=== PATIENT | male | born 1955 | race Caucasian/White ===

== ENCOUNTER → 2016-05-18 | Emergency (ER) | payer MEDICARE, MEDICAID ==
[2016-05-18 15:06] VITALS: BP 127/70
== END | disposition left against medical advice (07) ==
LOC: ED 14:58
DX: R56.9 Unspecified convulsions (principal)

== ENCOUNTER 2016-05-22 14:36 | Inpatient (IN) | payer MEDICARE, MEDICAID ==
[2016-05-22 15:24] LABS: Hematocrit 43 % (42-52); Hemoglobin 14.5 g/dl (14.0-18.0); Mean Corpuscular HGB Conc 34 g/dl (31-36); Mean Corpuscular Hemoglobin 33 pg (27-31); Mean Corpuscular Volume 97 fL (80-94); Mean Platelet Volume 8 um3 (7.4-10.4); Red Blood Count 4.44 10^6/ul (4.0-5.4); Red Cell Distribution Width 14 % (10.5-15); White Blood Count 6.4 10^3/ul (3.5-10.8)
[2016-05-22 15:27] LABS: Urine Bilirubin Negative (Negative); Urine Glucose 3+(>=500 mg/dL) (Negative); Urine Nitrite Negative (Negative)
[2016-05-22 15:38] LABS: ALT 15 U/L (7-52); AST 12 U/L (13-39); Albumin 3.5 g/dL (3.2-5.2); Alkaline Phosphatase 100 U/L (34-104); Anion Gap 6 mmol/L (2-11); BUN/Creatinine Ratio 21.4 (8-20); Blood Urea Nitrogen 15 mg/dL (6-24); C Reactive Protein 31.65 mg/L (< 5.00); CO2 Carbon Dioxide 24 mmol/L (22-32); Calcium 8.7 mg/dL (8.6-10.3); Chloride 101 mmol/L (101-111); Creatine Kinase 15 U/L (10-223); EGFR African American 147.4 (>60); EGFR Non-African American 114.6 (>60); Globulin 2.9 g/dL (2-4); Glucose 464 mg/dL (70-100); Lipase 43 U/L (11.0-82.0); Magnesium 1.7 mg/dL (1.9-2.7); Potassium 4.3 mmol/L (3.5-5.0); Sodium 131 mmol/L (133-145); Total Protein 6.4 g/dL (6.4-8.9)
[2016-05-22 16:16] LABS: Acetaminophen < 15 mcg/mL; Alcohol < 10 mg/dL (<10); Carbamazepine 9.3 mcg/mL (4.0-12.0); TSH (Thyroid Stimulating Horm) 1.29 mcIU/mL (0.34-5.60)
--- NOTE | 2016-05-22 16:28 | ED ---
Lane Guallpa Matthew, scribed for Binu Georges MD on 05/22/16 at 1513 . Altered Mental Status - HPI Summary HPI Summary: A 61 y/o male presents to the ED with an altered mental status since today. The home appliances mechanic called EMS, because the patient seems to have a worse altered mental status than normal. He has a Hx of seizures and was hospitalized at [facility] two weeks ago, where he left AMA twice. Associated symptoms include urinary incontinence. The patient does not understand why he's here today. He does not believe he had a seizure today. - History Of Current Complaint Chief Complaint: EDAltMentalStatus Stated Complaint: AMS Time Seen by Provider: 05/22/16 14:50 Hx Obtained From: Patient Onset/Duration: Still Present Timing: Constant Severity Initially: Moderate Severity Currently: Moderate Character: Agitation Aggravating Factor(s): Other - Seizures Alleviating Factor(s): Nothing - Allergies/Home Medications Allergies/Adverse Reactions: Allergies Allergy/AdvReac Type Severity Reaction Status Date / Time Penicillins Allergy Severe Hives Verified 09/22/15 12:47 Erythromycin Allergy Unknown Hives Verified 09/22/15 12:47 Azithromycin Allergy Hives Verified 09/22/15 12:47 Cephalosporins Allergy Hives Verified 09/22/15 12:47 Home Medications: Home Medications DOXYcycline CAP(*) [DOXYcycline 100MG CAP(*)] 100 mg PO BID 05/22/16 [History Confirmed 05/22/16] Magnesium Oxide TAB* [MagOx 400 TAB*] 800 mg PO QAM 05/22/16 [History Confirmed 05/22/16] Nitroglycerin TAB 0.4 MG* 0.4 mg SL Q5M PRN 05/22/16 [History Confirmed 05/22/16 ] Tiagabine HCl [Gabitril] 16 mg PO DAILY 05/22/16 [History Confirmed 05/22/16] carBAMazepine ER TAB(*) [TEGretol Xr TAB(*)] 400 mg PO QAM 05/22/16 [History Confirmed 05/22/16] carBAMazepine ER TAB(*) [TEGretol Xr TAB(*)] 800 mg PO QPM 05/22/16 [History Confirmed 05/22/16] PMH/Surg Hx/FS Hx/Imm Hx Endocrine/Hematology History: Reports: Hx Diabetes Cardiovascular History: Reports: Hx Angina, Hx Coronary Artery Disease, Hx Hypercholesterolemia, Hx Hypertension, Hx Myocardial Infarction Denies: Hx Pacemaker/ICD Respiratory History: Reports: Hx Chronic Obstructive Pulmonary Disease (COPD) GI History: Reports: Hx Gastroesophageal Reflux Disease Musculoskeletal History: Reports: Hx Orthopedic Injury - RIGHT LEG FRACTURE 2014 Denies: Hx Scoliosis Sensory History: Reports: Hx Contacts or Glasses, Hx Eye Injury, Other Sensory Impairments Denies: Hx Hearing Aid Opthamlomology History: Reports: Hx Contacts or Glasses, Hx Eye Injury, Other Sensory Impairments Neurological History: Reports: Hx Seizures Psychiatric History: Reports: Hx Anxiety, Hx Depression, Hx Panic Disorder - Surgical History Surgery Procedure, Year, and Place: GB removed,cardiac stents PROMUS drug eluting stent 07/15 at [facility] [place] and 04/13 at [facility] pt does not have his implant cards.SURGERY TO LEFT SHOULDER 1985 PER PT Infectious Disease History: No Infectious Disease History: Denies: Traveled Outside the [place] in Last 30 Days - Family History Family History: No FHx of seizures - Social History Alcohol Use: None Alcohol Amount: unknown; patient not answering questions appropiately Hx Substance Use: No Substance Use Type: Reports: None Substance Use Comment - Amount & Last Used: unknown; patient not answering questions appropriately Hx Tobacco Use: Yes Smoking Status (MU): Heavy Every Day Tobacco Smoker Type: Cigarettes Review of Systems Constitutional: Negative Eyes: Negative ENT: Negative Cardiovascular: Negative Respiratory: Negative Gastrointestinal: Negative Positive: incontinence Musculoskeletal: Negative Skin: Negative Neurological: Negative Psychological: Other - AMS All Other Systems Reviewed And Are Negative: Yes Physical Exam Triage Information Reviewed: Yes Vital Signs On Initial Exam: Initial Vitals Temp Pulse Resp BP Pulse Ox 98.8 F 66 16 94/64 95 05/22/16 14:46 05/22/16 14:46 05/22/16 14:46 05/22/16 14:46 05/22/16 14:46 Vital Signs Reviewed: Yes Appearance: Positive: Well-Appearing, No Pain Distress Skin: Positive: Warm, Skin Color Reflects Adequate Perfusion, Dry Eyes: Positive: EOMI, REA ENT: Positive: Normal ENT inspection Neck: Positive: Supple, Nontender Respiratory/Lung Sounds: Positive: Clear to Auscultation, Breath Sounds Present Cardiovascular: Positive: RRR Abdomen Description: Positive: Nontender, Soft Bowel Sounds: Positive: Present Musculoskeletal: Positive: Normal, Strength/ROM Intact Neurological: Positive: Normal, Sensory/Motor Intact, Alert, Oriented to Person Place, Time Psychiatric: Positive: Normal, Affect/Mood Appropriate Diagnostics - Vital Signs Vital Signs Temp Pulse Resp BP Pulse Ox 05/22/16 14:46 98.8 F 66 16 94/64 95 - Laboratory Lab Results: Lab Results 05/22/16 05/22/16 05/22/16 Range/Units 14:55 14:55 14:55 WBC 6.4 (3.5-10.8) 10^3/ul RBC 4.44 (4.0-5.4) 10^6/ul Hgb 14.5 (14.0-18.0) g/dl Hct 43 (42-52) % MCV 97 H (80-94) fL MCH 33 H (27-31) pg MCHC 34 (31-36) g/dl RDW 14 (10.5-15) % Plt Count 218 (150-450) 10^3/ul MPV 8 (7.4-10.4) um3 Neut % (Auto) 48.9 (38-83) % Lymph % (Auto) 42.9 (25-47) % [place] % (Auto) 7.1 (1-9) % Eos % (Auto) 0.6 (0-6) % Baso % (Auto) 0.5 (0-2) % Absolute Neuts (auto) 3.1 (1.5-7.7) 10^3/ul Absolute Lymphs (auto) 2.7 (1.0-4.8) 10^3/ul Absolute Monos (auto) 0.5 (0-0.8) 10^3/ul Absolute Eos (auto) 0 (0-0.6) 10^3/ul Absolute Basos (auto) 0 (0-0.2) 10^3/ul Absolute Nucleated RBC 0 10^3/ul Nucleated RBC % 0.1 INR (Anticoag Therapy) 0.90 (0.89-1.11) APTT 32.3 (26.0-36.3) seconds Sodium (133-145) mmol/L Potassium (3.5-5.0) mmol/L Chloride (101-111) mmol/L Carbon Dioxide (22-32) mmol/L Anion Gap (2-11) mmol/L BUN (6-24) mg/dL Creatinine (0.67-1.17) mg/dL Est GFR ( Amer) (>60) Est GFR (Non-Af Amer) (>60) BUN/Creatinine Ratio (8-20) Glucose (70-100) mg/dL Lactic Acid (0.5-2.0) mmol/L Calcium (8.6-10.3) mg/dL Magnesium (1.9-2.7) mg/dL Total Bilirubin (0.2-1.0) mg/dL AST (13-39) U/L ALT (7-52) U/L Alkaline Phosphatase (34-104) U/L Ammonia (16-53) mol/L Total Creatine Kinase (10-223) U/L CK-MB (CK-2) (0.6-6.3) ng/mL Troponin I (<0.04) ng/mL C-Reactive Protein (< 5.00) mg/L B-Natriuretic Peptide ( - 100) pg/mL Total Protein (6.4-8.9) g/dL Albumin (3.2-5.2) g/dL Globulin (2-4) g/dL Albumin/Globulin Ratio (1-3) Lipase (11.0-82.0) U/L TSH (0.34-5.60) mcIU/mL Urine Color Yellow Urine Appearance Clear Urine pH 5.0 (5-9) Ur Specific [place] 1.028 (1.010-1.030) Urine Protein Negative (Negative) Urine Ketones Trace H (Negative) Urine Blood Negative (Negative) Urine Nitrate Negative (Negative) Urine Bilirubin Negative (Negative) Urine Urobilinogen Negative (Negative) Ur Leukocyte Esterase Negative (Negative) Urine Glucose 3+(>=500 mg/dl) H (Negative) Acetaminophen mcg/mL Carbamazepine (4.0-12.0) mcg/mL Serum Alcohol (<10) mg/dL 05/22/16 05/22/16 05/22/16 Range/Units 14:55 14:55 14:55 WBC (3.5-10.8) 10^3/ul RBC (4.0-5.4) 10^6/ul Hgb (14.0-18.0) g/dl Hct (42-52) % MCV (80-94) fL MCH (27-31) pg MCHC (31-36) g/dl RDW (10.5-15) % Plt Count (150-450) 10^3/ul MPV (7.4-10.4) um3 Neut % (Auto) (38-83) % Lymph % (Auto) (25-47) % [place] % (Auto) (1-9) % Eos % (Auto) (0-6) % Baso % (Auto) (0-2) % Absolute Neuts (auto) (1.5-7.7) 10^3/ul Absolute Lymphs (auto) (1.0-4.8) 10^3/ul Absolute Monos (auto) (0-0.8) 10^3/ul Absolute Eos (auto) (0-0.6) 10^3/ul Absolute Basos (auto) (0-0.2) 10^3/ul Absolute Nucleated RBC 10^3/ul Nucleated RBC % INR (Anticoag Therapy) (0.89-1.11) APTT (26.0-36.3) seconds Sodium 131 L (133-145) mmol/L Potassium 4.3 (3.5-5.0) mmol/L Chloride 101 (101-111) mmol/L Carbon Dioxide 24 (22-32) mmol/L Anion Gap 6 (2-11) mmol/L BUN 15 (6-24) mg/dL Creatinine 0.70 (0.67-1.17) mg/dL Est GFR ( Amer) 147.4 (>60) Est GFR (Non-Af Amer) 114.6 (>60) BUN/Creatinine Ratio 21.4 H (8-20) Glucose 464 H (70-100) mg/dL Lactic Acid 0.6 (0.5-2.0) mmol/L Calcium 8.7 (8.6-10.3) mg/dL Magnesium 1.7 L (1.9-2.7) mg/dL Total Bilirubin 0.30 (0.2-1.0) mg/dL AST 12 L (13-39) U/L ALT 15 (7-52) U/L Alkaline Phosphatase 100 (34-104) U/L Ammonia (16-53) mol/L Total Creatine Kinase 15 (10-223) U/L CK-MB (CK-2) 1.4 (0.6-6.3) ng/mL Troponin I 0.00 (<0.04) ng/mL C-Reactive Protein 31.65 H (< 5.00) mg/L B-Natriuretic Peptide 20 ( - 100) pg/mL Total Protein 6.4 (6.4-8.9) g/dL Albumin 3.5 (3.2-5.2) g/dL Globulin 2.9 (2-4) g/dL Albumin/Globulin Ratio 1.2 (1-3) Lipase 43 (11.0-82.0) U/L TSH 1.29 (0.34-5.60) mcIU/mL Urine Color Urine Appearance Urine pH (5-9) Ur Specific [place] (1.010-1.030) Urine Protein (Negative) Urine Ketones (Negative) Urine Blood (Negative) Urine Nitrate (Negative) Urine Bilirubin (Negative) Urine Urobilinogen (Negative) Ur Leukocyte Esterase (Negative) Urine Glucose (Negative) Acetaminophen < 15 mcg/mL Carbamazepine 9.3 (4.0-12.0) mcg/mL Serum Alcohol < 10 (<10) mg/dL 05/22/16 Range/Units 15:20 WBC (3.5-10.8) 10^3/ul RBC (4.0-5.4) 10^6/ul Hgb (14.0-18.0) g/dl Hct (42-52) % MCV (80-94) fL MCH (27-31) pg MCHC (31-36) g/dl RDW (10.5-15) % Plt Count (150-450) 10^3/ul MPV (7.4-10.4) um3 Neut % (Auto) (38-83) % Lymph % (Auto) (25-47) % [place] % (Auto) (1-9) % Eos % (Auto) (0-6) % Baso % (Auto) (0-2) % Absolute Neuts (auto) (1.5-7.7) 10^3/ul Absolute Lymphs (auto) (1.0-4.8) 10^3/ul Absolute Monos (auto) (0-0.8) 10^3/ul Absolute Eos (auto) (0-0.6) 10^3/ul Absolute Basos (auto) (0-0.2) 10^3/ul Absolute Nucleated RBC 10^3/ul Nucleated RBC % INR (Anticoag Therapy) (0.89-1.11) APTT (26.0-36.3) seconds Sodium (133-145) mmol/L Potassium (3.5-5.0) mmol/L Chloride (101-111) mmol/L Carbon Dioxide (22-32) mmol/L Anion Gap (2-11) mmol/L BUN (6-24) mg/dL Creatinine (0.67-1.17) mg/dL Est GFR ( Amer) (>60) Est GFR (Non-Af Amer) (>60) BUN/Creatinine Ratio (8-20) Glucose (70-100) mg/dL Lactic Acid (0.5-2.0) mmol/L Calcium (8.6-10.3) mg/dL Magnesium (1.9-2.7) mg/dL Total Bilirubin (0.2-1.0) mg/dL AST (13-39) U/L ALT (7-52) U/L Alkaline Phosphatase (34-104) U/L Ammonia 39 (16-53) mol/L Total Creatine Kinase (10-223) U/L CK-MB (CK-2) (0.6-6.3) ng/mL Troponin I (<0.04) ng/mL C-Reactive Protein (< 5.00) mg/L B-Natriuretic Peptide ( - 100) pg/mL Total Protein (6.4-8.9) g/dL Albumin (3.2-5.2) g/dL Globulin (2-4) g/dL Albumin/Globulin Ratio (1-3) Lipase (11.0-82.0) U/L TSH (0.34-5.60) mcIU/mL Urine Color Urine Appearance Urine pH (5-9) Ur Specific [place] (1.010-1.030) Urine Protein (Negative) Urine Ketones (Negative) Urine Blood (Negative) Urine Nitrate (Negative) Urine Bilirubin (Negative) Urine Urobilinogen (Negative) Ur Leukocyte Esterase (Negative) Urine Glucose (Negative) Acetaminophen mcg/mL Carbamazepine (4.0-12.0) mcg/mL Serum Alcohol (<10) mg/dL Result Diagrams: 05/22/16 14:55 05/22/16 14:55 Lab Statement: Any lab studies that have been ordered have been reviewed, and results considered in the medical decision making process. Altered Mental Statu Course/Dx - Course Assessment/Plan: DISCUSSED WITH DR ELIAS. PATIENT IS NOT BEING TREATED FOR DIABETES. THE UNCONTROLLED DIABETES IS PROBABLY CAUSING INCREASED SEIZURE ACTIVITY. ADMIT HOSPITALIST STABLE TO START DIABETES TREATMENT TO HELP CONTROL SEIZURES. - Diagnoses Discharge Diagnoses: Seizures, Diabetes mellitus, new onset - Provider Notifications Discussed Care Of Patient With: Dr. Elias (Neurology) at 15:15 -- Notified of patient's history. Discharge - Discharge Plan Condition: Stable Disposition: ADMITTED TO [facility] The documentation as recorded by the Lane gabriel Matthew accurately reflects the service I personally performed and the decisions made by , Binu Georges MD.
[2016-05-22] MEDS ORDERED: Dextrose 50% Syringe 50 ML* 25 GM/50 ML SYRINGE IV PUSH PRN (16:41)
[2016-05-22] MEDS ORDERED: Ondansetron INJ* 2 MG/ML VIAL IV PRN (16:41)
[2016-05-22] MEDS ORDERED: Acetaminophen TAB* 325 MG PO PRN (16:41)
[2016-05-22] MEDS ORDERED: LORazepam TAB(*) 1 MG PO PRN (16:45)
[2016-05-22] MEDS ORDERED: Magnesium Sulfate 2 GM IV* 2 GM/50 ML BAG IVPB ONE (17:28)
[2016-05-22] MEDS ORDERED: Albuterol 2.5 MG/3 ML NEB.SOL* (0.083%) INH PRN (17:28)
--- NOTE | 2016-05-22 19:05 | HP ---
HISTORY AND PHYSICAL: DATE OF ADMISSION: 05/22/16 ATTENDING PHYSICIAN: Dr. Mack Lyons* (report dictated by Rodrick Doyle NP) . PRIMARY CARE PROVIDER: ROSA Pabon CONSULTING PSYCHIATRIST: Dr. Ordonez. CONSULTING NEUROLOGIST: Dr. Stahl. CHIEF COMPLAINT: Altered mental status. HISTORY OF PRESENT ILLNESS: Mr. Durham is a 61-year-old male patient. He has an extensive medical history with history of epilepsy, diabetes, CAD, hypertension , COPD, tobacco abuse, GERD, depression, anxiety, panic disorder, bipolar disorder, and history of hepatic encephalopathy, thought to be secondary to Depakote use. He comes in today and he is really unsure as to why he is here today, but according to reports of nursing notes and from the EMS notes, the patient was found by, I believe, the pillowcase maker or his aide to be confused, found to be incontinent of urine, and there was concern for seizure, so the patient was brought into the hospital. He was recently in [facility] and signed out AMA. He was just here in our ER 4 days ago for similar complaints. He comes in today because there was noted again altered mental status and he had question of seizure and incontinence. The patient when asking him if he remembers any of these events, he says no, he says he feels fine. He says he has not been ill of late. He denies having any fevers. No nausea, vomiting, or diarrhea. He denies having any chest pain or shortness of breath. No recent URI symptoms. Denies having any fevers or changes in medications. He says he has been taking medications right along and he also denies being diabetic, although when I stated him he was admitted almost 2 years ago with sugars of 880, he says he does not recall this. The patient noted today to have a sugar of almost 500. There was concern for possible seizures related to poor glucose control and the hospitalist service was asked to evaluate for admission. PAST MEDICAL HISTORY: Significant for: 1. Epilepsy with complex seizures. 2. Diabetes. 3. CAD. 4. Hypertension. 5. COPD. 6. Tobacco abuse. 7. GERD. 8. Depression. 9. Anxiety. 10. Panic disorder. 11. Hepatic encephalopathy thought secondary to Depakote use. 12. Bipolar disorder. PAST SURGICAL HISTORY: The patient has had laparoscopic cholecystectomy. MEDICATIONS: Home meds according to the list that he provided to us include: 1. Tegretol 400 mg in the morning and 800 mg at bedtime. 2. Ambien 5 mg at bedtime. 3. Nitro 0.4 mg q.5 minutes x3 p.r.n. chest pain. 4. Vimpat 300 mg p.o. twice a day. 5. Crestor 40 mg daily. 6. Toprol 100 mg p.o. daily. 7. Zoloft 200 mg daily. 8. Mag-Ox 800 mg daily. 9. Zantac 150 mg at bedtime. 10. Zyprexa 10 mg at bedtime. 11. Ativan 2 mg every 8 hours as needed for anxiety. 12. Prevacid 30 mg daily. 13. Plavix 75 mg daily. 14. Remeron 30 mg at bedtime. 15. Gabitril 16 mg p.o. daily. 16. Singulair 10 mg daily. 17. Ibuprofen 800 mg p.o. t.i.d. as needed. 18. Aspirin 81 mg daily. 19. Ranexa 500 mg p.o. twice a day. 20. Zetia 10 mg daily. ALLERGIES TO MEDICATIONS: Include PENICILLIN, ERYTHROMYCIN, AZITHROMYCIN, and CEPHALOSPORINS. FAMILY HISTORY: Mother had heart attack. Father had history of pneumonia. SOCIAL HISTORY: He is about a-sdij-s-day smoker. He does not drink alcohol. He does not appoint a surrogate decision maker at this point. REVIEW OF SYSTEMS: There is no documented fever. He denied any significant weight change. No double vision. No ear discharge, no rhinorrhea. No sore throat. No thyroid enlargement. Denies having any chest pain. There is no orthopnea, no nocturnal dyspnea. There is no abdominal pain. No nausea, no vomiting. No dysuria, no frequency. No loss of consciousness. No pruritus and no skin ulceration. Review of 14 systems completed, all others negative. PHYSICAL EXAMINATION GENERAL: At this time, Mr. Durham is a 61-year-old male patient, appears to be chronically ill. He is sitting in the ER stretcher and does not appear to be in any acute distress. VITAL SIGNS: Reveal blood pressure of 111/65 with pulse of 67, respirations 18 , O2 sat 97%, and temperature 98.8. HEENT: Head is atraumatic, normocephalic. Eyes: EOMs intact. Sclerae anicteric. Throat: Oral mucosa appears to be dry. No oropharyngeal erythema. NECK: Supple. LUNGS: He had wheeze noted throughout. Equal diaphragmatic expansion. HEART: Sounds S1, S2. Regular rate and rhythm. No murmurs, rubs, or gallops. ABDOMEN: Soft, flat, and nontender. Bowel sounds are present. EXTREMITIES: Pulses 2+ throughout. He is able to move all 4 extremities with 5 /5 strength. NEUROLOGIC: He is awake, he is alert, he is oriented to person, time, and place. He had no gross focal deficits. SKIN: Intact. DIAGNOSTIC STUDIES/LAB DATA: Today revealed WBC of 6.4, RBC of 4.44, hemoglobin 14.5, hematocrit of 43, and platelet count of 218. The INR was 0.90 , PT of 32.3. Sodium 131, potassium 4.3, chloride of 101, bicarb 24, BUN 15, creatinine of 0.70, glucose of 464, lactate of 0.6, calcium 8.7, mag was 1.7. AST 12, ALT 15, alk phos 100. Ammonia 39. CK 15, CK-MB 1.4. Troponin 0. BNP 20. Albumin 3.5. TSH 1.39. Urine showed trace ketones, 3+ glucose. Toxicology was negative for alcohol. His Tegretol level was 9.3. EKG obtained today, which revealed a normal sinus rhythm rate of 66. He had no ST elevations or T-wave inversions. It is reviewed to a previous EKG, appears to be similar. Old medical records were reviewed. ASSESSMENT AND PLAN: Mr. Durham is a 61-year-old male patient coming into the ER today with complaints of altered mental status. In evaluation here in the ER, it was noted he had a sugar of 464. Hospitalist service was asked to evaluate for admission. He will be admitted under observation status for: 1. Altered mental status: The etiology is unclear. He may have had a seizure. He was asking me to be discharged today or asking if he could go home. I did explain to him the rationale why I am keeping him and I asked him what he felt the consequences where if he were to be discharged home and I explained to him my concern was that he could have a seizure at home. We may need to adjust his medications and that if he has a seizure unwitnessed at home, he could fall, injure himself, hit his head possibly. I asked him if he understood those consequences, he says that it is like tossing a coin. He did not elaborate on this. I did not feel that was an appropriate response, I feel that he may not be making the best decision, so I did order a psychiatric evaluation. He seems to be, I think, at his baseline at this point. He is amenable to staying overnight to monitor him for any more seizures, which I will order seizure precautions and neuro checks every 4 hours. I did put a Neuro consult and a Psych consult as well. We will continue his medications for seizure disorder and we will monitor. Should he have a seizure, we obviously then will need to adjust medication, we will follow. I do not see any obvious cause of altered mental status on his lab work. 2. Epilepsy with complex seizures: Continue meds as described. 3. Diabetes: Again, he says he has never been diabetic, but looking back at his chart, he has had sugars as high as 880. I am getting an A1c. We will put him on a small dose of Lantus and a sliding scale and we will follow. 4. Coronary artery disease: Continue meds as prescribed. 5. Hypertension: Continue his medications as prescribed. 6. Chronic obstructive pulmonary disease: He does have some wheezing on exam. I did put him on Dulera and nebs every 6 hours along with p.r.n. albuterol. 7. Tobacco abuse: I have encouraged smoking cessation. He is not willing to quit at this point. 8. Gastroesophageal reflux disease: Continue meds as prescribed. 9. Depression and anxiety: Continue his meds as prescribed. 10. History of panic disorder: I ordered p.r.n. Ativan. 11. Hepatic encephalopathy: Not an active issue at this point. 12. History of bipolar disorder: Continue his meds as prescribed. 13. DVT prophylaxis: He is moderate risk and will be placed on heparin subcu. 14. Code status: Full code. 15. Fluids, electrolytes, and nutrition: He can have a consistent carb diet. TIME SPENT: On the admission was 60 minutes; greater than half the time was spent [id number] with the patient obtaining my history and physical, the other half time was spent going over the plan of care with the patient and implementing plan of care. I did discuss the plan of care with my attending, Dr. Lyons; he is in agreement. RODRICK DOYLE NP CC: ROSA Pabon; Dr. Ordonez; Dr. Magdaleno; Dr. Stahl* [id number]/[facility] #: [id number] MTDD
[2016-05-22] MEDS ORDERED: Insulin LISPRO* 1 UNITS UNIT SUBCUT ONE ×3 (20:00→23:30)
[2016-05-22] MEDS: Albuterol/Ipratropium NEB.SOL* Albuterol 2.5 MG/Ipratropium 0.5 MG 3 ML INH SCH (20:03)
[2016-05-22] MEDS: Mometasone/Formoter 200/5 MDI INH SCH (20:06)
[2016-05-22] MEDS: OLANzapine TAB* 5 MG PO SCH (20:19)
[2016-05-22] MEDS: Mirtazapine TAB* 15 MG PO SCH (20:20)
[2016-05-22] MEDS: carBAMazepine ER TAB(*) 200 MG PO SCH (20:21)
[2016-05-22] MEDS: Heparin VIAL(*) 5000 UNITS/ML VIAL (FIVE THOUSAND) SUBCUT SCH (20:22)
[2016-05-22] MEDS ORDERED: Insulin GLARGINE(*) 1 UNITS UNIT SUBCUT SCH (21:00)
[2016-05-22] MEDS: CMCS: Ranolazine (NF) 500 MG TAB PO SCH (22:44)
[2016-05-22] MEDS: LaCOSAMide TAB* 150 MG TAB PO SCH (22:45)
[2016-05-23] MEDS: Zolpidem TAB* 5 MG PO PRN ×2 (00:34→23:30)
[2016-05-23] MEDS: Albuterol/Ipratropium NEB.SOL* Albuterol 2.5 MG/Ipratropium 0.5 MG 3 ML INH SCH ×3 (01:31→15:18)
[2016-05-23] MEDS: Heparin VIAL(*) 5000 UNITS/ML VIAL (FIVE THOUSAND) SUBCUT SCH ×3 (06:32→21:39)
[2016-05-23 06:43] LABS: Hematocrit 38 % (42-52); Hemoglobin 13.2 g/dl (14.0-18.0); Mean Corpuscular HGB Conc 35 g/dl (31-36); Mean Corpuscular Hemoglobin 33 pg (27-31); Mean Corpuscular Volume 96 fL (80-94); Mean Platelet Volume 8 um3 (7.4-10.4); Red Blood Count 3.95 10^6/ul (4.0-5.4); Red Cell Distribution Width 14 % (10.5-15); White Blood Count 7.1 10^3/ul (3.5-10.8)
[2016-05-23 07:00] LABS: BUN/Creatinine Ratio 21.4 (8-20); Calcium 8.3 mg/dL (8.6-10.3); EGFR African American 119.5 (>60); EGFR Non-African American 92.9 (>60)
[2016-05-23 07:31] LABS: Potassium 3.8 mmol/L (3.5-5.0)
[2016-05-23] MEDS: Mometasone/Formoter 200/5 MDI INH SCH ×2 (08:41→20:28)
[2016-05-23] MEDS: carBAMazepine ER TAB(*) 200 MG PO SCH ×2 (08:48→17:40)
[2016-05-23] MEDS: LaCOSAMide TAB* 150 MG TAB PO SCH ×2 (08:49→21:39)
[2016-05-23] MEDS: CMCS: Pantoprazole TAB (NF) 40 MG TAB PO SCH (08:49)
[2016-05-23] MEDS: CMCS: Ranolazine (NF) 500 MG TAB PO SCH ×2 (08:49→21:30)
[2016-05-23] MEDS: Sertraline* 100 MG TAB PO SCH (08:49)
[2016-05-23] MEDS: Clopidogrel TAB* 75 MG PO SCH (08:49)
[2016-05-23] MEDS: Atorvastatin* 80 MG TAB PO SCH (08:50)
[2016-05-23] MEDS: Magnesium Oxide TAB* 400 MG PO SCH (08:50)
[2016-05-23] MEDS: Montelukast Sodium TAB* 10 MG PO SCH (08:50)
[2016-05-23] MEDS: Aspirin EC Low Dose* 81 MG TAB.EC PO SCH (08:50)
[2016-05-23] MEDS: Ezetimibe TAB* 10 MG PO SCH (08:50)
[2016-05-23] MEDS: Insulin LISPRO* 1 UNITS UNIT SUBCUT SCH ×3 (08:51→17:38)
[2016-05-23] MEDS ORDERED: TIAGABINE PO SCH (09:00)
[2016-05-23] MEDS ORDERED: Metoprolol Succinate XL TAB* 100 MG PO SCH ×2 (09:00→09:13)
--- NOTE | 2016-05-23 09:12 | PN ---
Subjective Date of Service: 05/23/16 Objective Active Medications: Acetaminophen (Tylenol Tab*) 650 mg PO Q4H PRN PRN Reason: FEVER/PAIN Albuterol (Ventolin 2.5 Mg/3 Ml Neb.Sindy*) 2.5 mg INH Q2H PRN PRN Reason: SOB/WHEEZING Albuterol/Ipratropium (Duoneb Neb.Sindy*) 1 neb INH [id number] AWAKE [facility] Last Admin: 05/23/16 08:39 Dose: 1 neb Aspirin (Aspirin Ec Low Dose*) 81 mg PO DAILY [facility] Last Admin: 05/23/16 08:50 Dose: 81 mg Atorvastatin Calcium (Lipitor*) 80 mg PO DAILY [facility] Last Admin: 05/23/16 08:50 Dose: 80 mg Carbamazepine (Tegretol Xr Tab(*)) 400 mg PO QAM [facility] Last Admin: 05/23/16 08:48 Dose: 400 mg Carbamazepine (Tegretol Xr Tab(*)) 800 mg PO QPM [facility] Last Admin: 05/22/16 20:21 Dose: 800 mg Clopidogrel Bisulfate (Plavix Tab*) 75 mg PO DAILY [facility] Last Admin: 05/23/16 08:49 Dose: 75 mg Dextrose (D50w Syringe 50 Ml*) 12.5 gm IV PUSH .FOR FS < 60 - SS PRN PRN Reason: FS < 60 Ezetimibe (Zetia Tab*) 10 mg PO DAILY [facility] Last Admin: 05/23/16 08:50 Dose: 10 mg Heparin Sodium (Porcine) (Heparin Vial(*)) 5,000 units SUBCUT Q8HR [facility] Last Admin: 05/23/16 06:32 Dose: 5,000 units Sodium Chloride (Ns 0.9% 1000 Ml*) 1,000 mls @ 125 mls/hr IV PER RATE [facility] Stop: 05/23/16 17:14 Insulin Glargine (Lantus(*)) 10 units SUBCUT Q24H [facility] Last Admin: 05/22/16 23:35 Dose: 10 unit Insulin Human Lispro (Humalog*) 0 units SUBCUT AC [facility] PRN Reason: Protocol Last Admin: 05/23/16 08:51 Dose: 6 unit Lacosamide (Vimpat) 150 mg PO BID [facility] Last Admin: 05/23/16 08:49 Dose: 150 mg Lorazepam (Ativan Tab(*)) 2 mg PO Q8H PRN PRN Reason: SEIZURES Magnesium Oxide (Magox 400 Tab*) 800 mg PO QAM [facility] Last Admin: 05/23/16 08:50 Dose: 800 mg Metoprolol Succinate (Toprol Xl Tab*) 100 mg PO DAILY [facility] Last Admin: 05/23/16 09:00 Dose: Not Given Mirtazapine (Remeron Tab*) 30 mg PO BEDTIME [facility] Last Admin: 05/22/16 20:20 Dose: 30 mg Mometasone Furoate/Formoterol Fumar (Dulera 200/5 Mdi*) 2 puff INH BID [facility] Last Admin: 05/23/16 08:41 Dose: 2 puff Montelukast Sodium (Singulair Tab*) 10 mg PO QAM [facility] Last Admin: 05/23/16 08:50 Dose: 10 mg Olanzapine (Zyprexa Tab*) 10 mg PO BEDTIME [facility] Last Admin: 05/22/16 20:19 Dose: 10 mg Ondansetron HCl (Zofran Inj*) 4 mg IV Q6H PRN PRN Reason: NAUSEA Pantoprazole Sodium (Protonix Tab (Nf)) 40 mg PO DAILY@0730 [facility] PRN Reason: Protocol Last Admin: 05/23/16 08:49 Dose: 40 mg Ranolazine (Ranexa (Nf)) 500 mg PO BID [facility] PRN Reason: Protocol Last Admin: 05/23/16 08:49 Dose: 500 mg [facility] ([facility]*) [facility] Admin: 05/23/16 08:49 Dose: 200 mg Tiagabine HCl (Gabitril(*)) 16 mg PO DAILY [facility] Zolpidem Tartrate (Ambien Tab*) 5 mg PO BEDTIME PRN PRN Reason: INSOMNIA Last Admin: 05/23/16 00:34 Dose: 5 mg Vital Signs 05/22/16 05/22/16 05/22/16 16:41 17:00 17:25 Temperature 98.6 F Pulse Rate 72 67 67 Respiratory 16 Rate Blood Pressure 100/66 100/66 (mmHg) O2 Sat by Pulse 97 97 95 Oximetry 05/22/16 05/22/16 05/22/16 17:41 17:58 18:28 Temperature 98.6 F 97.5 F Pulse Rate 97 Respiratory 18 18 Rate Blood Pressure 99/45 (mmHg) O2 Sat by Pulse 97 Oximetry 05/22/16 05/22/16 05/22/16 19:15 20:00 20:07 Temperature 98.3 F Pulse Rate 45 92 Respiratory 18 16 Rate Blood Pressure 117/64 (mmHg) O2 Sat by Pulse 94 98 Oximetry 05/22/16 05/22/16 05/23/16 20:10 23:23 03:23 Temperature 97.4 F Pulse Rate 66 72 Respiratory 16 16 Rate Blood Pressure 103/61 95/53 (mmHg) O2 Sat by Pulse 97 94 97 Oximetry 05/23/16 05/23/16 05/23/16 07:25 08:42 08:43 Temperature Pulse Rate 67 73 Respiratory 16 18 Rate Blood Pressure 98/51 (mmHg) O2 Sat by Pulse 92 95 95 Oximetry Result Diagrams: 05/23/16 05:48 05/23/16 05:48 Additional Lab and Data: Lab Results 05/22/16 05/22/16 05/22/16 Range/Units 14:55 14:55 14:55 WBC 6.4 (3.5-10.8) 10^3/ul RBC 4.44 (4.0-5.4) 10^6/ul Hgb 14.5 (14.0-18.0) g/dl Hct 43 (42-52) % MCV 97 H (80-94) fL MCH 33 H (27-31) pg MCHC 34 (31-36) g/dl RDW 14 (10.5-15) % Plt Count 218 (150-450) 10^3/ul MPV 8 (7.4-10.4) um3 Neut % (Auto) 48.9 (38-83) % Lymph % (Auto) 42.9 (25-47) % Karnes % (Auto) 7.1 (1-9) % Eos % (Auto) 0.6 (0-6) % Baso % (Auto) 0.5 (0-2) % Absolute Neuts (auto) 3.1 (1.5-7.7) 10^3/ul Absolute Lymphs (auto) 2.7 (1.0-4.8) 10^3/ul Absolute Monos (auto) 0.5 (0-0.8) 10^3/ul Absolute Eos (auto) 0 (0-0.6) 10^3/ul Absolute Basos (auto) 0 (0-0.2) 10^3/ul Absolute Nucleated RBC 0 10^3/ul Nucleated RBC % 0.1 INR (Anticoag Therapy) 0.90 (0.89-1.11) APTT 32.3 (26.0-36.3) seconds Sodium (133-145) mmol/L Potassium (3.5-5.0) mmol/L Chloride (101-111) mmol/L Carbon Dioxide (22-32) mmol/L Anion Gap (2-11) mmol/L BUN (6-24) mg/dL Creatinine (0.67-1.17) mg/dL Est GFR ( Amer) (>60) Est GFR (Non-Af Amer) (>60) BUN/Creatinine Ratio (8-20) Glucose (70-100) mg/dL Lactic Acid (0.5-2.0) mmol/L Calcium (8.6-10.3) mg/dL Magnesium (1.9-2.7) mg/dL Total Bilirubin (0.2-1.0) mg/dL AST (13-39) U/L ALT (7-52) U/L Alkaline Phosphatase (34-104) U/L Ammonia (16-53) mol/L Total Creatine Kinase (10-223) U/L CK-MB (CK-2) (0.6-6.3) ng/mL Troponin I (<0.04) ng/mL C-Reactive Protein (< 5.00) mg/L B-Natriuretic Peptide ( - 100) pg/mL Total Protein (6.4-8.9) g/dL Albumin (3.2-5.2) g/dL Globulin (2-4) g/dL Albumin/Globulin Ratio (1-3) Lipase (11.0-82.0) U/L TSH (0.34-5.60) mcIU/mL Urine Color Yellow Urine Appearance Clear Urine pH 5.0 (5-9) Ur Specific Mcalister 1.028 (1.010-1.030) Urine Protein Negative (Negative) Urine Ketones Trace H (Negative) Urine Blood Negative (Negative) Urine Nitrate Negative (Negative) Urine Bilirubin Negative (Negative) Urine Urobilinogen Negative (Negative) Ur Leukocyte Esterase Negative (Negative) Urine Glucose 3+(>=500 mg/dl) H (Negative) Acetaminophen mcg/mL Carbamazepine (4.0-12.0) mcg/mL Serum Alcohol (<10) mg/dL 05/22/16 05/22/16 05/22/16 Range/Units 14:55 14:55 14:55 WBC (3.5-10.8) 10^3/ul RBC (4.0-5.4) 10^6/ul Hgb (14.0-18.0) g/dl Hct (42-52) % MCV (80-94) fL MCH (27-31) pg MCHC (31-36) g/dl RDW (10.5-15) % Plt Count (150-450) 10^3/ul MPV (7.4-10.4) um3 Neut % (Auto) (38-83) % Lymph % (Auto) (25-47) % Karnes % (Auto) (1-9) % Eos % (Auto) (0-6) % Baso % (Auto) (0-2) % Absolute Neuts (auto) (1.5-7.7) 10^3/ul Absolute Lymphs (auto) (1.0-4.8) 10^3/ul Absolute Monos (auto) (0-0.8) 10^3/ul Absolute Eos (auto) (0-0.6) 10^3/ul Absolute Basos (auto) (0-0.2) 10^3/ul Absolute Nucleated RBC 10^3/ul Nucleated RBC % INR (Anticoag Therapy) (0.89-1.11) APTT (26.0-36.3) seconds Sodium 131 L (133-145) mmol/L Potassium 4.3 (3.5-5.0) mmol/L Chloride 101 (101-111) mmol/L Carbon Dioxide 24 (22-32) mmol/L Anion Gap 6 (2-11) mmol/L BUN 15 (6-24) mg/dL Creatinine 0.70 (0.67-1.17) mg/dL Est GFR ( Amer) 147.4 (>60) Est GFR (Non-Af Amer) 114.6 (>60) BUN/Creatinine Ratio 21.4 H (8-20) Glucose 464 H (70-100) mg/dL Lactic Acid 0.6 (0.5-2.0) mmol/L Calcium 8.7 (8.6-10.3) mg/dL Magnesium 1.7 L (1.9-2.7) mg/dL Total Bilirubin 0.30 (0.2-1.0) mg/dL AST 12 L (13-39) U/L ALT 15 (7-52) U/L Alkaline Phosphatase 100 (34-104) U/L Ammonia (16-53) mol/L Total Creatine Kinase 15 (10-223) U/L CK-MB (CK-2) 1.4 (0.6-6.3) ng/mL Troponin I 0.00 (<0.04) ng/mL C-Reactive Protein 31.65 H (< 5.00) mg/L B-Natriuretic Peptide 20 ( - 100) pg/mL Total Protein 6.4 (6.4-8.9) g/dL Albumin 3.5 (3.2-5.2) g/dL Globulin 2.9 (2-4) g/dL Albumin/Globulin Ratio 1.2 (1-3) Lipase 43 (11.0-82.0) U/L TSH 1.29 (0.34-5.60) mcIU/mL Urine Color Urine Appearance Urine pH (5-9) Ur Specific Mcalister (1.010-1.030) Urine Protein (Negative) Urine Ketones (Negative) Urine Blood (Negative) Urine Nitrate (Negative) Urine Bilirubin (Negative) Urine Urobilinogen (Negative) Ur Leukocyte Esterase (Negative) Urine Glucose (Negative) Acetaminophen < 15 mcg/mL Carbamazepine 9.3 (4.0-12.0) mcg/mL Serum Alcohol < 10 (<10) mg/dL 05/22/16 Range/Units 15:20 WBC (3.5-10.8) 10^3/ul RBC (4.0-5.4) 10^6/ul Hgb (14.0-18.0) g/dl Hct (42-52) % MCV (80-94) fL MCH (27-31) pg MCHC (31-36) g/dl RDW (10.5-15) % Plt Count (150-450) 10^3/ul MPV (7.4-10.4) um3 Neut % (Auto) (38-83) % Lymph % (Auto) (25-47) % Karnes % (Auto) (1-9) % Eos % (Auto) (0-6) % Baso % (Auto) (0-2) % Absolute Neuts (auto) (1.5-7.7) 10^3/ul Absolute Lymphs (auto) (1.0-4.8) 10^3/ul Absolute Monos (auto) (0-0.8) 10^3/ul Absolute Eos (auto) (0-0.6) 10^3/ul Absolute Basos (auto) (0-0.2) 10^3/ul Absolute Nucleated RBC 10^3/ul Nucleated RBC % INR (Anticoag Therapy) (0.89-1.11) APTT (26.0-36.3) seconds Sodium (133-145) mmol/L Potassium (3.5-5.0) mmol/L Chloride (101-111) mmol/L Carbon Dioxide (22-32) mmol/L Anion Gap (2-11) mmol/L BUN (6-24) mg/dL Creatinine (0.67-1.17) mg/dL Est GFR ( Amer) (>60) Est GFR (Non-Af Amer) (>60) BUN/Creatinine Ratio (8-20) Glucose (70-100) mg/dL Lactic Acid (0.5-2.0) mmol/L Calcium (8.6-10.3) mg/dL Magnesium (1.9-2.7) mg/dL Total Bilirubin (0.2-1.0) mg/dL AST (13-39) U/L ALT (7-52) U/L Alkaline Phosphatase (34-104) U/L Ammonia 39 (16-53) mol/L Total Creatine Kinase (10-223) U/L CK-MB (CK-2) (0.6-6.3) ng/mL Troponin I (<0.04) ng/mL C-Reactive Protein (< 5.00) mg/L B-Natriuretic Peptide ( - 100) pg/mL Total Protein (6.4-8.9) g/dL Albumin (3.2-5.2) g/dL Globulin (2-4) g/dL Albumin/Globulin Ratio (1-3) Lipase (11.0-82.0) U/L TSH (0.34-5.60) mcIU/mL Urine Color Urine Appearance Urine pH (5-9) Ur Specific Mcalister (1.010-1.030) Urine Protein (Negative) Urine Ketones (Negative) Urine Blood (Negative) Urine Nitrate (Negative) Urine Bilirubin (Negative) Urine Urobilinogen (Negative) Ur Leukocyte Esterase (Negative) Urine Glucose (Negative) Acetaminophen mcg/mL Carbamazepine (4.0-12.0) mcg/mL Serum Alcohol (<10) mg/dL Assess/Plan/Problems-Billing Assessment: Mr. Durham is a 61 yo male with a PMH of multiple hospitalizations, epilepsy, uncontrolled DM, CAD, COPD, current tobacco use, bipolar, anxiety/ depression disorder and hx hepatic encephalopathy who presents to ED with AMS. - Patient Problems (1) Altered mental status, unspecified (2) Type 2 diabetes mellitus Comment: Pt denies hx of DM. Fingerstick BG AC. Continue Lispro SS and lantus Q24hr (3) Seizure disorder (4) Bipolar disorder Comment: continue Zyprexa and Zoloft (5) Hypertension Comment: Continue metoprolol with hold parameters (6) CAD (coronary artery disease) Comment: Asymptomatic. Patient is in SR. Continue Plavix, metoprolol and statin. (7) COPD (chronic obstructive pulmonary disease) Comment: No signs of exacerbation. Continue Dulera (8) Depression Comment: Supportive care. Continue sertraline and Zyprexa. (9) GERD (gastroesophageal reflux disease) Comment: Continue omeprazole. (10) Tobacco abuse Comment: - nicotine replacement - smoking cessation (11) DVT prophylaxis Comment: SQ heparin (12) Full code status
[2016-05-23] MEDS ORDERED: NS 0.9% 1000 ML* 1,000 ML IV SCH (09:15)
[2016-05-23] MEDS ORDERED: Mouth Piece, Nicotine* 1 EACH CARTRIDGE INH PRN (09:15)
[2016-05-23] MEDS ORDERED: Nicotine Inhaler* 10 MG AMP INH PRN (09:15)
[2016-05-23 10:22] LABS: Magnesium 1.9 mg/dL (1.9-2.7)
[2016-05-23] MEDS: Nicotine PATCH 21 MG/24 HR* PATCH TRANSDERM SCH (10:34)
[2016-05-23] MEDS: TIAGABINE HCL 4 MG PO SCH (10:35)
[2016-05-23] MEDS ORDERED: Insulin LISPRO* 1 UNITS UNIT SUBCUT ONE (15:00)
[2016-05-23] MEDS ORDERED: Insulin GLARGINE(*) 1 UNITS UNIT SUBCUT ONE (15:00)
--- NOTE | 2016-05-23 15:27 | PN ---
Subjective Date of Service: 05/23/16 Interval History: Pt stating he was leaving [place]. I spoke to the pt at the bedside and he has agreed to stay at this time for diabetes treatment. He also agrees to start medication for DM. He reports "no one has ever told me Carmen had DM before". He also stated he thought that we were lying to him about his elevated BS to keep him here. He denies any further seizure activity. He reports he is "very compliant" with taking his anti-seizure meds. After discussing DM with pt at length he states he has "accepted the diagnoses" . Pt denies any recent illness. Denies CP or SOB. No fevers or chills Objective Active Medications: Acetaminophen (Tylenol Tab*) 650 mg PO Q4H PRN PRN Reason: FEVER/PAIN Albuterol (Ventolin 2.5 Mg/3 Ml Neb.Sindy*) 2.5 mg INH Q2H PRN PRN Reason: SOB/WHEEZING Aspirin (Aspirin Ec Low Dose*) 81 mg PO DAILY [facility] Last Admin: 05/23/16 08:50 Dose: 81 mg Atorvastatin Calcium (Lipitor*) 80 mg PO DAILY [facility] Last Admin: 05/23/16 08:50 Dose: 80 mg Carbamazepine (Tegretol Xr Tab(*)) 400 mg PO QAM [facility] Last Admin: 05/23/16 08:48 Dose: 400 mg Carbamazepine (Tegretol Xr Tab(*)) 800 mg PO QPM [facility] Last Admin: 05/22/16 20:21 Dose: 800 mg Clopidogrel Bisulfate (Plavix Tab*) 75 mg PO DAILY [facility] Last Admin: 05/23/16 08:49 Dose: 75 mg Device (Nicotine Mouth Piece*) 1 each INH .USE WITH NICOTROL PRN PRN Reason: CRAVING Dextrose (D50w Syringe 50 Ml*) 12.5 gm IV PUSH .FOR FS < 60 - SS PRN PRN Reason: FS < 60 Ezetimibe (Zetia Tab*) 10 mg PO DAILY [facility] Last Admin: 05/23/16 08:50 Dose: 10 mg Heparin Sodium (Porcine) (Heparin Vial(*)) 5,000 units SUBCUT Q8HR [facility] Last Admin: 05/23/16 13:49 Dose: Not Given Sodium Chloride (Ns 0.9% 1000 Ml*) 1,000 mls @ 125 mls/hr IV PER RATE [facility] Stop: 05/23/16 17:14 Last Admin: 05/23/16 10:42 Dose: 125 mls/hr Insulin Glargine (Lantus(*)) 10 units SUBCUT Q24H [facility] Last Admin: 05/22/16 23:35 Dose: 10 unit Insulin Human Lispro (Humalog*) 0 units SUBCUT AC [facility] PRN Reason: Protocol Last Admin: 05/23/16 13:10 Dose: 15 unit Lacosamide (Vimpat) 150 mg PO BID [facility] Last Admin: 05/23/16 08:49 Dose: 150 mg Lorazepam (Ativan Tab(*)) 2 mg PO Q8H PRN PRN Reason: SEIZURES Magnesium Oxide (Magox 400 Tab*) 800 mg PO QAM [facility] Last Admin: 05/23/16 08:50 Dose: 800 mg Metoprolol Succinate (Toprol Xl Tab*) 100 mg PO DAILY [facility] Mirtazapine (Remeron Tab*) 30 mg PO BEDTIME [facility] Last Admin: 05/22/16 20:20 Dose: 30 mg Mometasone Furoate/Formoterol Fumar (Dulera 200/5 Mdi*) 2 puff INH BID [facility] Last Admin: 05/23/16 08:41 Dose: 2 puff Montelukast Sodium (Singulair Tab*) 10 mg PO QAM [facility] Last Admin: 05/23/16 08:50 Dose: 10 mg Nicotine (Nicotine Inhaler*) 10 mg INH Q2H PRN PRN Reason: CRAVING Nicotine (Nicotine Patch 21 Mg/24 Hr*) 1 patch TRANSDERM Q24H [facility] Last Admin: 05/23/16 10:34 Dose: 1 patch Olanzapine (Zyprexa Tab*) 10 mg PO BEDTIME [facility] Last Admin: 05/22/16 20:19 Dose: 10 mg Ondansetron HCl (Zofran Inj*) 4 mg IV Q6H PRN PRN Reason: NAUSEA Pantoprazole Sodium (Protonix Tab (Nf)) 40 mg PO DAILY@0730 [facility] PRN Reason: Protocol Last Admin: 05/23/16 08:49 Dose: 40 mg Pharmacy Profile Note (Nicotine Patch Removal Note*) 1 note PATCH OFF 2100 [facility] Ranolazine (Ranexa (Nf)) 500 mg PO BID [facility] PRN Reason: Protocol Last Admin: 05/23/16 08:49 Dose: 500 mg Sertraline HCl (Zoloft*) 200 mg PO QAM [facility] Last Admin: 05/23/16 08:49 Dose: 200 mg Tiagabine HCl (Gabitril(*)) 16 mg PO DAILY [facility] Last Admin: 05/23/16 10:35 Dose: 16 mg Zolpidem Tartrate (Ambien Tab*) 5 mg PO BEDTIME PRN PRN Reason: INSOMNIA Last Admin: 05/23/16 00:34 Dose: 5 mg Vital Signs 05/22/16 05/22/16 05/22/16 16:41 17:00 17:25 Temperature 98.6 F Pulse Rate 72 67 67 Respiratory 16 Rate Blood Pressure 100/66 100/66 (mmHg) O2 Sat by Pulse 97 97 95 Oximetry 05/22/16 05/22/16 05/22/16 17:41 17:58 18:28 Temperature 98.6 F 97.5 F Pulse Rate 97 Respiratory 18 18 Rate Blood Pressure 99/45 (mmHg) O2 Sat by Pulse 97 Oximetry 05/22/16 05/22/16 05/22/16 19:15 20:00 20:07 Temperature 98.3 F Pulse Rate 45 92 Respiratory 18 16 Rate Blood Pressure 117/64 (mmHg) O2 Sat by Pulse 94 98 Oximetry 05/22/16 05/22/16 05/23/16 20:10 23:23 03:23 Temperature 97.4 F Pulse Rate 66 72 Respiratory 16 16 Rate Blood Pressure 103/61 95/53 (mmHg) O2 Sat by Pulse 97 94 97 Oximetry 05/23/16 05/23/16 05/23/16 07:25 08:00 08:42 Temperature Pulse Rate 67 Respiratory 16 18 Rate Blood Pressure 98/51 (mmHg) O2 Sat by Pulse 92 95 Oximetry 05/23/16 08:43 Temperature Pulse Rate 73 Respiratory 18 Rate Blood Pressure (mmHg) O2 Sat by Pulse 95 Oximetry Oxygen Devices in Use Now: None Appearance: 61 yo male pacing around his room A+O x3; agitated Eyes: No Scleral Icterus, PERRLA Ears/Nose/Mouth/Throat: NL Teeth, Lips, Gums, Mucous Membranes Moist Neck: NL Appearance and Movements; NL JVP Respiratory: Symmetrical Chest Expansion and Respiratory Effort, Clear to Auscultation Cardiovascular: NL Sounds; No Murmurs; No JVD, RRR, No Edema Abdominal: NL Sounds; No Tenderness; No Distention Lymphatic: No Cervical Adenopathy Extremities: No Edema Skin: No Rash or Ulcers, No Nodules or Sclerosis Neurological: Alert and Oriented x 3, NL Sensation, NL Muscle Strength and Tone Lines/Tubes/Other Access: Clean, Dry and Intact Peripheral IV Nutrition: Taking PO's Result Diagrams: 05/23/16 05:48 05/23/16 05:48 Additional Lab and Data: Lab Results 05/22/16 05/22/16 05/22/16 Range/Units 14:55 14:55 14:55 WBC 6.4 (3.5-10.8) 10^3/ul RBC 4.44 (4.0-5.4) 10^6/ul Hgb 14.5 (14.0-18.0) g/dl Hct 43 (42-52) % MCV 97 H (80-94) fL MCH 33 H (27-31) pg MCHC 34 (31-36) g/dl RDW 14 (10.5-15) % Plt Count 218 (150-450) 10^3/ul MPV 8 (7.4-10.4) um3 Neut % (Auto) 48.9 (38-83) % Lymph % (Auto) 42.9 (25-47) % Spink % (Auto) 7.1 (1-9) % Eos % (Auto) 0.6 (0-6) % Baso % (Auto) 0.5 (0-2) % Absolute Neuts (auto) 3.1 (1.5-7.7) 10^3/ul Absolute Lymphs (auto) 2.7 (1.0-4.8) 10^3/ul Absolute Monos (auto) 0.5 (0-0.8) 10^3/ul Absolute Eos (auto) 0 (0-0.6) 10^3/ul Absolute Basos (auto) 0 (0-0.2) 10^3/ul Absolute Nucleated RBC 0 10^3/ul Nucleated RBC % 0.1 INR (Anticoag Therapy) 0.90 (0.89-1.11) APTT 32.3 (26.0-36.3) seconds Sodium (133-145) mmol/L Potassium (3.5-5.0) mmol/L Chloride (101-111) mmol/L Carbon Dioxide (22-32) mmol/L Anion Gap (2-11) mmol/L BUN (6-24) mg/dL Creatinine (0.67-1.17) mg/dL Est GFR ( Amer) (>60) Est GFR (Non-Af Amer) (>60) BUN/Creatinine Ratio (8-20) Glucose (70-100) mg/dL Lactic Acid (0.5-2.0) mmol/L Calcium (8.6-10.3) mg/dL Magnesium (1.9-2.7) mg/dL Total Bilirubin (0.2-1.0) mg/dL AST (13-39) U/L ALT (7-52) U/L Alkaline Phosphatase (34-104) U/L Ammonia (16-53) mol/L Total Creatine Kinase (10-223) U/L CK-MB (CK-2) (0.6-6.3) ng/mL Troponin I (<0.04) ng/mL C-Reactive Protein (< 5.00) mg/L B-Natriuretic Peptide ( - 100) pg/mL Total Protein (6.4-8.9) g/dL Albumin (3.2-5.2) g/dL Globulin (2-4) g/dL Albumin/Globulin Ratio (1-3) Lipase (11.0-82.0) U/L TSH (0.34-5.60) mcIU/mL Urine Color Yellow Urine Appearance Clear Urine pH 5.0 (5-9) Ur Specific [place] 1.028 (1.010-1.030) Urine Protein Negative (Negative) Urine Ketones Trace H (Negative) Urine Blood Negative (Negative) Urine Nitrate Negative (Negative) Urine Bilirubin Negative (Negative) Urine Urobilinogen Negative (Negative) Ur Leukocyte Esterase Negative (Negative) Urine Glucose 3+(>=500 mg/dl) H (Negative) Acetaminophen mcg/mL Carbamazepine (4.0-12.0) mcg/mL Serum Alcohol (<10) mg/dL 05/22/16 05/22/16 05/22/16 Range/Units 14:55 14:55 14:55 WBC (3.5-10.8) 10^3/ul RBC (4.0-5.4) 10^6/ul Hgb (14.0-18.0) g/dl Hct (42-52) % MCV (80-94) fL MCH (27-31) pg MCHC (31-36) g/dl RDW (10.5-15) % Plt Count (150-450) 10^3/ul MPV (7.4-10.4) um3 Neut % (Auto) (38-83) % Lymph % (Auto) (25-47) % Spink % (Auto) (1-9) % Eos % (Auto) (0-6) % Baso % (Auto) (0-2) % Absolute Neuts (auto) (1.5-7.7) 10^3/ul Absolute Lymphs (auto) (1.0-4.8) 10^3/ul Absolute Monos (auto) (0-0.8) 10^3/ul Absolute Eos (auto) (0-0.6) 10^3/ul Absolute Basos (auto) (0-0.2) 10^3/ul Absolute Nucleated RBC 10^3/ul Nucleated RBC % INR (Anticoag Therapy) (0.89-1.11) APTT (26.0-36.3) seconds Sodium 131 L (133-145) mmol/L Potassium 4.3 (3.5-5.0) mmol/L Chloride 101 (101-111) mmol/L Carbon Dioxide 24 (22-32) mmol/L Anion Gap 6 (2-11) mmol/L BUN 15 (6-24) mg/dL Creatinine 0.70 (0.67-1.17) mg/dL Est GFR ( Amer) 147.4 (>60) Est GFR (Non-Af Amer) 114.6 (>60) BUN/Creatinine Ratio 21.4 H (8-20) Glucose 464 H (70-100) mg/dL Lactic Acid 0.6 (0.5-2.0) mmol/L Calcium 8.7 (8.6-10.3) mg/dL Magnesium 1.7 L (1.9-2.7) mg/dL Total Bilirubin 0.30 (0.2-1.0) mg/dL AST 12 L (13-39) U/L ALT 15 (7-52) U/L Alkaline Phosphatase 100 (34-104) U/L Ammonia (16-53) mol/L Total Creatine Kinase 15 (10-223) U/L CK-MB (CK-2) 1.4 (0.6-6.3) ng/mL Troponin I 0.00 (<0.04) ng/mL C-Reactive Protein 31.65 H (< 5.00) mg/L B-Natriuretic Peptide 20 ( - 100) pg/mL Total Protein 6.4 (6.4-8.9) g/dL Albumin 3.5 (3.2-5.2) g/dL Globulin 2.9 (2-4) g/dL Albumin/Globulin Ratio 1.2 (1-3) Lipase 43 (11.0-82.0) U/L TSH 1.29 (0.34-5.60) mcIU/mL Urine Color Urine Appearance Urine pH (5-9) Ur Specific [place] (1.010-1.030) Urine Protein (Negative) Urine Ketones (Negative) Urine Blood (Negative) Urine Nitrate (Negative) Urine Bilirubin (Negative) Urine Urobilinogen (Negative) Ur Leukocyte Esterase (Negative) Urine Glucose (Negative) Acetaminophen < 15 mcg/mL Carbamazepine 9.3 (4.0-12.0) mcg/mL Serum Alcohol < 10 (<10) mg/dL 05/22/16 Range/Units 15:20 WBC (3.5-10.8) 10^3/ul RBC (4.0-5.4) 10^6/ul Hgb (14.0-18.0) g/dl Hct (42-52) % MCV (80-94) fL MCH (27-31) pg MCHC (31-36) g/dl RDW (10.5-15) % Plt Count (150-450) 10^3/ul MPV (7.4-10.4) um3 Neut % (Auto) (38-83) % Lymph % (Auto) (25-47) % Spink % (Auto) (1-9) % Eos % (Auto) (0-6) % Baso % (Auto) (0-2) % Absolute Neuts (auto) (1.5-7.7) 10^3/ul Absolute Lymphs (auto) (1.0-4.8) 10^3/ul Absolute Monos (auto) (0-0.8) 10^3/ul Absolute Eos (auto) (0-0.6) 10^3/ul Absolute Basos (auto) (0-0.2) 10^3/ul Absolute Nucleated RBC 10^3/ul Nucleated RBC % INR (Anticoag Therapy) (0.89-1.11) APTT (26.0-36.3) seconds Sodium (133-145) mmol/L Potassium (3.5-5.0) mmol/L Chloride (101-111) mmol/L Carbon Dioxide (22-32) mmol/L Anion Gap (2-11) mmol/L BUN (6-24) mg/dL Creatinine (0.67-1.17) mg/dL Est GFR ( Amer) (>60) Est GFR (Non-Af Amer) (>60) BUN/Creatinine Ratio (8-20) Glucose (70-100) mg/dL Lactic Acid (0.5-2.0) mmol/L Calcium (8.6-10.3) mg/dL Magnesium (1.9-2.7) mg/dL Total Bilirubin (0.2-1.0) mg/dL AST (13-39) U/L ALT (7-52) U/L Alkaline Phosphatase (34-104) U/L Ammonia 39 (16-53) mol/L Total Creatine Kinase (10-223) U/L CK-MB (CK-2) (0.6-6.3) ng/mL Troponin I (<0.04) ng/mL C-Reactive Protein (< 5.00) mg/L B-Natriuretic Peptide ( - 100) pg/mL Total Protein (6.4-8.9) g/dL Albumin (3.2-5.2) g/dL Globulin (2-4) g/dL Albumin/Globulin Ratio (1-3) Lipase (11.0-82.0) U/L TSH (0.34-5.60) mcIU/mL Urine Color Urine Appearance Urine pH (5-9) Ur Specific [place] (1.010-1.030) Urine Protein (Negative) Urine Ketones (Negative) Urine Blood (Negative) Urine Nitrate (Negative) Urine Bilirubin (Negative) Urine Urobilinogen (Negative) Ur Leukocyte Esterase (Negative) Urine Glucose (Negative) Acetaminophen mcg/mL Carbamazepine (4.0-12.0) mcg/mL Serum Alcohol (<10) mg/dL Assess/Plan/Problems-Billing Assessment: Mr. Durham is a 61 yo male with a PMH of multiple hospitalizations, epilepsy, uncontrolled DM, CAD, COPD, current tobacco use, bipolar, anxiety/ depression disorder and hx hepatic encephalopathy who presents to ED with AMS. - Patient Problems (1) Altered mental status, unspecified Comment: resolved. unclear what happened, most likely seizure in the setting of uncontrolled DM. Appreciate psych consult - pt was deemed to have capacity to make his own decisions. (2) Type 2 diabetes mellitus Comment: Pt denies diagnoses but looking back he had an elevated HgA1c last year and is known to be noncompliant. Pt now agrees to start DM medication and accept the DM education. Continue fingerstick BG AC. Continue Lispro SS and lantus Q24hr. CC diet. (3) Seizure disorder Comment: - no seizure activity. continue home medications Vimpat, Tegretol and Gabitril (4) Bipolar disorder Comment: continue Zyprexa and Zoloft (5) Hypertension Comment: Continue metoprolol with hold parameters (6) CAD (coronary artery disease) Comment: Asymptomatic. Patient is in SR. Continue Plavix, metoprolol and statin. (7) COPD (chronic obstructive pulmonary disease) Comment: No signs of exacerbation. Continue Dulera (8) Depression Comment: Supportive care. Continue sertraline and Zyprexa. (9) GERD (gastroesophageal reflux disease) Comment: Continue omeprazole. (10) Tobacco abuse Comment: - nicotine replacement - smoking cessation (11) DVT prophylaxis Comment: SQ heparin (12) Full code status Status and Disposition: plan for DC to home when stable. Pt had psych consult and was deemed to have capacity.
--- NOTE | 2016-05-23 16:20 | CONSULT ---
Identification - Patient Identification Reason for Psychiatric Consultation: Other - Capacity to decline SNF placement. -: Patient is a 61 year old, M admitted on 05/22/16. - MHU Identification Employment Status: Disabled Hx Psychiatric Hospitalization: No Prior Psychiatric Diagnosis: Bipolar DO Arrived to Hospital Via: Ambulance History - Objective HPI: The patient is a 61 y.o. single, white male with a history of bipolar disorder and multiple medical comorbidities such as diabetes and epilepsy, who is currently hospitalized on the medical unit due to AMS secondary, perhaps, to seizure activity. The primary team is concerned about his recent pattern of poor medication compliance, resulting in repeat hospitalization, and has recommended that he consider SNF placement. The patient has refused and the team is asking for consultation to determine the patient's medical decision making capacity. On exam he is resting comfortably in his room. He informs me that he was unaware that the primary team was considering him for residential placement and staunchly indicates that he would not agree to this. "I have a cat named Bryson. He needs me. There's no way I'd ever let him live with anyone else." When asked about the primary team's concerns he acknowledges his multiple recent hospitalizations but is minimizing as to their severity and tends to blame them on his current home health attendant. "He's always crying lyons...sending for the ambulance when it's not really needed." He goes on to state that the solution to his recent health problems is to simply hire a different home health aide. The patient does not believe his life would be in danger should he return home. He denies any mental health complaints at this time, stating that his mood is fine and that his psychiatric medications are working well. He denies SI or HI. Lab Results: Laboratory Tests 05/22/16 05/22/16 05/22/16 17:15 18:06 18:10 WBC RBC Hgb Hct MCV MCH MCHC RDW Plt Count MPV Neut % (Auto) Lymph % (Auto) [place] % (Auto) Eos % (Auto) Baso % (Auto) Absolute Neuts (auto) Absolute Lymphs (auto) Absolute Monos (auto) Absolute Eos (auto) Absolute Basos (auto) Absolute Nucleated RBC Nucleated RBC % Sodium Potassium Chloride Carbon Dioxide Anion Gap BUN Creatinine Est GFR ( Amer) Est GFR (Non-Af Amer) BUN/Creatinine Ratio Glucose 434 H POC Glucose (mg/dL) 426 H* Hemoglobin A1c 13.6 H Calcium Magnesium 05/22/16 05/22/16 05/23/16 22:00 22:10 05:48 WBC 7.1 RBC 3.95 L Hgb 13.2 L Hct 38 L MCV 96 H MCH 33 H MCHC 35 RDW 14 Plt Count 215 MPV 8 Neut % (Auto) 40.9 Lymph % (Auto) 51.2 H [place] % (Auto) 6.5 Eos % (Auto) 0.9 Baso % (Auto) 0.5 Absolute Neuts (auto) 2.9 Absolute Lymphs (auto) 3.6 Absolute Monos (auto) 0.5 Absolute Eos (auto) 0.1 Absolute Basos (auto) 0 Absolute Nucleated RBC 0.02 Nucleated RBC % 0.3 Sodium Potassium Chloride Carbon Dioxide Anion Gap BUN Creatinine Est GFR ( Amer) Est GFR (Non-Af Amer) BUN/Creatinine Ratio Glucose 419 H POC Glucose (mg/dL) > 444 H* Hemoglobin A1c Calcium Magnesium 05/23/16 05/23/16 05/23/16 05:48 07:49 11:46 WBC RBC Hgb Hct MCV MCH MCHC RDW Plt Count MPV Neut % (Auto) Lymph % (Auto) [place] % (Auto) Eos % (Auto) Baso % (Auto) Absolute Neuts (auto) Absolute Lymphs (auto) Absolute Monos (auto) Absolute Eos (auto) Absolute Basos (auto) Absolute Nucleated RBC Nucleated RBC % Sodium 131 L Potassium 3.8 Chloride 101 Carbon Dioxide 23 Anion Gap 7 BUN 18 Creatinine 0.84 Est GFR ( Amer) 119.5 Est GFR (Non-Af Amer) 92.9 BUN/Creatinine Ratio 21.4 H Glucose 346 H POC Glucose (mg/dL) 287 H > 444 H* Hemoglobin A1c Calcium 8.3 L Magnesium 1.9 05/23/16 05/23/16 12:15 15:06 WBC RBC Hgb Hct MCV MCH MCHC RDW Plt Count MPV Neut % (Auto) Lymph % (Auto) [place] % (Auto) Eos % (Auto) Baso % (Auto) Absolute Neuts (auto) Absolute Lymphs (auto) Absolute Monos (auto) Absolute Eos (auto) Absolute Basos (auto) Absolute Nucleated RBC Nucleated RBC % Sodium Potassium Chloride Carbon Dioxide Anion Gap BUN Creatinine Est GFR ( Amer) Est GFR (Non-Af Amer) BUN/Creatinine Ratio Glucose 502 H* POC Glucose (mg/dL) > 444 H* Hemoglobin A1c Calcium Magnesium Exam Appearance: Well Developed/Nourished Hygiene: Normal Grooming: Fairly Well Kept Psychomotor Activities: Normal Exhibits Abnormal Movement: No Attitude and Relatedness: Cooperative Eye Contact: Good - Speech Quality: Unpressured Latencies: Normal Quantity: Appropriate Patient's Decription of Mood: "Good" Observed Affect: Fair Patient's Thought Process: Coherent Thought Content: No Passive Wish, No Suicidal Planning, No Homicidal Ideation, No Paranoid Ideation Experiencing Hallucinations: No, Sensorium is Clear Type of Hallucinations: Visual: No, Auditory: No, Command: No Level of Consciousness: Alert Orientation: Yes Orientated to Place, Yes Orientated to Person, No Intact, No Orientated to Time Impulse Control: Intact Insight and Judgement: Fair - The patient scores 24/30 on a MMSE, losing 5 points for temporal orientation and one point for delayed recall. Impression - Impression Clinical Impression: It is my opinion that the patient does have capacity to make informed medical decisions for himself. He scores 24/30 on the MMSE, which would be consistent with normal cognitive functioning. Under these conditions I do believe the patient has capacity to decline SNF placement, although I acknowledge this choice would not necessarily be in his best interest. Merits Inpatient Hospitalization: No Plan - Treatment Plan Treatment Plan: Optimizing outpatient support, such as rallying family involvement or enrollment with case management services, would be advised. Medications: Current Medications Acetaminophen (Tylenol Tab*) 650 mg PO Q4H PRN PRN Reason: FEVER/PAIN Albuterol (Ventolin 2.5 Mg/3 Ml Neb.Sindy*) 2.5 mg INH Q2H PRN PRN Reason: SOB/WHEEZING Aspirin (Aspirin Ec Low Dose*) 81 mg PO DAILY [facility] Last Admin: 05/23/16 08:50 Dose: 81 mg Atorvastatin Calcium (Lipitor*) 80 mg PO DAILY [facility] Last Admin: 05/23/16 08:50 Dose: 80 mg Carbamazepine (Tegretol Xr Tab(*)) 400 mg PO QAM [facility] Last Admin: 05/23/16 08:48 Dose: 400 mg Carbamazepine (Tegretol Xr Tab(*)) 800 mg PO QPM [facility] Last Admin: 05/22/16 20:21 Dose: 800 mg Clopidogrel Bisulfate (Plavix Tab*) 75 mg PO DAILY [facility] Last Admin: 05/23/16 08:49 Dose: 75 mg Device (Nicotine Mouth Piece*) 1 each INH .USE WITH NICOTROL PRN PRN Reason: CRAVING Dextrose (D50w Syringe 50 Ml*) 12.5 gm IV PUSH .FOR FS < 60 - SS PRN PRN Reason: FS < 60 Ezetimibe (Zetia Tab*) 10 mg PO DAILY [facility] Last Admin: 05/23/16 08:50 Dose: 10 mg Heparin Sodium (Porcine) (Heparin Vial(*)) 5,000 units SUBCUT Q8HR [facility] Last Admin: 05/23/16 13:49 Dose: Not Given Sodium Chloride (Ns 0.9% 1000 Ml*) 1,000 mls @ 125 mls/hr IV PER RATE [facility] Stop: 05/23/16 17:14 Last Admin: 05/23/16 10:42 Dose: 125 mls/hr Insulin Glargine (Lantus(*)) 15 units SUBCUT Q24H [facility] Insulin Human Lispro (Humalog*) 0 units SUBCUT AC [facility] PRN Reason: Protocol Last Admin: 05/23/16 13:10 Dose: 15 unit Lacosamide (Vimpat) 150 mg PO BID [facility] Last Admin: 05/23/16 08:49 Dose: 150 mg Lorazepam (Ativan Tab(*)) 2 mg PO Q8H PRN PRN Reason: SEIZURES Magnesium Oxide (Magox 400 Tab*) 800 mg PO QAM [facility] Last Admin: 05/23/16 08:50 Dose: 800 mg Metoprolol Succinate (Toprol Xl Tab*) 100 mg PO DAILY [facility] Mirtazapine (Remeron Tab*) 30 mg PO BEDTIME [facility] Last Admin: 05/22/16 20:20 Dose: 30 mg Mometasone Furoate/Formoterol Fumar (Dulera 200/5 Mdi*) 2 puff INH BID [facility] Last Admin: 05/23/16 08:41 Dose: 2 puff Montelukast Sodium (Singulair Tab*) 10 mg PO QAM [facility] Last Admin: 05/23/16 08:50 Dose: 10 mg Nicotine (Nicotine Inhaler*) 10 mg INH Q2H PRN PRN Reason: CRAVING Nicotine (Nicotine Patch 21 Mg/24 Hr*) 1 patch TRANSDERM Q24H [facility] Last Admin: 05/23/16 10:34 Dose: 1 patch Olanzapine (Zyprexa Tab*) 10 mg PO BEDTIME [facility] Last Admin: 05/22/16 20:19 Dose: 10 mg Ondansetron HCl (Zofran Inj*) 4 mg IV Q6H PRN PRN Reason: NAUSEA Pantoprazole Sodium (Protonix Tab (Nf)) 40 mg PO DAILY@0730 [facility] PRN Reason: Protocol Last Admin: 05/23/16 08:49 Dose: 40 mg Pharmacy Profile Note (Nicotine Patch Removal Note*) 1 note PATCH OFF 2100 [facility] Ranolazine (Ranexa (Nf)) 500 mg PO BID [facility] PRN Reason: Protocol Last Admin: 05/23/16 08:49 Dose: 500 mg Sertraline HCl (Zoloft*) 200 mg PO QAM [facility] Last Admin: 05/23/16 08:49 Dose: 200 mg Tiagabine HCl (Gabitril(*)) 16 mg PO DAILY [facility] Last Admin: 05/23/16 10:35 Dose: 16 mg Zolpidem Tartrate (Ambien Tab*) 5 mg PO BEDTIME PRN PRN Reason: INSOMNIA Last Admin: 05/23/16 00:34 Dose: 5 mg
[2016-05-23] MEDS ORDERED: Insulin GLARGINE(*) 1 UNITS UNIT SUBCUT SCH (21:00)
[2016-05-23] MEDS ORDERED: Nicotine Patch Removal NOTE PATCH OFF SCH (21:00)
[2016-05-23] MEDS: Mirtazapine TAB* 15 MG PO SCH (21:31)
[2016-05-23] MEDS: OLANzapine TAB* 5 MG PO SCH (21:32)
[2016-05-24 06:14] LABS: Hematocrit 37 % (42-52); Hemoglobin 12.7 g/dl (14.0-18.0); Mean Corpuscular HGB Conc 34 g/dl (31-36); Mean Corpuscular Hemoglobin 33 pg (27-31); Mean Corpuscular Volume 96 fL (80-94); Mean Platelet Volume 8 um3 (7.4-10.4); Red Blood Count 3.85 10^6/ul (4.0-5.4); Red Cell Distribution Width 14 % (10.5-15); White Blood Count 7.7 10^3/ul (3.5-10.8)
[2016-05-24 06:27] LABS: BUN/Creatinine Ratio 26.9 (8-20); Calcium 8.2 mg/dL (8.6-10.3); EGFR African American 155.1 (>60); EGFR Non-African American 120.6 (>60); Potassium 3.8 mmol/L (3.5-5.0)
[2016-05-24] MEDS: Heparin VIAL(*) 5000 UNITS/ML VIAL (FIVE THOUSAND) SUBCUT SCH ×2 (07:34→13:47)
[2016-05-24] MEDS: Mometasone/Formoter 200/5 MDI INH SCH ×2 (08:08→21:13)
[2016-05-24] MEDS: Sertraline* 100 MG TAB PO SCH (09:42)
[2016-05-24] MEDS: carBAMazepine ER TAB(*) 200 MG PO SCH ×2 (09:42→18:27)
[2016-05-24] MEDS: Clopidogrel TAB* 75 MG PO SCH (09:42)
[2016-05-24] MEDS: Aspirin EC Low Dose* 81 MG TAB.EC PO SCH (09:42)
[2016-05-24] MEDS: CMCS: Ranolazine (NF) 500 MG TAB PO SCH (09:42)
[2016-05-24] MEDS: Montelukast Sodium TAB* 10 MG PO SCH (09:42)
[2016-05-24] MEDS: CMCS: Pantoprazole TAB (NF) 40 MG TAB PO SCH (09:42)
[2016-05-24] MEDS: TIAGABINE HCL 4 MG PO SCH (09:43)
[2016-05-24] MEDS: Ezetimibe TAB* 10 MG PO SCH (09:43)
[2016-05-24] MEDS: Atorvastatin* 80 MG TAB PO SCH (09:43)
[2016-05-24] MEDS: Magnesium Oxide TAB* 400 MG PO SCH (09:43)
[2016-05-24] MEDS: Insulin LISPRO* 1 UNITS UNIT SUBCUT SCH ×3 (09:44→18:27)
--- NOTE | 2016-05-24 10:04 | DCNOTE ---
Subjective Date of Service: 05/24/16 Interval History: patient reports he was glad he stayed. He now accepts his DM2 dx and agrees to take medication, check his FSBGs and f[facility] with [facility]. As well, pt was encouraged to f/u with pcp and he agrees. He denies any seizure activity. No fever or chills or signs of infection. he offers no complaints other than being in the hospital. Pt believes he is competent to take care of himself and at home and states he has "enough services ". Pt has been ambulating around unit multiple times. Objective Active Medications: Acetaminophen (Tylenol Tab*) 650 mg PO Q4H PRN PRN Reason: FEVER/PAIN Albuterol (Ventolin 2.5 Mg/3 Ml Neb.Sindy*) 2.5 mg INH Q2H PRN PRN Reason: SOB/WHEEZING Aspirin (Aspirin Ec Low Dose*) 81 mg PO DAILY [facility] Last Admin: 05/24/16 09:42 Dose: 81 mg Atorvastatin Calcium (Lipitor*) 80 mg PO DAILY [facility] Last Admin: 05/24/16 09:43 Dose: 80 mg Carbamazepine (Tegretol Xr Tab(*)) 400 mg PO QAM [facility] Last Admin: 05/24/16 09:42 Dose: 400 mg Carbamazepine (Tegretol Xr Tab(*)) 800 mg PO QPM [facility] Last Admin: 05/23/16 17:40 Dose: 800 mg Clopidogrel Bisulfate (Plavix Tab*) 75 mg PO DAILY [facility] Last Admin: 05/24/16 09:42 Dose: 75 mg Device (Nicotine Mouth Piece*) 1 each INH .USE WITH NICOTROL PRN PRN Reason: CRAVING Dextrose (D50w Syringe 50 Ml*) 12.5 gm IV PUSH .FOR FS < 60 - SS PRN PRN Reason: FS < 60 Ezetimibe (Zetia Tab*) 10 mg PO DAILY [facility] Last Admin: 05/24/16 09:43 Dose: 10 mg Heparin Sodium (Porcine) (Heparin Vial(*)) 5,000 units SUBCUT Q8HR [facility] Last Admin: 05/24/16 07:34 Dose: 5,000 units Insulin Glargine (Lantus(*)) 15 units SUBCUT Q24H [facility] Last Admin: 05/23/16 21:41 Dose: 15 units Insulin Human Lispro (Humalog*) 0 units SUBCUT AC [facility] PRN Reason: Protocol Last Admin: 05/24/16 09:44 Dose: 4 unit Lacosamide (Vimpat) 150 mg PO BID [facility] Last Admin: 05/23/16 21:39 Dose: 150 mg Lorazepam (Ativan Tab(*)) 2 mg PO Q8H PRN PRN Reason: SEIZURES Magnesium Oxide (Magox 400 Tab*) 800 mg PO QAM [facility] Last Admin: 05/24/16 09:43 Dose: 800 mg Metoprolol Succinate (Toprol Xl Tab*) 100 mg PO DAILY [facility] Last Admin: 05/24/16 09:43 Dose: 100 mg Mirtazapine (Remeron Tab*) 30 mg PO BEDTIME [facility] Last Admin: 05/23/16 21:31 Dose: 30 mg Mometasone Furoate/Formoterol Fumar (Dulera 200/5 Mdi*) 2 puff INH BID [facility] Last Admin: 05/24/16 08:08 Dose: Not Given Montelukast Sodium ([facility]ulair [facility]*) [facility] [place] [place] Last Admin: 05/24/16 09:42 Dose: 10 mg Nicotine (Nicotine Inhaler*) 10 mg INH Q2H PRN PRN Reason: CRAVING Nicotine (Nicotine Patch 21 Mg/24 Hr*) 1 patch TRANSDERM Q24H [facility] Last Admin: 05/23/16 10:34 Dose: 1 patch Olanzapine (Zyprexa Tab*) 10 mg PO BEDTIME [facility] Last Admin: 05/23/16 21:32 Dose: 10 mg Ondansetron HCl (Zofran Inj*) 4 mg IV Q6H PRN PRN Reason: NAUSEA Pantoprazole Sodium (Protonix Tab (Nf)) 40 mg PO DAILY@0730 [facility] PRN Reason: Protocol Last Admin: 05/24/16 09:42 Dose: 40 mg Pharmacy Profile Note (Nicotine Patch Removal Note*) 1 note PATCH OFF 2100 [facility] Last Admin: 05/23/16 21:45 Dose: 1 note Ranolazine (Ranexa (Nf)) 500 mg PO BID [facility] PRN Reason: Protocol Last Admin: 05/24/16 09:42 Dose: 500 mg Sertraline HCl (Zoloft*) 200 mg PO QAM [facility] Last Admin: 05/24/16 09:42 Dose: 200 mg Tiagabine HCl (Gabitril(*)) 16 mg PO DAILY [facility] Last Admin: 05/24/16 09:43 Dose: 16 mg Zolpidem Tartrate (Ambien Tab*) 5 mg PO BEDTIME PRN PRN Reason: INSOMNIA Last Admin: 05/23/16 23:30 Dose: 5 mg Vital Signs 05/23/16 05/23/16 05/23/16 17:27 19:32 20:00 Temperature 97.8 F Pulse Rate 69 Respiratory 20 18 Rate Blood Pressure 85/43 (mmHg) O2 Sat by Pulse 99 98 Oximetry 05/23/16 05/23/16 05/23/16 20:24 20:25 23:32 Temperature 97.8 F Pulse Rate 61 98 Respiratory 18 Rate Blood Pressure 98/64 (mmHg) O2 Sat by Pulse 98 98 97 Oximetry 05/24/16 05/24/16 05/24/16 07:31 08:58 08:59 Temperature 96.5 F Pulse Rate 69 70 Respiratory 18 18 Rate Blood Pressure 81/42 (mmHg) O2 Sat by Pulse 99 99 99 Oximetry Oxygen Devices in Use Now: None Appearance: 61 yo male sitting up on the side of the bed A+O x3, appropriate Eyes: No Scleral Icterus, PERRLA Ears/Nose/Mouth/Throat: Mucous Membranes Moist Neck: NL Appearance and Movements; NL JVP Respiratory: Symmetrical Chest Expansion and Respiratory Effort, Clear to Auscultation Cardiovascular: NL Sounds; No Murmurs; No JVD, RRR, No Edema Abdominal: NL Sounds; No Tenderness; No Distention Extremities: No Edema, No Clubbing, Cyanosis Skin: No Rash or Ulcers, No Nodules or Sclerosis Neurological: Alert and Oriented x 3, NL Sensation, NL Gait, NL Muscle Strength and Tone Lines/Tubes/Other Access: Clean, Dry and Intact Peripheral IV Nutrition: Taking PO's Result Diagrams: 05/24/16 05:41 05/24/16 05:41 Additional Lab and Data: Lab Results 05/22/16 05/22/16 05/22/16 Range/Units 14:55 14:55 14:55 WBC 6.4 (3.5-10.8) 10^3/ul RBC 4.44 (4.0-5.4) 10^6/ul Hgb 14.5 (14.0-18.0) g/dl Hct 43 (42-52) % MCV 97 H (80-94) fL MCH 33 H (27-31) pg MCHC 34 (31-36) g/dl RDW 14 (10.5-15) % Plt Count 218 (150-450) 10^3/ul MPV 8 (7.4-10.4) um3 Neut % (Auto) 48.9 (38-83) % Lymph % (Auto) 42.9 (25-47) % Rankin % (Auto) 7.1 (1-9) % Eos % (Auto) 0.6 (0-6) % Baso % (Auto) 0.5 (0-2) % Absolute Neuts (auto) 3.1 (1.5-7.7) 10^3/ul Absolute Lymphs (auto) 2.7 (1.0-4.8) 10^3/ul Absolute Monos (auto) 0.5 (0-0.8) 10^3/ul Absolute Eos (auto) 0 (0-0.6) 10^3/ul Absolute Basos (auto) 0 (0-0.2) 10^3/ul Absolute Nucleated RBC 0 10^3/ul Nucleated RBC % 0.1 INR (Anticoag Therapy) 0.90 (0.89-1.11) APTT 32.3 (26.0-36.3) seconds Sodium (133-145) mmol/L Potassium (3.5-5.0) mmol/L Chloride (101-111) mmol/L Carbon Dioxide (22-32) mmol/L Anion Gap (2-11) mmol/L BUN (6-24) mg/dL Creatinine (0.67-1.17) mg/dL Est GFR ( Amer) (>60) Est GFR (Non-Af Amer) (>60) BUN/Creatinine Ratio (8-20) Glucose (70-100) mg/dL Lactic Acid (0.5-2.0) mmol/L Calcium (8.6-10.3) mg/dL Magnesium (1.9-2.7) mg/dL Total Bilirubin (0.2-1.0) mg/dL AST (13-39) U/L ALT (7-52) U/L Alkaline Phosphatase (34-104) U/L Ammonia (16-53) mol/L Total Creatine Kinase (10-223) U/L CK-MB (CK-2) (0.6-6.3) ng/mL Troponin I (<0.04) ng/mL C-Reactive Protein (< 5.00) mg/L B-Natriuretic Peptide ( - 100) pg/mL Total Protein (6.4-8.9) g/dL Albumin (3.2-5.2) g/dL Globulin (2-4) g/dL Albumin/Globulin Ratio (1-3) Lipase (11.0-82.0) U/L TSH (0.34-5.60) mcIU/mL Urine Color Yellow Urine Appearance Clear Urine pH 5.0 (5-9) Ur Specific [place] 1.028 (1.010-1.030) Urine Protein Negative (Negative) Urine Ketones Trace H (Negative) Urine Blood Negative (Negative) Urine Nitrate Negative (Negative) Urine Bilirubin Negative (Negative) Urine Urobilinogen Negative (Negative) Ur Leukocyte Esterase Negative (Negative) Urine Glucose 3+(>=500 mg/dl) H (Negative) Acetaminophen mcg/mL Carbamazepine (4.0-12.0) mcg/mL Serum Alcohol (<10) mg/dL 05/22/16 05/22/16 05/22/16 Range/Units 14:55 14:55 14:55 WBC (3.5-10.8) 10^3/ul RBC (4.0-5.4) 10^6/ul Hgb (14.0-18.0) g/dl Hct (42-52) % MCV (80-94) fL MCH (27-31) pg MCHC (31-36) g/dl RDW (10.5-15) % Plt Count (150-450) 10^3/ul MPV (7.4-10.4) um3 Neut % (Auto) (38-83) % Lymph % (Auto) (25-47) % Rankin % (Auto) (1-9) % Eos % (Auto) (0-6) % Baso % (Auto) (0-2) % Absolute Neuts (auto) (1.5-7.7) 10^3/ul Absolute Lymphs (auto) (1.0-4.8) 10^3/ul Absolute Monos (auto) (0-0.8) 10^3/ul Absolute Eos (auto) (0-0.6) 10^3/ul Absolute Basos (auto) (0-0.2) 10^3/ul Absolute Nucleated RBC 10^3/ul Nucleated RBC % INR (Anticoag Therapy) (0.89-1.11) APTT (26.0-36.3) seconds Sodium 131 L (133-145) mmol/L Potassium 4.3 (3.5-5.0) mmol/L Chloride 101 (101-111) mmol/L Carbon Dioxide 24 (22-32) mmol/L Anion Gap 6 (2-11) mmol/L BUN 15 (6-24) mg/dL Creatinine 0.70 (0.67-1.17) mg/dL Est GFR ( Amer) 147.4 (>60) Est GFR (Non-Af Amer) 114.6 (>60) BUN/Creatinine Ratio 21.4 H (8-20) Glucose 464 H (70-100) mg/dL Lactic Acid 0.6 (0.5-2.0) mmol/L Calcium 8.7 (8.6-10.3) mg/dL Magnesium 1.7 L (1.9-2.7) mg/dL Total Bilirubin 0.30 (0.2-1.0) mg/dL AST 12 L (13-39) U/L ALT 15 (7-52) U/L Alkaline Phosphatase 100 (34-104) U/L Ammonia (16-53) mol/L Total Creatine Kinase 15 (10-223) U/L CK-MB (CK-2) 1.4 (0.6-6.3) ng/mL Troponin I 0.00 (<0.04) ng/mL C-Reactive Protein 31.65 H (< 5.00) mg/L B-Natriuretic Peptide 20 ( - 100) pg/mL Total Protein 6.4 (6.4-8.9) g/dL Albumin 3.5 (3.2-5.2) g/dL Globulin 2.9 (2-4) g/dL Albumin/Globulin Ratio 1.2 (1-3) Lipase 43 (11.0-82.0) U/L TSH 1.29 (0.34-5.60) mcIU/mL Urine Color Urine Appearance Urine pH (5-9) Ur Specific [place] (1.010-1.030) Urine Protein (Negative) Urine Ketones (Negative) Urine Blood (Negative) Urine Nitrate (Negative) Urine Bilirubin (Negative) Urine Urobilinogen (Negative) Ur Leukocyte Esterase (Negative) Urine Glucose (Negative) Acetaminophen < 15 mcg/mL Carbamazepine 9.3 (4.0-12.0) mcg/mL Serum Alcohol < 10 (<10) mg/dL 05/22/16 Range/Units 15:20 WBC (3.5-10.8) 10^3/ul RBC (4.0-5.4) 10^6/ul Hgb (14.0-18.0) g/dl Hct (42-52) % MCV (80-94) fL MCH (27-31) pg MCHC (31-36) g/dl RDW (10.5-15) % Plt Count (150-450) 10^3/ul MPV (7.4-10.4) um3 Neut % (Auto) (38-83) % Lymph % (Auto) (25-47) % Rankin % (Auto) (1-9) % Eos % (Auto) (0-6) % Baso % (Auto) (0-2) % Absolute Neuts (auto) (1.5-7.7) 10^3/ul Absolute Lymphs (auto) (1.0-4.8) 10^3/ul Absolute Monos (auto) (0-0.8) 10^3/ul Absolute Eos (auto) (0-0.6) 10^3/ul Absolute Basos (auto) (0-0.2) 10^3/ul Absolute Nucleated RBC 10^3/ul Nucleated RBC % INR (Anticoag Therapy) (0.89-1.11) APTT (26.0-36.3) seconds Sodium (133-145) mmol/L Potassium (3.5-5.0) mmol/L Chloride (101-111) mmol/L Carbon Dioxide (22-32) mmol/L Anion Gap (2-11) mmol/L BUN (6-24) mg/dL Creatinine (0.67-1.17) mg/dL Est GFR ( Amer) (>60) Est GFR (Non-Af Amer) (>60) BUN/Creatinine Ratio (8-20) Glucose (70-100) mg/dL Lactic Acid (0.5-2.0) mmol/L Calcium (8.6-10.3) mg/dL Magnesium (1.9-2.7) mg/dL Total Bilirubin (0.2-1.0) mg/dL AST (13-39) U/L ALT (7-52) U/L Alkaline Phosphatase (34-104) U/L Ammonia 39 (16-53) mol/L Total Creatine Kinase (10-223) U/L CK-MB (CK-2) (0.6-6.3) ng/mL Troponin I (<0.04) ng/mL C-Reactive Protein (< 5.00) mg/L B-Natriuretic Peptide ( - 100) pg/mL Total Protein (6.4-8.9) g/dL Albumin (3.2-5.2) g/dL Globulin (2-4) g/dL Albumin/Globulin Ratio (1-3) Lipase (11.0-82.0) U/L TSH (0.34-5.60) mcIU/mL Urine Color Urine Appearance Urine pH (5-9) Ur Specific [place] (1.010-1.030) Urine Protein (Negative) Urine Ketones (Negative) Urine Blood (Negative) Urine Nitrate (Negative) Urine Bilirubin (Negative) Urine Urobilinogen (Negative) Ur Leukocyte Esterase (Negative) Urine Glucose (Negative) Acetaminophen mcg/mL Carbamazepine (4.0-12.0) mcg/mL Serum Alcohol (<10) mg/dL Microbiology and Other Data: Microbiology 05/23/16 20:15 Stool Occult Blood ([facility]) - Final Stool Assess/Plan/Problems-Billing Assessment: Mr. Durham is a 61 yo male with a PMH of multiple hospitalizations, epilepsy, uncontrolled DM, CAD, COPD, current tobacco use, bipolar, anxiety/ depression disorder and hx hepatic encephalopathy who presents to ED with AMS. - Patient Problems (1) Altered mental status, unspecified Comment: resolved. unclear what happened, most likely seizure in the setting of uncontrolled DM. Appreciate psych consult - pt was deemed to have capacity to make his own decisions. No plan to change seizure medications, plan to tx DM which pt has agreed to at this time (2) Type 2 diabetes mellitus Comment: Pt denies diagnoses but looking back he had an elevated HgA1c last year and is known to be noncompliant. Pt now agrees to start DM medication and accept the DM education. Continue fingerstick BG AC. Plan for Metformin on DC Pt seen and evaluated by DM FUR LINER Mahogany Maldonado from [facility]. Pt states he plans to f/ u as outpt (3) Seizure disorder Comment: - no seizure activity. continue home medications Vimpat, Tegretol and Gabitril (4) Bipolar disorder Comment: continue Zyprexa and Zoloft (5) Hypertension Comment: Continue metoprolol with hold parameters (6) CAD (coronary artery disease) Comment: Asymptomatic. Patient is in SR. Continue Plavix, metoprolol and statin. (7) COPD (chronic obstructive pulmonary disease) Comment: No signs of exacerbation. Continue Dulera (8) Depression Comment: Supportive care. Continue sertraline and Zyprexa. (9) GERD (gastroesophageal reflux disease) Comment: Continue omeprazole. (10) Tobacco abuse Comment: - nicotine replacement - smoking cessation (11) DVT prophylaxis Comment: SQ heparin (12) Full code status Status and Disposition: plan for DC to home today Pt had psych consult and was deemed to have capacity.
[2016-05-24] MEDS: LaCOSAMide TAB* 150 MG TAB PO SCH (10:26)
[2016-05-24] MEDS: Nicotine PATCH 21 MG/24 HR* PATCH TRANSDERM SCH (10:26)
--- NOTE | 2016-05-24 12:19 | CONSULT ---
Subjective Reason for Visit: Poorly controlled type 2 diabetes Patient History Surgical History: Yes Surgery Procedure, Year, and Place: GB removed,cardiac stents PROMUS drug [place] [facility] [place]13 [place] [facility] pt does not have his implant cards.SURGERY TO LEFT SHOULDER 1985 PER PT Lives With: Self Social Support: Has support of APS worker at home. Has 3 adult children, 2 live locally but it is unclear how much support the give him. Preferred/Primary Language: Persian Hx Tobacco Use: Yes Objective Allergies Allergy/AdvReac Type Severity Reaction Status Date / Time Penicillins Allergy Severe Hives Verified 09/22/15 12:47 Erythromycin Allergy Unknown Hives Verified 09/22/15 12:47 Azithromycin Allergy Hives Verified 09/22/15 12:47 Cephalosporins Allergy Hives Verified 09/22/15 12:47 Home Medications Medication Instructions Recorded Confirmed Type Clopidogrel TAB* [Plavix TAB*] 75 mg PO DAILY 01/25/13 05/22/16 History Mirtazapine TAB* [Remeron TAB*] 30 mg PO BEDTIME 02/08/15 05/22/16 History OLANzapine TAB* [Zyprexa TAB*] 10 mg PO BEDTIME 02/08/15 05/22/16 History Sertraline* [Zoloft*] 200 mg PO QAM 02/08/15 05/22/16 History Ranolazine (NF) [Ranexa (NF)] 500 mg PO BID 07/09/15 05/22/16 History Zolpidem TAB* [Ambien*] 5 mg PO BEDTIME 08/28/15 05/22/16 History Aspirin EC Low Dose* [Ecotrin EC 81 mg PO DAILY 12/16/15 05/22/16 History Low Dose*] Ezetimibe TAB* [Zetia TAB*] 10 mg PO DAILY 12/16/15 05/22/16 History Lansoprazole CAP (NF) [Prevacid 30 mg PO DAILY 12/16/15 05/22/16 History CAP (NF)] Montelukast Sodium TAB* [Singulair 10 mg PO QAM 02/08/16 05/22/16 History 10 MG TAB*] Ibuprofen TAB* [Motrin TAB* 800 MG] 800 mg PO TID PRN 03/07/16 05/22/16 History Metoprolol Succinate XL TAB* 100 mg PO DAILY 03/07/16 05/22/16 History [Toprol XL TAB*] Ranitidine TAB (NF) [Zantac TAB 150 mg PO BEDTIME 03/07/16 05/22/16 History (NF)] Rosuvastatin (NF) [Crestor (NF)] 40 mg PO DAILY 03/07/16 05/22/16 History Magnesium Oxide TAB* [MagOx 400 800 mg PO QAM 05/22/16 05/22/16 History TAB*] Nitroglycerin TAB 0.4 MG* 0.4 mg SL Q5M PRN 05/22/16 05/22/16 History Tiagabine HCl [Gabitril] 16 mg PO DAILY 05/22/16 05/22/16 History carBAMazepine ER TAB(*) [TEGretol 400 mg PO QAM 05/22/16 05/22/16 History Xr TAB(*)] carBAMazepine ER TAB(*) [TEGretol 800 mg PO QPM 05/22/16 05/22/16 History Xr TAB(*)] Hospital Medications: Current Medications Acetaminophen (Tylenol Tab*) 650 mg PO Q4H PRN PRN Reason: FEVER/PAIN Albuterol (Ventolin 2.5 Mg/3 Ml Neb.Sindy*) 2.5 mg INH Q2H PRN PRN Reason: SOB/WHEEZING Aspirin (Aspirin Ec Low Dose*) 81 mg PO DAILY [facility] Last Admin: 05/24/16 09:42 Dose: 81 mg Atorvastatin Calcium (Lipitor*) 80 mg PO DAILY [facility] Last Admin: 05/24/16 09:43 Dose: 80 mg Carbamazepine (Tegretol Xr Tab(*)) 400 mg PO QAM [facility] Last Admin: 05/24/16 09:42 Dose: 400 mg Carbamazepine (Tegretol Xr Tab(*)) 800 mg PO QPM [facility] Last Admin: 05/23/16 17:40 Dose: 800 mg Clopidogrel Bisulfate (Plavix Tab*) 75 mg PO DAILY [facility] Last Admin: 05/24/16 09:42 Dose: 75 mg Device (Nicotine Mouth Piece*) 1 each INH .USE WITH NICOTROL PRN PRN Reason: CRAVING Dextrose (D50w Syringe 50 Ml*) 12.5 gm IV PUSH .FOR FS < 60 - SS PRN PRN Reason: FS < 60 Ezetimibe (Zetia Tab*) 10 mg PO DAILY [facility] Last Admin: 05/24/16 09:43 Dose: 10 mg Heparin Sodium (Porcine) (Heparin Vial(*)) 5,000 units SUBCUT Q8HR [facility] Last Admin: 05/24/16 07:34 Dose: 5,000 units Insulin Glargine (Lantus(*)) 15 units SUBCUT Q24H [facility] Last Admin: 05/23/16 21:41 Dose: 15 units Insulin Human Lispro (Humalog*) 0 units SUBCUT AC [facility] PRN Reason: Protocol Last Admin: 05/24/16 09:44 Dose: 4 unit Lacosamide (Vimpat) 150 mg PO BID [facility] Last Admin: 05/24/16 10:26 Dose: 150 mg Lorazepam (Ativan Tab(*)) 2 mg PO Q8H PRN PRN Reason: SEIZURES Magnesium Oxide (Magox 400 Tab*) 800 mg PO QAM [facility] Last Admin: 05/24/16 09:43 Dose: 800 mg Metoprolol Succinate (Toprol Xl Tab*) 100 mg PO DAILY [facility] Last Admin: 05/24/16 09:43 Dose: 100 mg Mirtazapine (Remeron Tab*) 30 mg PO BEDTIME [facility] Last Admin: 05/23/16 21:31 Dose: 30 mg Mometasone Furoate/Formoterol Fumar (Dulera 200/5 Mdi*) 2 puff INH BID [facility] Last Admin: 05/24/16 08:08 Dose: Not Given Montelukast Sodium (Singulair Tab*) 10 mg PO QAM [facility] Last Admin: 05/24/16 09:42 Dose: 10 mg Nicotine (Nicotine Inhaler*) 10 mg INH Q2H PRN PRN Reason: CRAVING Nicotine (Nicotine Patch 21 Mg/24 Hr*) 1 patch TRANSDERM Q24H [facility] Last Admin: 05/24/16 10:26 Dose: 1 patch Olanzapine (Zyprexa Tab*) 10 mg PO BEDTIME [facility] Last Admin: 05/23/16 21:32 Dose: 10 mg Ondansetron HCl (Zofran Inj*) 4 mg IV Q6H PRN PRN Reason: NAUSEA Pantoprazole Sodium (Protonix Tab (Nf)) 40 mg PO DAILY@0730 [facility] PRN Reason: Protocol Last Admin: 05/24/16 09:42 Dose: 40 mg Pharmacy Profile Note (Nicotine Patch Removal Note*) 1 note PATCH OFF 2100 [facility] Last Admin: 05/23/16 21:45 Dose: 1 note Ranolazine (Ranexa (Nf)) 500 mg PO BID [facility] PRN Reason: Protocol Last Admin: 05/24/16 09:42 Dose: 500 mg Sertraline HCl (Zoloft*) 200 mg PO QAM [facility] Last Admin: 05/24/16 09:42 Dose: 200 mg Tiagabine HCl (Gabitril(*)) 16 mg PO DAILY [facility] Last Admin: 05/24/16 09:43 Dose: 16 mg Zolpidem Tartrate (Ambien Tab*) 5 mg PO BEDTIME PRN PRN Reason: INSOMNIA Last Admin: 05/23/16 23:30 Dose: 5 mg Lab Data: Sodium 134 mmol/L (133-145) 05/24/16 05:41 Potassium 3.8 mmol/L (3.5-5.0) 05/24/16 05:41 BUN 18 mg/dL (6-24) 05/24/16 05:41 Creatinine 0.67 mg/dL (0.67-1.17) 05/24/16 05:41 Hemoglobin A1c 13.6 % (Less than 6.0) H 05/22/16 17:15 Calcium 8.2 mg/dL (8.6-10.3) L 05/24/16 05:41 Magnesium 1.9 mg/dL (1.9-2.7) 05/23/16 05:48 AST 12 U/L (13-39) L 05/22/16 14:55 ALT 15 U/L (7-52) 05/22/16 14:55 Vital Signs: Vital Signs 05/24/16 05/24/16 05/24/16 07:31 08:00 08:58 Temperature 96.5 F Pulse Rate 69 70 Respiratory 18 18 18 Rate Blood Pressure 81/42 (mmHg) O2 Sat by Pulse 99 99 Oximetry 05/24/16 08:59 Temperature Pulse Rate Respiratory Rate Blood Pressure (mmHg) O2 Sat by Pulse 99 Oximetry Height: 5 ft 8 in Weight: 160 lb 8 oz Body Mass Index (BMI): 24.4 Plan Of Care Patient's Next Step: Patient will be discharged home on Metformin. Will likely need additional medication for glucose control as an outpatient. He was given a Freestyle glucometer with instructions for use and was able to do a return demonstration with this. Supplies for the glucometer will be faxed to his pharmacy in [place]. Strongly recommend diabetes education. Referral To: [facility] For Further OutPT Diabetic Training, DSME Education Prior Diabetic Education: No Education Provided: Blood Glucose Monitoring Handouts Provided: CDC: Taking control of your diabetes Blood glucose monitoring: Timing and goals Goals Goals: 40 minutes was spent on education and coordination of care directly with the patient
[2016-05-24 14:57] VITALS: BP 116/63
--- NOTE | 2016-05-24 21:11 | DS ---
DISCHARGE SUMMARY: DATE OF ADMISSION: 05/22/16 DATE OF DISCHARGE: 05/24/16 ATTENDING PHYSICIAN: *(report dictated by Curtis Mcclain NP). PRIMARY CARE PROVIDER: Dr. Koch. REFERRING TO: [facility], Mahogany Maldonado NP. PRIMARY DIAGNOSES: 1. Altered mental status thought to be secondary to possible seizure secondary to hyperglycemia. 2. Uncontrolled diabetes. SECONDARY DIAGNOSES: 1. Epilepsy with complex seizures. 2. Coronary artery disease. 3. Hypertension. 4. Chronic obstructive pulmonary disease. 5. Tobacco abuse. 6. Gastroesophageal reflux disease. 7. Depression. 8. Panic disorder. 9. Anxiety. 10. History of hepatic encephalopathy thought to be secondary to Depakote use. 11. Bipolar disorder. DISCHARGE MEDICATIONS: 1. Tegretol XR 400 mg p.o. q.a.m. 2. Tegretol XR 800 mg p.o. q.p.m. 3. Ambien 5 mg p.o. bedtime. 4. Nitroglycerin 0.4 mg sublingual q.5 minutes p.r.n. 5. Vimpat 150 mg p.o. b.i.d. 6. Crestor 40 mg p.o. daily. 7. Metoprolol succinate XL 100 mg p.o. daily. 8. Zoloft 200 mg p.o. q.a.m. 9. Magnesium oxide 800 mg p.o. q.a.m. 10. Zantac 150 mg p.o. bedtime. 11. Zyprexa 10 mg p.o. bedtime. 12. Ativan 2 mg p.o. q.8 hours p.r.n. 13. Prevacid 30 mg p.o. daily. 14. Plavix 75 mg p.o. daily. 15. Remeron 30 mg p.o. at bedtime. 16. Gabitril 16 mg p.o. daily. 17. Singulair 10 mg p.o. q.a.m. 18. Aspirin EC low dose 81 mg p.o. daily. 19. Ranexa 500 mg p.o. b.i.d. 20. Zetia 10 mg p.o. daily. NEW MEDICATION: Metformin 500 mg p.o. b.i.d. HISTORY OF PRESENT ILLNESS AND HOSPITAL COURSE: Please see history and physical by Brett Doyle NP, for full admission details but in summary, this is a 61-year-old male who is well known to our service with an extensive past medical history as listed above who presents to the emergency department by EMS for altered mental status, found to be confused by his case assistant and incontinent of urine and there was a concern for seizures, so the patient was brought to the hospital. It was also noted that he was recently at [facility] and signed out AMA, as well as just in [facility] 4 days prior to admission with similar complaints and was discharged to home. The patient is noted to have uncontrolled diabetes. On admission, he presented with a blood sugar of 464. Supposedly, he had a blood sugar of 700 at [place] and left AMA. The patient has a hemoglobin A1c of 13.6 and going back in our records only as far as 02/08/15, we have a hemoglobin A1c of 9.3. Per the patient, he reports "I' ve never been told I've been diagnosed with diabetes and I think that you are making it up." The patient was admitted to the hospitalist service. He denied any recent illnesses, fevers, chills, shortness of breath, or chest pain. He has had no further seizure activity. The patient was going to leave against medical advice last evening. Discussed the patient's blood sugar of over 500 with him, gave him the risks of leaving, and the patient did decide to stay for treatment of his diabetes. Today this morning, I reevaluated and discussed at length with the patient his diagnosis of diabetes and he at this time states he "accepts this diagnosis" and states he will be compliant with taking metformin. visual educator from [facility], Mahogany Maldonado NP, met with the patient this morning, reviewed glucometer education and teaching ,and the patient was able to show he could use the meter well. The patient also reports that he will follow up with [facility] as an outpatient for diabetes education. The patient did state "I guess I haven't wanted to accept the diagnosis of diabetes in the past." I spoke with the patient's primary care provider, Dr. Koch, over the phone who had concerns about the patient's competency. As well, our service also had concerns with multiple readmissions and we did have psychiatrist, Dr. Ehmke, evaluate the patient yesterday for competency in which he was found to be competent to make his own decisions and decline fpc placement. The patient scored 24/30 on the MMSE, which is consistent with normal cognitive function. He did acknowledge he had poor insight but does state that he has competency to make his own decisions. This morning, the patient was much more pleasant, agreeable and open with myself and staff with teaching and education. The patient does state he does not like being in the hospital. It was explained to the patient that it is possible his seizures could be caused by uncontrolled diabetes with high blood sugars and he states understanding of this and agrees with the plan for discharge with diabetes treatment and followup. No seizure medication changes at this time. DISCHARGE PLANS: 1. Plan for discharge to home. 2. Follow up with Dr. Koch on 05/30/16 at 10 a.m. 3. A referral to [facility] has been provided. The patient should follow up within the next 1 to 2 weeks. 4. A prescription for a glucometer has been sent by Mahogany Maldonado NP. TIME SPENT: Approximately 60 minutes were spent on this discharge. CURTIS MCCLAIN NP CC: Dr. Koch; [facility], Mahogany Maldonado [place]* [id number]/[facility] #: [id number] MTDRigo
== END 2016-05-24 14:00 | disposition home or self-care (01) | DRG 638 ==
LOC: ED 14:36 → MED 16:40 → OBSVTOIN 05-23 15:45
PROVIDERS: ADMIT Internal Medicine; ATTEND Hospitalist
DX: E11.65 Type 2 diabetes mellitus with hyperglycemia (principal); G40.209 Localization-related (focal) (partial) symptomatic epilepsy and epileptic syndromes with complex partial seizures, not intractable, without status epilepticus; I11.9 Hypertensive heart disease without heart failure; I25.10 Atherosclerotic heart disease of native coronary artery without angina pectoris; J44.9 Chronic obstructive pulmonary disease, unspecified; K21.9 Gastro-esophageal reflux disease without esophagitis; F17.210 Nicotine dependence, cigarettes, uncomplicated; F31.9 Bipolar disorder, unspecified; F32.9 Major depressive disorder, single episode, unspecified; F41.9 Anxiety disorder, unspecified; F41.0 Panic disorder [episodic paroxysmal anxiety]; Z79.82 Long term (current) use of aspirin; Z79.1 Long term (current) use of non-steroidal anti-inflammatories (NSAID); Z79.899 Other long term (current) drug therapy; Z88.1 Allergy status to other antibiotic agents; Z88.0 Allergy status to penicillin; Z88.8 Allergy status to other drugs, medicaments and biological substances; Z82.49 Family history of ischemic heart disease and other diseases of the circulatory system
CPT/HCPCS: 36415; 80048; 80053; 80156; 80299; 80320; 80329; 81003; 82140; 82272; 82550; 82553; 82947; 83036; 83605; 83690; 83735; 83880; 84443; 84484; 85025; 85610; 85730; 86140; 87086; 93005; 94640; 94760; 99221; 99406; A9270-GY; G0378; G0480; J1644; J3475

== ENCOUNTER 2016-10-04 13:15 | Emergency (ER) | payer SELFPAY ==
--- NOTE | 2016-10-04 15:38 | RAD ---
Indication: Confusion. CT of the brain was performed without IV contrast. Ventricular structures are midline. No midline shift is noted. The extraction spaces are unremarkable. There is no evidence of intracranial mass or hemorrhage. No other high or low density lesions are identified. When compared to previous exam of March 07, 2016 no significant change is noted. Mastoid air cells, bony calvaria and orbits are unremarkable. Paranasal sinuses are unremarkable. IMPRESSION: No intracranial mass or hemorrhage is noted.
--- NOTE | 2016-10-04 16:05 | RAD ---
Indication: Confusion. Single frontal view of the chest performed at 1525 hours was reviewed. Comparison is made with previous exam dated March 07, 2016. No mediastinal shift is noted. Heart is of normal size and configuration. Lung tran appear clear. IMPRESSION: NO ACTIVE CARDIOPULMONARY DISEASE IS NOTED.
[2016-10-04 16:07] LABS: Hematocrit 44 % (42-52); Mean Corpuscular HGB Conc 34 g/dl (31-36); Mean Corpuscular Hemoglobin 32 pg (27-31); Mean Corpuscular Volume 93 fL (80-94); Mean Platelet Volume 7 um3 (7.4-10.4); Red Blood Count 4.71 10^6/ul (4.0-5.4); Red Cell Distribution Width 13 % (10.5-15); White Blood Count 10.5 10^3/ul (3.5-10.8)
[2016-10-04 16:22] LABS: ALT 41 U/L (7-52); AST 37 U/L (13-39); Albumin 4.3 g/dL (3.2-5.2); Alkaline Phosphatase 102 U/L (34-104); Anion Gap 11 mmol/L (2-11); BUN/Creatinine Ratio 19.8 (8-20); Blood Urea Nitrogen 18 mg/dL (6-24); CO2 Carbon Dioxide 22 mmol/L (22-32); Calcium 9.4 mg/dL (8.6-10.3); Chloride 100 mmol/L (101-111); EGFR African American 108.9 (>60); EGFR Non-African American 84.7 (>60); Glucose 90 mg/dL (70-100); Magnesium 1.3 mg/dL (1.9-2.7); Potassium 3.7 mmol/L (3.5-5.0); Sodium 133 mmol/L (133-145); Total Protein 7.3 g/dL (6.4-8.9)
[2016-10-04 16:55] LABS: Alcohol < 10 mg/dL (<10)
[2016-10-04 16:57] VITALS: BP 129/68
[2016-10-04] MEDS ORDERED: Magnesium Oxide TAB* 400 MG PO ONE (17:56)
[2016-10-04] MEDS ORDERED: Tetan/Diph/Pertus SYR(Tdap)* 0.5 ML SYR(BOOSTRIX) use SYR IM ONE (18:00)
[2016-10-04 18:04] LABS: TSH (Thyroid Stimulating Horm) 0.79 mcIU/mL (0.34-5.60)
[2016-10-04 18:47] LABS: Urine Bilirubin Negative (Negative); Urine Glucose Negative (Negative); Urine Nitrite Negative (Negative)
[2016-10-04 19:04] LABS: Benzodiazepine Urine Screen Presumptive Positive (None Detect)
--- NOTE | 2016-10-05 12:26 | ED ---
Prakash Guallpa Billy, scribed for Manuel Galeana MD on 10/04/16 at 1452 . Altered Mental Status - HPI Summary HPI Summary: Patient is a 61 year-old male coming to [facility] for evaluation of AMS today. Per EMS records, the patient was found by his neighbor in a state of confusion today. The patient is a diabetic, BG 89 on EMS arrival. Patient has no complaints other than a small abrasion tot he left knee. When asked why he is here in the ED, he states, "I guess I had a seizure." He has a poor memory of the events leading up to his arrival to the hospital. - History Of Current Complaint Chief Complaint: EDAltMentalStatus Stated Complaint: DIABETIC PROBLEMS Time Seen by Provider: 10/04/16 14:39 Hx Obtained From: Patient Onset/Duration: Unknown Timing: Constant Severity Initially: Moderate Severity Currently: Moderate Character: Confusion Aggravating Factor(s): Unknown Alleviating Factor(s): Unknown Associated Signs And Symptoms: Positive: Recent Trauma - abrasion left knee - Allergies/Home Medications Allergies/Adverse Reactions: Allergies Allergy/AdvReac Type Severity Reaction Status Date / Time Penicillins Allergy Severe Hives Verified 09/22/15 12:47 Erythromycin Allergy Unknown Hives Verified 09/22/15 12:47 Azithromycin Allergy Hives Verified 09/22/15 12:47 Cephalosporins Allergy Hives Verified 09/22/15 12:47 PMH/Surg Hx/FS Hx/Imm Hx Endocrine/Hematology History: Reports: Hx Diabetes - PT DENIES THIS Cardiovascular History: Reports: Hx Angina, Hx Coronary Artery Disease - WITH STENT, Hx Hypercholesterolemia, Hx Hypertension, Hx Myocardial Infarction Denies: Hx Pacemaker/ICD Respiratory History: Reports: Hx Chronic Obstructive Pulmonary Disease (COPD) GI History: Reports: Hx Gastroesophageal Reflux Disease Musculoskeletal History: Reports: Hx Orthopedic Injury - RIGHT LEG FRACTURE 2014 Denies: Hx Scoliosis Sensory History: Reports: Hx Contacts or Glasses - NOT WITH PATIENT, Hx Eye Injury, Other Sensory Impairments Denies: Hx Hearing Aid Opthamlomology History: Reports: Hx Contacts or Glasses - NOT WITH PATIENT, Hx Eye Injury, Other Sensory Impairments Neurological History: Reports: Hx Seizures Psychiatric History: Reports: Hx Anxiety, Hx Depression, Hx Panic Disorder, Hx Bipolar Disorder - Surgical History Surgery Procedure, Year, and Place: GB removed,cardiac stents PROMUS drug [place] [facility] [place] and [place]/13 at [place] pt does not have his implant cards.SURGERY TO LEFT SHOULDER 1985 PER PT Infectious Disease History: No Infectious Disease History: Denies: Traveled Outside the [place] in Last 30 Days - Family History Family History: No FHx of seizures - Social History Alcohol Use: None Alcohol Amount: unknown; patient not answering questions appropiately Hx Substance Use: No Substance Use Type: Reports: None Substance Use Comment - Amount & Last Used: unknown; patient not answering questions appropriately Hx Tobacco Use: Yes Smoking Status (MU): Heavy Every Day Tobacco Smoker Type: Cigarettes Amount Used/How Often: 1 PPD Length of Time of Smoking/Using Tobacco: 45 YEARS Have You Smoked in the Last Year: Yes Review of Systems Skin: Other - abrasion to the left knee Neurological: Other - "seizure," confusion All Other Systems Reviewed And Are Negative: Yes Physical Exam - Summary Physical Exam Summary: VITAL SIGNS: Reviewed. GENERAL: Patient is a well-developed and nourished male who is lying comfortable in the stretcher. Patient is not in any acute respiratory distress. HEAD AND FACE: No signs of trauma. No ecchymosis, hematomas or skull depressions. No sinus tenderness. EYES: PERRLA, EOMI x 2, No injected conjunctiva, no nystagmus. EARS: Hearing grossly intact. Ear canals and tympanic membranes are within normal limits. MOUTH: Oropharynx within normal limits. NECK: Supple, trachea is midline, no adenopathy, no JVD, no carotid bruit, no c- spine tenderness, neck with full ROM. CHEST: Symmetric, no tenderness at palpation LUNGS: Clear to auscultation bilaterally. No wheezing or crackles. CVS: Regular rate and rhythm, S1 and S2 present, no murmurs or gallops appreciated. ABDOMEN: Soft, non-tender. No signs of distention. No rebound no guarding, and no masses palpated. Bowel sounds are normal. EXTREMITIES: FROM in all major joints, no edema, no cyanosis or clubbing. Abrasion to the left knee. NEURO: Alert and oriented x 3. No acute neurological deficits. Speech is normal and follows commands. SKIN: Dry and warm Triage Information Reviewed: Yes Vital Signs On Initial Exam: Initial Vitals Temp Pulse Resp BP Pulse Ox 98.2 F 60 20 121/53 95 10/04/16 13:46 10/04/16 13:46 05/31/17 13:46 10/04/16 13:46 10/04/16 13:46 Vital Signs Reviewed: Yes Diagnostics - Vital Signs Vital Signs Temp Pulse Resp BP Pulse Ox 10/04/16 13:52 98.2 F 60 20 121/53 94 10/04/16 13:46 98.2 F 60 20 121/53 95 - Laboratory Lab Results: Lab Results 10/04/16 Range/Units 13:57 POC Glucose (mg/dL) 103 (74-106) mg/dL Result Diagrams: 10/04/16 15:50 10/04/16 15:50 Lab Statement: Any lab studies that have been ordered have been reviewed, and results considered in the medical decision making process. - Radiology CXR Xray Interpretation: No Acute Changes Radiology Interpretation Completed By: Radiologist - CT Brain CT Interpretation: No Acute Changes CT Interpretation Completed By: Radiologist Altered Mental Statu Course/Dx - Course Assessment/Plan: Patient is a 61 year-old male coming to [facility] for evaluation of AMS today. Per EMS records, the patient was found by his neighbor in a state of confusion today. The patient is a diabetic, BG 89 on EMS arrival. Patient has no complaints other than a small abrasion tot he left knee. When asked why he is here in the ED, he states, "I guess I had a seizure." He has a poor memory of the events leading up to his arrival to the hospital. Test results WNL except for chloride 100 and magnesium of 1.3. The patient was given magnesium oxide. CT head and CXR show no acute abnormality. In the ED course, the patient is A&Ox3, however the patient is slow to answer, but he does respond accurately to time, person, and place. It seems that when the patient was picked up by the ambulance, they noticed that he had no food. Therefore we contacted psychiatric social worker supervisor and the psychiatric social worker supervisor requested to give and arrange for food for tonight, and she will arrange for visiting nurse for tomorrow at his home for further assessment. She also referred him to adult protective services. At this point, he is at his baseline, A&Ox3, slow responding, ambulating, eating and drinking, and has no complaints. Therefore he will be discharged home with follow up with PCP. We will clean the abrasion, apply bacitracin, and apply a bandage. - Diagnoses Discharge Diagnoses: Hypomagnesemia, assessment for AMS Discharge - Discharge Plan Condition: Stable Disposition: HOME Patient Education Materials: Hypomagnesemia (ED), Altered Mental Status (ED) Referrals: [facility] PHYSICIAN REFERRAL [Outside] The documentation as recorded by the Prakash gabriel Billy accurately reflects the service I personally performed and the decisions made by me, Manuel Galeana MD.
== END 2016-10-04 19:08 | disposition home or self-care (01) ==
LOC: ED 13:15
DX: E83.42 Hypomagnesemia (principal); J44.9 Chronic obstructive pulmonary disease, unspecified; K21.9 Gastro-esophageal reflux disease without esophagitis; F31.9 Bipolar disorder, unspecified; F17.210 Nicotine dependence, cigarettes, uncomplicated
CPT/HCPCS: 36415; 70450; 71010; 80053; 80307; 80320; 81003; 82140; 83735; 84443; 85025; 90471; 90715; 99284; G0480

== ENCOUNTER → 2016-11-09 13:50 | Emergency (ER) | payer SELFPAY ==
[2016-11-09 14:05] VITALS: BP 128/96
[2016-11-09 14:45] LABS: Hematocrit 39 % (42-52); Hemoglobin 12.9 g/dl (14.0-18.0); Mean Corpuscular HGB Conc 33 g/dl (31-36); Mean Corpuscular Hemoglobin 33 pg (27-31); Mean Corpuscular Volume 99 fL (80-94); Mean Platelet Volume 7 um3 (7.4-10.4); Red Blood Count 3.96 10^6/ul (4.0-5.4); Red Cell Distribution Width 15 % (10.5-15); White Blood Count 12.8 10^3/ul (3.5-10.8)
[2016-11-09 15:02] LABS: ALT 14 U/L (7-52); AST 13 U/L (13-39); Albumin 3.7 g/dL (3.2-5.2); Alkaline Phosphatase 84 U/L (34-104); Anion Gap 7 mmol/L (2-11); BUN/Creatinine Ratio 15.2 (8-20); Blood Urea Nitrogen 10 mg/dL (6-24); CO2 Carbon Dioxide 23 mmol/L (22-32); Calcium 9.1 mg/dL (8.6-10.3); Chloride 105 mmol/L (101-111); EGFR African American 157.8 (>60); EGFR Non-African American 122.7 (>60); Glucose 112 mg/dL (70-100); Potassium 3.9 mmol/L (3.5-5.0); Sodium 135 mmol/L (133-145); Total Protein 6.7 g/dL (6.4-8.9)
--- NOTE | 2016-11-09 15:11 | RAD ---
HISTORY: Altered mental status COMPARISONS: October 04, 2016 TECHNIQUE: Multiple contiguous axial CT scans were obtained of the head without intravenous contrast. FINDINGS: HEMORRHAGE/INFARCT: There is no hemorrhage or acute infarct. MASSES/SHIFT: There is no mass or shift. EXTRA-AXIAL SPACES: There are no extra-axial fluid collections. SULCI AND VENTRICLES: The sulci and ventricles are normal in size and position for the patient's stated age. CEREBRUM: There are no focal parenchymal abnormalities. BRAINSTEM: There are no focal parenchymal abnormalities. CEREBELLUM: There is stable mild volume loss along the right cerebral hemisphere VESSELS: The vessels are grossly normal. PARANASAL SINUSES: The paranasal sinuses are clear. ORBITS: The orbits are unremarkable. BONES AND SOFT TISSUE: No bone or soft tissue abnormalities are noted. OTHER: None IMPRESSION: NO ACUTE INTRACRANIAL PATHOLOGY.
[2016-11-09 15:18] LABS: Alcohol < 10 mg/dL (<10)
--- NOTE | 2016-11-09 15:28 | RAD ---
HISTORY: Altered mental status COMPARISONS: October 04, 2016 VIEWS:1: Single frontal portable view of the chest at 2:47 PM FINDINGS: LINES AND TUBES: None. CARDIOMEDIASTINAL SILHOUETTE: The cardiomediastinal silhouette is normal for portable technique. PLEURA: The costophrenic angles are sharp. No pleural abnormalities are noted. LUNG PARENCHYMA: The lungs are clear. ABDOMEN: The upper abdomen is clear. There is no subphrenic gas. BONES AND SOFT TISSUES: No bone or soft tissue abnormalities are noted. IMPRESSION: NO ACTIVE CARDIOPULMONARY DISEASE.
[2016-11-09 17:07] LABS: Carbamazepine 11.7 mcg/mL (4.0-12.0)
[2016-11-12 07:18] LABS: Lacosamide 5.3 mcg/mL (1.0 - 10.0)
--- NOTE | 2016-11-12 22:58 | ED ---
Jovani Guallpa Salem, scribed for Bolivar Carroll MD on 11/09/16 at 1501 . Altered Mental Status - HPI Summary HPI Summary: Patient is a 61 y/o M who presents to the ED per EMS with AMS since at least earlier today. Per EMS, third green party called ambulance as pt was confused and not answering questions. He states that he was just out getting his groceries. Pt denies CP, SOB, or LOC. Per nurse, pt had seizure and was confused. PMHx of seizure and DM. He denies EtOH or tobacco use. - History Of Current Complaint Chief Complaint: EDAltMentalStatus Stated Complaint: AMS Time Seen by Provider: 11/09/16 14:35 Hx Obtained From: Patient Onset/Duration: Unknown, Still Present Timing: Constant, Lasting Hours Severity Initially: Moderate Severity Currently: Moderate Character: Confusion Aggravating Factor(s): Nothing Alleviating Factor(s): Nothing Associated Signs And Symptoms: Positive: Negative - Allergies/Home Medications Allergies/Adverse Reactions: Allergies Allergy/AdvReac Type Severity Reaction Status Date / Time Penicillins Allergy Severe Hives Verified 09/22/15 12:47 Erythromycin Allergy Unknown Hives Verified 09/22/15 12:47 Azithromycin Allergy Hives Verified 09/22/15 12:47 Cephalosporins Allergy Hives Verified 09/22/15 12:47 PMH/Surg Hx/FS Hx/Imm Hx Endocrine/Hematology History: Reports: Hx Diabetes - PT DENIES THIS Cardiovascular History: Reports: Hx Angina, Hx Coronary Artery Disease - WITH STENT, Hx Hypercholesterolemia, Hx Hypertension, Hx Myocardial Infarction, Other Cardiovascular Problems/Disorders - CAD Denies: Hx Pacemaker/ICD Respiratory History: Reports: Hx Chronic Obstructive Pulmonary Disease (COPD) GI History: Reports: Hx Gastroesophageal Reflux Disease Musculoskeletal History: Reports: Hx Orthopedic Injury - RIGHT LEG FRACTURE 2014 Denies: Hx Scoliosis Sensory History: Reports: Hx Contacts or Glasses - NOT WITH PATIENT, Hx Eye Injury, Other Sensory Impairments Denies: Hx Hearing Aid Opthamlomology History: Reports: Hx Contacts or Glasses - NOT WITH PATIENT, Hx Eye Injury, Other Sensory Impairments Neurological History: Reports: Hx Seizures Psychiatric History: Reports: Hx Anxiety, Hx Depression, Hx Panic Disorder, Hx Bipolar Disorder - Surgical History Surgery Procedure, Year, and Place: GB removed,cardiac stents PROMUS drug eluting stent 07/15 at [facility] [place] and 04/13 at [facility] pt does not have his implant cards.SURGERY TO LEFT SHOULDER 1985 PER PT Infectious Disease History: No Infectious Disease History: Denies: Traveled Outside the US in Last 30 Days - Family History Family History: No FHx of seizures - Social History Alcohol Use: None Alcohol Amount: 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 Hx Substance Use: No Substance Use Type: Reports: Other Substance Use Comment - Amount & Last Used: unknown; patient not answering questions appropriately Hx Tobacco Use: Yes Smoking Status (MU): Heavy Every Day Tobacco Smoker Type: Cigarettes Amount Used/How Often: 1 PPD Length of Time of Smoking/Using Tobacco: 45 YEARS Have You Smoked in the Last Year: Yes Review of Systems Negative: Fever, Chills Negative: Erythema Negative: Sore Throat Negative: Chest Pain Negative: Shortness Of Breath, Cough Negative: Abdominal Pain, Vomiting, Nausea Negative: dysuria, hematuria Negative: Myalgia, Edema Negative: Rash Neurological: Other - No dizziness or LOC. Confused. Not answering questions. Sz. All Other Systems Reviewed And Are Negative: Yes Physical Exam - Summary Physical Exam Summary: Constitutional: Well-developed, Well-nourished, Alert. (-) Distressed Skin: Warm, Dry HENT: Normocephalic; Atraumatic Eyes: Conjunctiva normal Neck: Musculoskeletal ROM normal neck. (-) JVD, (-) Stridor, (-) Tracheal deviation Cardio: Rhythm regular, rate normal, Heart sounds normal; Intact distal pulses; The pedal pulses are 2+ and symmetric. Radial pulses are 2+ and symmetric. (-) Murmur Pulmonary/Chest wall: Effort normal. (-) Respiratory distress, (-) Wheezes, (-) Rales Abd: Soft, (-) Tenderness, (-) Distension, (-) Guarding, (-) Rebound Musculoskeletal: (-) Edema Lymph: (-) Cervical adenopathy Neuro: Alert, Oriented x3 Psych: Mood and affect Normal Triage Information Reviewed: Yes Vital Signs On Initial Exam: Initial Vitals Temp Pulse Resp BP Pulse Ox 98.0 F 86 16 128/96 96 11/09/16 14:02 11/09/16 14:02 11/09/16 14:02 11/09/16 14:02 11/09/16 14:02 Vital Signs Reviewed: Yes - Emigdio Coma Scale Coma Scale Total: 14 Diagnostics - Vital Signs Vital Signs Temp Pulse Resp BP Pulse Ox 11/09/16 14:02 98.0 F 86 16 128/96 96 - Laboratory Lab Results: Lab Results 11/09/16 11/09/16 Range/Units 14:30 14:30 WBC 12.8 H (3.5-10.8) 10^3/ul RBC 3.96 L (4.0-5.4) 10^6/ul Hgb 12.9 L (14.0-18.0) g/dl Hct 39 L (42-52) % MCV 99 H (80-94) fL MCH 33 H (27-31) pg MCHC 33 (31-36) g/dl RDW 15 (10.5-15) % Plt Count 210 (150-450) 10^3/ul MPV 7 L (7.4-10.4) um3 Neut % (Auto) 62.0 (38-83) % Lymph % (Auto) 29.1 (25-47) % Ocean % (Auto) 7.8 (1-9) % Eos % (Auto) 0.9 (0-6) % Baso % (Auto) 0.2 (0-2) % Absolute Neuts (auto) 8.0 H (1.5-7.7) 10^3/ul Absolute Lymphs (auto) 3.7 (1.0-4.8) 10^3/ul Absolute Monos (auto) 1.0 H (0-0.8) 10^3/ul Absolute Eos (auto) 0.1 (0-0.6) 10^3/ul Absolute Basos (auto) 0 (0-0.2) 10^3/ul Absolute Nucleated RBC 0.01 10^3/ul Nucleated RBC % 0.1 POC Glucose (mg/dL) 125 H (74-106) mg/dL Result Diagrams: 11/09/16 14:30 11/09/16 14:30 Lab Statement: Any lab studies that have been ordered have been reviewed, and results considered in the medical decision making process. - Radiology CXR Radiology Interpretation Completed By: Radiologist - IMPRESSION: NO ACTIVE CARDIOPULMONARY DISEASE. - CT BRAIN CT Interpretation Completed By: Radiologist - IMPRESSION: NO ACUTE INTRACRANIAL PATHOLOGY. - EKG 1619 EKG Interpretation: NSR @ 64 bpm. No STEMI. Improved. Re-Evaluation - Re-Evaluation First Eval Re-Evaluation Time: 16:40 Comment: Re-evaluated. He is better. Pt wants to go home. Altered Mental Statu Course/Dx - Course Course Of Treatment: 61 y/o M presents per EMS with AMS since earlier today. Per EMS, third green party called ambulance as pt was confused and not answering questions. Pt denies CP, SOB, or LOC. CXR shows, per radiology, IMPRESSION: NO ACTIVE CARDIOPULMONARY DISEASE. Brain CT shows, per radiology, IMPRESSION: NO ACUTE INTRACRANIAL PATHOLOGY. EKG was negative. Pt is stable and will be DC'd. - Diagnoses Discharge Diagnoses: Post-ictal confusion Discharge - Discharge Plan Condition: Stable Disposition: HOME Patient Education Materials: Altered Mental Status (ED) Referrals: Souleymane Magdaleno MD [Medical Doctor] - Additional Instructions: Please follow up with Dr. Magdaleno in a couple of days. RETURN TO THE EMERGENCY DEPARTMENT FOR CHANGING OR WORSENING SYMPTOMS. The documentation as recorded by the Jovani gabriel Salem accurately reflects the service I personally performed and the decisions made by me, Bolivar Carroll MD.
== END | disposition home or self-care (01) ==
LOC: ED 13:50
DX: R41.0 Disorientation, unspecified (principal); R41.82 Altered mental status, unspecified
CPT/HCPCS: 36415; 70450; 71010; 80053; 80156; 80299; 80320; 82140; 83605; 84484; 85025; 93005; 99282; G0480

== ENCOUNTER 2016-11-30 16:09 | Observation (INO) | payer MEDICARE, MEDICAID ==
[2016-11-30 18:44] LABS: Hematocrit 23 % (42-52); Hemoglobin 7.5 g/dl (14.0-18.0); Mean Corpuscular HGB Conc 33 g/dl (31-36); Mean Corpuscular Hemoglobin 33 pg (27-31); Mean Corpuscular Volume 101 fL (80-94); Mean Platelet Volume 7 um3 (7.4-10.4); Red Blood Count 2.27 10^6/ul (4.0-5.4); Red Cell Distribution Width 14 % (10.5-15); White Blood Count 9.8 10^3/ul (3.5-10.8)
[2016-11-30 19:00] LABS: ALT 53 U/L (7-52); AST 40 U/L (13-39); Albumin 3.1 g/dL (3.2-5.2); Alkaline Phosphatase 74 U/L (34-104); Anion Gap 5 mmol/L (2-11); BUN/Creatinine Ratio 11.1 (8-20); Blood Urea Nitrogen 8 mg/dL (6-24); CO2 Carbon Dioxide 25 mmol/L (22-32); Calcium 7.8 mg/dL (8.6-10.3); Chloride 110 mmol/L (101-111); EGFR African American 142.7 (>60); Globulin 2.3 g/dL (2-4); Glucose 77 mg/dL (70-100); Magnesium 1.2 mg/dL (1.9-2.7); Sodium 140 mmol/L (133-145); Total Protein 5.4 g/dL (6.4-8.9)
--- NOTE | 2016-11-30 19:11 | RAD ---
Indication: Seizure. Comparison: November 09, 2016 Technique: Noncontrast CT vertex of skull through foramen magnum. Report: The sulci, ventricles, and basal cisterns are mildly prominent reflecting mild involutional change. Escalante matter white matter differentiation is preserved without evidence for edema. No intra or extra axial hemorrhage, mass, or fluid collection detected. Unremarkable visualized orbital contents. Unremarkable calvarium and skull base. Unremarkable scalp. The visualized paranasal sinuses and mastoid air spaces are clear. IMPRESSION: Negative unenhanced head CT for age.
[2016-11-30 19:20] LABS: Alcohol < 10 mg/dL (<10); Carbamazepine 10.7 mcg/mL (4.0-12.0)
[2016-11-30] MEDS ORDERED: Magnesium Sulfate 2 GM IV* 2 GM/50 ML BAG IVPB ONE (19:26)
--- NOTE | 2016-11-30 20:35 | ED ---
Titi Guallpa Alfonso, scribed for Carolyn Cat MD on 11/30/16 at 1954 . Progress - Progress Note Progress Note: LEVEL 5 CAVEAT DUE TO PATIENTS NONVERBAL STATUS AND INABILITY TO ANSWER QUESTIONS. This patient is a 61 year old M [facility]/p seizure earlier today. Tobacco abuse disorder. PMHx of ETOH abuse. PE Findings brown stool noted in rectal exam. Exam witnessed by RN. Case presented to Dr. Klein for admission Course/Dx - Diagnoses Provider Diagnoses: Seizure, Post-ictal state, Hypomagnesemia The documentation as recorded by the Titi gabriel Alfonso accurately reflects the service I personally performed and the decisions made by me, Carolyn Cat MD.
[2016-11-30] MEDS ORDERED: Nitroglycerin TAB 0.4 MG* 0.4 MG TAB SL PRN (20:36)
[2016-11-30] MEDS ORDERED: LORazepam TAB(*) 1 MG PO PRN (20:36)
[2016-11-30] MEDS ORDERED: CMCS Melatonin (NF) 3 MG TAB PO PRN (20:36)
[2016-11-30] MEDS ORDERED: Albuterol HFA INHALER* 8 gm MDI INH PRN (20:36)
[2016-11-30] MEDS ORDERED: Zolpidem TAB* 5 MG PO PRN (20:36)
[2016-11-30] MEDS ORDERED: Dextrose 50% Syringe 50 ML* 25 GM/50 ML SYRINGE IV PUSH PRN (20:52)
[2016-11-30] MEDS ORDERED: LaCOSAMide TAB* 150 MG TAB PO SCH (21:00)
[2016-11-30] MEDS ORDERED: Heparin VIAL(*) 5000 UNITS/ML VIAL (FIVE THOUSAND) SUBCUT SCH (22:00)
[2016-11-30] MEDS: Insulin LISPRO* 1 UNITS UNIT SUBCUT SCH (22:58)
[2016-11-30] MEDS: Mirtazapine TAB* 15 MG PO SCH (23:07)
[2016-11-30] MEDS: TIAGABINE 4 MG PO SCH (23:07)
[2016-11-30] MEDS: CMCS Ranolazine (NF) 500 MG TAB PO SCH (23:07)
[2016-11-30] MEDS: OLANzapine TAB* 10 MG PO SCH (23:07)
[2016-11-30] MEDS: Ibuprofen TAB* 800 MG PO PRN (23:23)
[2016-12-01] MEDS ORDERED: Magnesium Sulfate 2 GM IV* 2 GM/50 ML BAG IVPB ONE (00:34)
[2016-12-01 04:47] LABS: Hematocrit 22 % (42-52); Hemoglobin 7.6 g/dl (14.0-18.0); Mean Corpuscular HGB Conc 34 g/dl (31-36); Mean Corpuscular Hemoglobin 34 pg (27-31); Mean Corpuscular Volume 99 fL (80-94); Mean Platelet Volume 7 um3 (7.4-10.4); Red Blood Count 2.25 10^6/ul (4.0-5.4); Red Cell Distribution Width 15 % (10.5-15); White Blood Count 7.6 10^3/ul (3.5-10.8)
[2016-12-01 04:59] LABS: BUN/Creatinine Ratio 13.3 (8-20); Calcium 8.1 mg/dL (8.6-10.3); EGFR Non-African American 77.8 (>60); Magnesium 2.3 mg/dL (1.9-2.7); Potassium 3.3 mmol/L (3.5-5.0)
--- NOTE | 2016-12-01 05:45 | HP ---
CC: ROSA Pabon * HISTORY AND PHYSICAL: DATE OF ADMISSION: 11/30/16 PRIMARY CARE PHYSICIAN: ROSA Pabon CHIEF COMPLAINT: Seizure. HISTORY OF PRESENT ILLNESS: The patient is unable to give me any history of what has happened or why he is here. He does answer my questions, but seems somewhat confused. Apparently, he was brought in by ambulance for his seizure earlier. These seizures seem to have subsided, but the patient is still somewhat confused and maybe postictal. He has a history of seizures and says he is compliant with his medications. In fact, his Tegretol level was therapeutic upon arrival. PAST MEDICAL HISTORY: Significant for epilepsy with complex seizures, diabetes , coronary artery disease, hypertension, COPD, tobacco abuse, GERD, depression, anxiety, panic disorder, hepatic encephalopathy thought secondary to Depakote use, bipolar disorder. PAST SURGICAL HISTORY: Lap gladys. CURRENT MEDICATIONS: As follows: 1. Protonix 20 mg daily. 2. Melatonin 3 mg at bedtime as needed. 3. Ibuprofen 800 mg every 8 hours as needed. 4. Albuterol 2 puffs every 4 hours as needed. 5. Sertraline 200 mg in the morning. 6. Remeron 30 mg at bedtime. 7. Zetia 10 mg daily. 8. Plavix 75 mg daily. 9. Aspirin 81 mg daily. 10. Lorazepam 1 mg a daily as needed. 11. Vimpat 150 mg twice daily. 12. Ranexa 500 mg twice daily. 13. Nitroglycerin 0.4 mg sublingual q.5 minutes as needed. 14. Singulair 10 mg in the morning. 15. Magnesium oxide 800 mg in the morning. 16. Crestor 40 mg daily. 17. Gabitril 15 mg twice daily. 18. Tegretol 400 mg in the morning, 800 mg in the evening. 19. Zolpidem 5 mg at bedtime as needed. 20. Metoprolol succinate 100 mg daily. 21. Prevacid 30 mg daily. This needs to be checked as he is also apparently on Protonix. 22. Zyprexa 10 mg daily at bedtime. 23. Metformin 1000 mg twice daily. ALLERGIES: He has allergies/adverse reactions to PENICILLIN, ERYTHROMYCIN, AZITHROMYCIN, and CEPHALOSPORINS. FAMILY HISTORY: Mother had an DC. Father had only a history of pneumonia that he is aware of. SOCIAL HISTORY: He still smokes apparently 1 pack a day. No alcohol. No healthcare proxy that he can give me or that is in his records. REVIEW OF SYSTEMS: Unable to perform with the patient as he is too confused. PHYSICAL EXAMINATION VITAL SIGNS: Temperature 97.4 degrees, heart rate 76 beats per minute, respiratory rate 12 breaths per minute, pulse ox 95%, blood pressure 113/59. HEENT: Normocephalic, atraumatic. Pupils equal, round, and reactive to light. He has got moist mucous membranes. NECK: Supple. No JVD, bruits, palpable thyroid or lymphadenopathy. CHEST: Clear to auscultation and percussion bilaterally. CARDIOVASCULAR: S1 and S2 appreciated. ABDOMEN: Positive bowel sounds in all 4 quadrants. Soft, nontender, nondistended. EXTREMITIES: No cyanosis, clubbing or edema. +2 peripheral pulses bilaterally. NEUROLOGIC: He is alert and oriented x2. Moves all extremities. SKIN: No distinct rashes or abnormalities. LAB DATA: White count 9.8, hemoglobin 7.5, hematocrit 23, platelets of 269. Sodium was 140, potassium 4.0, chloride 110, CO2 25, BUN 8, creatinine 0.72, glucose is 77. Magnesium is 1.2, AST 40, ALT 53. INR is 0.98. Tegretol level is 10.7. Serum alcohol level is less than 10. Brain CT, negative unenhanced CT. EKG shows normal sinus rhythm, 87 beats per minute, left axis deviation, Qs in III and F. No acute ST or T wave changes. ASSESSMENT AND PLAN: 1. Seizure. Unclear as to reason, but I am concerned that the patient seems more anemic than usual. I will recheck his H and H and transfuse him 2 units. I will guaiac patient as well. This unlikely would be contributing to a seizure , but it perhaps there is another process going on and that may be complicating matters. 2. Hypomagnesemia. We will replete the magnesium, which could be contributing to this. 3. Diabetes mellitus. Fingerstick with sliding scale insulin. Consistent carb diet. 4. Coronary artery disease, stable. Continue current medication. 5. Hypertension. Well controlled. Continue current regimen. 6. Chronic obstructive pulmonary disease, continue current regimen. He appears stable. 7. Gastroesophageal reflux disease, stable. Continue PPI. 8. Depression and anxiety. Continue current medications. 9. DVT prophylaxis. We will discontinue heparin subcu, place on SCDs as he may be bleeding. 10. The patient is a full code. TIME SPENT: Over 85 minutes were spent on this H and P, more than 45 minutes of which were spent in direct [id number] contact with the patient in evaluation, physical exam, counseling, and coordination of care. [id number]/[facility] #: [id number] SREEKANTH
--- NOTE | 2016-12-01 08:26 | PN ---
Subjective Date of Service: 12/01/16 Interval History: Patient seen this morning. Was sleeping but awoke easily. Seems more alert this morning than notes overnight, aggravated with any questioning. Says he knows he is in the hospital (thought [facility]) for seizures. States he is compliant with his medications although unable to tell me the names of any of his medications. Denies any melena, hematochezia, hematuria, hematemesis. Denies EtOH use. Refused transfusions overnight although refused to answer as to why aside from "because I didn't want it". Family History: Unchanged from Admission Social History: Unchanged from Admission Past Medical History: Unchanged from Admission Objective Active Medications: Albuterol (Ventolin Hfa Inhaler*) 2 puff INH Q4H PRN Aspirin (Aspirin Ec Low Dose*) 81 mg PO DAILY NERY Atorvastatin Calcium (Lipitor*) 80 mg PO DAILY NERY Carbamazepine (Tegretol Xr Tab(*)) 400 mg PO QAM NERY Carbamazepine (Tegretol Xr Tab(*)) 800 mg PO QPM NERY Clopidogrel Bisulfate (Plavix Tab*) 75 mg PO DAILY NERY Dextrose (D50w Syringe 50 Ml*) 12.5 gm IV PUSH .FOR FS < 60 - SS PRN Ezetimibe (Zetia Tab*) 10 mg PO DAILY NERY Ibuprofen (Motrin Tab*) 800 mg PO Q8H PRN Insulin Human Lispro (Humalog*) 0 units SUBCUT ACHS NERY Lacosamide (Vimpat) 150 mg PO BID NERY Lorazepam (Ativan Tab(*)) 1 mg PO DAILY PRN Magnesium Oxide (Magox 400 Tab*) 800 mg PO QAM [facility] Melatonin (Melatonin (Nf)) 3 mg PO BEDTIME PRN Metoprolol Succinate (Toprol Xl Tab*) 100 mg PO DAILY NERY Mirtazapine (Remeron Tab*) 30 mg PO BEDTIME NERY Montelukast Sodium (Singulair Tab*) 10 mg PO QAM NERY Nitroglycerin (Nitroglycerin Tab 0.4 Mg*) 0.4 mg SL Q5M PRN Olanzapine (Zyprexa Tab*) 10 mg PO BEDTIME NERY Pantoprazole Sodium (Protonix Tab (Nf)) 40 mg PO DAILY NERY Ranolazine (Ranexa (Nf)) 500 mg PO BID NERY Sertraline HCl (Zoloft*) 200 mg PO QAM NERY Tiagabine HCl (Gabitril(*)) 16 mg PO BID NERY Zolpidem Tartrate (Ambien Tab*) 5 mg PO BEDTIME PRN Vital Signs 11/30/16 11/30/16 11/30/16 21:00 21:26 21:55 Temperature 97.4 F Pulse Rate 76 79 Respiratory 12 20 16 Rate Blood Pressure 113/59 113/59 (mmHg) O2 Sat by Pulse 95 Oximetry 11/30/16 11/30/16 11/30/16 22:03 22:09 23:00 Temperature 98 F Pulse Rate 76 Respiratory 15 20 11 Rate Blood Pressure 122/54 (mmHg) O2 Sat by Pulse 99 Oximetry 11/30/16 12/01/16 12/01/16 23:27 00:00 01:00 Temperature 98.0 F Pulse Rate 88 Respiratory 16 19 21 Rate Blood Pressure 100/50 (mmHg) O2 Sat by Pulse 98 Oximetry Oxygen Devices in Use Now: None Appearance: Middle-aged, M, laying in bed in NAD Eyes: No Scleral Icterus Ears/Nose/Mouth/Throat: - - Dry MM Neck: NL Appearance and Movements; NL JVP Respiratory: Symmetrical Chest Expansion and Respiratory Effort, Clear to Auscultation - in anterior and lateral tran Cardiovascular: NL Sounds; No Murmurs; No JVD, RRR Abdominal: NL Sounds; No Tenderness; No Distention Lymphatic: No Cervical Adenopathy Extremities: No Edema Skin: No Rash or Ulcers Neurological: - - Alert, oriented to self, "hospital", refused to answer other orientation questions Result Diagrams: 12/01/16 04:33 12/01/16 04:34 Assess/Plan/Problems-Billing Assessment: Seizures in a 61 yo M with hx of epilepsy with complex seizures, DM, CAD, HTN, bipolar disorder - Patient Problems (1) Seizure disorder Current Visit: No Comment: No futher seizures in the hospital so far. Spoke to Dr. Magdaleno who recommended increasing Vimpat to 200 mg BID, also stressed the need for a PCP. Will continue home Tegretol and Gabitril. Tegretol level was normal, will add on Vimpat level. Etiology is unclear but non-compliance is a possibility Magnesium was quite low and was repleted, will replete K this morning. Continue to monitor throughtout the day (2) Anemia Current Visit: Yes Comment: Macrocytic. Patient refused transfusion overnight , will discuss further with him. Guaiac is negative. Will check iron studies, B12, folate although drop seems rather acute. Will need close outpatient follow- up and likely GI referral. (3) Type 2 diabetes mellitus Current Visit: No Comment: Holding home oral hypoglycemics. Continue HISS. (4) CAD (coronary artery disease) Current Visit: No Comment: Continue ASA, plavix, metoprolol and statin. (5) Bipolar disorder Current Visit: No Comment: continue Zyprexa and Zoloft (6) DVT prophylaxis Current Visit: No Comment: SCDs
[2016-12-01] MEDS ORDERED: Magnesium Oxide TAB* 400 MG PO SCH (09:00)
[2016-12-01] MEDS ORDERED: Sertraline* 100 MG TAB PO SCH (09:00)
[2016-12-01] MEDS ORDERED: LaCOSAMide TAB* 150 MG TAB PO SCH (09:00)
[2016-12-01] MEDS ORDERED: Metoprolol Succinate XL TAB* 100 MG PO SCH (09:00)
[2016-12-01] MEDS ORDERED: Clopidogrel TAB* 75 MG PO SCH (09:00)
[2016-12-01] MEDS ORDERED: Montelukast Sodium TAB* 10 MG PO SCH (09:00)
[2016-12-01] MEDS ORDERED: Aspirin EC Low Dose* 81 MG TAB.EC PO SCH (09:00)
[2016-12-01] MEDS ORDERED: Famotidine TAB* 20 MG PO SCH (09:00)
[2016-12-01] MEDS ORDERED: carBAMazepine ER TAB(*) 200 MG PO SCH ×2 (09:00→18:00)
[2016-12-01] MEDS ORDERED: Ezetimibe TAB* 10 MG PO SCH (09:00)
[2016-12-01] MEDS ORDERED: Atorvastatin* 80 MG TAB PO SCH (09:00)
[2016-12-01] MEDS: Ibuprofen TAB* 800 MG PO PRN ×2 (09:24→15:43)
[2016-12-01] MEDS: CMCS Pantoprazole TAB (NF) 40 MG TAB PO SCH ×2 (09:28→10:46)
[2016-12-01] MEDS: TIAGABINE 4 MG PO SCH ×2 (09:28→19:25)
[2016-12-01] MEDS: Insulin LISPRO* 1 UNITS UNIT SUBCUT SCH ×3 (09:36→20:10)
[2016-12-01] MEDS: Lacosamide TAB* 100 MG TAB PO SCH ×2 (09:42→19:26)
[2016-12-01] MEDS: CMCS Ranolazine (NF) 500 MG TAB PO SCH ×2 (10:00→19:27)
[2016-12-01] MEDS: Potassium Chlor TAB* 20 MEQ TAB.ER PO SCH ×2 (10:43→14:18)
[2016-12-01 12:24] LABS: Ferritin 37.3 ng/mL (24-336)
[2016-12-01 12:28] LABS: Folate 11.03 ng/mL (>3.99)
[2016-12-01 13:04] VITALS: BP 108/52
[2016-12-01 14:20] LABS: Urine Bacteria 3+ (Absent); Urine Bilirubin Negative (Negative); Urine Glucose 1+(50 mg/dL) (Negative); Urine Nitrite Negative (Negative)
[2016-12-01] MEDS: OLANzapine TAB* 10 MG PO SCH (19:26)
[2016-12-01] MEDS: Mirtazapine TAB* 15 MG PO SCH (19:27)
--- NOTE | 2016-12-02 14:32 | DS ---
CC: Dr. Ranjith Koch; Dr. Souleymane Magdaleno; Dr. Cedric Freedman DISCHARGE SUMMARY: DATE OF ADMISSION: 11/30/16 DATE OF DISCHARGE: 12/01/16 NEW PRIMARY CARE PHYSICIAN: Dr. Ranjith Koch. PRINCIPAL DISCHARGE DIAGNOSES: 1. Seizure. 2. Anemia. SECONDARY DIAGNOSES: 1. Epilepsy. 2. Diabetes. 3. Coronary artery disease. 4. Hypertension. 5. Chronic obstructive pulmonary disease. 6. Tobacco abuse. 7. Gastroesophageal reflux disease. 8. Bipolar disorder. 9. History of hepatic encephalopathy secondary to Depakote use. 10. Depression. 11. Anxiety. DISCHARGE MEDICATION REGIMEN: 1. Vimpat 200 mg by mouth 2 times daily. 2. Metformin 1000 mg by mouth 2 times daily. 3. Zyprexa 10 mg by mouth at bedtime. 4. Lansoprazole 30 mg by mouth daily. 5. Toprol-XL 100 mg by mouth daily. 6. Ambien 5 mg by mouth at bedtime as needed for sleep. 7. Tegretol 400 mg by mouth every morning, 800 mg by mouth at bedtime. 8. Gabitril 16 mg by mouth 2 times daily. 9. Rosuvastatin 40 mg by mouth daily. 10. Magnesium oxide 800 mg by mouth daily. 11. Singulair 10 mg by mouth daily. 12. Nitroglycerin 0.4 mg sublingual every 5 minutes as needed for chest pain. 13. Ranolazine 500 mg by mouth 2 times daily. 14. Ativan 1 to 2 mg by mouth daily as needed for anxiety. 15. Aspirin 81 mg by mouth daily. 16. Ezetimibe 10 mg by mouth daily. 17. Mirtazapine 30 mg by mouth at bedtime. 18. Sertraline 200 mg by mouth daily. 19. Albuterol 2 puffs inhaled every 4 hours as needed for shortness of breath or wheezing. 20. Ibuprofen 800 mg by mouth every 8 hours as needed for pain. 21. Melatonin 3 mg by mouth at bedtime as needed for sleep. 22. Pantoprazole 20 mg by mouth daily. Discontinued medications: Plavix 75 mg by mouth daily. STUDIES DONE DURING HOSPITALIZATION: CT brain without contrast, impression: Negative unenhanced CT for age. HISTORY OF PRESENT ILLNESS AND HOSPITAL SUMMARY: Please see the full history and physical by Dr. Srinivas Klein for full details. Briefly, Mr. Durham is a 61-year-old man with a complicated past medical history, who was brought into the hospital after found to be having seizures at his home. EMS witne ssed the patient having multiple seizures. He was brought to the hospital and was confused, was tho ught to be a postictal state. His labs were significant for a magnesium of 1.2, which was repleted as well as a hemoglobin of 7.5, this was significantly lower than just earlier this month when he wa s found to have a hemoglobin of 12.9 on 11/09/16. On initial interviews with the patient, he remain ed a bit confused. He was ordered for blood transfusion overnight, but refused this as well. It wa s felt that he did not have the ability to consent at that time. He did have a guaiac stool that wa s negative here. Later in the day, the patient states he had been having some intermittent episodes of dark stools, never any bright red blood per rectum, no hematemesis. Due to the patient's histor y of CAD, he was transfused 1 unit of packed red blood cell for a hemoglobin of 7.6. He was resista nt to the idea of an endoscopy unless he "absolutely needed it" and he was encouraged to follow up w ith his PCP for further evaluation regarding this. In the meantime, his Plavix will be stopped. We will continue on his home PPI and he will be started on oral iron. I spoke with Dr. Magdaleno, his neurologist, who recommended increasing his Vimpat from 150 b.i.d. to [address] Magdaleno states he will also be speaking with Dr. Stahl about the possibility of s witching to a new medication for the patient, which can be done as an outpatient. The patient was set up with a new PCP appointment with Dr. Koch in 4 days. He was encouraged to keep this followup appointment and they can discuss further whether to proceed with GI evaluation a t that time. He is to also follow up with Dr. Magdaleno as an outpatient as well as with Dr. Freedman. TIME SPENT: Total time spent on this discharge was 60 minutes. This is a summary of the hospitalization, please see the full medical record for further details. [id number]/[facility] #: [id number]
[2016-12-04 11:34] LABS: Lacosamide 7.2 mcg/mL (1.0 - 10.0)
== END 2016-12-01 21:10 | disposition home or self-care (01) ==
LOC: ED 16:09 → MEDTELE 20:52
PROVIDERS: ADMIT Internal Medicine; ATTEND Hospitalist
DX: G40.909 Epilepsy, unspecified, not intractable, without status epilepticus (principal); D53.9 Nutritional anemia, unspecified; I25.10 Atherosclerotic heart disease of native coronary artery without angina pectoris; I10 Essential (primary) hypertension; E11.9 Type 2 diabetes mellitus without complications; Z79.84 Long term (current) use of oral hypoglycemic drugs; J44.9 Chronic obstructive pulmonary disease, unspecified; K21.9 Gastro-esophageal reflux disease without esophagitis; F41.9 Anxiety disorder, unspecified; E83.42 Hypomagnesemia; F32.9 Major depressive disorder, single episode, unspecified; F17.210 Nicotine dependence, cigarettes, uncomplicated; R94.31 Abnormal electrocardiogram [ECG] [EKG]; Z79.82 Long term (current) use of aspirin; Z79.899 Other long term (current) drug therapy; Z88.0 Allergy status to penicillin; Z88.1 Allergy status to other antibiotic agents
CPT/HCPCS: 36415; 36430; 70450; 80048; 80053; 80156; 80299; 80320; 81003; 81015; 82272; 82607; 82728; 82746; 83540; 83550; 83605; 83735; 84466; 85025; 85610; 86850; 86900; 86901; 86922; 87077; 87086; 87186; 93005; 96365; 96366; 96372; 99284; A9270-GY; G0378; G0480; J1644; J3475; P9016

== ENCOUNTER 2017-02-03 14:32 | Emergency (ER) | payer MEDICARE, MEDICAID ==
--- NOTE | 2017-02-03 15:44 | RAD ---
INDICATION: Right foot pain. No known injury. COMPARISON: None TECHNIQUE: AP, lateral, and oblique views were obtained. FINDINGS: There is osteopenia. There is no definitive acute bony change. There is minor first MTP joint osteoarthritis. There is soft tissue swelling over the forefoot. IMPRESSION: NO DEFINITIVE FRACTURE. SOFT TISSUE SWELLING.
--- NOTE | 2017-02-03 15:56 | RAD ---
INDICATION: Right ankle injury COMPARISON: None TECHNIQUE: AP, lateral, and oblique views were obtained. FINDINGS: There are no acute bony findings. The tibiotalar joint space is preserved. The soft tissues are normal. IMPRESSION: NO ACUTE FINDINGS.
[2017-02-03 17:45] VITALS: BP 105/68
--- NOTE | 2017-02-05 06:08 | ED ---
Cee Guallpa Edward, scribed for Manuel Galeana MD on 02/03/17 at 1501 . Lower Extremity - HPI Summary HPI Summary: 61 y/o male presents to the ED c/o constant R foot swelling and pain starting yesterday. The pain is aggravated with walking and weight bearing. Associated sx : ecchymosis at the top of the foot. Pt does not remember injuring it. PMHx epilepsy. Pt states he is not sure if he had a seizure. - History of Current Complaint Chief Complaint: EDExtremityLower Stated Complaint: RT FOOT PAIN Time Seen by Provider: 02/03/17 14:56 Hx Obtained From: Patient Onset/Duration: Still Present Severity Currently: Severe Pain Intensity: 9 Pain Scale Used: 0-10 Numeric Timing: Constant Location: Is Discrete @ - R foot Associated Signs And Symptoms: Positive: Swelling, Bruising Aggravating Factor(s): Ambulation, Weight Bearing - Allergies/Home Medications Allergies/Adverse Reactions: Allergies Allergy/AdvReac Type Severity Reaction Status Date / Time Penicillins Allergy Severe Hives Verified 11/30/16 16:25 Erythromycin Allergy Unknown Hives Verified 11/30/16 16:25 Azithromycin Allergy Hives Verified 11/30/16 16:25 Cephalosporins Allergy Hives Verified 11/30/16 16:25 PMH/Surg Hx/FS Hx/Imm Hx Previously Healthy: No Endocrine/Hematology History: Reports: Hx Diabetes Cardiovascular History: Reports: Hx Angina, Hx Coronary Artery Disease - WITH STENT, Hx Hypercholesterolemia, Hx Hypertension, Hx Myocardial Infarction, Other Cardiovascular Problems/Disorders - CAD Denies: Hx Pacemaker/ICD Respiratory History: Reports: Hx Chronic Obstructive Pulmonary Disease (COPD) GI History: Reports: Hx Gastroesophageal Reflux Disease Musculoskeletal History: Reports: Hx Orthopedic Injury - RIGHT LEG FRACTURE 2014 Denies: Hx Scoliosis Sensory History: Reports: Hx Contacts or Glasses, Hx Eye Injury, Other Sensory Impairments Denies: Hx Hearing Aid Opthamlomology History: Reports: Hx Contacts or Glasses, Hx Eye Injury, Other Sensory Impairments Neurological History: Reports: Hx Seizures - epilepsy with complex Psychiatric History: Reports: Hx Anxiety, Hx Depression, Hx Panic Disorder, Hx Bipolar Disorder - Surgical History Surgery Procedure, Year, and Place: GB removed,cardiac stents PROMUS drug [place] [facility] [place] [facility] pt does not have his implant cards.SURGERY TO LEFT SHOULDER 1984 PER PT Infectious Disease History: No Infectious Disease History: Denies: Traveled Outside the [place] in Last 30 Days - Family History Family History: No FHx of seizures - Social History Alcohol Use: None Alcohol Amount: "recovering alcoholic Hx Substance Use: No Substance Use Type: Reports: None Substance Use Comment - Amount & Last Used: unknown; patient not answering questions appropriately Hx Tobacco Use: Yes Smoking Status (MU): Heavy Every Day Tobacco Smoker Type: Cigarettes Amount Used/How Often: 1 PPD Length of Time of Smoking/Using Tobacco: 45 YEARS Have You Smoked in the Last Year: Yes Review of Systems Constitutional: Negative Eyes: Negative ENT: Negative Cardiovascular: Negative Respiratory: Negative Gastrointestinal: Negative Genitourinary: Negative Positive: Arthralgia - R foot, Edema - R foot Positive: Bruising - R foot Neurological: Negative Psychological: Normal All Other Systems Reviewed And Are Negative: Yes Physical Exam - Summary Physical Exam Summary: VITAL SIGNS: Reviewed. GENERAL: ~Patient is a well-developed and nourished male who is lying comfortable in the stretcher. ~Patient is not in any acute respiratory distress. HEAD AND FACE: No signs of trauma. ~No ecchymosis, hematomas or skull depressions. No sinus tenderness. EYES: PERRLA, EOMI x 2, No injected conjunctiva, no nystagmus. EARS: Hearing grossly intact. Ear canals and tympanic membranes are within normal limits. MOUTH: Oropharynx within normal limits. NECK: Supple, trachea is midline, no adenopathy, no JVD, no carotid bruit, no c- spine tenderness, neck with full ROM. CHEST: Symmetric, no tenderness at palpation LUNGS: Clear to auscultation bilaterally. No wheezing or crackles. CVS: Regular rate and rhythm, S1 and S2 present, no murmurs or gallops appreciated. ABDOMEN: Soft, non-tender. No signs of distention. No rebound no guarding, and no masses palpated. Bowel sounds are normal. EXTREMITIES: R foot swelling and bruising at the dorsal aspect of the foot. Decreased ROM. TTP. Good pulses and good capillary refill. NEURO: Alert and oriented x 3. No acute neurological deficits. Speech is normal and follows commands. SKIN: Dry and warm Triage Information Reviewed: Yes Vital Signs On Initial Exam: Initial Vitals Temp Pulse Resp BP Pulse Ox 98.7 F 87 19 113/51 97 02/03/17 14:37 02/03/17 14:37 02/03/17 14:37 02/03/17 14:37 02/03/17 14:37 Vital Signs Reviewed: Yes Procedures - Splinting Location: R foot and ankle Hand-Made Type: fiberglass Splint: posterior walking Pre-Proc Neuro Vasc Exam: normal Post-Proc Neuro Vasc Exam: normal Diagnostics - Vital Signs Vital Signs Temp Pulse Resp BP Pulse Ox 02/03/17 14:37 98.7 F 87 19 113/51 97 - Laboratory Lab Statement: Any lab studies that have been ordered have been reviewed, and results considered in the medical decision making process. - Radiology FOOT XR Xray Interpretation: No Acute Changes - NO DEFINITIVE FRACTURE. SOFT TISSUE SWELLING. Radiology Interpretation Completed By: Radiologist ANKLE XR Xray Interpretation: No Acute Changes - NO ACUTE FINDINGS Radiology Interpretation Completed By: Radiologist Lower Extremity Course/Dx - Course Assessment/Plan: 61 y/o male presents to the ED c/o constant R foot swelling and pain starting yesterday. The pain is aggravated with walking and weight bearing. Associated sx: ecchymosis at the top of the foot. Pt does not remember injuring it. PMHx epilepsy. Pt states he is not sure if he had a seizure. FOOT XR SHOWS NO DEFINITIVE FRACTURE. SOFT TISSUE SWELLING. ANKLE XR SHOWS NO ACUTE FINDINGS. Pt did not show fracture dislocation, however, there was swelling and ecchymosis. I placed a posterior splint. Recommended elevation and Tylenol and ibuprofen for pain. The pt will be d/c home with f/u with the PCP for further workup and management. The pt is hemodynamically stable and A&Ox3. - Diagnoses Provider Diagnoses: Ankle sprain, Foot pain Discharge - Discharge Plan Condition: Stable Disposition: HOME Patient Education Materials: Ankle Sprain (ED), Splint Care (ED), Arthralgia ( ED) Referrals: [facility] [place] [facility] [Outside] - 3 Days (PLEASE F/U IN 2-3 DAYS) The documentation as recorded by the Cee gabriel Edward accurately reflects the service I personally performed and the decisions made by Kervin lockett Walter, MD.
== END 2017-02-03 17:44 | disposition home or self-care (01) ==
LOC: ED 14:32
DX: S93.401A Sprain of unspecified ligament of right ankle, initial encounter (principal); M79.89 Other specified soft tissue disorders; F17.210 Nicotine dependence, cigarettes, uncomplicated; X58.XXXA Exposure to other specified factors, initial encounter; Y93.9 Activity, unspecified; Y92.9 Unspecified place or not applicable
CPT/HCPCS: 99282

== ENCOUNTER 2017-06-17 12:26 | Emergency (ER) | payer MEDICARE, MEDICAID ==
[2017-06-17 12:54] LABS: ABS Basophils 0.1 10^3/ul (0-0.2); ABS Eosinophils 0.1 10^3/ul (0-0.6); ABS Lymphocytes 2.8 10^3/ul (1.0-4.8); ABS Monocytes 0.8 10^3/ul (0-0.8); ABS Neutrophils 8.5 10^3/ul (1.5-7.7); ABS Nucleated RBC 0 10^3/ul; Eosinophil % 0.7 % (0-6); Hematocrit 44 % (42-52); Hemoglobin 15.1 g/dl (14.0-18.0); Lymphocyte % 22.9 % (25-47); Mean Corpuscular HGB Conc 34 g/dl (31-36); Mean Corpuscular Hemoglobin 33 pg (27-31); Mean Corpuscular Volume 97 fL (80-94); Mean Platelet Volume 8 um3 (7.4-10.4); Nucleated Red Blood Cells % 0; Platelet Count 257 10^3/ul (150-450); Red Blood Count 4.53 10^6/ul (4.0-5.4); Red Cell Distribution Width 13 % (10.5-15); White Blood Count 12.4 10^3/ul (3.5-10.8)
[2017-06-17 13:10] LABS: EGFR Non-African American 100.9 (>60)
--- NOTE | 2017-06-17 13:29 | RAD ---
Indication: Dizziness, tingling. Comparison: November 30, 2016 Technique: Noncontrast CT vertex of skull through foramen magnum. Report: Mild prominence of the cerebral sulci reflecting involutional change. Unremarkable ventricles and basal cisterns. Negative for johnson matter white matter obscuration, intra or extra-axial hemorrhage, or mass effect. Unremarkable orbital contents. Unremarkable calvarium and skull base. Clear visualized paranasal sinuses and mastoid air spaces. Unremarkable scalp. IMPRESSION: No acute intracranial process evident. Mild involutional change.
--- NOTE | 2017-06-17 13:32 | RAD ---
Indication: Dizziness, tingling. History of COPD and tobacco use. Comparison: November 09, 2016 Technique: Sitting AP chest 1313 hours Report: Elevated lung volumes. Mild to moderate prominence of the interstitial markings without change. No new pulmonary opacity, focal pulmonary lesion, pleural effusion, or pneumothorax. The heart, pulmonary vasculature, and mediastinal contours are unremarkable. Surgical anchor at the LEFT glenoid. IMPRESSION: Stigmata of obstructive lung disease. No acute pulmonary or cardiac process evident.
[2017-06-17 14:19] LABS: Urine Appearance Clear; Urine Blood Negative (Negative); Urine Color Amber; Urine Ketones Trace (Negative); Urine Protein 1+(30 mg/dL) (Negative); Urine Specific Gravity 1.027 (1.010-1.030); Urine Urobilinogen Negative (Negative)
[2017-06-17 15:07] VITALS: BP 130/68
--- NOTE | 2017-06-17 21:24 | ED ---
Benjie Guallpa Julia, scribed for Jayy Toribio MD on 06/17/17 at 1301 . Complex/Multi-Sys Presentation - HPI Summary HPI Summary: This patient is a 62 year old M BIBA to [facility] with a chief complaint of constant whole body tingling for three days. Patient reports knee pain and difficulty walking. Patient denies chest pain. Symptoms aggravated by nothing. Symptoms alleviated by nothing. Patient states he has a history of intermittent tingling, but has been constant for the past few days. He states that he saw Dr. Magdaleno for these symptoms on 06/15/17. He reports a hx of epilepsy. Pt is concerned for AZ, because he had similar symptoms with prior [place] four years ago. Dr. Freedman is his identifier horse. - History Of Current Complaint Time Seen by Provider: 06/17/17 12:30 Hx Obtained From: Patient Onset/Duration: Lasting Days Timing: Constant Location: Pain At: - knees Character: Throbbing - tingling whole body Aggravating Factor(s): nothing Alleviating Factor(s): nothing Associated Signs And Symptoms: Positive: Other - knee pain and difficulty walking Related History: Similar Episode/Diagnosed As: - [place], Other - epilepsy - Allergies/Home Medications Allergies/Adverse Reactions: Allergies Allergy/AdvReac Type Severity Reaction Status Date / Time MS Penicillins [Penicillins] Allergy Severe Hives Verified 11/30/16 16:25 MS Erythromycin Allergy Unknown Hives Verified 11/30/16 16:25 [Erythromycin] MS Azithromycin Allergy Hives Verified 11/30/16 16:25 [Azithromycin] MS Cephalosporins Allergy Hives Verified 11/30/16 16:25 [Cephalosporins] PMH/Surg Hx/FS Hx/Imm Hx Endocrine/Hematology History: Reports: Hx Diabetes Cardiovascular History: Reports: Hx Angina, Hx Coronary Artery Disease - WITH STENT, Hx Hypercholesterolemia, Hx Hypertension, Hx Myocardial Infarction, Other Cardiovascular Problems/Disorders - CAD Denies: Hx Pacemaker/ICD Respiratory History: Reports: Hx Chronic Obstructive Pulmonary Disease (COPD) GI History: Reports: Hx Gastroesophageal Reflux Disease Musculoskeletal History: Reports: Hx Orthopedic Injury - RIGHT LEG FRACTURE 2014 Denies: Hx Scoliosis Sensory History: Reports: Hx Contacts or Glasses, Hx Eye Injury, Other Sensory Impairments Denies: Hx Hearing Aid Opthamlomology History: Reports: Hx Contacts or Glasses, Hx Eye Injury, Other Sensory Impairments Neurological History: Reports: Hx Seizures - epilepsy with complex Psychiatric History: Reports: Hx Anxiety, Hx Depression, Hx Panic Disorder, Hx Bipolar Disorder - Surgical History Surgery Procedure, Year, and Place: GB removed,cardiac stents [place] [facility] [place] [facility] pt does not have his implant cards.SURGERY TO LEFT SHOULDER 1985 PER PT - Family History Known Family History: Negative: Seizure Disorder Family History: No FHx of seizures - Social History Alcohol Use: None Alcohol Amount: "recovering alcoholic Hx Substance Use: No Substance Use Type: Reports: None Substance Use Comment - Amount & Last Used: unknown; patient not answering questions appropriately Hx Tobacco Use: Yes Smoking Status (MU): Heavy Every Day Tobacco Smoker Type: Cigarettes Amount Used/How Often: 1 PPD Length of Time of Smoking/Using Tobacco: 45 YEARS Have You Smoked in the Last Year: Yes Review of Systems Negative: Chest Pain Positive: Arthralgia - knee pain Neurological: Other - whole body tingling All Other Systems Reviewed And Are Negative: Yes Physical Exam - Summary Physical Exam Summary: Appearance: The patient is well-nourished in no acute distress and in no acute pain. Skin: The skin is warm and dry and skin color reflects adequate perfusion. HEENT: The head is normocephalic and atraumatic. The pupils are equal and reactive. The conjunctivae are clear and without drainage. Nares are patent and without drainage. Mouth reveals moist mucous membranes and the throat is without erythema and exudate. The external ears are intact. The ear canals are patent and without drainage. The tympanic membranes are intact. Neck: the neck is supple with full range of motion and non-tender. There are no carotid bruits. There is no neck vein distension. Respiratory: Chest is non-tender. Lungs have wheezes and crackles sparsely throughout. Breath sounds are symmetrical and equal. Cardiovascular: Heart is regular rate and rhythm. There is no murmur or rub auscultated. There is no peripheral edema and pulses are symmetrical and equal. Abdomen: The abdomen is soft and non-tender. There are normal bowel sounds heard in all four quadrants and there is no organomegaly palpated. Musculoskeletal: There is no back tenderness noted. Extremities are non-tender with full range of motion. There is good capillary refill. There is no peripheral edema or calf tenderness elicited. Neurological: Patient is alert and oriented to person, place and time. The patient has symmetrical motor strength in all four extremities. Cranial nerves are grossly intact. Deep tendon reflexes are symmetrical and equal in all four extremities. Psychiatric: The patient has an appropriate affect and does not exhibit any anxiety or depression. Triage Information Reviewed: Yes Vital Signs On Initial Exam: Initial Vitals Pulse Resp Pulse Ox 76 16 97 06/17/17 12:39 06/17/17 12:39 06/17/17 12:39 Vital Signs Reviewed: Yes Diagnostics - Vital Signs Vital Signs Temp Pulse Resp BP Pulse Ox 06/17/17 15:06 98.9 F 66 16 130/68 96 06/17/17 13:11 75 15 95 06/17/17 12:49 77 17 124/66 96 06/17/17 12:47 98.9 F 75 16 124/66 96 06/17/17 12:39 76 16 97 - Laboratory Lab Results: Lab Results 06/17/17 06/17/17 06/17/17 Range/Units 12:40 12:40 12:40 WBC 12.4 H (3.5-10.8) 10^3/ul RBC 4.53 (4.0-5.4) 10^6/ul Hgb 15.1 (14.0-18.0) g/dl Hct 44 (42-52) % MCV 97 H (80-94) fL MCH 33 H (27-31) pg MCHC 34 (31-36) g/dl RDW 13 (10.5-15) % Plt Count 257 (150-450) 10^3/ul MPV 8 (7.4-10.4) um3 Neut % (Auto) 68.5 (38-83) % Lymph % (Auto) 22.9 L (25-47) % [place] % (Auto) 6.8 (1-9) % Eos % (Auto) 0.7 (0-6) % Baso % (Auto) 1.1 (0-2) % Absolute Neuts (auto) 8.5 H (1.5-7.7) 10^3/ul Absolute Lymphs (auto) 2.8 (1.0-4.8) 10^3/ul Absolute Monos (auto) 0.8 (0-0.8) 10^3/ul Absolute Eos (auto) 0.1 (0-0.6) 10^3/ul Absolute Basos (auto) 0.1 (0-0.2) 10^3/ul Absolute Nucleated RBC 0 10^3/ul Nucleated RBC % 0 Sodium 134 (133-145) mmol/L Potassium 3.9 (3.5-5.0) mmol/L Chloride 103 (101-111) mmol/L Carbon Dioxide 24 (22-32) mmol/L Anion Gap 7 (2-11) mmol/L BUN 13 (6-24) mg/dL Creatinine 0.78 (0.67-1.17) mg/dL Est GFR ( Amer) 129.7 (>60) Est GFR (Non-Af Amer) 100.9 (>60) BUN/Creatinine Ratio 16.7 (8-20) Glucose 195 H (70-100) mg/dL Lactic Acid (0.5-2.0) mmol/L Calcium 9.1 (8.6-10.3) mg/dL Magnesium 1.8 L (1.9-2.7) mg/dL Total Bilirubin 0.40 (0.2-1.0) mg/dL AST 16 (13-39) U/L ALT 22 (7-52) U/L Alkaline Phosphatase 118 H (34-104) U/L Total Creatine Kinase 22 (10-223) U/L Troponin I 0.00 (<0.04) ng/mL C-Reactive Protein 27.06 H (< 5.00) mg/L B-Natriuretic Peptide 45 ( - 100) pg/mL Total Protein 6.4 (6.4-8.9) g/dL Albumin 3.7 (3.2-5.2) g/dL Globulin 2.7 (2-4) g/dL Albumin/Globulin Ratio 1.4 (1-3) TSH 2.02 (0.34-5.60) mcIU/mL Urine Color Urine Appearance Urine pH (5-9) Ur Specific [place] (1.010-1.030) Urine Protein (Negative) Urine Ketones (Negative) Urine Blood (Negative) Urine Nitrate (Negative) Urine Bilirubin (Negative) Urine Urobilinogen (Negative) Ur Leukocyte Esterase (Negative) Urine WBC (Auto) (Absent) Urine RBC (Auto) (Absent) Urine Bacteria (Absent) Hyaline Casts (Absent) Urine Glucose (Negative) 06/17/17 06/17/17 Range/Units 12:40 13:55 WBC (3.5-10.8) 10^3/ul RBC (4.0-5.4) 10^6/ul Hgb (14.0-18.0) g/dl Hct (42-52) % MCV (80-94) fL MCH (27-31) pg MCHC (31-36) g/dl RDW (10.5-15) % Plt Count (150-450) 10^3/ul MPV (7.4-10.4) um3 Neut % (Auto) (38-83) % Lymph % (Auto) (25-47) % [place] % (Auto) (1-9) % Eos % (Auto) (0-6) % Baso % (Auto) (0-2) % Absolute Neuts (auto) (1.5-7.7) 10^3/ul Absolute Lymphs (auto) (1.0-4.8) 10^3/ul Absolute Monos (auto) (0-0.8) 10^3/ul Absolute Eos (auto) (0-0.6) 10^3/ul Absolute Basos (auto) (0-0.2) 10^3/ul Absolute Nucleated RBC 10^3/ul Nucleated RBC % Sodium (133-145) mmol/L Potassium (3.5-5.0) mmol/L Chloride (101-111) mmol/L Carbon Dioxide (22-32) mmol/L Anion Gap (2-11) mmol/L BUN (6-24) mg/dL Creatinine (0.67-1.17) mg/dL Est GFR ( Amer) (>60) Est GFR (Non-Af Amer) (>60) BUN/Creatinine Ratio (8-20) Glucose (70-100) mg/dL Lactic Acid 1.3 (0.5-2.0) mmol/L Calcium (8.6-10.3) mg/dL Magnesium (1.9-2.7) mg/dL Total Bilirubin (0.2-1.0) mg/dL AST (13-39) U/L ALT (7-52) U/L Alkaline Phosphatase (34-104) U/L Total Creatine Kinase (10-223) U/L Troponin I (<0.04) ng/mL C-Reactive Protein (< 5.00) mg/L B-Natriuretic Peptide ( - 100) pg/mL Total Protein (6.4-8.9) g/dL Albumin (3.2-5.2) g/dL Globulin (2-4) g/dL Albumin/Globulin Ratio (1-3) TSH (0.34-5.60) mcIU/mL Urine Color Donya Urine Appearance Clear Urine pH 5.0 (5-9) Ur Specific [place] 1.027 (1.010-1.030) Urine Protein 1+(30 mg/dl) H (Negative) Urine Ketones Trace H (Negative) Urine Blood Negative (Negative) Urine Nitrate Negative (Negative) Urine Bilirubin Negative (Negative) Urine Urobilinogen Negative (Negative) Ur Leukocyte Esterase Negative (Negative) Urine WBC (Auto) Trace(0-5/hpf) (Absent) Urine RBC (Auto) 2+(6-10/hpf) H (Absent) Urine Bacteria Absent (Absent) Hyaline Casts Present H (Absent) Urine Glucose 3+(>=500 mg/dl) H (Negative) Result Diagrams: 06/17/17 12:40 06/17/17 12:40 Lab Statement: Any lab studies that have been ordered have been reviewed, and results considered in the medical decision making process. - Radiology CXR Radiology Interpretation Completed By: Radiologist - Stigmata of obstructive lung disease. No acute pulmonary or cardiac process evident. ED Physician has reviewed this report. - CT Brain CT Interpretation Completed By: Radiologist - No acute intracranial process evident. Mild involutional change. ED Physician has reviewed this report. - EKG 1235 Cardiac Rate: NL EKG Rhythm: Sinus Rhythm - at 79 BPM EKG Interpretation: old inferior [place] EKG Comparison: No Significant Change - from 11/30/16 Complex Multi-Symp Course/Dx Course Of Treatment: Mr. Durham presented with several days of tingling all over. His exam was unremarkable and his W/U negative. I don't hink anything dangerous is happening and recommended F/U this week with Dr. Magdaleno. - Diagnoses Provider Diagnoses: Paresthesia Discharge - Discharge Plan Condition: Stable Disposition: HOME Patient Education Materials: Paresthesia (ED) Referrals: Manuel Poe MD [Primary Care Provider] - 2 Days Additional Instructions: RETURN TO THE EMERGENCY DEPARTMENT FOR CHANGING OR WORSENING SYMPTOMS. The documentation as recorded by the Benjie gabriel Julia accurately reflects the service I personally performed and the decisions made by me, Jayy Toribio MD.
== END 2017-06-17 15:06 | disposition home or self-care (01) ==
LOC: ED 12:26
DX: R20.2 Paresthesia of skin (principal); J44.9 Chronic obstructive pulmonary disease, unspecified; I25.2 Old myocardial infarction; F17.210 Nicotine dependence, cigarettes, uncomplicated; Z88.0 Allergy status to penicillin
CPT/HCPCS: 36415; 70450; 71045; 80053; 81003; 81015; 82550; 83605; 83735; 83880; 84443; 84484; 85025; 86140; 93005; 99282

== ENCOUNTER 2017-07-20 15:25 | Emergency (ER) | payer MEDICARE, MEDICAID ==
[2017-07-20] MEDS ORDERED: NS 0.9% 1000 ML* 1,000 ML IV ONE (16:25)
[2017-07-20] MEDS ORDERED: Ketorolac INJ* 30 MG/ML 1 ML VIAL IV PUSH ONE (16:30)
[2017-07-20 16:55] LABS: ABS Basophils 0.1 10^3/ul (0-0.2); ABS Eosinophils 0 10^3/ul (0-0.6); ABS Lymphocytes 2.5 10^3/ul (1.0-4.8); ABS Monocytes 1.1 10^3/ul (0-0.8); ABS Nucleated RBC 0 10^3/ul; Eosinophil % 0.4 % (0-6); Hematocrit 44 % (42-52); Hemoglobin 15.2 g/dl (14.0-18.0); Lymphocyte % 21.1 % (25-47); Mean Corpuscular HGB Conc 35 g/dl (31-36); Mean Corpuscular Hemoglobin 34 pg (27-31); Mean Corpuscular Volume 96 fL (80-94); Mean Platelet Volume 8 um3 (7.4-10.4); Nucleated Red Blood Cells % 0.1; Platelet Count 248 10^3/ul (150-450); Red Blood Count 4.55 10^6/ul (4.0-5.4); Red Cell Distribution Width 13 % (10.5-15); White Blood Count 11.7 10^3/ul (3.5-10.8)
[2017-07-20 17:06] LABS: EGFR Non-African American 91.3 (>60)
--- NOTE | 2017-07-20 17:12 | RAD ---
INDICATION: Back and LEFT side flank pain. COPD. COMPARISON: September 16, 2012 lumbar spine radiographs. June 17, 2017 chest radiograph. TECHNIQUE: Multidetector CT images were obtained from the lung bases to the ischial tuberosities. Evaluation of the viscera is limited without IV contrast. Multiplanar reformation. REPORT: Images through the inferior thorax remarkable for interstitial lung disease with mild peripheral honeycombing. Negative for cardiomegaly. Coronary artery calcifications. Post cholecystectomy. Negative for biliary dilatation. Unremarkable unenhanced liver, pancreas, spleen. Medially directed diverticulum at the second segment of the duodenum without suggestion of acute inflammatory change. Negative for CT abnormality of the small bowel loops. While the appendix is not discretely visualized, there is no inflammatory change in the right lower quadrant or region of the tip of the cecum to suggest presence of an acute inflammatory process. Mild diverticulosis of the colon without findings of diverticulitis. Negative for ascites or free air. Small fat-containing direct appearing LEFT inguinal hernia without inflammatory change. Normal adrenal glands. Negative for urolithiasis or hydronephrosis. No conspicuous focal renal lesions. Unremarkable nondilated ureters and moderately distended urinary bladder. Symmetric seminal vesicles. Atherosclerotic plaque without aneurysm of the abdominal aorta or iliac arteries. 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 Negative for retroperitoneal hematoma. Mild anterior compression deformity of the L1 vertebral body involving the superior endplate is chronic. No acute fracture or suspicious focal osseous lesion evident. Broad posterior disc protrusion noted at L5 with mild resulting impression on the thecal sac. Smaller disc bulge at L4-L5. IMPRESSION: 1. Negative for obstructive uropathy. 2. While the appendix is not discretely visualized, there is no inflammatory change in the right lower quadrant or region of the tip of the cecum to suggest presence of an acute inflammatory process.. 3. Mild colonic diverticulosis without findings of diverticulitis 4. Images through the inferior thorax remarkable for mild interstitial fibrosis and coronary artery calcifications. 5. Lumbar sacral spine degenerative spondylosis.
[2017-07-20] MEDS ORDERED: Insulin REGULAR(*) 1 UNITS UNIT IV PUSH ONE (18:34)
[2017-07-20 18:42] LABS: Urine Appearance Clear; Urine Blood 1+ (Negative); Urine Color Yellow; Urine Ketones Negative (Negative); Urine Protein Negative (Negative); Urine Specific Gravity 1.032 (1.010-1.030); Urine Urobilinogen Negative (Negative)
--- NOTE | 2017-07-20 18:56 | ED ---
Jazmin Guallpa Nilda, scribed for Manuel Galeana MD on 07/20/17 at 1633 . GI/ HPI - HPI Summary HPI Summary: This patient is a 62 year old M BIBA with a chief complaint of constant severe left flank pain since yesterday. The patient rates the pain 10/10 in severity. Symptoms aggravated by movement and alleviated by position. Patient denies N/V. He states he has not taken medication for pain today. - History of Current Complaint Chief Complaint: EDFlankPain Time Seen by Provider: 07/20/17 16:24 Stated Complaint: BACK/FLANK PAIN Hx Obtained From: Patient Onset/Duration: Started Days Ago, Still Present Timing: Constant Current Severity: Severe Pain Intensity: 10 Location of Pain: Flank - left Associated Signs and Symptoms: Positive: Other: - negative N/V Aggravating Factor(s): Movement Alleviating Factor(s): Position - Additional Pertinent History Primary Care Physician: KUSH - Allergy/Home Medications Allergies/Adverse Reactions: Allergies Allergy/AdvReac Type Severity Reaction Status Date / Time MS Penicillins [Penicillins] Allergy Severe Hives Verified 11/30/16 16:25 MS Erythromycin Allergy Unknown Hives Verified 11/30/16 16:25 [Erythromycin] MS Azithromycin Allergy Hives Verified 11/30/16 16:25 [Azithromycin] MS Cephalosporins Allergy Hives Verified 11/30/16 16:25 [Cephalosporins] PMH/Surg Hx/FS Hx/Imm Hx Endocrine/Hematology History: Reports: Hx Diabetes Cardiovascular History: Reports: Hx Angina, Hx Coronary Artery Disease - WITH STENT, Hx Hypercholesterolemia, Hx Hypertension, Hx Myocardial Infarction, Other Cardiovascular Problems/Disorders - CAD Denies: Hx Pacemaker/ICD Respiratory History: Reports: Hx Chronic Obstructive Pulmonary Disease (COPD) GI History: Reports: Hx Gastroesophageal Reflux Disease Musculoskeletal History: Reports: Hx Orthopedic Injury - RIGHT LEG FRACTURE 2014 Denies: Hx Scoliosis Sensory History: Reports: Hx Contacts or Glasses, Hx Eye Injury, Other Sensory Impairments Denies: Hx Hearing Aid Opthamlomology History: Reports: Hx Contacts or Glasses, Hx Eye Injury, Other Sensory Impairments Neurological History: Reports: Hx Seizures - epilepsy with complex Psychiatric History: Reports: Hx Anxiety, Hx Depression, Hx Panic Disorder, Hx Bipolar Disorder - Surgical History Surgery Procedure, Year, and Place: GB removed,cardiac st[place] [facility] [place] [facility] pt does not have his implant cards.SURGERY TO LEFT SHOULDER 1985 PER PT Infectious Disease History: No Infectious Disease History: Denies: Traveled Outside the [place] in Last 30 Days - Family History Known Family History: Negative: Seizure Disorder Family History: No FHx of seizures - Social History Alcohol Use: None Alcohol Amount: "recovering alcoholic Hx Substance Use: No Substance Use Type: Reports: None Substance Use Comment - Amount & Last Used: unknown; patient not answering questions appropriately Hx Tobacco Use: Yes Smoking Status (MU): Heavy Every Day Tobacco Smoker Type: Cigarettes Amount Used/How Often: 1 PPD Length of Time of Smoking/Using Tobacco: 45 YEARS Have You Smoked in the Last Year: Yes Review of Systems Negative: Vomiting, Nausea Positive: flank pain - left flank All Other Systems Reviewed And Are Negative: Yes Physical Exam - Summary Physical Exam Summary: VITAL SIGNS: Reviewed. GENERAL: Patient is a well-developed and nourished male who is lying comfortable in the stretcher. Patient is not in any acute respiratory distress. HEAD AND FACE: No signs of trauma. No ecchymosis, hematomas or skull depressions. No sinus tenderness. EYES: PERRLA, EOMI x 2, No injected conjunctiva, no nystagmus. EARS: Hearing grossly intact. Ear canals and tympanic membranes are within normal limits. MOUTH: Oropharynx within normal limits. NECK: Supple, trachea is midline, no adenopathy, no JVD, no carotid bruit, no c- spine tenderness, neck with full ROM. CHEST: Symmetric, no tenderness at palpation LUNGS: Clear to auscultation bilaterally. No wheezing or crackles. CVS: Regular rate and rhythm, S1 and S2 present, no murmurs or gallops appreciated. ABDOMEN: Soft, L-flank tenderness. No signs of distention. No rebound no guarding, and no masses palpated. Bowel sounds are normal. BACK: left CVA tenderness EXTREMITIES: FROM in all major joints, no edema, no cyanosis or clubbing. NEURO: Alert and oriented x 3. No acute neurological deficits. Speech is normal and follows commands. SKIN: Dry and warm Triage Information Reviewed: Yes Vital Signs On Initial Exam: Initial Vitals Temp Pulse Resp BP Pulse Ox 98.7 F 72 20 138/78 98 07/20/17 15:45 07/20/17 15:45 07/20/17 15:45 07/20/17 15:45 07/20/17 15:45 Vital Signs Reviewed: Yes Diagnostics - Vital Signs Vital Signs Temp Pulse Resp BP Pulse Ox 07/20/17 15:45 98.7 F 72 20 138/78 98 - Laboratory Lab Results: Lab Results 07/20/17 07/20/17 07/20/17 Range/Units 16:35 16:35 16:35 WBC 11.7 H (3.5-10.8) 10^3/ul RBC 4.55 (4.0-5.4) 10^6/ul Hgb 15.2 (14.0-18.0) g/dl Hct 44 (42-52) % MCV 96 H (80-94) fL MCH 34 H (27-31) pg MCHC 35 (31-36) g/dl RDW 13 (10.5-15) % Plt Count 248 (150-450) 10^3/ul MPV 8 (7.4-10.4) um3 Neut % (Auto) 68.6 (38-83) % Lymph % (Auto) 21.1 L (25-47) % [place] % (Auto) 9.4 H (0-7) % Eos % (Auto) 0.4 (0-6) % Baso % (Auto) 0.5 (0-2) % Absolute Neuts (auto) 8.0 H (1.5-7.7) 10^3/ul Absolute Lymphs (auto) 2.5 (1.0-4.8) 10^3/ul Absolute Monos (auto) 1.1 H (0-0.8) 10^3/ul Absolute Eos (auto) 0 (0-0.6) 10^3/ul Absolute Basos (auto) 0.1 (0-0.2) 10^3/ul Absolute Nucleated RBC 0 10^3/ul Nucleated RBC % 0.1 Sodium 135 (133-145) mmol/L Potassium 4.1 (3.5-5.0) mmol/L Chloride 103 (101-111) mmol/L Carbon Dioxide 24 (22-32) mmol/L Anion Gap 8 (2-11) mmol/L BUN 17 (6-24) mg/dL Creatinine 0.85 (0.67-1.17) mg/dL Est GFR ( Amer) 117.5 (>60) Est GFR (Non-Af Amer) 91.3 (>60) BUN/Creatinine Ratio 20.0 (8-20) Glucose 313 H (70-100) mg/dL Calcium 9.3 (8.6-10.3) mg/dL Total Bilirubin 0.40 (0.2-1.0) mg/dL AST 18 (13-39) U/L ALT 25 (7-52) U/L Alkaline Phosphatase 116 H (34-104) U/L C-Reactive Protein 22.65 H (< 5.00) mg/L B-Natriuretic Peptide 45 ( - 100) pg/mL Total Protein 6.9 (6.4-8.9) g/dL Albumin 3.9 (3.2-5.2) g/dL Globulin 3.0 (2-4) g/dL Albumin/Globulin Ratio 1.3 (1-3) Lipase 24 (11.0-82.0) U/L Urine Color Urine Appearance Urine pH (5-9) Ur Specific [place] (1.010-1.030) Urine Protein (Negative) Urine Ketones (Negative) Urine Blood (Negative) Urine Nitrate (Negative) Urine Bilirubin (Negative) Urine Urobilinogen (Negative) Ur Leukocyte Esterase (Negative) Urine WBC (Auto) (Absent) Urine RBC (Auto) (Absent) Urine Bacteria (Absent) Urine Glucose (Negative) 07/20/17 Range/Units 17:58 WBC (3.5-10.8) 10^3/ul RBC (4.0-5.4) 10^6/ul Hgb (14.0-18.0) g/dl Hct (42-52) % MCV (80-94) fL MCH (27-31) pg MCHC (31-36) g/dl RDW (10.5-15) % Plt Count (150-450) 10^3/ul MPV (7.4-10.4) um3 Neut % (Auto) (38-83) % Lymph % (Auto) (25-47) % [place] % (Auto) (0-7) % Eos % (Auto) (0-6) % Baso % (Auto) (0-2) % Absolute Neuts (auto) (1.5-7.7) 10^3/ul Absolute Lymphs (auto) (1.0-4.8) 10^3/ul Absolute Monos (auto) (0-0.8) 10^3/ul Absolute Eos (auto) (0-0.6) 10^3/ul Absolute Basos (auto) (0-0.2) 10^3/ul Absolute Nucleated RBC 10^3/ul Nucleated RBC % Sodium (133-145) mmol/L Potassium (3.5-5.0) mmol/L Chloride (101-111) mmol/L Carbon Dioxide (22-32) mmol/L Anion Gap (2-11) mmol/L BUN (6-24) mg/dL Creatinine (0.67-1.17) mg/dL Est GFR ( Amer) (>60) Est GFR (Non-Af Amer) (>60) BUN/Creatinine Ratio (8-20) Glucose (70-100) mg/dL Calcium (8.6-10.3) mg/dL Total Bilirubin (0.2-1.0) mg/dL AST (13-39) U/L ALT (7-52) U/L Alkaline Phosphatase (34-104) U/L C-Reactive Protein (< 5.00) mg/L B-Natriuretic Peptide ( - 100) pg/mL Total Protein (6.4-8.9) g/dL Albumin (3.2-5.2) g/dL Globulin (2-4) g/dL Albumin/Globulin Ratio (1-3) Lipase (11.0-82.0) U/L Urine Color Yellow Urine Appearance Clear Urine pH 5.0 (5-9) Ur Specific [place] 1.032 H (1.010-1.030) Urine Protein Negative (Negative) Urine Ketones Negative (Negative) Urine Blood 1+ A (Negative) Urine Nitrate Negative (Negative) Urine Bilirubin Negative (Negative) Urine Urobilinogen Negative (Negative) Ur Leukocyte Esterase Negative (Negative) Urine WBC (Auto) Absent (Absent) Urine RBC (Auto) 2+(6-10/hpf) A (Absent) Urine Bacteria Absent (Absent) Urine Glucose 3+(>=500 mg/dl) A (Negative) Result Diagrams: 07/20/17 16:35 07/20/17 16:35 Lab Statement: Any lab studies that have been ordered have been reviewed, and results considered in the medical decision making process. - CT Abd/Pel CT Interpretation Completed By: Radiologist - CT Abd/Pel, per radiologist, reveals 1. Negative for obstructive uropathy. 2. While the appendix is not discretely visualized, there is no inflammatory change in the right lower quadrant or region of the tip of the cecum to suggest presence of an acute inflammatory process. 3. Mild colonic diverticulosis without findings of diverticulitis 4. Images through the inferior thorax remarkable for mild interstitial fibrosis and coronary artery calcifications. 5. Lumbar sacral spine degenerative spondylosis. Dr. Galeana has reviewed this radiology report. - EKG 1840 Cardiac Rate: NL EKG Rhythm: Sinus Rhythm - 79 bpm EKG Interpretation: no ST elevation, Qwave in 2, 3, and AVF. Re-Evaluation - Re-Evaluation First Eval Re-Evaluation Time: 18:54 Comment: Reviewed labs and imaging as well as plan to D/C. Patient is agreeable to D/C. GIGU Course/Dx - Course Assessment/Plan: In the ED course an IV access was obtained. Patient was placed in a cardiac catheterization technologist. Patient was started with IV fluids. Labs without any significant abnormality except for WBC 11.7, glucose 313 and CRP 22.65. UA positive for blood and glucose. Abdominal and pelvic CT IMPRESSION: 1. Negative for obstructive uropathy. 2. While the appendix is not discreetly visualized, there is no inflammatory change in the right lower quadrant or region of the tip of the cecum to suggest presence of an acute inflammatory process.. 3. Mild colonic diverticulosis without findings of diverticulitis. 4. Images through the inferior thorax remarkable for mild interstitial fibrosis and. coronary artery calcifications. 5. Lumbar sacral spine degenerative spondylosis. He was given Toradol for the pain. He was also given Insulin for his hyperglycemia. After medications patient is feeling better. I discussed all the findings and test results with the patient. Patient was instructed to return to the emergency room immediately if any of the symptoms return or worsens. Plan of care was discussed with the patient and understands and agrees. All questions were answered at patient satisfaction. There were no further complaints or concerns. Lung exam before discharge: CTA B/L. Good air exchange. No wheezing or crackles heard. CVS: S1 and S2 present. No murmurs appreciated. Patient is alert and oriented x 3. Patient is hemodynamically stable. Patient will be discharged home with follow up PCP in the next 2-3 days - Diagnoses Differential Diagnoses - Male: Renal Calculi, Renal Colic, Ureteral Calculi, Urinary Tract Infection Provider Diagnoses: Pain, flank, bilateral, Hyperglycemia Discharge - Discharge Plan Condition: Stable Disposition: HOME Prescriptions: HYDROcodone/ACETAMIN 5-325 MG* [[place] 5-325 TAB*] 1 tab PO Q6H PRN #6 tab MDD 4 PRN Reason: Pain Patient Education Materials: Flank Pain (ED) Referrals: Manuel Poe MD [Primary Care Provider] - 3 Days Additional Instructions: RETURN TO THE EMERGENCY DEPARTMENT FOR CHANGING OR WORSENING SYMPTOMS. The documentation as recorded by the Jazmin gabriel Nilda accurately reflects the service I personally performed and the decisions made by Kervin lockett Walter, MD.
[2017-07-20 19:47] VITALS: BP 119/58
== END 2017-07-20 20:08 | disposition home or self-care (01) ==
LOC: ED 15:25
DX: R10.9 Unspecified abdominal pain (principal); R73.9 Hyperglycemia, unspecified; I10 Essential (primary) hypertension; E78.00 Pure hypercholesterolemia, unspecified; I25.2 Old myocardial infarction; K21.9 Gastro-esophageal reflux disease without esophagitis; F17.210 Nicotine dependence, cigarettes, uncomplicated; K57.90 Diverticulosis of intestine, part unspecified, without perforation or abscess without bleeding; M47.9 Spondylosis, unspecified
CPT/HCPCS: 36415; 74176; 80053; 81003; 81015; 83690; 83880; 85025; 86140; 93005; 96360; 96374; 96375; 99284; J1885

== ENCOUNTER 2017-08-24 16:17 | Inpatient (IN) | payer MEDICARE, MEDICAID ==
[2017-08-24 17:13] LABS: ABS Basophils 0.1 10^3/ul (0-0.2); ABS Eosinophils 0.1 10^3/ul (0-0.6); ABS Lymphocytes 2.7 10^3/ul (1.0-4.8); ABS Monocytes 0.8 10^3/ul (0-0.8); ABS Nucleated RBC 0 10^3/ul; Eosinophil % 1.1 % (0-6); Hematocrit 42 % (42-52); Hemoglobin 14.4 g/dl (14.0-18.0); Lymphocyte % 31.4 % (25-47); Mean Corpuscular HGB Conc 35 g/dl (31-36); Mean Corpuscular Hemoglobin 33 pg (27-31); Mean Corpuscular Volume 96 fL (80-94); Mean Platelet Volume 7.6 um3 (7.4-10.4); Nucleated Red Blood Cells % 0; Platelet Count 261 10^3/ul (150-450); Red Blood Count 4.33 10^6/ul (4.0-5.4); Red Cell Distribution Width 13 % (10.5-15); White Blood Count 8.7 10^3/ul (3.5-10.8)
[2017-08-24 17:41] LABS: EGFR Non-African American 107.2 (>60)
--- NOTE | 2017-08-24 17:42 | RAD ---
INDICATION: Altered mental status. COMPARISON: Comparison is made with prior studies from November 30, 2016 and July 15, 2017. TECHNIQUE: Contiguous axial sections of the brain were obtained from the skull base to the vertex without contrast. FINDINGS: The ventricles, cisterns and sulci are enlarged consistent with diffuse atrophy. There is an area of decreased attenuation in the posterior aspect of the right cerebellar hemisphere which is unchanged possibly representing an old infarct. No other focal abnormalities or mass effect are seen. There is no evidence for hemorrhage. No significant focal osseous abnormality is seen. The visualized portion of the paranasal sinuses and mastoid air cells appear clear. IMPRESSION: 1. NO EVIDENCE FOR ACUTE INTRACRANIAL ABNORMALITY. 2. 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
--- NOTE | 2017-08-24 17:44 | RAD ---
INDICATION: Altered mental status. COMPARISON: Comparison is made with prior chest x-ray study from June 17, 2017. TECHNIQUE: A portable view of the chest was obtained. FINDINGS: Cardiac and mediastinal contours appear to be within normal limits. The lungs are underinflated. There are small infiltrates at both lung bases suggestive of atelectasis. No pleural effusion is seen. IMPRESSION: LOW LUNG VOLUMES, SMALL BIBASILAR INFILTRATES SUGGESTIVE OF ATELECTASIS LESS LIKELY PNEUMONIA.
[2017-08-24] MEDS ORDERED: Albuterol/Ipratropium NEB.SOL* Albuterol 2.5 MG/Ipratropium 0.5 MG 3 ML INH PRN (22:06)
--- NOTE | 2017-08-24 22:34 | ED ---
Supa Guallpa Jennifer, scribed for Jayy Toribio MD on 08/24/17 at 1632 . Altered Mental Status - HPI Summary HPI Summary: The patient is a 62 year old male who was brought in by EMS for AMS today. The patient lives alone, but EMS reports a resident visited him yesterday and he was fine. The patient is less responsive today and only answers in three words. He has bilateral movement and denies any pain. LEVEL 5 CAVEAT: HPI LIMITED DUE TO AMS - History Of Current Complaint Stated Complaint: AMS Time Seen by Provider: 08/24/17 16:23 Hx Obtained From: EMS Hx From Patient Unobtainable Due To: Altered Mental Status Onset/Duration: Unknown Character: Responsiveness - Unresponsive or answers "yes", "no", or "ok" - Allergies/Home Medications Allergies/Adverse Reactions: Allergies Allergy/AdvReac Type Severity Reaction Status Date / Time Penicillins Allergy Severe Hives Verified 08/24/17 22:04 erythromycin base Allergy Unknown Hives Verified 08/24/17 22:04 azithromycin Allergy Hives Verified 08/24/17 22:04 Cephalosporins Allergy Hives Verified 08/24/17 22:04 Home Medications: Home Medications Aspirin 81 mg CHEW TAB* [Aspirin Low Dose TAB*] 81 mg PO DAILY 08/24/17 [ History Confirmed 08/24/17] Clopidogrel TAB* [Plavix TAB*] 75 mg PO DAILY 08/24/17 [History Confirmed ] Ezetimibe TAB* [Zetia TAB*] 10 mg PO DAILY 08/24/17 [History Confirmed 08/24/17] Ibuprofen TAB* [Motrin TAB* 800 MG] 800 mg PO TID PRN 08/24/17 [History Confirmed 08/24/17] Lacosamide TAB* [Vimpat TAB*] 200 mg PO BID 08/24/17 [History Confirmed 08/24/17 ] Montelukast Sodium 10 mg PO DAILY 08/24/17 [History Confirmed 08/24/17] Pantoprazole TAB (NF) [Protonix TAB (NF)] 20 mg PO DAILY 08/24/17 [History Confirmed 08/24/17] Ranolazine (NF) [Ranexa (NF)] 500 mg PO BID 08/24/17 [History Confirmed 08/24/17 ] Rosuvastatin (NF) [Crestor (NF)] 40 mg PO DAILY 08/24/17 [History Confirmed ] Sertraline* [Zoloft*] 200 mg PO DAILY 08/24/17 [History Confirmed 08/24/17] Zolpidem TAB* [Ambien TAB*] 5 mg PO BEDTIME PRN 08/24/17 [History Confirmed ] carBAMazepine TAB(*) [TEGretol TAB(*)] 400 mg PO QAM 08/24/17 [History Confirmed 08/24/17] carBAMazepine TAB(*) [TEGretol TAB(*)] 800 mg PO BEDTIME 08/24/17 [History Confirmed 08/24/17] tiaGABine TAB(*) [Gabitril(*)] 16 mg PO BID 08/24/17 [History Confirmed 08/24/17 ] tiaGABine TAB(*) [Gabitril(*)] 16 mg PO BID 08/24/17 [History Confirmed 08/24/17 ] PMH/Surg Hx/FS Hx/Imm Hx Endocrine/Hematology History: Reports: Hx Diabetes Cardiovascular History: Reports: Hx Angina, Hx Coronary Artery Disease - WITH STENT, Hx Hypercholesterolemia, Hx Hypertension, Hx Myocardial Infarction, Other Cardiovascular Problems/Disorders - CAD Denies: Hx Pacemaker/ICD Respiratory History: Reports: Hx Chronic Obstructive Pulmonary Disease (COPD) GI History: Reports: Hx Gastroesophageal Reflux Disease Musculoskeletal History: Reports: Hx Orthopedic Injury - RIGHT LEG FRACTURE 2014 Denies: Hx Scoliosis Sensory History: Reports: Hx Contacts or Glasses, Hx Eye Injury, Other Sensory Impairments Denies: Hx Hearing Aid Opthamlomology History: Reports: Hx Contacts or Glasses, Hx Eye Injury, Other Sensory Impairments Neurological History: Reports: Hx Seizures - epilepsy with complex Psychiatric History: Reports: Hx Anxiety, Hx Depression, Hx Panic Disorder, Hx Bipolar Disorder - Surgical History Surgery Procedure, Year, and Place: GB removed,cardiac stents PROMUS drug eluting stent 07/15 at [facility] and 04/13 at [facility] pt does not have his implant cards.SURGERY TO LEFT SHOULDER 1985 PER PT - Family History Known Family History: Negative: Seizure Disorder Family History: No FHx of seizures - Social History Lives: Alone Alcohol Use: None Alcohol Amount: "recovering alcoholic Hx Substance Use: No Substance Use Type: Reports: None Substance Use Comment - Amount & Last Used: unknown; patient not answering questions appropriately Hx Tobacco Use: Yes Smoking Status (MU): Heavy Every Day Tobacco Smoker Type: Cigarettes Amount Used/How Often: 1 PPD Length of Time of Smoking/Using Tobacco: 45 YEARS Have You Smoked in the Last Year: Yes Review of Systems Negative: Myalgia Positive: Other - Unresponsive All Other Systems Reviewed And Are Negative: No - Comments Additional Review of Systems Comments: LEVEL 5 CAVEAT: ROS IS LIMITED DUE TO AMS. Physical Exam - Summary Physical Exam Summary: Appearance: The patient is well-nourished in no acute distress and in no acute pain. Skin: The skin is warm and dry and skin color reflects adequate perfusion. HEENT: The head is normocephalic and atraumatic. The pupils are equal and reactive. The conjunctivae are clear and without drainage. Nares are patent and without drainage. Mouth reveals moist mucous membranes and the throat is without erythema and exudate. The external ears are intact. The ear canals are patent and without drainage. The tympanic membranes are intact. Neck: the neck is supple with full range of motion. There are no carotid bruits. There is no neck vein distension. Respiratory: Lungs are clear to auscultation and breath sounds are symmetrical and equal. Cardiovascular: Heart is regular rate and rhythm. There is no murmur or rub auscultated. There is no peripheral edema and pulses are symmetrical and equal. Musculoskeletal: Extremities are non-tender with full range of motion. There is good capillary refill. There is no peripheral edema or calf tenderness elicited. Neurological: Patient is awake and follows commands haltingly. He answers yes or no questions but can't express anything more complicated. The patient has symmetrical motor strength in all four extremities. Cranial nerves are grossly intact. Deep tendon reflexes are symmetrical and equal in all four extremities. LEVEL 5 CAVEAT: PHYSICAL EXAM LIMITED DUE TO AMS Triage Information Reviewed: Yes Vital Signs On Initial Exam: Initial Vitals Resp 16 08/24/17 16:37 Vital Signs Reviewed: Yes Diagnostics - Vital Signs Vital Signs Temp Pulse Resp BP Pulse Ox 08/24/17 21:10 89 24 121/78 97 08/24/17 21:00 92 23 99 08/24/17 20:40 162 15 133/72 82 08/24/17 20:10 78 15 103/83 95 08/24/17 20:00 78 19 99 08/24/17 19:40 81 18 135/85 96 08/24/17 19:10 75 19 137/77 95 08/24/17 19:00 75 19 96 08/24/17 18:40 79 19 152/80 96 08/24/17 18:09 97 37 142/96 97 08/24/17 18:00 81 18 94 08/24/17 17:40 83 20 126/75 93 08/24/17 17:09 83 30 148/78 94 08/24/17 17:00 84 22 94 08/24/17 16:40 98.9 F 82 27 129/72 94 08/24/17 16:37 16 - Laboratory Lab Results: Lab Results 08/24/17 08/24/17 08/24/17 Range/Units 16:55 16:55 16:55 WBC 8.7 (3.5-10.8) 10^3/ul RBC 4.33 (4.0-5.4) 10^6/ul Hgb 14.4 (14.0-18.0) g/dl Hct 42 (42-52) % MCV 96 H (80-94) fL MCH 33 H (27-31) pg MCHC 35 (31-36) g/dl RDW 13 (10.5-15) % Plt Count 261 (150-450) 10^3/ul MPV 7.6 (7.4-10.4) um3 Neut % (Auto) 57.6 (38-83) % Lymph % (Auto) 31.4 (25-47) % [place] % (Auto) 9.0 H (0-7) % Eos % (Auto) 1.1 (0-6) % Baso % (Auto) 0.9 (0-2) % Absolute Neuts (auto) 5.0 (1.5-7.7) 10^3/ul Absolute Lymphs (auto) 2.7 (1.0-4.8) 10^3/ul Absolute Monos (auto) 0.8 (0-0.8) 10^3/ul Absolute Eos (auto) 0.1 (0-0.6) 10^3/ul Absolute Basos (auto) 0.1 (0-0.2) 10^3/ul Absolute Nucleated RBC 0 10^3/ul Nucleated RBC % 0 Sodium 140 (139-145) mmol/L Potassium 3.7 (3.5-5.0) mmol/L Chloride 105 (101-111) mmol/L Carbon Dioxide 25 (22-32) mmol/L Anion Gap 10 (2-11) mmol/L BUN 14 (6-24) mg/dL Creatinine 0.74 (0.67-1.17) mg/dL Est GFR ( Amer) 137.8 (>60) Est GFR (Non-Af Amer) 107.2 (>60) BUN/Creatinine Ratio 18.9 (8-20) Glucose 118 H (70-100) mg/dL Lactic Acid 0.8 (0.5-2.0) mmol/L Calcium 9.1 (8.6-10.3) mg/dL Total Bilirubin 0.40 (0.2-1.0) mg/dL AST 16 (13-39) U/L ALT 17 (7-52) U/L Alkaline Phosphatase 117 H (34-104) U/L Ammonia (16-53) mcmol/L Troponin I 0.01 (<0.04) ng/mL C-Reactive Protein 13.49 H (< 5.00) mg/L Total Protein 6.6 (6.4-8.9) g/dL Albumin 3.6 (3.2-5.2) g/dL Globulin 3.0 (2-4) g/dL Albumin/Globulin Ratio 1.2 (1-3) Carbamazepine 13.5 H (4.0-12.0) mcg/mL 08/24/17 Range/Units 16:55 WBC (3.5-10.8) 10^3/ul RBC (4.0-5.4) 10^6/ul Hgb (14.0-18.0) g/dl Hct (42-52) % MCV (80-94) fL MCH (27-31) pg MCHC (31-36) g/dl RDW (10.5-15) % Plt Count (150-450) 10^3/ul MPV (7.4-10.4) um3 Neut % (Auto) (38-83) % Lymph % (Auto) (25-47) % [place] % (Auto) (0-7) % Eos % (Auto) (0-6) % Baso % (Auto) (0-2) % Absolute Neuts (auto) (1.5-7.7) 10^3/ul Absolute Lymphs (auto) (1.0-4.8) 10^3/ul Absolute Monos (auto) (0-0.8) 10^3/ul Absolute Eos (auto) (0-0.6) 10^3/ul Absolute Basos (auto) (0-0.2) 10^3/ul Absolute Nucleated RBC 10^3/ul Nucleated RBC % Sodium (139-145) mmol/L Potassium (3.5-5.0) mmol/L Chloride (101-111) mmol/L Carbon Dioxide (22-32) mmol/L Anion Gap (2-11) mmol/L BUN (6-24) mg/dL Creatinine (0.67-1.17) mg/dL Est GFR ( Amer) (>60) Est GFR (Non-Af Amer) (>60) BUN/Creatinine Ratio (8-20) Glucose (70-100) mg/dL Lactic Acid (0.5-2.0) mmol/L Calcium (8.6-10.3) mg/dL Total Bilirubin (0.2-1.0) mg/dL AST (13-39) U/L ALT (7-52) U/L Alkaline Phosphatase (34-104) U/L Ammonia 43 (16-53) mcmol/L Troponin I (<0.04) ng/mL C-Reactive Protein (< 5.00) mg/L Total Protein (6.4-8.9) g/dL Albumin (3.2-5.2) g/dL Globulin (2-4) g/dL Albumin/Globulin Ratio (1-3) Carbamazepine (4.0-12.0) mcg/mL Result Diagrams: 08/24/17 16:55 08/24/17 16:55 Lab Statement: Any lab studies that have been ordered have been reviewed, and results considered in the medical decision making process. - Radiology CXR Xray Interpretation: Positive (See Comments) - LOW LUNG VOLUMES, SMALL BIBASILAR INFILTRATES SUGGESTIVE OF ATELECTASIS LESS LIKELY PNEUMONIA. Dr. Toribio has reviewed this report. Radiology Interpretation Completed By: Radiologist - CT Brain CT CT Interpretation: No Acute Changes - 1. NO EVIDENCE FOR ACUTE INTRACRANIAL ABNORMALITY. 2. 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 Dr. Toribio has reviewed this report. CT Interpretation Completed By: Radiologist - EKG 16:50 Cardiac Rate: NL EKG Rhythm: Sinus Rhythm - 81 BPM EKG Interpretation: old inferior infarct Altered Mental Statu Course/Dx - Course Course Of Treatment: Mr. Durham was able to answer yes or no questions on arrival to the ED but could not tell me his name. He had no focal deficits. His W/U was unrevealing and I consulted Dr. Stahl who recommended trying an ativan for possible seizures and admitting to the hospitalist. Prior to giving the ativan, he began to talk a bit and requested a sandwich. - Diagnoses Provider Diagnoses: Altered mental status, Aphasia - Critical Care Time Critical Care Time: 30-74 min Discharge - Sign-Out/Discharge Documenting (check all that apply): Discharge - Discharge Plan Condition: Good Disposition: ADMITTED [facility] - Billing Disposition and Condition Condition: GOOD Disposition: [facility] [place] The documentation as recorded by the Supa gabriel Jennifer accurately reflects the service I personally performed and the decisions made by me, Jayy Toribio MD.
[2017-08-24] MEDS: TIAGABINE 4 MG PO SCH (23:12)
[2017-08-24] MEDS: Nicotine PATCH 14 MG/24 HR* PATCH TRANSDERM SCH (23:13)
[2017-08-24] MEDS: Atorvastatin* 80 MG TAB PO SCH (23:13)
[2017-08-24] MEDS: Lacosamide TAB* 100 MG TAB PO SCH (23:13)
[2017-08-24] MEDS: RANOLAZINE 500 MG PO SCH (23:16)
[2017-08-25] MEDS ORDERED: LORazepam INJ* 2 MG/ML 1 ML VIAL ONE (01:21)
[2017-08-25] MEDS ORDERED: LORazepam INJ* 2 MG/ML 1 ML VIAL IV PUSH ONE (01:22)
--- NOTE | 2017-08-25 02:12 | HP ---
HISTORY AND PHYSICAL: DATE OF ADMISSION: 08/24/17 ADMITTING PROVIDER: Sukhwinder Schneider MD. PRIMARY CARE PROVIDER: Manuel Poe MD. OUTPATIENT NEUROLOGIST: Dr. Magdaleno. CHIEF COMPLAINT: Altered mental status. HISTORY OF PRESENT ILLNESS: Kike Durham is a 62-year-old male with past medical history of complex partial seizures, CAD, COPD, current smoker, hypertension, anxiety, depression, panic disorder, bipolar disorder, who seemed to be more confused on day of admission when neighbors found him saying only 1 word responses of "yeah." He had been in his normal state of health the day prior, reportedly ambulates and takes care of himself and his activities of daily living usually without incident. Lives alone. He was brought to [facility] Emergency Room and Neurology was consulted, recommended trial of Ativan to see if his mental status improved given his seizure history; however, before that was administered, he started to become much more verbal and less confused. 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 Chest x-ray showed small bibasilar infiltrates concerning for atelectasis. He is hemodynamically stable. Labs significant for alk phos of 117 and carbamazepine elevated at 13.5. He is a poor historian, does not know the year, he thinks it is March. He attests to chronic shortness of breath and cough, which is nonproductive. He is a 1 pack per day smoker. He attests to taking his antiepileptic medications today, but cannot describe the event of the day. He denies any abdominal pain, headache, fevers, chills, nausea, vomiting, diarrhea, constipation. He was referred to hospitalist service for altered mental status, concerned for potential complex partial seizure breakthrough. The patient was last seen by Dr. Magdaleno, seems like June 15 and his Vimpat was increased to 200 mg b.i.d., and presented to the emergency room with tingling sensation 2 days later. He also presented to the emergency room on 07/20/17 a month prior to admission with left flank pain, had a CT abdomen and pelvis, noncontrast, which did not show any kidney stones or hydronephrosis. The appendix was not discretely visualized, but no other inflammatory changes in the right lower quadrant. A mild colonic diverticulosis without evidence of diverticulitis. He was given IV Toradol and sent home and seems to have been prescribed ibuprofen 800 mg t.i.d./p.r.n. by Dr. Poe for abdominal pain on outpatient followup. The patient is complaining of significant right-sided CVA tenderness with movements today. Denies any dysuria or urinary frequencies. He has not yet provided a urine sample. PAST MEDICAL HISTORY: Complex partial seizures (epilepsy), non-insulin- dependent diabetes mellitus, coronary artery disease, hypertension, COPD, chronic smoker 1 pack per day, anxiety, depression, panic disorder, hepatic encephalopathy thought secondary to Depakote, and bipolar disorder. PAST SURGICAL HISTORY: Laparoscopic cholecystectomy. MEDICATIONS: Include, although of note, the patient is a poor historian, not able to verify these at the moment; these were obtained from outpatient records. 1. Singulair 10 mg p.o. daily. 2. Aspirin 81 mg p.o. daily (the patient attests to being somewhat noncompliant to this medication). 3. Rosuvastatin 40 mg p.o. daily. 4. Tiagabine (Gabitril) 16 mg p.o. b.i.d. 5. Ezetimibe (Zetia) 10 mg p.o. daily. 6. Plavix 75 mg p.o. daily. 7. Ranexa 500 mg p.o. b.i.d. 8. Ambien 5 mg p.o. bedtime p.r.n. 9. Protonix 20 mg p.o. daily. 10. Ibuprofen 800 mg p.o. t.i.d. p.r.n. The patient cannot recall he if he is taking this. 11. Carbamazepine (Tegretol) 400 mg q. a.m. and 800 mg q. p.m. 12. Zoloft 200 mg p.o. daily. 13. Lacosamide (Vimpat) 200 mg p.o. b.i.d. ALLERGIES: Include PENICILLIN (severe hives), ERYTHROMYCIN (hives), AZITHROMYCIN (hives), CEPHALOSPORIN (hives). FAMILY HISTORY: The patient is vague, but says his mother of a heart attack and father also had cardiac issues. SOCIAL HISTORY: A 3-yfar-bhm-day smoker. Lives alone. Denies any family or friends and cannot provide a healthcare proxy to me. He denies alcohol use or other drug use. REVIEW OF SYSTEMS: A complete 14-point review of systems is negative except as per HPI. PHYSICAL EXAMINATION GENERAL APPEARANCE: No acute distress, tracking with eyes with quizzical looks , but eventually does respond to all questions, sitting in hospital bed. VITAL SIGNS: Temperature 98.9, heart rate 88, respiratory rate between 18 and 37, satting 82% to 97% on room air, blood pressure 129/72. HEENT: Normocephalic, atraumatic. Pupils are equal, round, and reactive to light. Extraocular muscles intact. No cervical lymphadenopathy. No scleral icterus. Mucous membranes moist. PULMONARY: Slight expiratory wheezing diffusely and slight rhonchi at bilateral bases. CARDIOVASCULAR: Regular rate and rhythm. No murmurs, rubs, or gallops. ABDOMEN: Soft, nontender, nondistended. Right CVA tenderness noted. EXTREMITIES: Warm, well perfused. No peripheral edema, skin lesions, or rashes. NEUROLOGIC: Cranial nerves II through XII intact. Moving all extremities. Hip flexion 5/5. Television Journalist strength 5/5. Sensation intact. DIAGNOSTIC STUDIES/LAB DATA: Labs: White count 8.7, hemoglobin 14.4, hematocrit 42, MCV 96, platelets 261. Sodium 140, potassium 3.7, chloride 105, carbon dioxide 25, BUN 14, creatinine 0.74, glucose 118, lactic acid 0.8. Total bili 0.4, AST 16, ALT 17, alk phos 117. Ammonia 43. Troponin 0.01. Albumin 3.6. Carbamazepine 13.5. UA ordered, but still pending. Imaging: Chest x-ray with low lung volume with small bibasilar infiltrates, most likely atelectasis versus less likely pneumonia. CT head noncontrast demonstrated no acute findings, but evidence of possible old right cerebral infarct, unchanged. EKG demonstrated Q waves in II, III, and aVF (old), poor R wave progression, normal sinus rhythm, heart rate 81. ASSESSMENT AND PLAN: Kike Durham is a 62-year-old male with past medical history of complex partial seizures, coronary artery disease, chronic obstructive pulmonary disease, current smoker, mood disorders, presenting with altered mental status with concern for potential seizure activity. Given his history, Dr. Stahl was consulted by emergency room physician, Dr. Jayy Toribio , who recommended Ativan for the confusion, but it greatly improved prior to this. He is being admitted to observation status. We will get an EEG, follow up with Neurology, consultation and recommendations in the morning. We will hold his carbamazepine dose tonight, repeat the level in the morning. Also continue his tiagabine 16 mg p.o. b.i.d., Vimpat 200 mg p.o. b.i.d. For his mood disorder, sertraline 200 mg p.o. b.i.d. For his coronary artery disease with evidence of inferior UT, continue his Plavix, restart his aspirin 81 mg daily, which he seems to be encouraged to take by Dr. Freedman as an outpatient and continue his Crestor. He denies any chest pain currently. No ischemic changes on EKG. Troponin is negative. He is a current smoker, we will give him a 14 mg daily nicotine patch. Give him DuoNebs q.4 hours p.r.n. He does have evidence of slight expiratory wheezing and continue his Singulair, does not take any inhalers as an outpatient. For his right- sided flank pain, follow up on urinalysis, see if there is evidence of urinary tract infection, had negative workup for kidney stones a month prior, does have allergies to PENICILLIN, CEPHALOSPORINS, and MACROLIDES, we will add a CRP and a procalcitonin. The patient currently does not have a medical surrogate. He will need a heart-healthy diet. We will also put him on neuro checks q. 4 hours. [id number]/[facility] #: [id number] [facility]
[2017-08-25 05:28] LABS: ABS Basophils 0.1 10^3/ul (0-0.2); ABS Eosinophils 0.1 10^3/ul (0-0.6); ABS Lymphocytes 2.9 10^3/ul (1.0-4.8); ABS Monocytes 0.8 10^3/ul (0-0.8); ABS Neutrophils 4.6 10^3/ul (1.5-7.7); ABS Nucleated RBC 0 10^3/ul; Eosinophil % 1.5 % (0-6); Hematocrit 38 % (42-52); Hemoglobin 13.5 g/dl (14.0-18.0); Lymphocyte % 34.4 % (25-47); Mean Corpuscular HGB Conc 35 g/dl (31-36); Mean Corpuscular Hemoglobin 34 pg (27-31); Mean Corpuscular Volume 96 fL (80-94); Mean Platelet Volume 7.6 um3 (7.4-10.4); Nucleated Red Blood Cells % 0.1; Platelet Count 239 10^3/ul (150-450); Red Cell Distribution Width 13 % (10.5-15); White Blood Count 8.5 10^3/ul (3.5-10.8)
[2017-08-25 05:46] LABS: EGFR Non-African American 103.9 (>60)
[2017-08-25 06:52] LABS: Urine Appearance Clear; Urine Blood Negative (Negative); Urine Color Amber; Urine Ketones Trace (Negative); Urine Protein Negative (Negative); Urine Specific Gravity 1.032 (1.010-1.030); Urine Urobilinogen Negative (Negative)
[2017-08-25] MEDS ORDERED: Magnesium Sulfate IV* 3 GM in NS 0.9% 100 ML* 100 ML IVPB ONE (07:43)
[2017-08-25] MEDS: Nicotine PATCH 14 MG/24 HR* PATCH TRANSDERM SCH (08:43)
[2017-08-25] MEDS: Sertraline* 100 MG TAB PO SCH (08:43)
[2017-08-25] MEDS: Atorvastatin* 80 MG TAB PO SCH (08:43)
[2017-08-25] MEDS: Clopidogrel TAB* 75 MG PO SCH (08:44)
[2017-08-25] MEDS: TIAGABINE 4 MG PO SCH ×2 (08:44→22:00)
[2017-08-25] MEDS: Ezetimibe TAB* 10 MG PO SCH (08:44)
[2017-08-25] MEDS: Acetaminophen TAB* 325 MG PO PRN ×3 (08:44→22:02)
[2017-08-25] MEDS: Lacosamide TAB* 100 MG TAB PO SCH ×2 (08:44→22:01)
[2017-08-25] MEDS: Montelukast Sodium TAB* 10 MG PO SCH (08:45)
[2017-08-25] MEDS: Aspirin 81 mg CHEW TAB* 81 MG TAB.CHEW PO SCH (08:45)
[2017-08-25] MEDS: carBAMazepine TAB(*) 200 MG PO SCH ×2 (08:45→22:02)
[2017-08-25] MEDS: RANOLAZINE 500 MG PO SCH ×2 (09:00→22:01)
[2017-08-25] MEDS: Pantoprazole TAB (NF) 20 MG TAB PO SCH (09:00)
--- NOTE | 2017-08-25 13:34 | CONS ---
CC: Dr. Magdaleno NEUROLOGY CONSULTATION: DATE OF CONSULT: 08/25/17 REQUESTING PHYSICIAN: Sukhwinder Schneider MD. REASON FOR CONSULT: Change in mental status, possible seizures. HISTORY OF PRESENT ILLNESS: Farhan Durham is a 62-year-old man with a history of medically intractable localization related epilepsy, also with history of questionable compliance with his seizure medications in the past who is currently treated with Tegretol, Vimpat, and Gabitril. He presented to the emergency department yesterday afternoon when his neighbors reportedly found him with a change in behavior. He reportedly had decreased responsiveness and was only responding with yes or no responses. Dr. Toribio had called me initially and said that he seemed to be responding appropriately with yes or no , but in general was just not interactive and seemed confused. There was no definite witnessed seizure activity. I believe, according to the outpatient record that he should have visiting nurse services helping him with setting up his medications, but today he denies that this is the case. When I had spoken with Dr. Toribio last night I suggested giving 1 mg of Ativan IV to see if this improved his responsiveness on the chance that he could have been experiencing repetitive focal seizures, but according to Dr. Schneider's admission note he had spontaneously become more verbal and less confused so this was not done. However, review of nursing notes overnight shows that he again became less verbal responding only in one word sentences, so it does appear that he was given 1 mg of Ativan overnight around 1:20 a.m. Today, Kike appears fully awake and alert. He has a poor memory and is not able to contribute meaningfully to the history. He reports that he took his medication yesterday morning, but cannot accurately state what doses or what time. He stated that he recognized me when I entered the room and stated that he loved me and gave me several hugs during the course of our encounter. He also did spontaneously recall Dr. Magdaleno being his doctor and also stated that he loved him and wanted me to tell him that he also wanted to give him a hug. Farhan denies any specific somatic complaints such as pain, headache, fevers, chills, vomiting, nausea. He does have a cough and states that this has been the case for "a long time." He is a long time smoker, but cannot tell me how much he smokes. His carbamazepine dose was held last night because of an elevated carbamazepine level at 5 p.m. of 13.5. However, it is not clear when he last took his medication and this level may not have been a trough level. PAST MEDICAL HISTORY: 1. Localization related epilepsy, intractable, with questionable medication compliance. 2. Non insulin-dependent diabetes. 3. Coronary artery disease. 4. Hypertension. 5. COPD. 6. Anxiety. 7. Depression. 8. Panic disorder. 9. Bipolar disorder. 10. History of hepatic encephalopathy secondary to Depakote. PAST SURGICAL HISTORY: Laparoscopic cholecystectomy. MEDICATIONS: 1. Singulair 10 mg daily. 2. Aspirin 81 mg daily. 3. Rosuvastatin 40 mg daily. 4. Gabitril 16 mg twice daily. 5. Zetia 10 mg daily. 6. Plavix 75 mg daily. 7. Ranexa 500 mg twice daily. 8. Ambien 5 mg at bedtime p.r.n. 9. Protonix 20 mg daily. 10. Ibuprofen 800 mg p.o. t.i.d. p.r.n. 11. Tegretol 400 mg q.a.m. and 800 mg q. p.m. 12. Zoloft 200 mg daily. 13. Lacosamide 200 mg twice daily. I should note that when I stated what his home dose of carbamazepine is to my knowledge, he stated that this was not correct; he could not state the actual dose that he believes he is taking. ALLERGIES: 1. PENICILLIN. 2. ERYTHROMYCIN. 3. AZITHROMYCIN. 4. CEPHALOSPORIN. All of which cause hives. FAMILY HISTORY: Obtained from the medical record and the patient indicated that his mother and father both had heart disease. SOCIAL HISTORY: He is a smoker. 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 He denies other drug use. He states that he lives alone in a detention setting, but cannot recall the name of this community and spends a great deal of time trying to think of this during our encounter. REVIEW OF SYSTEMS: As per the HPI otherwise negative. PHYSICAL EXAM: Vital Signs: Temperature 97.1, blood pressure 143/69, heart rate 81, and oxygen saturation 98% on room air. General: Mr. Durham is in no acute distress. He at times exhibits child like behavior with loud exclamations of how much he loves this examiner and Dr. Magdaleno and marylin boyer as described in the HPI. Also when we ambulated to the end of the [place] and he saw the the cleaning, he again exclaimed with child like behavior how pretty it was and and pointed at the boats that he saw on the cleaning. Heart: His heart is in regular rate and rhythm with no murmurs, rubs, or gallops. Lungs: Clear to auscultation despite him having a productive sounding cough. Skin: Shows multiple seborrheic keratoses. He is edentulous. Neurologic: He is oriented to his date of as well as his location and can state the president/gm production & live experiences, but he is not oriented to the month and the year. Despite being given this information he is not able to recall later in the encounter. He is able to name objects without difficulty, can read off stroke cards and was able to describe the cookie theft picture without significant difficulty. There is no apparent aphasia, but his memory is poor. On cranial nerve exam, pupils are equal, round, and reactive from 4 to 2 mm bilaterally. His versions are full, but he has end-gaze nystagmus bilaterally which is worse on right horizontal gaze and does not fatigue. His tran are full to confrontation with no extinction to double simultaneous stimulation. Facial musculature and sensation is full and symmetric. His hearing is intact to finger rub on the left, but he states he cannot hear this well on the right. Palate elevates symmetrically and the tongue is midline. On motor examination, there is no clear focal weakness. He has no pronator drift. He does have some asterixis, but he reports that he is always chronically "jumpy." Sensation is intact to temperature in the upper and lower extremities. He states that the pin is not sharp in any of his extremities, but there is no lateralization to this. His refluxes are 2 to 3+ throughout with toes that are difficult to interpret secondary to him being ticklish. His gait is wide based and somewhat unsteady and his legs appears shaky at times, but he was able to ambulate from his room in 434 down to the end of the [place] and then back again. DIAGNOSTIC STUDIES/LAB DATA: His initial chemistry panel was mostly unremarkable aside from a slightly elevated alkaline phosphatase of 117, CRP of 13.49. His ammonia was normal at 43. Lactate was 0.8. Procalcitonin less than 0.1. His CBC was also overall unremarkable, aside from an elevated MCV of 96, MCH of 33. He does not have an elevated white count. His urinalysis showed trace ketones and otherwise was negative for any signs of infection, but he does have 2+ glucose. As mentioned his carbamazepine level at 1655 yesterday was 13.5 and then this morning at 5 a.m. was 7.2. He has not had a urine toxicology done. He had a noncontrast head CT when he came in which I reviewed and was unremarkable. He also had a chest x-ray which showed probable bibasilar atelectasis, less likely a pneumonia. IMPRESSION: Kiek Durham is a 62-year-old man with the history of psychiatric disease as well as localization related epilepsy with questionable compliance with his medications in the past who presents to the emergency room yesterday with alteration in his mental status. This appears to have improved in the emergency department despite no specific interventions. He may have had a recurrence of his previous altered mental status with diminished interactiveness and was given 1 mg of Ativan overnight, but it is not clear if there was any specific response to this. At this point, it is not entirely clear as to the cause of his altered mental status but an unwitnessed seizure would be highly likely. Today, his presentation appears more psychiatric to me with his child like behavior. I am not convinced that his apparently elevated carbamazepine level has anything to do with this given that probably was not a trough level and his trough level this morning was fine though possibly slightly lower than his historical levels. I would not make any changes in his antiseizure medications at this time. He does appear to have some asterixis on his exam today, but his ammonia was normal and otherwise his metabolic profile looks okay. I suggest monitoring him for the day today, ensuring that he gets his medications as ordered and continue to monitor his neurologic status. If he appears closer to his baseline tomorrow then he can likely go home and to follow up with Dr. Magdaleno as an outpatient whom he has recently seen in June for a regular followup visit. [id number]/[facility] #: [id number] [facility]OSPITAL[facility]
--- NOTE | 2017-08-25 15:49 | PN ---
Subjective Date of Service: 08/25/17 Interval History: Patient seen and examined at bedside. Denies fever, chills, shortness of breath , chest discomfort, N/V/D. Pt states that he is feeling fine. He is unsure of any recent seizures. Pt is unable to state why he is at the hospital or how he got here. Pt made a few vague statements in regards to being a DNR and just going home. He became agitated when I told him he needed to stay in the hospital for the night to complete his medical work-up. He states that he takes his medications as directed, but is unable to tell me any information about his medications. He is unable to state that harm could occur if he was to leave today against medical advice. He again states "I am a DNR and I can leave". His daughter is at bedside and states that he is not acting like him self. When I asked if he had tried to harm himself prior to arrival at the hospital he states "Do not start this with me, oh no you don't". At this time I feel that the patient DOES NOT have capacity to leave against medical advice as he is unable to state he is risking his health leaving and will not discuss if he was trying to harm himself. Pt also states that his daughter isn't taking care of him "like she is suppose to be"; she works full time babysitter and has a family to take care of. He has home health aides that come in to help him. According to his daughterCheryl he often has "one word answers when he has seizures" Tele: Sinus rhythm, rate 70-80's Family History: Unchanged from Admission Social History: Unchanged from Admission Past Medical History: Unchanged from Admission Objective Active Medications: Acetaminophen (Tylenol Tab*) 650 mg PO Q6H PRN Reason: FEVER/PAIN Albuterol/Ipratropium (Duoneb (Albuterol 2.5 Mg/Ipratropium 0.5 Mg)) 1 neb INH Q4H PRN Reason: SOB/WHEEZING Aspirin (Aspirin 81 Mg Chew Tab*) 81 mg PO DAILY [facility] Atorvastatin Calcium (Lipitor*) 80 mg PO DAILY [facility] Carbamazepine (Tegretol Tab(*)) 400 mg PO QAM [facility] Carbamazepine (Tegretol Tab(*)) 800 mg PO BEDTIME [facility] Clopidogrel Bisulfate (Plavix Tab*) 75 mg PO DAILY [facility] Ezetimibe (Zetia Tab*) 10 mg PO DAILY [facility] Lacosamide (Vimpat Tab*) 200 mg PO BID [facility] Montelukast Sodium (Singulair Tab*) 10 mg PO DAILY [facility] Nicotine (Nicotine Patch 14 Mg/24 Hr*) 1 patch TRANSDERM DAILY [facility] Pantoprazole Sodium (Protonix Tab (Nf)) 20 mg PO DAILY [facility] Pharmacy Profile Note (Nicotine Patch Removal Note*) 1 note FOLLOW UP 2100 [facility] Ranolazine (Ranexa (Nf)) 500 mg PO BID [facility] Sertraline HCl (Zoloft*) 200 mg PO DAILY [facility] Tiagabine HCl (Gabitril(*)) 16 mg PO BID [facility] Vital Signs - 8 hr 08/25/17 08/25/17 08:15 11:11 Temperature 97.1 F Pulse Rate 87 81 Respiratory 20 20 Rate Blood Pressure 143/69 (mmHg) O2 Sat by Pulse 97 98 Oximetry Oxygen Devices in Use Now: None Appearance: NAD, sitting up in the bed Ears/Nose/Mouth/Throat: Mucous Membranes Moist Respiratory: Symmetrical Chest Expansion and Respiratory Effort, Clear to Auscultation - , with a few scattered exp wheezes Cardiovascular: NL Sounds; No Murmurs; No JVD, RRR Abdominal: NL Sounds; No Tenderness; No Distention Extremities: No Edema Skin: No Rash or Ulcers Neurological: - - Alert and Oriented to Person, Place, and President. He doesn' t know the year or date, states the season is fall. Lines/Tubes/Other Access: Clean, Dry and Intact Peripheral IV - site benign Nutrition: Taking PO's Result Diagrams: 08/25/17 05:09 08/25/17 05:09 Additional Lab and Data: Assess/Plan/Problems-Billing Assessment: Mr. Durham is a 62 yo male with PMH significant for seizures, DM, CAD, HTN, COPD, tobacco abuse, anxiety, depression, panic disorder, hepatic encepalopathy and bipolar disorder who presented to the emergency room with complaints of altered mental status. - Patient Problems (1) Altered mental status, unspecified Code(s): R41.82 - ALTERED MENTAL STATUS, UNSPECIFIED SNOMED Code(s): 736482489 Comment: - Improving. Unclear etiology - Alert and Oriented to Person and Place, Pt is not oriented to situation and has poor recall. Unclear when his baseline is. - Psych consult pending - Neurologu consult, input appreciated - EEG, pending - No plan to change seizure medications at this time (2) Seizure disorder Code(s): G40.909 - EPILEPSY, UNSP, NOT INTRACTABLE, WITHOUT STATUS EPILEPTICUS SNOMED Code(s): 580412191 Comment: - No signs of seizures in the hospital so far. - Spoke to Dr. Looney who recommended EEG - Non-compliance is a possibility - Tegretol level WNL this AM after being held yesterday - Continue tegretol, tiagabine and Vimpat (3) Type 2 diabetes mellitus Comment: - Glucose 110's - Will add a HgA1C to last labs, last was 03/2017 and ~6.8 - Glucose checks AC/HS (4) Anxiety Code(s): F41.9 - ANXIETY DISORDER, UNSPECIFIED SNOMED Code(s): 41312392 Comment: - Supportive care - Continue sertraline (5) Bipolar disorder Comment: - Continue Zoloft (6) CAD (coronary artery disease) Code(s): I25.10 - ATHSCL HEART DISEASE OF [place] CORONARY ARTERY W/O ANG PCTRS SNOMED Code(s): 23904663 Comment: - Asymptomatic - Continue ASA, plavix, ranexa and zetia. (7) COPD (chronic obstructive pulmonary disease) Code(s): J44.9 - CHRONIC OBSTRUCTIVE PULMONARY DISEASE, UNSPECIFIED SNOMED Code(s): 06642395 Comment: - No signs of exacerbation - Continue duonebs PRN (8) Depression Code(s): F32.9 - MAJOR DEPRESSIVE DISORDER, SINGLE EPISODE, UNSPECIFIED SNOMED Code(s): 42380093 Comment: - Supportive care - Continue sertraline (9) GERD (gastroesophageal reflux disease) Code(s): K21.9 - GASTRO-ESOPHAGEAL REFLUX DISEASE WITHOUT ESOPHAGITIS SNOMED Code(s): 439973328 Comment: - Continue omeprazole (10) Hyperlipidemia Code(s): E78.5 - HYPERLIPIDEMIA, UNSPECIFIED SNOMED Code(s): 07244404 Comment: - Continue zetia (11) Hypertension Code(s): I10 - ESSENTIAL (PRIMARY) HYPERTENSION SNOMED Code(s): 60231093 Comment: - SBP 90-140's - Continue to monitor (12) Tobacco abuse Code(s): Z72.0 - TOBACCO USE SNOMED Code(s): 585215570 Comment: - Smoking cessation encouraged - Continue nicotine replacement (13) DVT prophylaxis Code(s): JRZ4830 - SNOMED Code(s): 138884160 Comment: - HSQ (14) DNR (do not resuscitate) Status and Disposition: OBV to Inpatient. Discharge to home when medically stable, suspect in the AM.
[2017-08-25] MEDS: Heparin VIAL(*) 5000 UNITS/ML VIAL (FIVE THOUSAND) SUBCUT SCH (22:03)
[2017-08-25] MEDS: Nicotine Patch Removal NOTE FOLLOW UP SCH (22:09)
[2017-08-26 05:45] LABS: ABS Basophils 0.1 10^3/ul (0-0.2); ABS Eosinophils 0.1 10^3/ul (0-0.6); ABS Monocytes 0.7 10^3/ul (0-0.8); ABS Nucleated RBC 0 10^3/ul; Hematocrit 39 % (42-52); Hemoglobin 13.4 g/dl (14.0-18.0); Lymphocyte % 43.4 % (25-47); Mean Corpuscular HGB Conc 35 g/dl (31-36); Mean Corpuscular Hemoglobin 34 pg (27-31); Mean Corpuscular Volume 97 fL (80-94); Mean Platelet Volume 7.7 um3 (7.4-10.4); Nucleated Red Blood Cells % 0.1; Platelet Count 237 10^3/ul (150-450); Red Blood Count 4.01 10^6/ul (4.0-5.4); Red Cell Distribution Width 13 % (10.5-15)
[2017-08-26 05:59] LABS: EGFR Non-African American 120.2 (>60)
[2017-08-26] MEDS: Heparin VIAL(*) 5000 UNITS/ML VIAL (FIVE THOUSAND) SUBCUT SCH ×3 (06:00→21:22)
[2017-08-26] MEDS ORDERED: Magnesium Sulfate 2 GM IV* 2 GM/50 ML BAG IVPB ONE (08:19)
[2017-08-26] MEDS: Clopidogrel TAB* 75 MG PO SCH (09:07)
[2017-08-26] MEDS: Ezetimibe TAB* 10 MG PO SCH (09:07)
[2017-08-26] MEDS: carBAMazepine TAB(*) 200 MG PO SCH ×2 (09:07→21:20)
[2017-08-26] MEDS: TIAGABINE 4 MG PO SCH ×2 (09:07→21:19)
[2017-08-26] MEDS: Pantoprazole TAB (NF) 20 MG TAB PO SCH (09:08)
[2017-08-26] MEDS: Aspirin 81 mg CHEW TAB* 81 MG TAB.CHEW PO SCH (09:08)
[2017-08-26] MEDS: Atorvastatin* 80 MG TAB PO SCH (09:08)
[2017-08-26] MEDS: RANOLAZINE 500 MG PO SCH ×2 (09:08→21:19)
[2017-08-26] MEDS: Montelukast Sodium TAB* 10 MG PO SCH (09:08)
[2017-08-26] MEDS: Sertraline* 100 MG TAB PO SCH (09:08)
[2017-08-26] MEDS: Lacosamide TAB* 100 MG TAB PO SCH ×2 (09:08→21:19)
[2017-08-26] MEDS: Nicotine PATCH 14 MG/24 HR* PATCH TRANSDERM SCH (09:10)
[2017-08-26] MEDS: Acetaminophen TAB* 325 MG PO PRN ×2 (13:10→21:19)
--- NOTE | 2017-08-26 13:20 | EEG ---
CC: Dr. Magdaleno ELECTROENCEPHALOGRAPHY: DATE OF STUDY: 08/25/17 ORDERING PHYSICIAN: Dr. Sukhwinder Schneider. OUTPATIENT NEUROLOGIST: Dr. Magdaleno. CLINICAL PROBLEM: This is a 62-year-old man with a history of localization- related epilepsy and questionable compliance with his antiseizure medications, who is admitted with altered mental status. He was found to be responding in one-word sentences by neighbors and seeming confused. EEG was requested to evaluate for epileptiform abnormalities. MEDICATIONS: 1. DuoNeb. 2. Acetaminophen. 3. Sertraline. 4. Pantoprazole. 5. Singulair. 6. Ezetimibe. 7. Clopidogrel. 8. Aspirin. 9. Tiagabine. 10. Ranolazine. 11. Nicotine patch. 12. Lacosamide. 13. Carbamazepine. REPORT: Most notable feature of EEG is the presence of diffuse, polymorphic, mixed frequency slowing, which is worse over the left hemisphere, in particular the left temporal region. In the left hemisphere, in particular the left temporal region, the slowing contains more delta range frequencies. In addition , in the left hemisphere, there are frequent sharply contoured waveforms which often affect the left posterior temporal and parietal regions, but at times were also noted bifrontally. On one occasion, there was a definitive discharge in the left temporal region, which was maximal at T3 and T5. In general, the background was of high voltage often in the range of 100 to greater than 150 microvolts. On one occasion, there appeared to be a right followed by left temporal discharge. Otherwise, the background does retain organization with reduced but evident anterior to posterior voltage and frequency gradients. There is a posterior dominant rhythm of 8 Hz maximally, which is symmetric. Throughout the recording, there are no seizures noted. CLINICAL IMPRESSION: This is an abnormal EEG due to the presence of diffuse background slowing, which affects the left hemisphere to a greater degree, higher than normal voltages as well as frequent sharply contoured waves in the left hemisphere and at least 1 definitive left temporal epileptiform discharge. Overall, these findings are suggestive of a moderate, nonspecific, diffuse encephalopathy which affects the left hemisphere to a greater degree with superimposed increased epileptic potential in the left temporal region. There are no seizures noted during this recording. [id number]/[facility] #: [id number] [facility]
--- NOTE | 2017-08-26 15:06 | PN ---
Subjective Date of Service: 08/26/17 Interval History: Patient seen at bedside. Pt very agitated when I entered the room and he stated that he was going home today and I told him that he had to stay. Unable to perform a physical exam d/t Pt being aggressive and yelling. Tele: Sinus rhythm, rate 60-80's Family History: Unchanged from Admission Social History: Unchanged from Admission Past Medical History: Unchanged from Admission Objective Active Medications: Acetaminophen (Tylenol Tab*) 650 mg PO Q6H PRN Reason: FEVER/PAIN Albuterol/Ipratropium (Duoneb (Albuterol 2.5 Mg/Ipratropium 0.5 Mg)) 1 neb INH Q4H PRN Reason: SOB/WHEEZING Aspirin (Aspirin 81 Mg Chew Tab*) 81 mg PO DAILY [facility] Atorvastatin Calcium (Lipitor*) 80 mg PO DAILY [facility] Carbamazepine (Tegretol Tab(*)) 400 mg PO QAM [facility] Carbamazepine (Tegretol Tab(*)) 800 mg PO BEDTIME [facility] Clopidogrel Bisulfate (Plavix Tab*) 75 mg PO DAILY [facility] Ezetimibe (Zetia Tab*) 10 mg PO DAILY [facility] Heparin Sodium (Porcine) (Heparin Vial(*)) 5,000 units SUBCUT Q8HR [facility] Lacosamide (Vimpat Tab*) 200 mg PO BID [facility] Montelukast Sodium (Singulair Tab*) 10 mg PO DAILY [facility] Nicotine (Nicotine Patch 14 Mg/24 Hr*) 1 patch TRANSDERM DAILY [facility] Pantoprazole Sodium (Protonix Tab (Nf)) 20 mg PO DAILY [facility] Pharmacy Profile Note (Nicotine Patch Removal Note*) 1 note FOLLOW UP 2100 [facility] Ranolazine (Ranexa (Nf)) 500 mg PO BID [facility] Sertraline HCl (Zoloft*) 200 mg PO DAILY [facility] Tiagabine HCl (Gabitril(*)) 16 mg PO BID [facility] Vital Signs - 8 hr 08/26/17 08/26/17 08/26/17 07:41 08:00 08:06 Temperature 98.1 F Pulse Rate 74 74 Respiratory 20 20 20 Rate Blood Pressure 135/69 (mmHg) O2 Sat by Pulse 94 94 Oximetry 08/26/17 12:06 Temperature 97.9 F Pulse Rate 69 Respiratory 20 Rate Blood Pressure 131/68 (mmHg) O2 Sat by Pulse 98 Oximetry Oxygen Devices in Use Now: None Nutrition: Taking PO's Result Diagrams: 08/26/17 05:18 08/26/17 05:18 Additional Lab and Data: Assess/Plan/Problems-Billing Assessment: Mr. Durham is a 62 yo male with PMH significant for seizures, DM, CAD, HTN, COPD, tobacco abuse, anxiety, depression, panic disorder, hepatic encepalopathy and bipolar disorder who presented to the emergency room with complaints of altered mental status. - Patient Problems (1) Altered mental status, unspecified Code(s): R41.82 - ALTERED MENTAL STATUS, UNSPECIFIED SNOMED Code(s): 441185241 Comment: - Improving. Unclear etiology - Alert and Oriented to Person and Place, Pt is not oriented to situation and has poor recall. Unclear what his baseline is. - Psych consult, input appreciated - Neurology consult, input appreciated - EEG, no signs of seizure - No plan to change seizure medications at this time (2) Hypomagnesemia Code(s): E83.42 - HYPOMAGNESEMIA SNOMED Code(s): 276739376 Comment: - Will give replacement today - Recheck in the AM (3) Seizure disorder Code(s): G40.909 - EPILEPSY, UNSP, NOT INTRACTABLE, WITHOUT STATUS EPILEPTICUS SNOMED Code(s): 612431036 Comment: - No signs of seizures in the hospital so far. - EEG, no seizure activity noted - Non-compliance is a possibility - Tegretol level WNL - Continue tegretol, tiagabine and Vimpat (4) Type 2 diabetes mellitus Comment: - Glucose 130-150's - HgA1C 7.8 - Glucose checks AC/HS (5) Anxiety Code(s): F41.9 - ANXIETY DISORDER, UNSPECIFIED SNOMED Code(s): 51807569 Comment: - Supportive care - Continue sertraline (6) Bipolar disorder Comment: - Continue Zoloft (7) CAD (coronary artery disease) Code(s): I25.10 - ATHSCL HEART DISEASE OF [place] CORONARY ARTERY W/O ANG PCTRS SNOMED Code(s): 75369055 Comment: - Asymptomatic - Continue ASA, plavix, ranexa and zetia. (8) COPD (chronic obstructive pulmonary disease) Code(s): J44.9 - CHRONIC OBSTRUCTIVE PULMONARY DISEASE, UNSPECIFIED SNOMED Code(s): 16341672 Comment: - No signs of exacerbation - Continue duonebs PRN (9) Depression Code(s): F32.9 - MAJOR DEPRESSIVE DISORDER, SINGLE EPISODE, UNSPECIFIED SNOMED Code(s): 08912753 Comment: - Supportive care - Continue sertraline (10) GERD (gastroesophageal reflux disease) Code(s): K21.9 - GASTRO-ESOPHAGEAL REFLUX DISEASE WITHOUT ESOPHAGITIS SNOMED Code(s): 300680845 Comment: - Continue omeprazole (11) Hyperlipidemia Code(s): E78.5 - HYPERLIPIDEMIA, UNSPECIFIED SNOMED Code(s): 59181638 Comment: - Continue zetia (12) Hypertension Code(s): I10 - ESSENTIAL (PRIMARY) HYPERTENSION SNOMED Code(s): 41129738 Comment: - SBP 110-130's - Continue to monitor (13) Tobacco abuse Code(s): Z72.0 - TOBACCO USE SNOMED Code(s): 686353923 Comment: - Smoking cessation encouraged - Continue nicotine replacement (14) DVT prophylaxis Code(s): APH1065 - SNOMED Code(s): 440724925 Comment: - HSQ (15) DNR (do not resuscitate) Status and Disposition: Inpatient. Discharge to when medically stable, suspect he will require placement.
--- NOTE | 2017-08-26 15:29 | CONSULT ---
Consult Consult: Consult for medical decision making capacity. S: Psychiatry is asked to evaluate capacity in this 62 y.o. diabetic, epileptic male with a history of uncooperative behavior during multiple prior medical admissions here at [facility], currently hospitalized on due to AMS. The primary team would like to keep him longer for further work up of likely encephalopathy, however, he is insisting on leaving AMA. Family, who have been visiting, are insisting that this is not his cognitive/functional baseline. Primary team is also concerned that he perhaps had suicidality because he made statements to the effect that he was purposefully non-adherent with medications at home. On exam the patient is irritable but cooperative. He cannot recall why he was brought to the hospital and he cannot answer basic orienting questions related to place or time. The patient makes excuses for not knowing such basic information, such as "I just forgot my glasses at home, what do you expect?" He is similarly unable to state why there may be risks to him ignoring medical advice and going home without further workup. When asked about SI he appears insulted and demands that I tell the primary team that "I would never dream of doing something like that!" O: aging white male with minimal grooming dressed in patient gown sitting up in bed being read to by a hospital aide; speech somewhat pressured; irritable but cooperative; thought process is circumstantial with fixation on going home; denies SI or HI; denies AH or VH; insight and judgment are markedly impaired. Cognitively he is disoriented and confused and would not comply with a MMSE A/P: 1. Capacity: the patient cannot state his medical problem nor the indicated treatment, nor the risks associated with refusing said treatment. He is confused and disoriented and appears somewhat encephalopathic. He lacks capacity to make an informed decision about leaving the hospital AMA. 2. Suicidal Ideation: the patient steadfastly (and vigorously) denies this. Psychiatry is signing off but can be reconsulted in the event of any significant changes in Mr. Durham's presentation.
--- NOTE | 2017-08-26 20:48 | PN ---
PROGRESS NOTE: DATE OF FOLLOWUP: 08/26/17 OVERNIGHT EVENTS: Aster Cifuentes related to me earlier today that yesterday evening, Mr. Durham became confrontational stating that he wanted to leave, but was unable to state why he was in the hospital. Furthermore, he eluded to her that he may not take his medications on purpose and so she has requested psychiatric consultation on him. Otherwise, Kike today tells me that his back is hurting him, but otherwise denies any seizure activity. When asked why he is in the hospital, he states "they think I had a seizure." He explained that he talked to a friend of his who lives at his building who told him that she found him "incoherent" and then got the building rigger who then called the ambulance. He still does not think that a breakthrough seizure could have been the explanation for these symptoms but is otherwise unable to state why he would have been incoherent. MEDICATIONS: 1. Tylenol 650 q.6 p.r.n. pain. 2. DuoNeb. 3. Aspirin 81 mg daily. 4. Lipitor 80 mg daily. 5. Carbamazepine 400 mg q.a.m. and 800 mg at bedtime. 6. Plavix 75 mg daily. 7. Zetia 10 mg daily. 8. Heparin 5000 units q.8 hours. 9. Vimpat 200 mg b.i.d. 10. Singulair 10 mg daily. 11. Protonix 20 mg daily. 12. Ranexa 500 mg b.i.d. 13. Zoloft 200 mg daily. 14. Gabitril 16 mg b.i.d. PHYSICAL EXAM: Vital Signs: Temperature 97.9, blood pressure 131/68, heart rate 69, oxygen saturation 98% on room air. On general exam, Kike was sitting upright in his bed. He stated it was the 25th when asked the year. When asked what season we are in, he states it is the fall and is adamant that it is the fall by looking out the window and arguing about the appearance outside. When told that the month is August, he is argumentative about this. Otherwise, his heart is in a regular rate and rhythm. His lungs are clear to auscultation. He has multiple seborrheic keratoses over his body. His versions are full with some nonsustained nystagmus. Facial sensation and musculature is full and symmetric. Hearing is intact to finger rub. On motor examination, he has normal strength in the upper and lower extremities. He still does appear to have some asterixis versus myoclonus, but this appears to be improved from yesterday. His sensation is intact to light touch throughout. I did not ambulate him today. LABORATORY DATA: His BMP today was notable for a sodium of 136, slightly down from 138 yesterday, otherwise relatively unchanged aside from a magnesium of 1.7. His CBC is overall unremarkable aside from slight anemia. IMPRESSION: A 62-year-old man with multiple medical problems including localization related epilepsy who came in with alteration in mental status. He appears to be slightly improved to me today though he is still not able to accurately state the date or the year. In addition, there is some question about his decision making capacity at this point and so psychiatric input has been requested. I continued to question whether an unwitnessed seizure with subsequent postictal behavioral/psychiatric changes could be the underlying etiology for what we are observing here in the hospital. I would not make any changes in his antiseizure medications. I have asked the nurse to give him some p.r.n. Tylenol as well as a heat pack for his back pain. I will get a lacosamide level as I noted that in previous outpatient records, it appears that it has always been undetectable, which has raised significant concern regarding his compliance with this medication. [id number]/[facility] #: [id number] MTD[facility]
[2017-08-26] MEDS: Nicotine Patch Removal NOTE FOLLOW UP SCH (21:20)
[2017-08-27 05:49] LABS: ABS Basophils 0.1 10^3/ul (0-0.2); ABS Eosinophils 0.1 10^3/ul (0-0.6); ABS Lymphocytes 2.8 10^3/ul (1.0-4.8); ABS Monocytes 0.6 10^3/ul (0-0.8); ABS Neutrophils 3.1 10^3/ul (1.5-7.7); ABS Nucleated RBC 0 10^3/ul; Eosinophil % 1.7 % (0-6); Hematocrit 38 % (42-52); Hemoglobin 13.3 g/dl (14.0-18.0); Lymphocyte % 41.5 % (25-47); Mean Corpuscular HGB Conc 35 g/dl (31-36); Mean Corpuscular Hemoglobin 34 pg (27-31); Mean Corpuscular Volume 97 fL (80-94); Mean Platelet Volume 7.6 um3 (7.4-10.4); Nucleated Red Blood Cells % 0.1; Platelet Count 233 10^3/ul (150-450); Red Blood Count 3.96 10^6/ul (4.0-5.4); Red Cell Distribution Width 13 % (10.5-15); White Blood Count 6.7 10^3/ul (3.5-10.8)
[2017-08-27 06:03] LABS: EGFR Non-African American 114.3 (>60)
[2017-08-27] MEDS: Heparin VIAL(*) 5000 UNITS/ML VIAL (FIVE THOUSAND) SUBCUT SCH ×3 (06:22→20:45)
[2017-08-27] MEDS ORDERED: Magnesium Sulf 4 GM/100 ML IV* 4,000 MG/100 ML BAG IVPB ONE (07:47)
[2017-08-27] MEDS: carBAMazepine TAB(*) 200 MG PO SCH ×2 (08:56→20:36)
[2017-08-27] MEDS: Atorvastatin* 80 MG TAB PO SCH (08:56)
[2017-08-27] MEDS: Aspirin 81 mg CHEW TAB* 81 MG TAB.CHEW PO SCH (08:56)
[2017-08-27] MEDS: Ezetimibe TAB* 10 MG PO SCH (08:57)
[2017-08-27] MEDS: Lacosamide TAB* 100 MG TAB PO SCH ×2 (08:57→20:36)
[2017-08-27] MEDS: Montelukast Sodium TAB* 10 MG PO SCH (08:57)
[2017-08-27] MEDS: Clopidogrel TAB* 75 MG PO SCH (08:57)
[2017-08-27] MEDS: Nicotine PATCH 14 MG/24 HR* PATCH TRANSDERM SCH (08:58)
[2017-08-27] MEDS: TIAGABINE 4 MG PO SCH ×2 (08:59→20:36)
[2017-08-27] MEDS: Sertraline* 100 MG TAB PO SCH (08:59)
[2017-08-27] MEDS: RANOLAZINE 500 MG PO SCH ×2 (08:59→20:36)
[2017-08-27] MEDS: Pantoprazole TAB (NF) 20 MG TAB PO SCH (10:07)
[2017-08-27] MEDS: Thiamine IV* 500 MG in NS 0.9% 250 ML* 250 ML IV SCH ×2 (13:39→20:37)
--- NOTE | 2017-08-27 19:13 | PN ---
Subjective Date of Service: 08/27/17 Interval History: Patient seen at bedside. Kike started out not wanting to talk to me today, but we discussed some of his medial concerns. He again became agitated when he said he was leaving today and I reminded him that him and Dr. Stahl had agreed on an MRI today. Pt continued to escalate when I informed him he was unable to leave AMA. Kike declined a physical exam by me again today. Per Dr. Freedman who had a social visit with the Pt earlier today, he is at his baseline. Pt continues to lack capacity to leave AMA Family History: Unchanged from Admission Social History: Unchanged from Admission Past Medical History: Unchanged from Admission Objective Active Medications: Acetaminophen (Tylenol Tab*) 650 mg PO Q6H PRN Reason: FEVER/PAIN Albuterol/Ipratropium (Duoneb (Albuterol 2.5 Mg/Ipratropium 0.5 Mg)) 1 neb INH Q4H PRN Reason: SOB/WHEEZING Aspirin (Aspirin 81 Mg Chew Tab*) 81 mg PO DAILY [facility] Atorvastatin Calcium (Lipitor*) 80 mg PO DAILY [facility] Carbamazepine (Tegretol Tab(*)) 400 mg PO QAM [facility] Carbamazepine (Tegretol Tab(*)) 800 mg PO BEDTIME [facility] Clopidogrel Bisulfate (Plavix Tab*) 75 mg PO DAILY [facility] Ezetimibe (Zetia Tab*) 10 mg PO DAILY [facility] Heparin Sodium (Porcine) (Heparin Vial(*)) 5,000 units SUBCUT Q8HR [facility] Thiamine HCl 500 mg/ Sodium (Chloride) 255 mls @ 255 mls/hr IV TID [facility] Stop: 08/29/17 13:59 Thiamine HCl 250 mg/ Sodium (Chloride) 252.5 mls @ 252.5 mls/hr IV DAILY [facility] Lacosamide (Vimpat Tab*) 200 mg PO BID [facility] Montelukast Sodium (Singulair Tab*) 10 mg PO DAILY [facility] Nicotine (Nicotine Patch 14 Mg/24 Hr*) 1 patch TRANSDERM DAILY [facility] Pantoprazole Sodium (Protonix Tab (Nf)) 20 mg PO DAILY [facility] Pharmacy Profile Note (Nicotine Patch Removal Note*) 1 note FOLLOW UP 2100 [facility] Ranolazine (Ranexa (Nf)) 500 mg PO BID [facility] Sertraline HCl (Zoloft*) 200 mg PO DAILY [facility] Tiagabine HCl (Gabitril(*)) 16 mg PO BID [facility] Vital Signs - 8 hr 08/27/17 08/27/17 11:19 15:12 Temperature 98.2 F 98.0 F Pulse Rate 73 67 Respiratory 20 18 Rate Blood Pressure 138/55 119/62 (mmHg) O2 Sat by Pulse 98 98 Oximetry Oxygen Devices in Use Now: None Appearance: NAD, sitting up in a chair Neurological: - - Alert and Oriented to Person, unable to determine further orientation Nutrition: Taking PO's Result Diagrams: 08/27/17 05:28 08/27/17 05:29 Additional Lab and Data: Assess/Plan/Problems-Billing Assessment: Mr. Durham is a 62 yo male with PMH significant for seizures, DM, CAD, HTN, COPD, tobacco abuse, anxiety, depression, panic disorder, hepatic encepalopathy and bipolar disorder who presented to the emergency room with complaints of altered mental status. - Patient Problems (1) Altered mental status, unspecified Code(s): R41.82 - ALTERED MENTAL STATUS, UNSPECIFIED SNOMED Code(s): 592128946 Comment: - Improving. Unclear etiology - Alert and Oriented to Person, unable to determine further orientation - Psych consult, input appreciated - Neurology consult, input appreciated - EEG, no signs of seizure - No plan to change seizure medications at this time - Plan for MRI today - Will start on thaimine for possible wernicke's encephalopathy (2) Hypomagnesemia Code(s): E83.42 - HYPOMAGNESEMIA SNOMED Code(s): 415937924 Comment: - Will give IV replacement today - Recheck in the AM - Start PO supplement daily (3) Seizure disorder Code(s): G40.909 - EPILEPSY, UNSP, NOT INTRACTABLE, WITHOUT STATUS EPILEPTICUS SNOMED Code(s): 768705710 Comment: - No signs of seizures in the hospital so far. - EEG, no seizure activity noted - Non-compliance is a possibility - Tegretol level WNL - Continue tegretol, tiagabine and Vimpat (4) Type 2 diabetes mellitus Comment: - Glucose 110-170's - HgA1C 7.8 - Glucose checks AC/HS - Consistent carb diet (5) Anxiety Code(s): F41.9 - ANXIETY DISORDER, UNSPECIFIED SNOMED Code(s): 95003618 Comment: - Supportive care - Continue sertraline (6) Bipolar disorder Comment: - Continue Zoloft (7) CAD (coronary artery disease) Code(s): I25.10 - ATHSCL HEART DISEASE OF [place] CORONARY ARTERY W/O ANG PCTRS SNOMED Code(s): 33338622 Comment: - Asymptomatic - Continue ASA, plavix, ranexa and zetia. (8) COPD (chronic obstructive pulmonary disease) Code(s): J44.9 - CHRONIC OBSTRUCTIVE PULMONARY DISEASE, UNSPECIFIED SNOMED Code(s): 49233199 Comment: - No signs of exacerbation - Continue duonebs PRN (9) Depression Code(s): F32.9 - MAJOR DEPRESSIVE DISORDER, SINGLE EPISODE, UNSPECIFIED SNOMED Code(s): 10324799 Comment: - Supportive care - Continue sertraline (10) GERD (gastroesophageal reflux disease) Code(s): K21.9 - GASTRO-ESOPHAGEAL REFLUX DISEASE WITHOUT ESOPHAGITIS SNOMED Code(s): 787869979 Comment: - Continue omeprazole (11) Hyperlipidemia Code(s): E78.5 - HYPERLIPIDEMIA, UNSPECIFIED SNOMED Code(s): 31532610 Comment: - Continue zetia (12) Hypertension Code(s): I10 - ESSENTIAL (PRIMARY) HYPERTENSION SNOMED Code(s): 44262829 Comment: - SBP 110-130's - Continue to monitor (13) Tobacco abuse Code(s): Z72.0 - TOBACCO USE SNOMED Code(s): 184395239 Comment: - Smoking cessation encouraged - Continue nicotine replacement (14) DVT prophylaxis Code(s): VZG9750 - SNOMED Code(s): 758654399 Comment: - HSQ (15) DNR (do not resuscitate) Status and Disposition: Inpatient. Discharge to when medically stable, suspect he may require placement.
[2017-08-27] MEDS: Nicotine Patch Removal NOTE FOLLOW UP SCH (20:47)
--- NOTE | 2017-08-27 21:52 | PN ---
NEUROLOGY PROGRESS NOTE: DATE OF FOLLOWUP: 08/27/17 HISTORY: No acute overnight events though this morning like he was in the shower and once he got out, he began to experience vertigo. He indicates that he continues to feel vertiginous with the room spinning. He has had somewhat similar symptoms in the past, but never this persistent. He continues to have some back pain. Dr. Bills evaluated him yesterday and felt that he did not have capacity to leave against medical advice. I questioned him again on his compliance with his medications at home in particular the Vimpat and he says he takes this regularly and as prescribed. I attempted to call his pharmacy to verify recent refill dates, but has not been successful in having anyone order picker the phone. HOSPITAL MEDICATIONS: 1. Tylenol 650 mg p.r.n. 2. Aspirin 81 mg daily. 3. Lipitor 80 mg daily. 4. Tegretol 400 mg q.a.m., 800 mg at bedtime. 5. Plavix 75 mg daily. 6. Zetia 10 mg daily. 7. Heparin 5000 units q.8 hours. 8. Vimpat 200 mg b.i.d. 9. Singulair 10 mg daily. 10. Nicotine patch. 11. Protonix 20 mg daily. 12. Ranexa 500 mg twice daily. 13. Zoloft 200 mg daily. 14. Gabitril 60 mg b.i.d. PHYSICAL EXAM: Vital Signs: Temperature 98.2, blood pressure 138/55, heart rate 73, oxygen saturation 98% on room air. On general examination, he is in no acute distress, in his hospital bed. Prior to my examination, I did see him get up and ambulate with a walker to the bathroom and he appeared unsteady. His heart is in a regular rate and rhythm. His lungs are clear to auscultation. On neurologic exam, he is oriented to the month and season, but he is not able to state the year, initially stating "1961," but knowing this is incorrect and then stating that he could not think of this because he was spinning too much. On cranial nerve exam, his pupils were equal, round and reactive from 4 to 2 mm bilaterally. His versions are full, but he has nystagmus in right horizontal gaze greater than left horizontal gaze and he indicates increased vertigo when looking towards the right. He has no nystagmus with vertical gaze. His tran are full to confrontation. Face is symmetric and full strength. On finger-to- nose testing, there is no ataxia, but on [id number], he does seem to have ataxia bilaterally, which may be worse on the right. LABORATORY DATA: His sodium this morning is 133, which is decreased from 136 yesterday, magnesium 1.6, glucoses have been elevated consistent with his history of diabetes. His CBC shows the hematocrit of 38, hemoglobin 13.3, stable platelet count at 233 and no abnormal white blood cell count. His lacosamide level is pending. IMPRESSION: Kike Durham is a 62-year-old man with a complicated past medical history including localization related epilepsy as well as diabetes and vascular disease, who came in with altered mental status. Today, he is reporting vertigo, which had the onset when he was in the shower and on exam, he has nystagmus on right gaze greater than left gaze and ataxia in his lower extremities bilaterally. While the nystagmus could be peripheral in origin, his ataxia certainly should not be and I will obtain MRI scan of his brain to evaluate for any signs of an infarction or Wernicke encephalopathy. He states that he no longer drinks, but still could have poor nutritional status and Wernicke's is in the differential here, so I will start him on high-dose thiamine IV 500 mg 3 times daily for 2 days followed by 250 mg daily and we will send out for a thiamine level as well as vitamin B12 and methylmalonic acid. I will also try to get in touch with his pharmacy to see when his last fill of the Vimpat was as suddenly restarting this medication if he has not been on it could also produce some of the symptoms he is complaining of. [id number]/[facility] #: [id number] [facility]ITAL[facility]
[2017-08-28 05:00] LABS: ABS Basophils 0 10^3/ul (0-0.2); ABS Eosinophils 0.1 10^3/ul (0-0.6); ABS Lymphocytes 2.8 10^3/ul (1.0-4.8); ABS Monocytes 0.7 10^3/ul (0-0.8); ABS Neutrophils 4.1 10^3/ul (1.5-7.7); ABS Nucleated RBC 0 10^3/ul; Eosinophil % 1.3 % (0-6); Hematocrit 40 % (42-52); Hemoglobin 13.6 g/dl (14.0-18.0); Mean Corpuscular HGB Conc 34 g/dl (31-36); Mean Corpuscular Hemoglobin 33 pg (27-31); Mean Corpuscular Volume 98 fL (80-94); Mean Platelet Volume 7.5 um3 (7.4-10.4); Nucleated Red Blood Cells % 0; Platelet Count 237 10^3/ul (150-450); Red Blood Count 4.11 10^6/ul (4.0-5.4); Red Cell Distribution Width 13 % (10.5-15); White Blood Count 7.8 10^3/ul (3.5-10.8)
[2017-08-28 05:18] LABS: EGFR Non-African American 105.5 (>60)
[2017-08-28] MEDS: Heparin VIAL(*) 5000 UNITS/ML VIAL (FIVE THOUSAND) SUBCUT SCH ×3 (05:39→22:31)
[2017-08-28] MEDS ORDERED: NS 0.9% 250 ML* 250 ML ONE ×2 (07:31→13:46)
[2017-08-28] MEDS: Ezetimibe TAB* 10 MG PO SCH (07:37)
[2017-08-28] MEDS: Montelukast Sodium TAB* 10 MG PO SCH (07:37)
[2017-08-28] MEDS: Clopidogrel TAB* 75 MG PO SCH (07:37)
[2017-08-28] MEDS: Aspirin 81 mg CHEW TAB* 81 MG TAB.CHEW PO SCH (07:37)
[2017-08-28] MEDS: Magnesium Oxide TAB* 400 MG PO SCH (07:37)
[2017-08-28] MEDS: RANOLAZINE 500 MG PO SCH ×2 (07:37→21:03)
[2017-08-28] MEDS: Atorvastatin* 80 MG TAB PO SCH (07:37)
[2017-08-28] MEDS: carBAMazepine TAB(*) 200 MG PO SCH ×2 (07:37→21:02)
[2017-08-28] MEDS: Sertraline* 100 MG TAB PO SCH (07:38)
[2017-08-28] MEDS: Lacosamide TAB* 100 MG TAB PO SCH ×2 (07:38→21:02)
[2017-08-28] MEDS: TIAGABINE 4 MG PO SCH ×2 (07:38→21:03)
[2017-08-28] MEDS: Pantoprazole TAB (NF) 20 MG TAB PO SCH (07:41)
[2017-08-28] MEDS: Nicotine PATCH 14 MG/24 HR* PATCH TRANSDERM SCH ×2 (07:41→07:47)
[2017-08-28] MEDS: Thiamine IV* 500 MG in NS 0.9% 250 ML* 250 ML IV SCH ×3 (10:25→21:42)
[2017-08-28] MEDS: Acetaminophen TAB* 325 MG PO PRN (10:25)
--- NOTE | 2017-08-28 19:04 | PN ---
Subjective Date of Service: 08/28/17 Interval History: Patient seen and examined at bedside. Denies fever, chills, shortness of breath , chest discomfort, N/V/D. Pt states that he is feeling well today and is anxious to get home. He hopes for discharge in the AM. Kike was much calmer today and cooperative with me. Family History: Unchanged from Admission Social History: Unchanged from Admission Past Medical History: Unchanged from Admission Objective Active Medications: Acetaminophen (Tylenol Tab*) 650 mg PO Q6H PRN Reason: FEVER/PAIN Albuterol/Ipratropium (Duoneb (Albuterol 2.5 Mg/Ipratropium 0.5 Mg)) 1 neb INH Q4H PRN Reason: SOB/WHEEZING Aspirin (Aspirin 81 Mg Chew Tab*) 81 mg PO DAILY [facility] Atorvastatin Calcium (Lipitor*) 80 mg PO DAILY [facility] Carbamazepine (Tegretol Tab(*)) 400 mg PO QAM [facility] Carbamazepine (Tegretol Tab(*)) 800 mg PO BEDTIME [facility] Clopidogrel Bisulfate (Plavix Tab*) 75 mg PO DAILY [facility] Ezetimibe (Zetia Tab*) 10 mg PO DAILY [facility] Heparin Sodium (Porcine) (Heparin Vial(*)) 5,000 units SUBCUT Q8HR [facility] Thiamine HCl 500 mg/ Sodium (Chloride) 255 mls @ 255 mls/hr IV TID [facility] Stop: 08/29/17 13:59 Thiamine HCl 250 mg/ Sodium (Chloride) 252.5 mls @ 252.5 mls/hr IV DAILY [facility] Lacosamide (Vimpat Tab*) 200 mg PO BID [facility] Magnesium Oxide (Magox 400 Tab*) 400 mg PO DAILY [facility] Montelukast Sodium (Singulair Tab*) 10 mg PO DAILY [facility] Nicotine (Nicotine Patch 14 Mg/24 Hr*) 1 patch TRANSDERM DAILY [facility] Pantoprazole Sodium (Protonix Tab (Nf)) 20 mg PO DAILY [facility] Pharmacy Profile Note (Nicotine Patch Removal Note*) 1 note FOLLOW UP 2100 [facility] Ranolazine (Ranexa (Nf)) 500 mg PO BID [facility] Sertraline HCl (Zoloft*) 200 mg PO DAILY [facility] Tiagabine HCl (Gabitril(*)) 16 mg PO BID [facility] Vital Signs - 8 hr 08/28/17 15:19 Temperature 97.8 F Pulse Rate 79 Respiratory 16 Rate Blood Pressure 142/70 (mmHg) O2 Sat by Pulse 99 Oximetry Oxygen Devices in Use Now: None Appearance: NAD, sitting up in a chair Ears/Nose/Mouth/Throat: Mucous Membranes Moist Respiratory: Symmetrical Chest Expansion and Respiratory Effort, Clear to Auscultation Cardiovascular: NL Sounds; No Murmurs; No JVD, RRR Abdominal: NL Sounds; No Tenderness; No Distention Extremities: No Edema Skin: No Rash or Ulcers Neurological: Alert and Oriented x 3, NL Muscle Strength and Tone Lines/Tubes/Other Access: Clean, Dry and Intact Peripheral IV - site benign Nutrition: Taking PO's Result Diagrams: 08/28/17 04:45 08/28/17 04:45 Additional Lab and Data: Assess/Plan/Problems-Billing Assessment: Mr. Durham is a 62 yo male with PMH significant for seizures, DM, CAD, HTN, COPD, tobacco abuse, anxiety, depression, panic disorder, hepatic encepalopathy and bipolar disorder who presented to the emergency room with complaints of altered mental status. - Patient Problems (1) Altered mental status, unspecified Code(s): R41.82 - ALTERED MENTAL STATUS, UNSPECIFIED SNOMED Code(s): 204537365 Comment: - Improving. Unclear etiology - Alert and Oriented to Person, place and year today - Psych consult, input appreciated - Neurology consult, input appreciated - EEG, no signs of seizure - No plan to change seizure medications at this time - MRI, pending for later today - Continue thaimine for possible wernicke's encephalopathy (2) Hypomagnesemia Code(s): E83.42 - HYPOMAGNESEMIA SNOMED Code(s): 684868250 Comment: - Continues to low - Recheck in the AM - Continue PO supplement daily (3) Seizure disorder Code(s): G40.909 - EPILEPSY, UNSP, NOT INTRACTABLE, WITHOUT STATUS EPILEPTICUS SNOMED Code(s): 734679145 Comment: - No signs of seizures in the hospital so far. - EEG, no seizure activity noted - Non-compliance is a possibility - Tegretol level WNL - Continue tegretol, tiagabine and Vimpat (4) Type 2 diabetes mellitus Comment: - Glucose 90-130's - HgA1C 7.8 - Glucose checks AC/HS - Consistent carb diet (5) Anxiety Code(s): F41.9 - ANXIETY DISORDER, UNSPECIFIED SNOMED Code(s): 51375674 Comment: - Supportive care - Continue sertraline (6) Bipolar disorder Comment: - Continue Zoloft (7) CAD (coronary artery disease) Code(s): I25.10 - ATHSCL HEART DISEASE OF [place] CORONARY ARTERY W/O ANG PCTRS SNOMED Code(s): 67101993 Comment: - Asymptomatic - Continue ASA, plavix, ranexa and zetia. (8) COPD (chronic obstructive pulmonary disease) Code(s): J44.9 - CHRONIC OBSTRUCTIVE PULMONARY DISEASE, UNSPECIFIED SNOMED Code(s): 09703679 Comment: - No signs of exacerbation - Continue duonebs PRN (9) Depression Code(s): F32.9 - MAJOR DEPRESSIVE DISORDER, SINGLE EPISODE, UNSPECIFIED SNOMED Code(s): 88031168 Comment: - Supportive care - Continue sertraline (10) GERD (gastroesophageal reflux disease) Code(s): K21.9 - GASTRO-ESOPHAGEAL REFLUX DISEASE WITHOUT ESOPHAGITIS SNOMED Code(s): 840437932 Comment: - Continue omeprazole (11) Hyperlipidemia Code(s): E78.5 - HYPERLIPIDEMIA, UNSPECIFIED SNOMED Code(s): 43228751 Comment: - Continue zetia (12) Hypertension Code(s): I10 - ESSENTIAL (PRIMARY) HYPERTENSION SNOMED Code(s): 46957588 Comment: - SBP 120-140's - Continue to monitor (13) Tobacco abuse Code(s): Z72.0 - TOBACCO USE SNOMED Code(s): 641758618 Comment: - Smoking cessation encouraged - Continue nicotine replacement (14) DVT prophylaxis Code(s): EIE2653 - SNOMED Code(s): 819549540 Comment: - HSQ (15) DNR (do not resuscitate) Status and Disposition: Inpatient. Discharge to when medically stable, may be ready for discharge to home in the AM.
--- NOTE | 2017-08-28 21:33 | RAD ---
Indication: Ataxia, nystagmus, encephalopathy. Sagittal and axial T1, axial T2, FLAIR, diffusion and susceptibility weighted images of the brain were obtained. Ventricular structures are midline. No midline shift is noted. There is some mild central and cortical atrophy noted. There is no evidence of restriction of diffusion. No susceptibility weighted artifact is noted. The paranasal sinuses and orbits are otherwise unremarkable. The posterior fossa and brainstem are otherwise unremarkable. No orbital lesions are noted. Extraocular muscles are intact. IMPRESSION: No intracranial lesion with mild central and cortical atrophy with no restriction of diffusion.
[2017-08-28] MEDS: Nicotine Patch Removal NOTE FOLLOW UP SCH (21:42)
--- NOTE | 2017-08-28 21:51 | PN ---
PROGRESS NOTE: DATE OF FOLLOWUP: 08/28/17 HISTORY: No acute overnight events. He has not yet gotten his MRI scan because his family member was not available to complete the MRI screening form, but this is scheduled for this evening. To me, Kike indicates that he is still having some dizziness, but that he tried to hide this from the nurses. He is not clear on his reasoning for this. He states that it is waxed and waned during the day, but his nurse indicates that he seemed pretty steady on his feet before taking his medicines and then seemed to be more unsteady about an hour after taking his medications. I was able to contact his pharmacy and he has been regularly filling his Vimpat since at least February or March. HOSPITAL MEDICATIONS: Hospital medications were reviewed and are overall unchanged except that thiamine 500 mg IV 3 times daily was added, starting yesterday. PHYSICAL EXAM: Vital Signs: Temperature 97.5, blood pressure 127/64, heart rate 71, oxygen saturation 97% on room air. Kike was lying calmly in his bed with the television off. He was alert and awake. He was able to state that the month is August and was able to state the year is 2018 with only one mistake , initially stating that it was 2014, but self correcting to 2018. His speech is fluent. On cranial nerve exam, his eye movements are full and there is much less nystagmus evidenced today. Facial musculature is full and symmetric. Hearing is intact to voice. On motor exam, he has full strength in the upper and lower extremities. [id number] is intact without ataxia. I did not appreciate any significant ataxia on [id number] today. LABORATORY DATA: CBC is reviewed and overall unchanged. BMP is reviewed and his sodium is improved to 135 today. His lacosamide level is pending. 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 He has been reporting some vertigo and yesterday had some concerning exam findings including nystagmus and some apparent ataxia in his lower extremities. Some of this may be related to peak dose toxicity with respect to his antiseizure medications. It does appear that he has been at least filling his Vimpat regularly and there has been less of a concern about noncompliance in terms of the carbamazepine as an outpatient. I added thiamine yesterday out of concern for Wernicke encephalopathy and he should continue this. He is going to have his MRI scan of the brain later tonight. [id number]/[facility] #: [id number] [facility] HOSPITALRigo
[2017-08-29] MEDS ORDERED: Haloperidol INJ IV/IM* 5 MG/ML AMP IV ONE (00:35)
[2017-08-29] MEDS ORDERED: Haloperidol INJ IV/IM* 5 MG/ML AMP ONE (00:37)
[2017-08-29] MEDS: Heparin VIAL(*) 5000 UNITS/ML VIAL (FIVE THOUSAND) SUBCUT SCH (04:56)
[2017-08-29 08:11] LABS: ABS Basophils 0.1 10^3/ul (0-0.2); ABS Eosinophils 0.1 10^3/ul (0-0.6); ABS Lymphocytes 2.9 10^3/ul (1.0-4.8); ABS Monocytes 0.7 10^3/ul (0-0.8); ABS Neutrophils 4.3 10^3/ul (1.5-7.7); ABS Nucleated RBC 0 10^3/ul; Eosinophil % 1.3 % (0-6); Hematocrit 40 % (42-52); Lymphocyte % 36.3 % (25-47); Mean Corpuscular HGB Conc 35 g/dl (31-36); Mean Corpuscular Hemoglobin 34 pg (27-31); Mean Corpuscular Volume 97 fL (80-94); Mean Platelet Volume 7.7 um3 (7.4-10.4); Nucleated Red Blood Cells % 0; Platelet Count 234 10^3/ul (150-450); Red Blood Count 4.16 10^6/ul (4.0-5.4); Red Cell Distribution Width 13 % (10.5-15); White Blood Count 8.1 10^3/ul (3.5-10.8)
[2017-08-29 08:30] LABS: EGFR Non-African American 112.4 (>60)
[2017-08-29] MEDS: Nicotine PATCH 14 MG/24 HR* PATCH TRANSDERM SCH (09:19)
[2017-08-29] MEDS: Sertraline* 100 MG TAB PO SCH (09:19)
[2017-08-29] MEDS: Magnesium Oxide TAB* 400 MG PO SCH (09:19)
[2017-08-29] MEDS: Thiamine IV* 500 MG in NS 0.9% 250 ML* 250 ML IV SCH (09:19)
[2017-08-29] MEDS: Clopidogrel TAB* 75 MG PO SCH (09:19)
[2017-08-29] MEDS: TIAGABINE 4 MG PO SCH (09:20)
[2017-08-29] MEDS: Lacosamide TAB* 100 MG TAB PO SCH (09:20)
[2017-08-29] MEDS: Aspirin 81 mg CHEW TAB* 81 MG TAB.CHEW PO SCH (09:20)
[2017-08-29] MEDS: carBAMazepine TAB(*) 200 MG PO SCH (09:20)
[2017-08-29] MEDS: RANOLAZINE 500 MG PO SCH (09:20)
[2017-08-29] MEDS: Montelukast Sodium TAB* 10 MG PO SCH (09:20)
[2017-08-29] MEDS: Atorvastatin* 80 MG TAB PO SCH (09:20)
[2017-08-29] MEDS: Ezetimibe TAB* 10 MG PO SCH (09:20)
[2017-08-29] MEDS: Pantoprazole TAB (NF) 20 MG TAB PO SCH (09:20)
--- NOTE | 2017-08-29 12:10 | PN ---
Subjective Date of Service: 08/29/17 Interval History: Patient seen and examined at bedside. Denies fever, chills, shortness of breath , chest discomfort, N/V/D. Pt states that he is feeling well today. Pt again was cooperative with my exam today and we had a pleasant conversation. Family History: Unchanged from Admission Social History: Unchanged from Admission Past Medical History: Unchanged from Admission Objective Active Medications: Acetaminophen (Tylenol Tab*) 650 mg PO Q6H PRN Reason: FEVER/PAIN Albuterol/Ipratropium (Duoneb (Albuterol 2.5 Mg/Ipratropium 0.5 Mg)) 1 neb INH Q4H PRN Reason: SOB/WHEEZING Aspirin (Aspirin 81 Mg Chew Tab*) 81 mg PO DAILY [facility] Atorvastatin Calcium (Lipitor*) 80 mg PO DAILY [facility] Carbamazepine (Tegretol Tab(*)) 400 mg PO QAM [facility] Carbamazepine (Tegretol Tab(*)) 800 mg PO BEDTIME [facility] Clopidogrel Bisulfate (Plavix Tab*) 75 mg PO DAILY [facility] Ezetimibe (Zetia Tab*) 10 mg PO DAILY [facility] Heparin Sodium (Porcine) (Heparin Vial(*)) 5,000 units SUBCUT Q8HR [facility] Thiamine HCl 500 mg/ Sodium (Chloride) 255 mls @ 255 mls/hr IV TID [facility] Stop: 08/29/17 13:59 Thiamine HCl 250 mg/ Sodium (Chloride) 252.5 mls @ 252.5 mls/hr IV QPM [facility] Stop: 09/03/17 17:59 Lacosamide (Vimpat Tab*) 200 mg PO BID [facility] Magnesium Oxide (Magox 400 Tab*) 400 mg PO DAILY [facility] Montelukast Sodium (Singulair Tab*) 10 mg PO DAILY [facility] Nicotine (Nicotine Patch 14 Mg/24 Hr*) 1 patch TRANSDERM DAILY [facility] Pantoprazole Sodium (Protonix Tab (Nf)) 20 mg PO DAILY [facility] Pharmacy Profile Note (Nicotine Patch Removal Note*) 1 note FOLLOW UP 2100 [facility] Ranolazine (Ranexa (Nf)) 500 mg PO BID [facility] Sertraline HCl (Zoloft*) 200 mg PO DAILY [facility] Tiagabine HCl (Gabitril(*)) 16 mg PO BID [facility] Vital Signs - 8 hr 08/29/17 08/29/17 08/29/17 04:10 05:38 07:17 Temperature 97.6 F 97.8 F Pulse Rate 57 58 Respiratory 16 14 Rate Blood Pressure 136/54 105/49 (mmHg) O2 Sat by Pulse 94 Oximetry 08/29/17 08:00 Temperature Pulse Rate Respiratory 16 Rate Blood Pressure (mmHg) O2 Sat by Pulse Oximetry Oxygen Devices in Use Now: None Appearance: NAD, sitting up in bed Ears/Nose/Mouth/Throat: Mucous Membranes Moist Respiratory: Symmetrical Chest Expansion and Respiratory Effort, - - Bilateral exp wheeze Cardiovascular: NL Sounds; No Murmurs; No JVD, RRR Abdominal: NL Sounds; No Tenderness; No Distention Extremities: No Edema Skin: No Rash or Ulcers Neurological: Alert and Oriented x 3 - ; Person, Place and Year. Pt continues to have some intermittent confusion, NL Muscle Strength and Tone, - Lines/Tubes/Other Access: Clean, Dry and Intact Peripheral IV - site benign Nutrition: Taking PO's Result Diagrams: 08/29/17 07:34 08/29/17 07:34 Additional Lab and Data: Assess/Plan/Problems-Billing Assessment: Mr. Durham is a 62 yo male with PMH significant for seizures, DM, CAD, HTN, COPD, tobacco abuse, anxiety, depression, panic disorder, hepatic encepalopathy and bipolar disorder who presented to the emergency room with complaints of altered mental status. - Patient Problems (1) Altered mental status, unspecified Code(s): R41.82 - ALTERED MENTAL STATUS, UNSPECIFIED SNOMED Code(s): 596881345 Comment: - Improving. suspect wernicke's encephalopathy - Alert and Oriented to Person, Place and Year today - Psych consult, input appreciated - Neurology consult, input appreciated - EEG, no signs of seizure - No plan to change seizure medications at this time - MRI, no acute findings - Continue thaimine for possible wernicke's encephalopathy. Pt will need 4 more days of IV/IM, and then be transitioned to 100 mg PO daily (2) Hypomagnesemia Code(s): E83.42 - HYPOMAGNESEMIA SNOMED Code(s): 327875424 Comment: - Continues to be low - Recheck in the AM - Continue PO supplement daily (increased today) (3) Seizure disorder Code(s): G40.909 - EPILEPSY, UNSP, NOT INTRACTABLE, WITHOUT STATUS EPILEPTICUS SNOMED Code(s): 758130427 Comment: - No signs of seizures in the hospital so far. - EEG, no seizure activity noted - Non-compliance is a possibility - Tegretol level WNL and lacosamide level WNL - Continue tegretol, tiagabine and Vimpat (4) Type 2 diabetes mellitus Comment: - Glucose 90-130's - HgA1C 7.8 - Discontinue glucose checks - Consistent carb diet (5) Anxiety Code(s): F41.9 - ANXIETY DISORDER, UNSPECIFIED SNOMED Code(s): 33853620 Comment: - Supportive care - Continue sertraline (6) Bipolar disorder Comment: - Continue Zoloft (7) CAD (coronary artery disease) Code(s): I25.10 - ATHSCL HEART DISEASE OF [place] CORONARY ARTERY W/O ANG PCTRS SNOMED Code(s): 40651204 Comment: - Asymptomatic - Continue ASA, plavix, ranexa and zetia. (8) COPD (chronic obstructive pulmonary disease) Code(s): J44.9 - CHRONIC OBSTRUCTIVE PULMONARY DISEASE, UNSPECIFIED SNOMED Code(s): 73714061 Comment: - No signs of exacerbation - Continue duonebs PRN (9) Depression Code(s): F32.9 - MAJOR DEPRESSIVE DISORDER, SINGLE EPISODE, UNSPECIFIED SNOMED Code(s): 73041574 Comment: - Supportive care - Continue sertraline (10) GERD (gastroesophageal reflux disease) Code(s): K21.9 - GASTRO-ESOPHAGEAL REFLUX DISEASE WITHOUT ESOPHAGITIS SNOMED Code(s): 969102308 Comment: - Continue protonix (11) Hyperlipidemia Code(s): E78.5 - HYPERLIPIDEMIA, UNSPECIFIED SNOMED Code(s): 54819212 Comment: - Continue zetia (12) Hypertension Code(s): I10 - ESSENTIAL (PRIMARY) HYPERTENSION SNOMED Code(s): 44941059 Comment: - SBP 100-130's - Continue to monitor (13) Tobacco abuse Code(s): Z72.0 - TOBACCO USE SNOMED Code(s): 771550149 Comment: - Smoking cessation encouraged - Continue nicotine replacement (14) DVT prophylaxis Code(s): XNJ4740 - SNOMED Code(s): 340729131 Comment: - HSQ (15) DNR (do not resuscitate) Status and Disposition: Inpatient. Plan to discharge to [facility] bed status today, and then can be discharged on Sunday when he completes his IV Thiamine. Attending: Naomy Joseph
[2017-08-29] MEDS ORDERED: Magnesium Sulfate IV* 3 GM in NS 0.9% 100 ML* 100 ML IVPB ONE (12:18)
[2017-08-29] MEDS ORDERED: NS 0.9% IV SCH (18:00)
[2017-08-29] MEDS ORDERED: THIAMINE IV SCH (18:00)
[2017-08-29] MEDS ORDERED: Magnesium Oxide TAB* 400 MG PO SCH (21:00)
--- NOTE | 2017-08-29 22:26 | DS ---
CC: Dr. Poe* COMBINATION OF DISCHARGE SUMMARY AND HISTORY AND PHYSICAL: DATE OF ADMISSION: 08/24/17 DATE OF DISCHARGE: 08/29/17 to swing bed status. PRIMARY DIAGNOSIS: 1. Wernicke's encephalopathy. 2. Hypomagnesemia. SECONDARY DIAGNOSIS: 1. Seizure disorder. 2. Diabetes Mellitus. 3. COPD. 4. History CAD. DATE OF ADMISSION: 08/29/17 to swing bed status. ATTENDING PHYSICIAN: Dr. Naomy Joseph* (dictated by Aster Dya NP). PRIMARY CARE PROVIDER: Dr. Manuel Poe. CONSULTATIONS: Dr. Viviane Stahl. CHIEF COMPLAINT: Altered mental status. HISTORY OF PRESENT ILLNESS/HOSPITAL COURSE: Mr. Durham is a 62-year-old male with past medical history significant for complex partial seizures, CAD, COPD, current smoker, hypertension, anxiety, depression, panic disorder, bipolar disorder who was more confused and was found by neighbor saying only one word responsive of "ya." The patient had been in his normal state of health the day prior and was reportedly ambulating and taking care of himself. The patient lives alone with assistance from [employer] and [facility] who have been unable to sign him on. He was brought to the emergency room due to his confusion. While in the emergency room, the patient was consulted by Neurology who recommended Ativan to see if his mental status improved given his seizure history; however, before that was administered, the patient became more verbal and less confused. 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 He had a chest x-ray showing a small bibasilar infiltrate concerning for atelectasis. He was hemodynamically stable. Labs were significant for alk phos of 117, carbamazepine level of 13.5. The patient was a poor historian reporting chronic shortness of breath and cough. He reports to taking his medications accordingly. Due to his history and his confusion, he was referred to the Hospitalist for possible admission. During the patient's hospitalization, his altered mental status improved. It was unclear what the cause was. On the patient's third day in the hospital, he was noted to have nystagmus and some ataxia, so a brain MRI was ordered, this was negative. He was followed by Neurology, who felt this could be a Wernicke' s encephalopathy and he was started on thiamine. After initiating the thiamine , the patient's confusion improved. It is also to note that during his stay, he had his capacity to leave against medical advice taken away after being evaluated by Psychiatry. Please note that during the patient's stay, he was intermittently combative and aggressive. This has greatly improved during his stay. Additionally, the patient was noted to have hypomagnesia during his stay. He is continued to persistently have a low magnesium despite receiving IV magnesium. I have started him on oral magnesium supplements in addition to replacing him with IV replacement. The patient was doing well and felt as though he could be go home, but due to his unreliableness and fear that he would not be home when [facility] showed up to give him his 4 more days of thiamine and that he would not present to the hospital or his physician's office to complete his dose of thiamine, it was felt that patient would best benefit from being switched to a swing bed to stay and receive the completion of his thiamine over the weekend, which is scheduled to be completed on Sunday, . PAST MEDICAL HISTORY: 1. Complex partial seizures. 2. Non-insulin dependent diabetes mellitus. 3. Coronary artery disease. 4. Hypertension. 5. COPD. 6. Chronic one pack a day smoker. 7. Anxiety. 8. Depression. 9. Panic disorder. 10. History of hepatic encephalopathy secondary to Depakote. 11. Bipolar disorder. PAST SURGICAL HISTORY: Status post cholecystectomy. HOME MEDICATIONS: Include: 1. Ibuprofen 800 mg oral 3 times daily as needed for pain. 2. Zetia 10 mg oral daily. 3. Plavix 75 mg oral daily. 4. Aspirin 81 mg orally daily. 5. Ambien 5 mg oral daily as needed for sleep. 6. Zoloft 200 mg oral daily. 7. Crestor 40 mg oral daily. 8. Ranexa 500 mg oral twice daily. 9. Protonix 20 mg oral daily. 10. Singulair 10 mg oral daily. 11. Vimpat 200 mg oral twice daily. 12. Gabitril 16 mg oral twice daily. 13. Tegretol 400 mg oral every morning. 14. Tegretol 800 mg oral daily at bedtime. HOSPITAL MEDICATIONS: 1. Acetaminophen 650 mg oral every 6 hours as needed for fever or pain. 2. Albuterol Atrovent 1 nebulizer inhalation every 4 hours as needed for shortness of breath or wheeze. 3. Aspirin 81 mg oral daily. 4. Atorvastatin 80 mg oral daily. 5. Tegretol 400 mg oral every morning. 6. Tegretol 800 mg oral daily at bedtime. 7. Plavix 75 mg oral daily. 8. Zetia 10 mg oral daily. 9. Heparin 5000 unit subcutaneous every 8 hours. 10. Vimpat 200 mg oral twice daily. 11. Magnesium oxide 400 mg oral twice daily. 12. Singulair 10 mg oral daily. 13. Nicotine patch 14 mg transdermal daily. 14. Protonix 20 mg oral daily. 15. Ranexa 500 mg oral twice daily. 16. Zoloft 200 mg oral daily. 17. Thiamine 250 mg IV every evening for a total of 5 days. 18. Gabitril 16 mg oral twice daily. FAMILY HISTORY: The patient reports that both of his parents had cardiac issues. SOCIAL HISTORY: The patient is a 1 pack a day smoker. He denies alcohol or recreational drug use. It is to note that he does have a history of alcohol abuse in the past. It is unclear for how long he has been sober. The patient' s daughters, Cheryl and Perri, would be his surrogate decision maker in the event he is unable to make decisions for himself. REVIEW OF SYSTEMS: I performed an 11-point review of systems. All the pertinent positives and negatives are mentioned in the history of present illness. Remaining review of systems are negative. PHYSICAL EXAMINATION: GENERAL APPEARANCE: The patient is alert, pleasant, appears to be in no acute distress. VITAL SIGNS: Temperature 97.8, heart rate 58, respiratory rate 14, O2 sat 94% on room air, blood pressure 105/49. HEENT: Normocephalic, atraumatic. Pupils equal and reactive to light. Extraocular movements are intact. RESPIRATORY: There is expiratory wheeze bilateral. CARDIOVASCULAR: Regular rate and rhythm. S1, S2 present. ABDOMEN: Soft, nontender, nondistended. There are bowel sounds present x4 extremities. There is no lower extremity edema. DP and PT pulses are 2+ and symmetric. MUSCULOSKELETAL: There is no clubbing or cyanosis noted. The patient exhibits good strength in all extremities. NEUROLOGICAL: The patient is alert and oriented to person, place and year. Cranial nerves II through XII are grossly intact. PSYCHOLOGICAL: The patient is calm and cooperative. SKIN: There are no rashes or abnormalities seen. DIAGNOSTIC STUDIES/LAB DATA: Sodium 135, potassium 4.0, chloride 104, CO2 23, BUN 15, creatinine 0.171, glucose 122, magnesium 1.6. WBC 8.1, hemoglobin 14.0 , hematocrit 40, platelet count 234. Brain CT from 08/24/17. Radiologist's impression: No evidence for acute intracranial abnormality. Possible old cerebellar infarct, unchanged. Chest x-ray on 08/24/17. Radiologist's impression: Low lung volumes, small bibasilar infiltrate suggestive of atelectasis, less likely of pneumonia. Electroencephalography on 08/26/17. Neurologist's clinical impression: This is an abnormal EEG due to the presence of diffuse background slowing, which affects the left hemisphere to a greater degree, higher than normal voltages as well as frequently sharply contoured waves in the left hemisphere and at least 1 definitive left temporal epileptiform discharge. Overall, these findings are suggestive of a moderate, nonspecific, diffuse encephalopathy, which affects the left hemisphere to a greater degree with superimposed increased epileptic potential in the left temporal region. There are no seizures noted during this recording. Brain MRI on 08/28/17. Radiologist's impression: No intracranial lesion with mild central and cortical atrophy with no restriction of diffusion. IMPRESSION: Mr. Durham is a 62-year-old male with past medical history significant for complex partial seizures, coronary artery disease, chronic obstructive pulmonary disease, current smoker, hypertension, anxiety, depression , panic disorder and bipolar disorder who initially presented to the hospital emergency room on 08/24/17 with acute confusion. The patient was hospitalized for encephalopathy and was felt that he had Wernicke encephalopathy and he needed to complete a course of parenteral thiamine. The patient is being changed to swing bed status to complete his course of parenteral thiamine. ASSESSMENT AND PLAN: 1. Altered mental status. I suspect this is secondary to Wernicke's encephalopathy. The patient will complete 4 more days of parenteral thiamine as it was felt that he was unable to be discharged to complete the course and at discharge, the patient will be switched to 100 mg of thiamine daily. Neurology will continue to intermittently follow the patient as needed. 2. Hypomagnesemia. The patient will receive IV magnesium again today. I will increase his oral magnesium and recheck labs in the morning. 3. Seizure disorder. The patient has had no signs of seizures during his hospitalization. He will be continued on his Tegretol, Vimpat and Gabitril. 4. Diabetes mellitus. His glucoses have been in the 90 to 130s ranges. His last hemoglobin A1c was 7.6. I will discontinue glucose checks. He will be on a consistent carbohydrate diet. 5. Anxiety. Continue to provide supportive care and continue with sertraline. 6. Bipolar disorder. Continue his Zoloft. 7. History of coronary artery disease. The patient is asymptomatic. He will be continued on aspirin, Plavix, Ranexa and Zetia. 8. Chronic obstructive pulmonary disease. There are no acute signs of exacerbation. The patient will be continued on DuoNebs as needed. 9. History of depression. The patient will be continued on sertraline and provided with supportive care. 10. History of gastroesophageal reflux disease. The patient will be continued on his home Protonix. 11. History of hyperlipidemia. The patient will be continued on Zetia. 12. History of hypertension. The patient has been normotensive, is not currently on any medications. We will continue to monitor. 13. Tobacco abuse. The patient has been encouraged to quit smoking. We will continue his nicotine replacement. 14. Fluids, electrolytes, and nutrition. The patient will be on a consistent carbohydrate diet. 15. Code status. Do not resuscitate. 16. DVT prophylaxis. The patient is at a high risk. He will be continued on subcu heparin while he is here. 17. Disposition. The patient will be discharged from acute inpatient to swing bed status. TIME SPENT: Time for this admission and discharge was approximately 60 minutes. Greater than half of that was spent with the patient discussing his history during physical exam and discussing his discharge plans. The case has been reviewed with the attending, Dr. Joseph, who agrees with the plan of care. Reviewed by CARLITO ROSAS 09/04/17 0959 [id number]/[facility] #: [id number] [place]
[2017-08-30] MEDS ORDERED: Thiamine IV 100 MG/ML VIAL (only for Bannana Bags !) IVPB SCH (09:00)
[2017-08-30] MEDS ORDERED: THIAMINE IV SCH (09:00)
[2017-08-30] MEDS ORDERED: NS 0.9% IV SCH (09:00)
[2017-08-31 10:03] VITALS: BP 137/83
== END 2017-08-29 13:27 | disposition swing bed (61) | DRG 641 ==
LOC: ED 16:17 → MEDTELE 21:18 → OBSVTOIN 08-25 15:47 → MED 08-28 20:45
PROVIDERS: ADMIT Internal Medicine; ATTEND Internal Medicine
PROC: 4A00X4Z Measurement of Central Nervous Electrical Activity, External Approach (ICD-10-PCS; principal; 2017-08-25)
DX: E51.2 Wernicke's encephalopathy (principal); G40.209 Localization-related (focal) (partial) symptomatic epilepsy and epileptic syndromes with complex partial seizures, not intractable, without status epilepticus; I25.10 Atherosclerotic heart disease of native coronary artery without angina pectoris; J44.9 Chronic obstructive pulmonary disease, unspecified; F17.210 Nicotine dependence, cigarettes, uncomplicated; I10 Essential (primary) hypertension; F41.0 Panic disorder [episodic paroxysmal anxiety]; F31.9 Bipolar disorder, unspecified; K57.30 Diverticulosis of large intestine without perforation or abscess without bleeding; E11.9 Type 2 diabetes mellitus without complications; K21.9 Gastro-esophageal reflux disease without esophagitis; E78.5 Hyperlipidemia, unspecified; Z66 Do not resuscitate; R45.1 Restlessness and agitation; E83.42 Hypomagnesemia; H55.00 Unspecified nystagmus; R27.0 Ataxia, unspecified; Z79.02 Long term (current) use of antithrombotics/antiplatelets; Z88.1 Allergy status to other antibiotic agents; Z90.49 Acquired absence of other specified parts of digestive tract; Z88.0 Allergy status to penicillin; Z82.49 Family history of ischemic heart disease and other diseases of the circulatory system; Z95.5 Presence of coronary angioplasty implant and graft; I25.2 Old myocardial infarction; Z79.82 Long term (current) use of aspirin; Z79.01 Long term (current) use of anticoagulants
CPT/HCPCS: 36415; 70450; 70551; 71045; 80048; 80053; 80156; 80299; 81003; 82140; 82607; 83036; 83605; 83735; 83921; 84145; 84425; 84484; 85025; 86140; 93005; 95819; 99284; A9270-GY; J1630; J1644; J2060; J3411; J3475

== ENCOUNTER 2017-08-29 13:27 | Inpatient (IN) | payer MEDICARE, MEDICAID ==
[2017-08-29] MEDS ORDERED: Albuterol/Ipratropium NEB.SOL* Albuterol 2.5 MG/Ipratropium 0.5 MG 3 ML INH PRN (14:10)
[2017-08-29] MEDS ORDERED: Acetaminophen TAB* 325 MG PO PRN (14:10)
[2017-08-29] MEDS: THIAMINE IV SCH (17:49)
[2017-08-29] MEDS: NS 0.9% IV SCH (17:49)
--- NOTE | 2017-08-29 18:04 | PN ---
PROGRESS NOTE: DATE OF FOLLOWUP: 08/29/17 HISTORY: No acute overnight events. Each day Farhan appears to be improved in terms of his mental status. He states that he still feels some dizziness. Today, he is upset because he wants to walk without any walker or gait belt and does not understand why he has not been allowed to do that. He asks that I confirm the plan of care with Dr. Magdaleno today who is his outpatient neurologist. MEDICATIONS: Reviewed and include: 1. Carbamazepine 400 mg q.a.m., 800 mg q.p.m. 2. Aspirin. 3. Plavix. 4. Atorvastatin 80 mg daily. 5. Zetia 10 mg daily. 6. Vimpat 200 mg twice daily. 7. Zoloft 200 mg daily. 8. Thiamine 500 mg 3 times daily started on 08/27/17 and now continue with 250 mg daily for the next 5 days. PHYSICAL EXAMINATION: Vital Signs: Temperature 97.8, blood pressure 105/49, heart rate 58, oxygen saturation 94% on room air. On general exam, Farhan is in no acute distress. He was able to accurately state the month and the year. His versions are full without any appreciable nystagmus today. His face is symmetric with subjective decreased sensation to light touch in the right cheek. Palate elevates symmetrically and the tongue is midline. On motor examination, he has full strength in the upper and lower extremities. There is no ataxia on finger to nose today. I did not ambulate him. LABORATORY DATA: Lacosamide level drawn on 08/27/17 was 6.2. Vitamin B1 level is pending. His brain MRI was reviewed and shows some evidence of generalized atrophy, but otherwise no significant abnormality. There is no obvious stigmata of Wernicke' s encephalopathy noted. IMPRESSION: A 62-year-old male with history of localization related epilepsy who presented with encephalopathy. Wernicke's encephalopathy is within the differential and since he has been treated with thiamine, he has been improving. We plan to continue with an additional 5 days of 250 mg IV thiamine. A possibility of discharging him home with either VNS services or IV or IM thiamine or having him come back to the hospital for daily thiamine was considered, but in this situation it is not felt that he is necessarily reliable enough to follow through with this and so he is going to be kept in the hospital for this treatment. Otherwise, his seizure medications will remain at the same dose. I will update Dr. Magdaleno as per the patient's request. [id number]/[facility] #: [id number] MTDD
[2017-08-29] MEDS: TIAGABINE 4 MG PO SCH (21:17)
[2017-08-29] MEDS: CMCS: Ranolazine (NF) 500 MG TAB PO SCH (21:17)
[2017-08-29] MEDS: Lacosamide TAB* 100 MG TAB PO SCH (21:18)
[2017-08-29] MEDS: Magnesium Oxide TAB* 400 MG PO SCH (21:18)
[2017-08-29] MEDS: carBAMazepine TAB(*) 200 MG PO SCH (21:18)
[2017-08-29] MEDS: Nicotine Patch Removal NOTE PATCH OFF SCH (21:23)
[2017-08-29] MEDS: Heparin VIAL(*) 5000 UNITS/ML VIAL (FIVE THOUSAND) SUBCUT SCH (21:26)
[2017-08-29] MEDS ORDERED: Ibuprofen TAB* 400 MG ONE (23:27)
[2017-08-29] MEDS: Ibuprofen TAB* 400 MG PO PRN (23:38)
[2017-08-30] MEDS: Heparin VIAL(*) 5000 UNITS/ML VIAL (FIVE THOUSAND) SUBCUT SCH ×3 (05:45→20:25)
[2017-08-30] MEDS: PANTOPRAZOLE 20 MG PO SCH (09:21)
[2017-08-30] MEDS: Nicotine PATCH 14 MG/24 HR* PATCH TRANSDERM SCH (09:22)
[2017-08-30] MEDS: TIAGABINE 4 MG PO SCH ×2 (09:23→20:25)
[2017-08-30] MEDS: Clopidogrel TAB* 75 MG PO SCH (09:23)
[2017-08-30] MEDS: Sertraline* 100 MG TAB PO SCH (09:23)
[2017-08-30] MEDS: CMCS: Ranolazine (NF) 500 MG TAB PO SCH ×2 (09:23→20:25)
[2017-08-30] MEDS: Lacosamide TAB* 100 MG TAB PO SCH ×2 (09:23→20:25)
[2017-08-30] MEDS: Montelukast Sodium TAB* 10 MG PO SCH (09:24)
[2017-08-30] MEDS: Atorvastatin* 80 MG TAB PO SCH (09:24)
[2017-08-30] MEDS: carBAMazepine TAB(*) 200 MG PO SCH ×2 (09:24→20:25)
[2017-08-30] MEDS: Aspirin 81 mg CHEW TAB* 81 MG TAB.CHEW PO SCH (09:24)
[2017-08-30] MEDS: Magnesium Oxide TAB* 400 MG PO SCH ×2 (09:24→20:25)
[2017-08-30] MEDS: Ezetimibe TAB* 10 MG PO SCH (09:24)
[2017-08-30] MEDS: Ibuprofen TAB* 400 MG PO PRN ×2 (10:30→20:25)
[2017-08-30] MEDS: THIAMINE IV SCH (19:19)
[2017-08-30] MEDS: NS 0.9% IV SCH (19:19)
[2017-08-30] MEDS: Nicotine Patch Removal NOTE PATCH OFF SCH (20:26)
[2017-08-30] MEDS ORDERED: Ibuprofen TAB* 400 MG PO PRN (23:55)
[2017-08-31] MEDS ORDERED: Ibuprofen TAB* 200 MG ONE (00:01)
[2017-08-31] MEDS: Heparin VIAL(*) 5000 UNITS/ML VIAL (FIVE THOUSAND) SUBCUT SCH ×3 (05:31→20:41)
[2017-08-31] MEDS: CMCS: Ranolazine (NF) 500 MG TAB PO SCH ×2 (08:52→20:47)
[2017-08-31] MEDS: Aspirin 81 mg CHEW TAB* 81 MG TAB.CHEW PO SCH (08:52)
[2017-08-31] MEDS: TIAGABINE 4 MG PO SCH ×2 (08:52→20:35)
[2017-08-31] MEDS: Clopidogrel TAB* 75 MG PO SCH (08:53)
[2017-08-31] MEDS: Montelukast Sodium TAB* 10 MG PO SCH (08:53)
[2017-08-31] MEDS: Nicotine PATCH 14 MG/24 HR* PATCH TRANSDERM SCH (08:53)
[2017-08-31] MEDS: Lacosamide TAB* 100 MG TAB PO SCH ×2 (08:53→20:34)
[2017-08-31] MEDS: PANTOPRAZOLE 20 MG PO SCH (08:53)
[2017-08-31] MEDS: Magnesium Oxide TAB* 400 MG PO SCH ×2 (08:53→20:38)
[2017-08-31] MEDS: carBAMazepine TAB(*) 200 MG PO SCH ×2 (08:53→20:38)
[2017-08-31] MEDS: Ezetimibe TAB* 10 MG PO SCH (08:53)
[2017-08-31] MEDS: Sertraline* 100 MG TAB PO SCH (08:53)
[2017-08-31] MEDS: Atorvastatin* 80 MG TAB PO SCH (08:53)
[2017-08-31] MEDS: Ibuprofen TAB* 600 MG PO PRN ×2 (09:01→17:21)
--- NOTE | 2017-08-31 14:14 | PN ---
Subjective Date of Service: 08/31/17 Interval History: Patient seen and examined. Remains very confused, states he knows things aren't clear and is asking me why he feels "foogy". Tried to explain multiple times regarding thiamine deficiency, patient not comprehending and keeps stating "I want to go home" and "No" repeatedly. Difficult to redirect, no pain, no SOB. Patient having difficulty cooperating with exam. Objective Active Medications: Acetaminophen (Tylenol Tab*) 650 mg PO Q6H PRN PRN Reason: FEVER/PAIN Albuterol/Ipratropium (Duoneb (Albuterol 2.5 Mg/Ipratropium 0.5 Mg)) 1 neb INH Q4H PRN PRN Reason: SOB/WHEEZING Aspirin (Aspirin 81 Mg Chew Tab*) 81 mg PO DAILY [facility] Last Admin: 08/31/17 08:52 Dose: 81 mg Atorvastatin Calcium (Lipitor*) 80 mg PO DAILY [facility] Last Admin: 08/31/17 08:53 Dose: 80 mg Carbamazepine (Tegretol Tab(*)) 400 mg PO QAM [facility] Last Admin: 08/31/17 08:53 Dose: 400 mg Carbamazepine (Tegretol Tab(*)) 800 mg PO BEDTIME [facility] Last Admin: 08/30/17 20:25 Dose: 800 mg Clopidogrel Bisulfate (Plavix Tab*) 75 mg PO DAILY [facility] Last Admin: 08/31/17 08:53 Dose: 75 mg Ezetimibe (Zetia Tab*) 10 mg PO DAILY [facility] Last Admin: 08/31/17 08:53 Dose: 10 mg Heparin Sodium (Porcine) (Heparin Vial(*)) 5,000 units SUBCUT Q8HR [facility] Last Admin: 08/31/17 13:07 Dose: 5,000 units Thiamine HCl 250 mg/ Sodium (Chloride) 252.5 mls @ 252.5 mls/hr IV QPM [facility] PRN Reason: Protocol Stop: 09/03/17 17:59 Last Admin: 08/30/17 19:19 Dose: 252.5 mls/hr Ibuprofen (Motrin Tab*) 600 mg PO Q6H PRN PRN Reason: PAIN Last Admin: 08/31/17 09:01 Dose: 600 mg Lacosamide (Vimpat Tab*) 200 mg PO BID [facility] Last Admin: 08/31/17 08:53 Dose: 200 mg Magnesium Oxide (Magox 400 Tab*) 400 mg PO BID [facility] Last Admin: 08/31/17 08:53 Dose: 400 mg Melatonin (Melatonin (Nf)) 3 mg PO BEDTIME PRN; Protocol PRN Reason: Sleep Montelukast Sodium (Singulair Tab*) 10 mg PO DAILY [facility] Last Admin: 08/31/17 08:53 Dose: 10 mg Nicotine (Nicotine Patch 14 Mg/24 Hr*) 1 patch TRANSDERM DAILY [facility] Last Admin: 08/31/17 08:53 Dose: 1 patch Pantoprazole Sodium (Protonix Tab (Nf)) 20 mg PO DAILY [facility] Last Admin: 08/31/17 08:53 Dose: Not Given Pharmacy Profile Note (Nicotine Patch Removal Note*) 1 note PATCH OFF 2099 [facility] Last Admin: 08/30/17 20:26 Dose: 1 note Ranolazine (Ranexa (Nf)) 500 mg PO BID [facility] Last Admin: 08/31/17 08:52 Dose: 500 mg Sertraline HCl (Zoloft*) 200 mg PO DAILY [facility] Last Admin: 08/31/17 08:53 Dose: 200 mg Tiagabine HCl (Gabitril(*)) 16 mg PO BID [facility] Last Admin: 08/31/17 08:52 Dose: 16 mg Vital Signs - 8 hr 08/31/17 08/31/17 07:31 07:37 Temperature 97.7 F Pulse Rate 58 Respiratory 17 16 Rate Blood Pressure 117/56 (mmHg) O2 Sat by Pulse 98 Oximetry Oxygen Devices in Use Now: None Appearance: Alert, mild distress Eyes: No Scleral Icterus Ears/Nose/Mouth/Throat: Mucous Membranes Moist Neck: Trachea Midline Respiratory: Symmetrical Chest Expansion and Respiratory Effort, Clear to Auscultation Cardiovascular: NL Sounds; No Murmurs; No JVD, RRR, No Edema Extremities: No Edema, No Clubbing, Cyanosis Skin: No Rash or Ulcers Neurological: NL Gait, - - A&Ox2 Nutrition: Taking PO's Assess/Plan/Problems-Billing Assessment: - Patient Problems (1) Wernicke encephalopathy Code(s): E51.2 - WERNICKE'S ENCEPHALOPATHY SNOMED Code(s): 76567410 Comment: - Being followed by neuro - Continue IV thiamine for 3 more days, remain in Swing status until course completed - supportive care (2) Anxiety Current Visit: No Status: Chronic Code(s): F41.9 - ANXIETY DISORDER, UNSPECIFIED SNOMED Code(s): 04816261 Comment: - Supportive care - Continue sertraline (3) CAD (coronary artery disease) Code(s): I25.10 - ATHSCL HEART DISEASE OF [place] CORONARY ARTERY W/O ANG PCTRS SNOMED Code(s): 34564250 Comment: - Asymptomatic - Continue ASA, plavix, ranexa and zetia. (4) COPD (chronic obstructive pulmonary disease) Code(s): J44.9 - CHRONIC OBSTRUCTIVE PULMONARY DISEASE, UNSPECIFIED SNOMED Code(s): 57238664 Comment: - No signs of exacerbation - Continue duonebs PRN (5) Seizure disorder Code(s): G40.909 - EPILEPSY, UNSP, NOT INTRACTABLE, WITHOUT STATUS EPILEPTICUS SNOMED Code(s): 402240899 Comment: - No signs of seizures in the hospital so far. - EEG, no seizure activity noted - Non-compliance is a possibility - Tegretol level WNL and lacosamide level WNL - Continue tegretol, tiagabine and Vimpat - Neuro following Status and Disposition: Remain in Swing until Sunday, concern about patient's persistent confusion and his ability to go home safely. May need psychiatry to see again prior to DC to ensure safe DC.
[2017-08-31] MEDS: NS 0.9% IV SCH (17:21)
[2017-08-31] MEDS: THIAMINE IV SCH (17:21)
[2017-08-31] MEDS: Nicotine Patch Removal NOTE PATCH OFF SCH (20:43)
[2017-09-01] MEDS: Heparin VIAL(*) 5000 UNITS/ML VIAL (FIVE THOUSAND) SUBCUT SCH ×3 (05:47→20:56)
[2017-09-01] MEDS: Aspirin 81 mg CHEW TAB* 81 MG TAB.CHEW PO SCH (09:01)
[2017-09-01] MEDS: Clopidogrel TAB* 75 MG PO SCH (09:01)
[2017-09-01] MEDS: carBAMazepine TAB(*) 200 MG PO SCH ×2 (09:01→20:55)
[2017-09-01] MEDS: Atorvastatin* 80 MG TAB PO SCH (09:01)
[2017-09-01] MEDS: Montelukast Sodium TAB* 10 MG PO SCH (09:01)
[2017-09-01] MEDS: Sertraline* 100 MG TAB PO SCH (09:02)
[2017-09-01] MEDS: CMCS: Ranolazine (NF) 500 MG TAB PO SCH ×2 (09:02→20:56)
[2017-09-01] MEDS: Magnesium Oxide TAB* 400 MG PO SCH ×2 (09:02→20:57)
[2017-09-01] MEDS: Ezetimibe TAB* 10 MG PO SCH (09:03)
[2017-09-01] MEDS: TIAGABINE 4 MG PO SCH ×2 (09:08→20:56)
[2017-09-01] MEDS: Nicotine PATCH 14 MG/24 HR* PATCH TRANSDERM SCH (09:08)
[2017-09-01] MEDS: Ibuprofen TAB* 600 MG PO PRN ×2 (09:09→20:56)
[2017-09-01] MEDS: Lacosamide TAB* 100 MG TAB PO SCH ×2 (09:10→20:57)
[2017-09-01] MEDS: PANTOPRAZOLE 20 MG PO SCH (09:10)
[2017-09-01] MEDS: THIAMINE IV SCH (18:10)
[2017-09-01] MEDS: NS 0.9% IV SCH (18:10)
[2017-09-01] MEDS ORDERED: Hemorrhoidal OINT PR PRN (20:21)
[2017-09-01] MEDS: Nicotine Patch Removal NOTE PATCH OFF SCH (20:58)
[2017-09-01] MEDS: CMCS: Melatonin (NF) 3 MG TAB PO PRN (23:06)
[2017-09-02] MEDS: Heparin VIAL(*) 5000 UNITS/ML VIAL (FIVE THOUSAND) SUBCUT SCH ×3 (05:43→21:12)
[2017-09-02] MEDS: PANTOPRAZOLE 20 MG PO SCH (09:21)
[2017-09-02] MEDS: Ezetimibe TAB* 10 MG PO SCH (09:29)
[2017-09-02] MEDS: Lacosamide TAB* 100 MG TAB PO SCH ×2 (09:29→20:17)
[2017-09-02] MEDS: Atorvastatin* 80 MG TAB PO SCH (09:29)
[2017-09-02] MEDS: Montelukast Sodium TAB* 10 MG PO SCH (09:29)
[2017-09-02] MEDS: Aspirin 81 mg CHEW TAB* 81 MG TAB.CHEW PO SCH (09:29)
[2017-09-02] MEDS: TIAGABINE 4 MG PO SCH ×2 (09:29→20:16)
[2017-09-02] MEDS: Ibuprofen TAB* 600 MG PO PRN (09:30)
[2017-09-02] MEDS: Nicotine PATCH 14 MG/24 HR* PATCH TRANSDERM SCH (09:30)
[2017-09-02] MEDS: Clopidogrel TAB* 75 MG PO SCH (09:30)
[2017-09-02] MEDS: CMCS: Ranolazine (NF) 500 MG TAB PO SCH ×2 (09:30→20:16)
[2017-09-02] MEDS: Magnesium Oxide TAB* 400 MG PO SCH ×2 (09:30→20:16)
[2017-09-02] MEDS: carBAMazepine TAB(*) 200 MG PO SCH ×2 (09:30→20:17)
[2017-09-02] MEDS: Sertraline* 100 MG TAB PO SCH (09:30)
[2017-09-02] MEDS: NS 0.9% IV SCH (18:03)
[2017-09-02] MEDS: THIAMINE IV SCH (18:03)
[2017-09-02] MEDS: Nicotine Patch Removal NOTE PATCH OFF SCH (21:12)
[2017-09-03] MEDS: Ibuprofen TAB* 600 MG PO PRN ×3 (00:14→21:05)
[2017-09-03] MEDS: CMCS: Melatonin (NF) 3 MG TAB PO PRN ×2 (00:14→23:38)
[2017-09-03] MEDS: Heparin VIAL(*) 5000 UNITS/ML VIAL (FIVE THOUSAND) SUBCUT SCH ×3 (06:01→21:22)
[2017-09-03] MEDS: TIAGABINE 4 MG PO SCH ×2 (10:38→21:16)
[2017-09-03] MEDS: Atorvastatin* 80 MG TAB PO SCH (10:39)
[2017-09-03] MEDS: CMCS: Ranolazine (NF) 500 MG TAB PO SCH ×2 (10:39→21:17)
[2017-09-03] MEDS: Aspirin 81 mg CHEW TAB* 81 MG TAB.CHEW PO SCH (10:40)
[2017-09-03] MEDS: Magnesium Oxide TAB* 400 MG PO SCH ×2 (10:40→21:14)
[2017-09-03] MEDS: Sertraline* 100 MG TAB PO SCH (10:41)
[2017-09-03] MEDS: Lacosamide TAB* 100 MG TAB PO SCH ×2 (10:41→21:17)
[2017-09-03] MEDS: carBAMazepine TAB(*) 200 MG PO SCH ×2 (10:41→21:16)
[2017-09-03] MEDS: Ezetimibe TAB* 10 MG PO SCH (10:42)
[2017-09-03] MEDS: Nicotine PATCH 14 MG/24 HR* PATCH TRANSDERM SCH (10:42)
[2017-09-03] MEDS: Clopidogrel TAB* 75 MG PO SCH (10:42)
[2017-09-03] MEDS: Montelukast Sodium TAB* 10 MG PO SCH (10:42)
[2017-09-03] MEDS: PANTOPRAZOLE 20 MG PO SCH (10:49)
--- NOTE | 2017-09-03 12:23 | CONSULT ---
Consult Consult: Consult for Medical Decision Making Capacity: S: Psychiatry asked to re-evaluate capacity in this 62 y.o. , white male with a history of chronic alcohol dependence, diabetes and seizures, due to his refusal to accept SNF placement, despite continued symptoms of Wernicke' s encephalopathy. Psychiatry assessed the patient prior to his transfer to [facility] status on August 26, 2017, and, at that time, found that he lacked capacity. Today he appears much more sharp, although still irritable. He cannot tell me his diagnosis, but otherwise responds appropriately and accurately about the primary team's concerns and what the risks might be for going home. He surprises this clinician somewhat by being thoroughly oriented to person, place, time and situation. He insists that safety concerns with respect to him returning home will be mitigated by his acceptance of at-home nursing services. O: the patient scores 28/30 on the MMSE, missing 2 points for attention A/P: Capacity: the patient demonstrates the ability to understand the indicated treatment (SNF placement) and the possible risks of refusing said treatment ( falls, returns to the hospital) and therefor is deemed to have capacity at this time. Capacity can change so please re-consult psychiatry with any significant changes in his presentation.
[2017-09-03] MEDS: Nicotine Patch Removal NOTE PATCH OFF SCH (21:20)
--- NOTE | 2017-09-03 22:22 | DS ---
CC: Dr. Poe * DISCHARGE SUMMARY: DATE OF ADMISSION: 08/29/17 DATE OF DISCHARGE: 09/04/17 ATTENDING PROVIDER: Dr. Ingram* (DICTATED BY JERICA JON NP) HOSPITAL COURSE: This patient was in swing status for rehabilitation and IV thiamine after being acutely hospitalized for altered mental status. The patient originally came into the emergency department on 08/24/17 with the complaint of altered mental status. The patient's family was unable to locate him and when he did, he was quite altered. He does have history of seizure disorder with complex partial seizures, also coronary artery disease, COPD, tobacco abuse, mood disorder, GERD. The patient was admitted for his altered mental status. He was seen by Neurology at that time and it was determined through EEG that he was having breakthrough seizures probably due to noncompliance with this medication regimen. However, Wernicke's encephalopathy was also in the differential. The patient was given IV thiamine and responded well. At that point, the patient was put into swing status to continue his IV thiamine. His capacity was questioned and he was seen by Dr. Walter Bills of Psychiatry, who determined that the patient did not have capacity at that time to attend to his own needs and make decisions for himself, so capacity was removed. The patient was placed into swing status. He received his IV thiamine for 4 more days and responded well. He was seen by Psychiatry again on 09/03/17. It was determined that the patient would be able to be discharged to home as opposed to a nursing facility as his capacity had improved greatly and was restored. When I discussed this plan with the patient, stating that the patient would be discharged to home after speaking with his family, the patient became very angry that he wanted to be discharged today as opposed to tomorrow. I explained to the patient that his family would be able to come pick him up tomorrow and that was their request. The patient became very agitated and demanding to leave, stating that he would take a taxi. It was explained to the patient again given the nature of his admission and even though Psychiatry determined that he had capacity purely from a medical standpoint, it would be safer for the patient to be discharged in the care of his family as he is transitioned to home. I had this conversation with his niece, Acacia, who would discuss this with his daughter, Cheryl, who is his surrogate decision maker per the patient report. We did not have Cheryl's phone number. Acacia is coordinating this with the family in the patient's best interest. Dr. Sukhwinder Schneider actually did go and speak with the patient as he was quite agitated with his discharge plan. After discussing it further with Dr. Schneider, the patient was feeling better about his discharge plan and okay with going home tomorrow. DISCHARGE DIAGNOSES: 1. Altered mental status. 2. History of partial complex seizure disorder. 3. Coronary artery disease. 4. Chronic obstructive pulmonary disease. 5. Smoker. 6. Hypertension. 7. Mood disorder. 8. Panic disorder. 9. Likely history of bipolar. 10. Encephalopathic changes, etiology Wernicke's encephalopathy versus other etiology. The patient was planned for discharge on 09/04/17. I am awaiting for his family to call me back to let me know what time they will be able to pick him up. MEDICATIONS FOR DISCHARGE: Include: 1. Singulair. 2. Aspirin 81 mg daily. 3. Rosuvastatin 40 mg daily. 4. Gabitril 16 mg 2 times a day. 5. Zetia 10 mg daily. 6. Plavix 75 mg daily. 7. Ranexa 500 mg p.o. b.i.d. 8. Protonix 20 mg daily. 9. Tegretol 400 mg in the morning, 800 mg at night. 10. Zoloft 200 mg a day. 11. Vimpat 200 mg 2 times daily. PHYSICAL EXAMINATION: On the day of discharge, patient is alert, mildly distressed. Blood pressure 129/51, heart rate 64, respiratory rate 16, satting at 99% on room air, temperature is 97.5. HEENT: Patient is atraumatic, normocephalic. PERRLA with nonicteric sclerae. Oral mucosa is moist. Neck is supple, nontender. No JVD noted. No carotid bruit auscultated. Cardiovascular : S1, S2 present. Rate and rhythm are regular. Lungs: Clear at the apices bilaterally, diminished at the bases with no rhonchi, wheezing, or rales noted. : Deferred. Musculoskeletal: There is no clubbing. No cyanosis, no edema. He has a steady gait with no assistance. Neurologic: He is alert and oriented to person, place, and time. However, he does seem to have poor insight and some anger management issues, however, with redirection he can be appropriate. Psychiatric: Again, can be angry at times with some explosive behavior likely secondary to his underlying mood disorder and perhaps seizures and encephalopathy. Again, the patient was ready for discharge. He is in stable condition on . He will be leaving in the morning when the patient's family arranges for transportation. JERICA JON, [employer]K [employer] PUBLISHER [id number]/[facility] #: [id number] [place]
[2017-09-04] MEDS: Heparin VIAL(*) 5000 UNITS/ML VIAL (FIVE THOUSAND) SUBCUT SCH ×2 (06:06→12:37)
[2017-09-04] MEDS: TIAGABINE 4 MG PO SCH (07:14)
[2017-09-04] MEDS: Lacosamide TAB* 100 MG TAB PO SCH (07:14)
[2017-09-04] MEDS: carBAMazepine TAB(*) 200 MG PO SCH (07:14)
[2017-09-04] MEDS: Sertraline* 100 MG TAB PO SCH (07:14)
[2017-09-04] MEDS: Montelukast Sodium TAB* 10 MG PO SCH (07:14)
[2017-09-04] MEDS: Aspirin 81 mg CHEW TAB* 81 MG TAB.CHEW PO SCH (07:14)
[2017-09-04] MEDS: Atorvastatin* 80 MG TAB PO SCH (07:14)
[2017-09-04] MEDS: Ezetimibe TAB* 10 MG PO SCH (07:14)
[2017-09-04] MEDS: Clopidogrel TAB* 75 MG PO SCH (07:14)
[2017-09-04] MEDS: CMCS: Ranolazine (NF) 500 MG TAB PO SCH (07:14)
[2017-09-04] MEDS: Magnesium Oxide TAB* 400 MG PO SCH (07:15)
[2017-09-04] MEDS: Nicotine PATCH 14 MG/24 HR* PATCH TRANSDERM SCH (07:15)
[2017-09-04] MEDS: Ibuprofen TAB* 600 MG PO PRN (07:23)
[2017-09-04] MEDS: PANTOPRAZOLE 20 MG PO SCH (07:26)
[2017-09-04 12:55] VITALS: BP 139/56
== END 2017-09-04 15:21 | disposition home or self-care (01) | DRG 641 ==
LOC: MED 13:27
PROVIDERS: ADMIT Internal Medicine; ATTEND Student in an Organized Health Care Education/Training Program
DX: E51.2 Wernicke's encephalopathy (principal); G40.209 Localization-related (focal) (partial) symptomatic epilepsy and epileptic syndromes with complex partial seizures, not intractable, without status epilepticus; E83.42 Hypomagnesemia; E11.9 Type 2 diabetes mellitus without complications; R45.1 Restlessness and agitation; J44.9 Chronic obstructive pulmonary disease, unspecified; F31.9 Bipolar disorder, unspecified; I25.10 Atherosclerotic heart disease of native coronary artery without angina pectoris; I10 Essential (primary) hypertension; F17.210 Nicotine dependence, cigarettes, uncomplicated; F41.0 Panic disorder [episodic paroxysmal anxiety]; E78.5 Hyperlipidemia, unspecified; K21.9 Gastro-esophageal reflux disease without esophagitis; Z66 Do not resuscitate; Z86.73 Personal history of transient ischemic attack (TIA), and cerebral infarction without residual deficits; Z90.49 Acquired absence of other specified parts of digestive tract; Z82.49 Family history of ischemic heart disease and other diseases of the circulatory system; Z79.82 Long term (current) use of aspirin; Z79.02 Long term (current) use of antithrombotics/antiplatelets
CPT/HCPCS: 36415; 83735; A9270-GY; J1644; J3411

== ENCOUNTER 2018-01-16 11:16 | Emergency (ER) | payer MEDICARE, MEDICAID ==
[2018-01-16] MEDS ORDERED: NS 0.9% 1000 ML* 1,000 ML IV ONE (11:45)
--- OUTSIDE RECORDS SUMMARY | 2018-01-16 11:48 | XMS REPORT ---
:1955 External Reference #:[id number] Author Organization [facility] Address [address] [place] [address] [place] [address] Phone [phone] Care Team Providers Name Role Phone Cedric Freedman MD Care Team Information Lease Administration Supervisor Unavailable Manuel Poe III, MD Primary Care Physician Unavailable Payers Type Date Identification Numbers Payment Provider Subscriber Medicare Primary Policy Number: [id number] Medicare Kike Franks PayID: [id number] [address] [place] [address] Medigap Part B Effective: 2013 Policy Number: [id number] Medicaid Kike Franks Group Name: 1 1 [address] PayID: [id number] [place] [address] Medigap Part B Policy Number: [id number] [facility] Kike Franks PayID: [id number] Attn: Accounts Payable [address] [place] [id number] Problems Date Description Provider Status Onset: 06/27/2012 Chronic ischemic heart disease Manuel Poe M.D. Active Onset: 06/27/2012 Pure hypercholesterolemia Manuel Poe M.D. Active Onset: 06/27/2012 Asthma without status asthmaticus Manuel Poe M.D. Active Onset: 06/27/2012 Complex partial epileptic seizure Manuel Poe M.D. Active Onset: 06/27/2012 Depressive disorder Manuel Poe M.D. Active Onset: 06/27/2012 Benign localized hyperplasia of Manuel Poe M.D. Active prostate Onset: 09/16/2012 Low back pain Manuel Poe M.D. Active Onset: 07/04/2013 Coronary arteriosclerosis Cedric Freedman M.D. Active Onset: 06/20/2017 Gastroesophageal reflux disease Manuel Poe M.D. Active Onset: 12/26/2017 Type 2 diabetes mellitus Manuel Poe M.D. 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 Allergies, Adverse Reactions, Alerts Date Description Reaction Status Severity Comments 06/27/2012 Penicillin hives active Moderate to Severe 06/27/2012 Erythromycin Nausea and Vomiting active Moderate to Severe 06/27/2012 Ceftin bloating and vomitting active Moderate to Severe 06/27/2012 Azithromycin Nausea and Vomiting active Moderate to Severe 05/13/2013 Bactrim active Medications Medication Date Status Form Strength Qnty SIG Indications Ordering Provider Ibu 11/27 Active Tablets 800mg 30tab 1 tab three Manuel Will s times daily Jaziel Poe with food Multivitamin 09/14 Active Tablets Adlt 50+ 90tab once a day Manuel Will Adults 50+ /2017 s Jaziel Poe Vitamin B 09/07 Active Tablets 30tab 1 by mouth R41.82 Manuel Will Complex s every day Jaziel Poe Ventolin HFA 09/07 Active Aerosol 108(90Bas 18gm 2 puffs by J45.909 Manuel Will /2017 e) mouth four Jaziel Poe mcg/Act times a day as needed Vimpat 06/15 Active Tablets 200mg 60tab 1 tab by Souleymane Rebollar s mouth twice Knapp, a day BeatrisD. Ranexa 05/09 Active Tablets 500mg 180ta 1 tab by Cedric Gruber /2012 ER 12HR bs mouth twice Jaziel Freedman a day Gabitril 05/09 Active Tablets 16mg 60tab 1 by mouth Kota s twice a day Jaziel Ambriz Sertraline HCL Active Tablets 100mg 60tab 2 by mouth Souleymane S. / s every day Jaziel Magdaleno Clopidogrel Active Tablets 75mg 90tab 1 by mouth Cedric Gruber Bisulfate / s every day Jaziel Freedman Montelukast Active Tablets 10mg 30tab 1 by mouth Manuel Will Sodium / s every day Jaziel Poe Zolpidem Active Tablets 5mg 30tab 1 tab by Kota Tartrate s mouth at Jaziel Ambriz night as needed insomnia mdd 1 Aspir-81 Active Tablets 81mg 30tab 1 by mouth Manuel E. / DR dudley every day Jaziel Poe Magnesium Active Tablets 400mg 2 by mouth Unknown Oxide /0000 every day Ferrous Active Tablets 325mg 30tab 1 by mouth Manuel Will Sulfate / s every day Jaziel Poe Pantoprazole Active Tablets 20mg 30tab 1 by mouth Manuel E. Sodium / DR octavia Poe M.D. day--not currently taking Olanzapine Active Tablets 10mg not Unknown /0000 taking---1 by mouth every night at bedtime, psychiatrist increasing.- not currently taking Carbamazepine Active Tablets 400mg 90tab 1 by mouth Moise ER / ER 12HR s every MD Felice morning and 2 every night at bedtime Ezetimibe Active Tablets 10mg 90tab take one Cedric Gruber / s tablet Jaziel Freedman daily, generic if available Rosuvastatin Active Tablets 40mg 90tab 1 by mouth Cedric Gruber Calcium / s every day Jaziel Freedman Lansoprazole 10/13 Hx Capsules 30mg 90cap 1 by mouth Cedric Gruber /2016 DR dudley every josue Freedman M.D. - 03/07 Vimpat 10/05 Hx Tablets 100mg 60tab 1 by mouth Souleymane Rebollar s twice a day Sharla - Jaziel 10/25 Lacosamide 09/28 Hx 100mg bid Shanae Ely, - M.DStacy 09/28 Vimpat 09/28 Hx Tablets 150mg 60tab 1 tab by E72.20 . s mouth twice Sharla, - a day M.D. 10/25 Zetia 07/21 Hx Tablets 10mg 90tab 1 by mouth Cedric Gruber /2015 s every day Jaziel Freedman - 09/27 Metoprolol 07/07 Hx Tablets 100mg 90tab 1 by mouth Cedric Gruber Succinate ER 24HR s every day Jaziel Freedman - 03/07 Mirtazapine 06/15 Hx Tablets 15mg 30tab 1 tabs by Souleymane Stacy s mouth every Sharla, - at bedtime M.D. 04/12 (10/25/15 states taking bid) Tegretol-XR 05/28 Hx Tablets 400mg 90tab 1 every ER 12HR s morning and Sharla, - 2 every M.D. 03/07 night at bedtime mdd3 Tegretol-XR 07/29 Hx Tablets 400mg 180ta 1 po qam and ER 12HR bs 2 q Ana María Magdaleno M.DStacy 05/12 Ibuprofen 05/13 Hx Tablets 800mg 90tab 1 three s times a day Sharla, - as needed M.D. 06/12 headaches Depakote 04/09 Hx Tablets 500mg 180ta 2 tabs at . bs 9am 2 tabs Sharla, - at 4pm and 3 M.DStacy 09/27 tabs at Keppra 01/03 Hx Tablets 500mg 150ta 2 tabs po . bs qam and 3 Sharla, - qhs M.D. 04/09 Gabitril 12/11 Hx Tablets 2mg 2 tablets . bid Ana María Magdaleno M.D. 12/11 Codeine/Acetam 12/11 Hx Tablets 300-30mg 60tab 2 tid prn Souleymane Rebollar inophen s pain Ana María Magdaleno M.D. 05/13 Nitrostat 11/15 Hx Tablets 0.4mg 4bott one sl q5min Cedric Gruber Sub les up to 3 Jaziel Freedman - doses prn, 06/14 if no relief call 911 Vicodin ES 10/18 Hx Tablets 7.5-300mg 20tab 1-2 q 4-6 Manuel E. s hrs. Max 6 Jaziel Poe - tabs/day (pt 12/11 states he is no longer using) Montelukast 10/07 Hx Tablets 10mg 30tab take 1 Manuel E. s tablet once Jaziel Poe - daily 05/07 Vicodin 10/01 Hx Tablets 5-300mg 20tab take 1-2 po Manuel E. s q 4 to 6 Jaziel Poe - hours prn 10/18 pain Tramadol HCL 09/18 Hx Tablets 50mg 40tab 1-2 tab po Manuel E. s qid prn (pt Jaziel Poe - states he no 12/11 longer uses) Ventolin HFA 09/16 Hx Aerosol 108(90Bas 18gm 2 puffs po . e) q4hrs prn Jaziel Poe - mcg/Act 05/07 Celebrex 09/16 Hx Capsules 200mg 1 po qd (pt 724.2 E. reports he Jaziel Poe - is not 05/13 taking) Crestor 06/27 Hx Tablets 40mg 90tab 1 po qd Manuel E. octavia Poe M.D. - 06/27 Zetia 06/27 Hx Tablets 10mg 90tab 1 po qd Manuel E. octavia Poe M.D. - 06/27 Tegretol-XR 06/04 Hx Tablets 200mg 240ta take 4 po ER 12HR bs bid Brand Kayleen PROGRAM ATTENDANT - Medically 07/29 Metoprolol 05/09 Hx Tablets 50mg 180ta 1 by mouth Cedric DStacy Succinate ER 24HR bs twice every Jaziel Freedman - day 07/07 ( taking 100MG PO qd 06/15/15) Zetia 05/09 Hx Tablets 10mg 90tab 1 by mouth Cedric DStacy /2012 s every day Jaziel Freedman - 03/07 Crestor 05/09 Hx Tablets 40mg 90tab 1 by mouth Cedric DStacy /2012 s every day Tano, Jaziel - 03/07 Plavix 05/09 Hx Tablets 75mg 90tab 1 by mouth Cedric DStacy /2012 s every day Jaziel Freedman - 05/07 Tegretol-XR 05/09 Hx Tablets 200mg 240ta 4 bid ER 12HR Ana María Espitia M.D. 06/04 Ventolin HFA Hx Aerosol 108(90Bas 18gm 2 puffs po Unknown /0000 e) mcg/ac q4hrs prn - 09/[address] Hx Tablets 81mg 4 po qd Unknown /0000 - 06/14 Tegretol Hx Tablets 200mg 120ta 1 tab by Unknown /0000 bs mouth four - times a day 06/27 Ibuprofen Hx Tablets 800mg 90tab po tid prn Unknown /0000 s - 09/16 Singulair Hx Tablets 10mg 30tab 1 po qd Manuel E. /0000 octavia Poe M.D. - 10/07 Ranexa Hx Tablets 500mg 180ta 1 po bid Unknown /0000 ER 12HR bs - 06/27 Remeron Hx Tablets 30mg 2 tabs po q Unknown /0000 hs - 12/11 Prevacid Hx Capsules 15mg 90cap 1 po qd Manuel E. /0000 DR octavia Poe M.D. - 02/04 Zoloft Hx Tablets 100mg 30tab 2 po qd Unknown /0000 s - 12/11 Gabitril Hx Tablets 2mg 2 tabs po Unknown /0000 bid - 09/16 Advair Diskus 00 Hx Aerosol 250-50mcg 60uni inhale 1 Manuel Will /0000 /Dose ts dose by Jaziel Poe - mouth twice 05/07 a /2015 Ibuprofen 00/ Hx Tablets 800mg po tid prn Unknown /0000 - 12/11 Ibuprofen 00 Hx Tablets 800mg 30tab 1 tab by Manuel Will /0000 s mouth three Jaziel Poe - times a day 12/11 as needed /2017 Remeron Hx Tablets 30mg 30tab 1 tabs by Unknown /0000 s mouth every - at bedtime 06/15 Lansoprazole Hx Capsules 15mg 90cap 1 by mouth Cedric Gruber /0000 DR dudley every day Jaziel Freedman - (patient 10/12 takes 20 mg /2017 po daily) Valproic Acid Hx Syrup 250mg/5ML 30mL qam and Unknown /0000 40mL qhs - 05/28 Symbicort Hx ? 1nhale 2 Unknown /0000 puffs bid - 06/14 Lansoprazole 00 Hx Capsules 30mg 1 by mouth Unknown /0000 every day - 10/13 Relion Pen Hx Misc 32G X 4 use as Unknown [place] /0000 mm directed - with flexpen 08/04 Montelukast Hx Tablets 10mg 1 by mouth Unknown Sodium /0000 every day - 08/04 Humalog 00/00 Hx Solution 100Unit/M sliding Unknown Kwikpen /0000 Pen-Injec L scale - t 08/04 Lantus 0000 Hx Solution 100Unit/M 30 units SQ Unknown Solostar /0000 Pen-Injec L every day - t 08/04 Triamcinolone Hx Cream 0.1% apply thin Unknown Acetonide /0000 film three - times daily 08/04 as needed /2015 Zyprexa 00/00 Hx Tablets 10mg 1 by mouth Unknown /0000 at bedtime - 10/24 Remeron 00 Hx Tablets 30mg 1 tabs by Unknown /0000 mouth every - at bedtime 09/27 Luana Aspirin 00 Hx Tablets 81mg 1 by mouth Unknown Ec Low Dose /0000 DR every day - 09/27 Nitrostat Hx Tablets 0.4mg 1bott dissolve 1 Cedric D. /0000 Sub le tablet Brand, MStacyD. - undert the 03/07 tongue every 5 mintues as needed, if no relief after 3 doses call 911 Symbicort 0000 Hx Aerosol 80-4.5mcg 2 puff twice Unknown /0000 /Act a day - 09/27 Lantus Hx Solution 100Unit/M as directed Unknown /0000 L - 10/24 Vimpat 0000 Hx Tablets 150mg 6tabs 1 tab by Shanae /0000 mouth twice Ely, - a day M.DStacy 06/15 Vimpat 00 Hx Tablets 100mg 1 by mouth Unknown /0000 qam - 03/13 Proair HFA Hx Aerosol 108(90Bas 2 puffs by Unknown /0000 e) mouth every - mcg/Act 4 hours as 03/07 Symbicort 00/00 Hx Aerosol 80-4.5mcg 2 puff twice Unknown /0000 /Act a day - 10/13 Symbicort 0000 Hx Aerosol 160-4.5mc 2 puff twice Unknown /0000 g/Act a day - 03/07 Lorazepam 00 Hx Tablets 1mg 1-2 tablet Unknown /0000 by mouth - once a day 03/07 as needed at /2016 onset of seizure (call Dr. Magdaleno if use 2 tabs) Remeron 00 Hx Tablets 30mg 1 tabs by Unknown /0000 mouth every - at bedtime 03/07 Zyprexa 00 Hx Tablets 10mg 1 po daily Unknown /0000 - 03/07 Metformin HCL 00 Hx Tablets 500mg 2 tablets by Unknown /0000 mouth twice - a day 03/07 Lansoprazole /00 Hx Unknown /0000 - 10/13 Immunizations CPT Code Status Date Vaccine Lot # [id number] Given 06/27/2012 Pneumonia Vaccine [id number] Given 06/27/2012 Tdap - Tetanus/Diptheria/Acellular Pertussis [id number] Vital Signs Date Vital Result Comment 12/26/2017 Height 67 inches 5'7" Weight 141.00 lb Heart Rate 68 /min BP Systolic Sitting 120 mmHg BP Diastolic Sitting 70 mmHg O2 % BldC Oximetry 98 % BMI (Body Mass Index) 22.1 kg/m2 10/19/2017 Height 67 inches 5'7" Weight 146.25 lb Heart Rate 72 /min BP Systolic 100 mmHg BP Diastolic 62 mmHg BMI (Body Mass Index) 22.9 kg/m2 09/07/2017 Weight 145.00 lb Heart Rate 70 /min BP Systolic Sitting 110 mmHg BP Diastolic Sitting 65 mmHg Body Temperature 97.1 F Pain Level 9 middle back/sides of abdomen O2 % BldC Oximetry 97 % 08/06/2017 Weight 149.00 lb Heart Rate 83 /min BP Systolic Sitting 120 mmHg BP Diastolic Sitting 60 mmHg Pain Level 10 O2 % BldC Oximetry 95 % 06/27/2017 Weight 152.00 lb with shoes Heart Rate 92 /min BP Systolic Sitting 130 mmHg Lue reg cuff BP Diastolic Sitting 70 mmHg Lue reg cuff BP Systolic Standing 124 mmHg Lue reg cuff BP Diastolic Standing 70 mmHg Lue reg cuff Respiratory Rate 17 /min Ejection Fraction 55-60% date 01/26/13 06/20/2017 Weight 154.00 lb Heart Rate 78 /min BP Systolic Sitting 130 mmHg BP Diastolic Sitting 78 mmHg O2 % BldC Oximetry 95 % 06/15/2017 Height 66.25 inches 5'6.25" Weight 156.12 lb Heart Rate 80 /min BP Systolic 124 mmHg BP Diastolic 88 mmHg BMI (Body Mass Index) 25.0 kg/m2 03/14/2017 Height 66.25 inches 5'6.25" Weight 158.00 lb Heart Rate 87 /min BP Systolic Sitting 116 mmHg BP Diastolic Sitting 70 mmHg Body Temperature 98.1 F O2 % BldC Oximetry 97 % BMI (Body Mass Index) 25.3 kg/m2 02/07/2017 Height 67 inches 5'7" Weight 150.00 lb Heart Rate 64 /min BP Systolic 108 mmHg BP Diastolic 68 mmHg Respiratory Rate 12 /min BMI (Body Mass Index) 23.5 kg/m2 10/13/2016 Height 67 inches 5'7" Weight 161.00 lb with shoes Heart Rate 70 /min BP Systolic Sitting 92 mmHg Lue reg cuff BP Diastolic Sitting 70 mmHg Lue reg cuff BP Systolic Standing 110 mmHg Lue reg cuff BP Diastolic Standing 76 mmHg Lue reg cuff Respiratory Rate 17 /min BMI (Body Mass Index) 25.2 kg/m2 08/03/2016 Height 67 inches 5'7" Weight 150.00 lb Heart Rate 76 /min BP Systolic Sitting 110 mmHg BP Diastolic Sitting 70 mmHg Respiratory Rate 14 /min BMI (Body Mass Index) 23.5 kg/m2 04/13/2016 Height 67 inches 5'7" Weight 180.00 lb Heart Rate 80 /min BP Systolic Sitting 128 mmHg BP Diastolic Sitting 70 mmHg BMI (Body Mass Index) 28.2 kg/m2 01/11/2016 Height 67 inches 5'7" Weight 180.00 lb Heart Rate 64 /min BP Systolic Sitting 122 mmHg BP Diastolic Sitting 80 mmHg Respiratory Rate 14 /min BMI (Body Mass Index) 28.2 kg/m2 09/29/2015 Height 67 inches 5'7" Weight 180.00 lb Heart Rate 64 /min BP Systolic Sitting 118 mmHg BP Diastolic Sitting 74 mmHg Respiratory Rate 16 /min BMI (Body Mass Index) 28.2 kg/m2 09/03/2015 Height 67 inches 5'7" Weight 180.00 lb Heart Rate 56 /min BP Systolic Sitting 116 mmHg BP Diastolic Sitting 68 mmHg Respiratory Rate 14 /min BMI (Body Mass Index) 28.2 kg/m2 08/06/2015 Height 67 inches 5'7" Weight 180.00 lb with shoes Heart Rate 72 /min BP Systolic Sitting 110 mmHg Ra reg cuff BP Diastolic Sitting 62 mmHg Ra reg cuff BP Systolic Standing 108 mmHg Ra reg cuff BP Diastolic Standing 68 mmHg Ra reg cuff Respiratory Rate 16 /min BMI (Body Mass Index) 28.2 kg/m2 Ejection Fraction 55-60% 01/26/13 08/04/2015 Height 67 inches 5'7" Heart Rate 76 /min BP Systolic Sitting 110 mmHg BP Diastolic Sitting 70 mmHg Respiratory Rate 16 /min 06/25/2015 Height 67 inches 5'7" Weight 180.00 lb w/ slippers Heart Rate 64 /min reg BP Systolic 90 mmHg Lue, reg cuff sitting BP Diastolic 70 mmHg Lue, reg cuff sitting BP Systolic Sitting 102 mmHg Rue, reg laying BP Diastolic Sitting 70 mmHg Rue, reg laying Respiratory Rate 18 /min BMI (Body Mass Index) 28.2 kg/m2 Ejection Fraction 55-60% as of 01/26/13 echo 06/15/2015 Height 67 inches 5'7" Weight 190.00 lb Heart Rate 64 /min BP Systolic Sitting 126 mmHg BP Diastolic Sitting 68 mmHg Respiratory Rate 14 /min BMI (Body Mass Index) 29.8 kg/m2 05/28/2015 Height 67 inches 5'7" Weight 195.00 lb Heart Rate 80 /min BP Systolic Sitting 138 mmHg BP Diastolic Sitting 64 mmHg Respiratory Rate 16 /min BMI (Body Mass Index) 30.5 kg/m2 04/26/2015 Height 67 inches 5'7" Weight 195.00 lb Pain Level 1 BMI (Body Mass Index) 30.5 kg/m2 03/24/2015 Height 67 inches 5'7" Weight 195.00 lb Pain Level 0 BMI (Body Mass Index) 30.5 kg/m2 03/03/2015 Height 67 inches 5'7" Weight 195.00 lb Heart Rate 80 /min BP Systolic 123 mmHg BP Diastolic 68 mmHg BMI (Body Mass Index) 30.5 kg/m2 12/01/2014 Height 66.5 inches 5'6.50" Weight 186.00 lb Heart Rate 60 /min BP Systolic Sitting 136 mmHg BP Diastolic Sitting 68 mmHg Respiratory Rate 16 /min BMI (Body Mass Index) 29.6 kg/m2 08/14/2014 Height 66.5 inches 5'6.50" Weight 186.31 lb with shoes Heart Rate 64 /min BP Systolic Sitting 134 mmHg LA, reg cuff BP Diastolic Sitting 80 mmHg LA, reg cuff BP Systolic Standing 126 mmHg LA BP Diastolic Standing 76 mmHg LA Respiratory Rate 16 /min BMI (Body Mass Index) 29.6 kg/m2 08/11/2014 Height 66.5 inches 5'6.50" Weight 186.00 lb Heart Rate 64 /min BP Systolic Sitting 130 mmHg BP Diastolic Sitting 62 mmHg Respiratory Rate 16 /min BMI (Body Mass Index) 29.6 kg/m2 07/29/2014 Height 66.5 inches 5'6.50" Weight 187.00 lb Heart Rate 68 /min BP Systolic Sitting 142 mmHg BP Diastolic Sitting 84 mmHg Respiratory Rate 16 /min BMI (Body Mass Index) 29.7 kg/m2 02/27/2014 Height 66.5 inches 5'6.50" Weight 194.00 lb Heart Rate 76 /min BP Systolic Sitting 150 mmHg Ra reg cuff BP Diastolic Sitting 80 mmHg Ra reg cuff BP Systolic Standing 136 mmHg Ra BP Diastolic Standing 80 mmHg Ra Respiratory Rate 16 /min BMI (Body Mass Index) 30.8 kg/m2 01/20/2014 Height 66.5 inches 5'6.50" Weight 193.38 lb Heart Rate 72 /min BP Systolic Sitting 120 mmHg BP Diastolic Sitting 70 mmHg Respiratory Rate 16 /min BMI (Body Mass Index) 30.7 kg/m2 09/10/2013 Height 66.5 inches 5'6.50" Weight 173.00 lb Heart Rate 67 /min BP Systolic Sitting 120 mmHg BP Diastolic Sitting 60 mmHg Respiratory Rate 16 /min BMI (Body Mass Index) 27.5 kg/m2 07/04/2013 Height 66.5 inches 5'6.50" Weight 173.00 lb Heart Rate 64 /min BP Systolic Sitting 166 mmHg LA reg cuff BP Diastolic Sitting 94 mmHg LA reg cuff BP Systolic Standing 158 mmHg LA BP Diastolic Standing 90 mmHg LA Respiratory Rate 18 /min BMI (Body Mass Index) 27.5 kg/m2 05/13/2013 Heart Rate 70 /min BP Systolic Sitting 140 mmHg BP Diastolic Sitting 70 mmHg Respiratory Rate 16 /min 12/11/2012 Height 68 inches 5'8" Heart Rate 68 /min BP Systolic Sitting 128 mmHg BP Diastolic Sitting 70 mmHg Respiratory Rate 20 /min 09/16/2012 Height 68 inches 5'8" Weight 172.25 lb Heart Rate 80 /min BP Systolic Sitting 132 mmHg BP Diastolic Sitting 70 mmHg BMI (Body Mass Index) 26.2 kg/m2 06/27/2012 Height 68 inches 5'8" Weight 180.25 lb Heart Rate 78 /min BP Systolic Sitting 132 mmHg BP Diastolic Sitting 82 mmHg BMI (Body Mass Index) 27.4 kg/m2 Results Test Date Test Result H/L Range Note Laboratory test finding 08/24/2017 Ammonia 43 mcmol/L 16-53 Lactic Acid 0.8 mmol/L 0.5-2.0 1 Laboratory test finding 07/20/2017 Point of Care Glucose 101 mg/dL High 70 -100 2 Urinalysis Profile 07/20/2017 Urine Color Yellow Urine Appearance Clear Urine Specific [place] 1.032 High 1.010-1.030 Urine pH 5.0 5-9 Urine Urobilinogen Negative Negative Urine Ketones Negative Negative Urine Protein Negative Negative Urine Leukocytes Negative Negative Urine Blood 1+ Negative Urine Nitrite Negative Negative Urine Bilirubin Negative Negative Urine Glucose 3+(>=500 mg/dL) Negative Urine White Blood Cell Absent Absent Urine Red Blood Cell 2+(6-10/hpf) Absent Urine Bacteria Absent Absent Comp Metabolic Panel 07/20/2017 Sodium 135 mmol/L 133-145 Potassium 4.1 mmol/L 3.5-5.0 Chloride 103 mmol/L 101-111 Co2 Carbon Dioxide 24 mmol/L 22-32 Anion Gap 8 mmol/L 2-11 Glucose 313 mg/dL High 70-100 Blood Urea Nitrogen 17 mg/dL 6-24 Creatinine 0.85 mg/dL 0.67-1.17 BUN/Creatinine Ratio 20.0 8-20 Calcium 9.3 mg/dL 8.6-10.3 Total Protein 6.9 g/dL 6.4-8.9 Albumin 3.9 g/dL 3.2-5.2 Globulin 3.0 g/dL 2-4 Albumin/Globulin Ratio 1.3 1-3 Total Bilirubin 0.40 mg/dL 0.2-1.0 Alkaline Phosphatase 116 U/L High 34-104 Alt 25 U/L 7-52 Ast 18 U/L 13-39 Egfr Non- 91.3 >60 Egfr 117.5 >60 3 Laboratory test finding 07/20/2017 Lipase 24 U/L 11.0-82.0 C Reactive Protein 22.65 mg/L High < 5.00 4 CBC Auto Diff 07/20/2017 White Blood Count 11.7 10^3/uL High 3.5-10.8 Red Blood Count 4.55 10^6/uL 4.0-5.4 Hemoglobin 15.2 g/dL 14.0-18.0 Hematocrit 44 % 42-52 Mean Corpuscular Volume 96 fL High 80-94 Mean Corpuscular Hemoglobin 34 pg High 27-31 Mean Corpuscular HGB Conc 35 g/dL 31-36 Red Cell Distribution Width 13 % 10.5-15 Platelet Count 248 10^3/uL 150-450 Mean Platelet Volume 8 um3 7.4-10.4 Abs Neutrophils 8.0 10^3/uL High 1.5-7.7 Abs Lymphocytes 2.5 10^3/uL 1.0-4.8 Abs Monocytes 1.1 10^3/uL High 0-0.8 Abs Eosinophils 0 10^3/uL 0-0.6 Abs Basophils 0.1 10^3/uL 0-0.2 Abs Nucleated RBC 0 10^3/uL Granulocyte % 68.6 % 38-83 Lymphocyte % 21.1 % Low 25-47 Monocyte % 9.4 % High 0-7 Eosinophil % 0.4 % 0-6 Basophil % 0.5 % 0-2 Nucleated Red Blood Cells % 0.1 Laboratory test finding 07/20/2017 B-Type Natriuretic Peptide BNP 45 pg/mL 5 Lipid Profile 03/14/2017 Triglycerides 124 mg/dL 6 (Trig/Chol/HDL) Cholesterol 266 mg/dL 7 HDL Cholesterol 50.7 mg/dL 8 LDL Cholesterol 191 mg/dL 9 Comp Metabolic Panel 03/14/2017 Sodium 136 mmol/L 133-145 Potassium 4.4 mmol/L 3.5-5.0 Chloride 102 mmol/L 101-111 Co2 Carbon Dioxide 28 mmol/L 22-32 Anion Gap 6 mmol/L 2-11 Glucose 116 mg/dL High 70-100 Blood Urea Nitrogen 12 mg/dL 6-24 Creatinine 0.79 mg/dL 0.67-1.17 BUN/Creatinine Ratio 15.2 8-20 Calcium 9.7 mg/dL 8.6-10.3 Total Protein 7.0 g/dL 6.4-8.9 Albumin 4.1 g/dL 3.2-5.2 Globulin 2.9 g/dL 2-4 Albumin/Globulin Ratio 1.4 1-3 Total Bilirubin 0.40 mg/dL 0.2-1.0 Alkaline Phosphatase 119 U/L High 34-104 Alt 15 U/L 7-52 Ast 12 U/L Low 13-39 Egfr Non- 99.7 >60 Egfr 128.2 >60 10 CBC Auto Diff 03/14/2017 White Blood Count 11.9 10^3/uL High 3.5-10.8 Red Blood Count 4.86 10^6/uL 4.0-5.4 Hemoglobin 15.7 g/dL 14.0-18.0 Hematocrit 46 % 42-52 Mean Corpuscular Volume 96 fL High 80-94 Mean Corpuscular Hemoglobin 32 pg High 27-31 Mean Corpuscular HGB Conc 34 g/dL 31-36 Red Cell Distribution Width 15 % 10.5-15 Platelet Count 271 10^3/uL 150-450 Mean Platelet Volume 8 um3 7.4-10.4 Abs Neutrophils 7.5 10^3/uL 1.5-7.7 Abs Lymphocytes 3.4 10^3/uL 1.0-4.8 Abs Monocytes 0.8 10^3/uL 0-0.8 Abs Eosinophils 0.1 10^3/uL 0-0.6 Abs Basophils 0.1 10^3/uL 0-0.2 Abs Nucleated RBC 0.01 10^3/uL Granulocyte % 62.5 % 38-83 Lymphocyte % 28.7 % 25-47 Monocyte % 6.9 % 1-9 Eosinophil % 0.7 % 0-6 Basophil % 1.2 % 0-2 Nucleated Red Blood Cells % 0.1 Laboratory test finding 03/14/2017 Carbamazepine (Tegretol) 7.5 g/mL 4.0-12.0 Lacosamide <0.5 g/mL 1.0 - 10.0 11 Hemoglobin A1c (Glyco HGB) 6.8 % High 4.0-5.6 12 CKMB 05/22/2016 CKMB ng/mL 1.4 ng/mL 0.6-6.3 Laboratory test finding 05/22/2016 Carbamazepine (Tegretol) 9.3 g/mL 4.0-12.0 Acetaminophen < 15 g/mL 13 Alcohol < 10 mg/dL <10 TSH (Thyroid Stim Horm) 1.29 mcIU/mL 0.34-5.60 Urine Culture And 05/22/2016 Urine Culture SEE RESULT BELOW 14 Sensitivities Laboratory test finding 05/22/2016 Magnesium 1.7 mg/dL Low 1.9-2.7 Lipase 43 U/L 11.0-82.0 Creatine Kinase(CK) 15 U/L 10-223 C Reactive Protein 31.65 mg/L High < 5.00 15 Troponin-I (TnI) 0.00 ng/mL <0.04 16 B-Type Natriuretic Peptide BNP 20 pg/mL 17 Comp Metabolic Panel 05/22/2016 Sodium 131 mmol/L Low 133-145 Potassium 4.3 mmol/L 3.5-5.0 Chloride 101 mmol/L 101-111 Co2 Carbon Dioxide 24 mmol/L 22-32 Anion Gap 6 mmol/L 2-11 Glucose 464 mg/dL High 70-100 Blood Urea Nitrogen 15 mg/dL 6-24 Creatinine 0.70 mg/dL 0.67-1.17 BUN/Creatinine Ratio 21.4 High 8-20 Calcium 8.7 mg/dL 8.6-10.3 Total Protein 6.4 g/dL 6.4-8.9 Albumin 3.5 g/dL 3.2-5.2 Globulin 2.9 g/dL 2-4 Albumin/Globulin Ratio 1.2 1-3 Total Bilirubin 0.30 mg/dL 0.2-1.0 Alkaline Phosphatase 100 U/L 34-104 Alt 15 U/L 7-52 Ast 12 U/L Low 13-39 Egfr Non- 114.6 >60 Egfr 147.4 >60 18 Laboratory test finding 05/22/2016 Partial Thrombo Time 32.3 seconds 26.0 -36.3 PTT Lactic Acid 0.6 mmol/L 0.5-2.0 19 Inr/Protime 05/22/2016 Inr 0.90 0.89-1.11 CBC Auto Diff 05/22/2016 White Blood Count 6.4 10^3/uL 3.5-10.8 Red Blood Count 4.44 10^6/uL 4.0-5.4 Hemoglobin 14.5 g/dL 14.0-18.0 Hematocrit 43 % 42-52 Mean Corpuscular Volume 97 fL High 80-94 Mean Corpuscular Hemoglobin 33 pg High 27-31 Mean Corpuscular HGB Conc 34 g/dL 31-36 Red Cell Distribution Width 14 % 10.5-15 Platelet Count 218 10^3/uL 150-450 Mean Platelet Volume 8 um3 7.4-10.4 Abs Neutrophils 3.1 10^3/uL 1.5-7.7 Abs Lymphocytes 2.7 10^3/uL 1.0-4.8 Abs Monocytes 0.5 10^3/uL 0-0.8 Abs Eosinophils 0 10^3/uL 0-0.6 Abs Basophils 0 10^3/uL 0-0.2 Abs Nucleated RBC 0 10^3/uL Granulocyte % 48.9 % 38-83 Lymphocyte % 42.9 % 25-47 Monocyte % 7.1 % 1-9 Eosinophil % 0.6 % 0-6 Basophil % 0.5 % 0-2 Nucleated Red Blood Cells % 0.1 Urinalysis Profile 05/22/2016 Urine Color Yellow Urine Appearance Clear Urine Specific [place] 1.028 1.010-1.030 Urine pH 5.0 5-9 Urine Urobilinogen Negative Negative Urine Ketones Trace Negative Urine Protein Negative Negative Urine Leukocytes Negative Negative Urine Blood Negative Negative Urine Nitrite Negative Negative Urine Bilirubin Negative Negative Urine Glucose 3+(>=500 mg/dL) Negative Comp Metabolic Panel 04/13/2016 Sodium 133 mmol/L 133-145 Potassium 4.0 mmol/L 3.5-5.0 Chloride 99 mmol/L Low 101-111 Co2 Carbon Dioxide 27 mmol/L 22-32 Anion Gap 7 mmol/L 2-11 Glucose 296 mg/dL High 70-100 Blood Urea Nitrogen 12 mg/dL 6-24 Creatinine 0.81 mg/dL 0.67-1.17 BUN/Creatinine Ratio 14.8 8-20 Calcium 9.6 mg/dL 8.6-10.3 Total Protein 6.8 g/dL 6.4-8.9 Albumin 3.9 g/dL 3.2-5.2 Globulin 2.9 g/dL 2-4 Albumin/Globulin Ratio 1.3 1-3 Total Bilirubin 0.30 mg/dL 0.2-1.0 Alkaline Phosphatase 127 U/L High 34-104 Alt 17 U/L 7-52 Ast 13 U/L 13-39 Egfr Non- 96.9 >60 Egfr 124.6 >60 20 CBC Auto Diff 04/13/2016 White Blood Count 10.8 10^3/uL 3.5-10.8 Red Blood Count 4.84 10^6/uL 4.0-5.4 Hemoglobin 15.6 g/dL 14.0-18.0 Hematocrit 46 % 42-52 Mean Corpuscular Volume 95 fL High 80-94 Mean Corpuscular Hemoglobin 32 pg High 27-31 Mean Corpuscular HGB Conc 34 g/dL 31-36 Red Cell Distribution Width 13 % 10.5-15 Platelet Count 250 10^3/uL 150-450 Mean Platelet Volume 8 um3 7.4-10.4 Abs Neutrophils 5.7 10^3/uL 1.5-7.7 Abs Lymphocytes 4.0 10^3/uL 1.0-4.8 Abs Monocytes 1.0 10^3/uL High 0-0.8 Abs Eosinophils 0.1 10^3/uL 0-0.6 Abs Basophils 0 10^3/uL 0-0.2 Abs Nucleated RBC 0 10^3/uL Granulocyte % 52.8 % 38-83 Lymphocyte % 37.1 % 25-47 Monocyte % 9.0 % 1-9 Eosinophil % 0.7 % 0-6 Basophil % 0.4 % 0-2 Nucleated Red Blood Cells % 0 Laboratory test finding 04/13/2016 Carbamazepine (Tegretol) 7.7 g/mL 4.0-12.0 Comp Metabolic Panel 08/04/2015 Sodium 137 mmol/L 133-145 Potassium 4.5 mmol/L 3.5-5.0 Chloride 105 mmol/L 101-111 Co2 Carbon Dioxide 24 mmol/L 22-32 Anion Gap 8 mmol/L 2-11 Glucose 151 mg/dL High 70-100 Blood Urea Nitrogen 20 mg/dL 6-24 Creatinine 0.77 mg/dL 0.67-1.17 BUN/Creatinine Ratio 26.0 High 8-20 Calcium 9.0 mg/dL 8.6-10.3 Total Protein 6.5 g/dL 6.4-8.9 Albumin 3.7 g/dL 3.2-5.2 Globulin 2.8 g/dL 2-4 Albumin/Globulin Ratio 1.3 1-3 Total Bilirubin 0.30 mg/dL 0.2-1.0 Alkaline Phosphatase 77 U/L 34-104 Alt 10 U/L 7-52 Ast 10 U/L Low 13-39 Egfr Non- 103.1 >60 Egfr 132.5 >60 21 CBC Auto Diff 08/04/2015 White Blood Count 8.5 10^3/uL 3.5-10.8 Red Blood Count 4.17 10^6/uL 4.0-5.4 Hemoglobin 14.0 g/dL 14.0-18.0 Hematocrit 42 % 42-52 Mean Corpuscular Volume 100 fL High 80-94 Mean Corpuscular Hemoglobin 33 pg High 27-31 Mean Corpuscular HGB Conc 34 g/dL 31-36 Red Cell Distribution Width 16 % High 10.5-15 Platelet Count 199 10^3/uL 150-450 Mean Platelet Volume 8 um3 7.4-10.4 Abs Neutrophils 2.9 10^3/uL 1.5-7.7 Abs Lymphocytes 4.6 10^3/uL 1.0-4.8 Abs Monocytes 0.8 10^3/uL 0-0.8 Abs Eosinophils 0.1 10^3/uL 0-0.6 Abs Basophils 0.1 10^3/uL 0-0.2 Abs Nucleated RBC 0.01 10^3/uL Granulocyte % 34.4 % Low 38-83 Lymphocyte % 54.0 % High 25-47 Monocyte % 9.9 % High 1-9 Eosinophil % 0.9 % 0-6 Basophil % 0.8 % 0-2 Nucleated Red Blood Cells % 0.1 Laboratory test finding 08/04/2015 Carbamazepine (Tegretol) 10.8 g/mL 4.0-12.0 Valproic Acid (Depakene) 110.0 g/mL High 50-100 Carnitine Free & Total 08/11/2014 Total Carnitine 28 nmol/mL 34-78 Free Carnitine 25 nmol/mL 25-54 Acylcarnitine 3 nmol/mL 5-30 Acylcarn/Free Carnitine Ratio 0.1 0.1-0.8 Carnitine Interpretation See Comment 22 Laboratory test finding 07/29/2014 Carbamazepine 12.7 g/mL High 4.0-12.0 Valproic Acid 56.0 g/mL 50.0-100.0 TSH (Thyroid Stimulating Horm) 2.53 IU/mL 0.34-5.60 Comp Metabolic Panel 07/29/2014 Sodium 135 mmol/L 133-145 Potassium 4.5 mmol/L 3.5-5.0 Chloride 106 mmol/L 101-111 Co2 Carbon Dioxide 24 mmol/L 22-32 Anion Gap 5 mmol/L 2-11 Glucose 91 mg/dL 70-100 Blood Urea Nitrogen 14 mg/dL 6-24 Creatinine 0.78 mg/dL 0.67-1.17 BUN/Creatinine Ratio 17.9 8-20 Calcium 9.0 mg/dL 8.6-10.3 Total Protein 6.4 g/dL 6.4-8.9 Albumin 4.0 g/dL 3.2-5.2 Globulin 2.4 g/dL 2-4 Albumin/Globulin Ratio 1.7 1-3 Total Bilirubin 0.40 mg/dL 0.2-1.0 Alkaline Phosphatase 62 U/L 34-104 Alt 15 U/L 7-52 Ast 16 U/L 13-39 Egfr Non- 101.9 >60 Egfr 131.0 >60 23 CBC Auto Diff 07/29/2014 White Blood Count 9.5 10^3/uL 4.8-10.8 Red Blood Count 4.25 10^6/uL 4.0-5.4 Hemoglobin 14.5 g/dL 14.0-18.0 Hematocrit 42 % 42-52 Mean Corpuscular Volume 100 fL High 80-94 Mean Corpuscular Hemoglobin 34 pg High 27-31 Mean Corpuscular HGB Conc 34 g/dL 31-36 Red Cell Distribution Width 14 % 10.5-15 Platelet Count 224 10^3/uL 150-450 Mean Platelet Volume 8 um3 7.4-10.4 Abs Neutrophils 4.4 10^3/uL 1.5-7.7 Abs Lymphocytes 4.4 10^3/uL 1.0-4.8 Abs Monocytes 0.7 10^3/uL 0-0.8 Abs Eosinophils 0.1 10^3/uL 0-0.6 Abs Basophils 0 10^3/uL 0-0.2 Abs Nucleated RBC 0.01 10^3/uL Granulocyte % 46.4 % 38-83 Lymphocyte % 45.6 % 25-47 Monocyte % 7.0 % 1-9 Eosinophil % 0.7 % 0-6 Basophil % 0.3 % 0-2 Nucleated Red Blood Cells % 0.1 Laboratory test finding 07/29/2014 Ammonia 58 mol/L High 16-53 Laboratory test finding 05/13/2013 Carbamazepine 9.1 g/mL 4.0-12.0 Valproic Acid 64.6 g/mL 50.0-100.0 24 Laboratory test finding 02/07/2013 Ammonia 27 umol/L 9-35 CBC Auto Diff 02/07/2013 White Blood Count 8.2 10^3/uL 4.8-10.8 Red Blood Count 4.06 10^6/uL 4.0-5.4 Hemoglobin 13.0 g/dL Low 14.0-18.0 Hematocrit 40 % Low 42-52 Mean Corpuscular Volume 100 fL High 80-94 Mean Corpuscular Hemoglobin 32 pg High 27-31 Mean Corpuscular HGB Conc 32 g/dL 31-36 Red Cell Distribution Width 15 % 10.5-15 Platelet Count 294 10^3/uL 150-450 Mean Platelet Volume 8 um3 7.4-10.4 Abs Neutrophils 4.6 10^3/uL 1.5-7.7 Abs Lymphocytes 2.8 10^3/uL 1.0-4.8 Abs Monocytes 0.8 10^3/uL 0-0.8 Abs Eosinophils 0.1 10^3/uL 0-0.6 Abs Basophils 0.1 10^3/uL 0-0.2 Abs Nucleated RBC 0.02 10^3/uL Granulocyte % 55.7 % 38-83 Lymphocyte % 33.4 % 25-47 Monocyte % 9.2 % High 1-9 Eosinophil % 0.9 % 0-6 Basophil % 0.8 % 0-2 Nucleated Red Blood Cells % 0.2 Inr/Protime 02/07/2013 Inr 0.87 0.87-0.97 Comp Metabolic Panel 02/07/2013 Sodium 138 mmol/L 133-145 Potassium 3.9 mmol/L 3.5-5.0 Chloride 104 mmol/L 101-111 Co2 Carbon Dioxide 27.0 mmol/L 22-32 Anion Gap 7.0 mmol/L 2-11 Glucose 96 mg/dL 70-100 Blood Urea Nitrogen 11 mg/dL 6-24 Creatinine 0.80 mg/dL 0.50-1.40 BUN/Creatinine Ratio 13.8 8-20 Calcium 8.9 mg/dL 8.1-9.9 Total Protein 6.0 g/dL Low 6.2-8.1 Albumin 3.1 g/dL Low 3.6-5.4 Globulin 2.9 g/dL 2-4 Albumin/Globulin Ratio 1.1 1-3 Total Bilirubin 0.7 mg/dL 0.4-1.5 Alkaline Phosphatase 118 U/L High 30-110 Alt 14 U/L 14-54 Ast 14 U/L 12-42 Egfr Non- 99.6 >60 Egfr 128.1 >60 25 Laboratory test finding 02/07/2013 Troponin I 0 ng/mL 0-0.06 26 Valproic Acid 45.0 g/mL Low 50.0-100.0 27 TSH (Thyroid Stimulating Horm) 1.65 miu/mL 0.34-5.60 C Reactive Protein 1.8 mg/dL High Less than 0.5 Laboratory test 01/03/2013 Carbamazepine 12.1 g/mL High 4.0-12.0 28 finding Urine Drug SCR ED 12/23/2012 Amphetamine Ur Screen None Detected None Detect & [facility] Barbiturates Urine Screen None Detected None Detect Benzodiazepine Urine Screen Positive None Detect Urine Cannabinoids Screen None Detected None Detect Urine Cocaine Screen None Detected None Detect Urine Opiates Screen Positive None Detect Urine Phencyclidine Screen None Detected None Detect 29 Laboratory test finding 12/23/2012 Creatine Kinase 32 U/L 0-200 Acetaminophen < 10 g/mL Low 10-30 30 Salicylate < 4.0 Less Than 30 Urinalysis 12/23/2012 Urine Color [place] Urine Appearance Turbid Urine Specific [place] 1.014 1.010-1.030 Urine Esterase Negative Negative Urine Nitrate Negative Negative Urine Urobilinogen Negative E.U./dL Negative Urine Protein Negative mg/dL Negative Urine pH 5.5 5-9 Urine Blood Negative Negative Urine Ketones Negative mg/dL Negative Urine Bilirubin Negative Negative Urine Glucose Negative mg/dL Negative CBC Auto Diff 12/23/2012 White Blood Count 8.1 10^3/uL 4.8-10.8 Red Blood Count 3.87 10^6/uL Low 4.0-5.4 Hemoglobin 12.8 g/dL Low 14.0-18.0 Hematocrit 38 % Low 42-52 Mean Corpuscular Volume 98 fL High 80-94 Mean Corpuscular Hemoglobin 33 pg High 27-31 Mean Corpuscular HGB Conc 34 g/dL 31-36 Red Cell Distribution Width 14 % 10.5-15 Platelet Count 341 10^3/uL 150-450 Mean Platelet Volume 7 um3 Low 7.4-10.4 Abs Neutrophils 5.4 10^3/uL 1.5-7.7 Abs Lymphocytes 1.8 10^3/uL 1.0-4.8 Abs Monocytes 0.7 10^3/uL 0-0.8 Abs Eosinophils 0.1 10^3/uL 0-0.6 Abs Basophils 0.1 10^3/uL 0-0.2 Abs Nucleated RBC 0.01 10^3/uL Granulocyte % 67.1 % 38-83 Lymphocyte % 22.5 % Low 25-47 Monocyte % 8.6 % 1-9 Eosinophil % 0.9 % 0-6 Basophil % 0.9 % 0-2 Nucleated Red Blood Cells % 0.1 Inr/Protime 12/23/2012 Inr 0.89 0.87-0.97 Comp Metabolic Panel 12/23/2012 Sodium 135 mmol/L 133-145 Potassium 3.7 mmol/L 3.5-5.0 Chloride 106 mmol/L 101-111 Co2 Carbon Dioxide 21.0 mmol/L Low 22-32 Anion Gap 8.0 mmol/L 2-11 Glucose 126 mg/dL High 70-100 Blood Urea Nitrogen 6 mg/dL 6-24 Creatinine 0.70 mg/dL 0.50-1.40 BUN/Creatinine Ratio 8.6 8-20 Calcium 8.5 mg/dL 8.1-9.9 Total Protein 6.1 g/dL Low 6.2-8.1 Albumin 2.9 g/dL Low 3.6-5.4 Globulin 3.2 g/dL 2-4 Albumin/Globulin Ratio 0.9 Low 1-3 Total Bilirubin 0.5 mg/dL 0.4-1.5 Alkaline Phosphatase 108 U/L 30-110 Alt 19 U/L 14-54 Ast 22 U/L 12-42 Egfr Non- 116.2 >60 Egfr 149.5 >60 31 Laboratory test finding 12/23/2012 Magnesium 1.7 mg/dL 1.7-2.6 Carbamazepine 10.0 g/mL 4.0-12.0 Laboratory test finding 12/14/2012 Vitamin B12 352 pg/mL 180-914 TSH (Thyroid Stimulating Horm) 3.17 miu/mL 0.34-5.60 CKMB 11/14/2012 CKMB ng/mL 2.5 ng/mL 0.3-4.0 32 Laboratory test finding 11/14/2012 Troponin I 0 ng/mL 0-0.06 33 Carbamazepine 12.3 g/mL High 4.0-12.0 Urinalysis 11/14/2012 Urine Color [place] Urine Appearance Clear Urine Specific [place] 1.030 1.010-1.030 Urine Esterase Trace Negative Urine Nitrate Negative Negative Urine Urobilinogen Negative E.U./dL Negative Urine Protein Trace mg/dL Negative Urine pH 6.0 5-9 Urine Blood Negative Negative Urine Ketones Negative mg/dL Negative Urine Bilirubin 1+ Negative Urine Glucose 1+ mg/dL Negative CBC Auto Diff 11/14/2012 White Blood Count 14.8 10^3/uL High 4.8-10.8 Red Blood Count 4.26 10^6/uL 4.0-5.4 Hemoglobin 13.6 g/dL Low 14.0-18.0 Hematocrit 41 % Low 42-52 Mean Corpuscular Volume 96 fL High 80-94 Mean Corpuscular Hemoglobin 32 pg High 27-31 Mean Corpuscular HGB Conc 33 g/dL 31-36 Red Cell Distribution Width 13 % 10.5-15 Platelet Count 279 10^3/uL 150-450 Mean Platelet Volume 7 um3 Low 7.4-10.4 Abs Neutrophils 11.4 10^3/uL High 1.5-7.7 Abs Lymphocytes 2.4 10^3/uL 1.0-4.8 Abs Monocytes 0.9 10^3/uL High 0-0.8 Abs Eosinophils 0.1 10^3/uL 0-0.6 Abs Basophils 0.1 10^3/uL 0-0.2 Abs Nucleated RBC 0 10^3/uL Granulocyte % 77.2 % 38-83 Lymphocyte % 16.1 % Low 25-47 Monocyte % 5.8 % 1-9 Eosinophil % 0.5 % 0-6 Basophil % 0.4 % 0-2 Nucleated Red Blood Cells % 0 Urine Microscopic 11/14/2012 Urine WBC 1+ (<3 /hpf) None Seen Urine RBC None Seen None Seen Bacteria Urine None Seen None Seen Laboratory test finding 11/14/2012 Creatine Kinase 56 U/L 0-200 Comp Metabolic Panel 11/14/2012 Sodium 135 mmol/L 133-145 Potassium 4.0 mmol/L 3.5-5.0 Chloride 106 mmol/L 101-111 Co2 Carbon Dioxide 23.0 mmol/L 22-32 Anion Gap 6.0 mmol/L 2-11 Glucose 120 mg/dL High 70-100 Blood Urea Nitrogen 12 mg/dL 6-24 Creatinine 0.60 mg/dL 0.50-1.40 BUN/Creatinine Ratio 20.0 8-20 Calcium 8.8 mg/dL 8.1-9.9 Total Protein 6.7 g/dL 6.2-8.1 Albumin 3.3 g/dL Low 3.6-5.4 Globulin 3.4 g/dL 2-4 Albumin/Globulin Ratio 1.0 1-3 Total Bilirubin 0.5 mg/dL 0.4-1.5 Alkaline Phosphatase 113 U/L High 30-110 Alt 22 U/L 14-54 Ast 23 U/L 12-42 Egfr Non- 138.9 >60 Egfr 178.6 >60 34 Manual Differential 09/19/2012 Neutrophil % 58 % 38-83 Lymphocytes % 27 % 25-47 Monocytes % 13 % 0-13 Eosinophils % 1 % 0-6 Basophil % 1 % 0-2 RBC Morphology Normal Normal Protein Electrophoresis Serum 09/19/2012 Albumin (Pep) 3.33 g/dL 3.0- 4.35 Alpha 1 Globulins 0.30 g/dL 0.09-0.33 Alpha 2 Globulin 1.53 g/dL High 0.59-1.18 Beta Globulin 0.80 g/dL 0.68-1.02 Gamma Globulin 0.93 g/dL 0.76-1.60 Albumin % (Pep) 48.3 % 46-63 Alpha 1 Globulins % 4.3 % 1.2-5.3 Alpha 2 Globulin % 22.2 % High 9-17 Beta Globulin % 11.6 % 10-16 Gamma Globulin % 13.5 % 12-22 Albumin/Globulin Ratio 0.9 0.9-2.0 Total Protein (Pep) 6.9 g/dL 6.2-8.1 Spep Comments (SEE NOTE) 35 Laboratory test finding 09/19/2012 Erythrocyte Sed Rate 58 mm/Hr High 0- 20 C Reactive Protein 3.1 mg/dL High Less than 0.5 CBC Auto Diff 09/19/2012 White Blood Count 13.8 10^3/uL High 4.8-10.8 Red Blood Count 4.41 10^6/uL 4.0-5.4 Hemoglobin 14.4 g/dL 14.0-18.0 Hematocrit 43 % 42-52 Mean Corpuscular Volume 97 fL High 80-94 Mean Corpuscular Hemoglobin 33 pg High 27-31 Mean Corpuscular HGB Conc 34 g/dL 31-36 Red Cell Distribution Width 14 % 10.5-15 Platelet Count 294 10^3/uL 150-450 Mean Platelet Volume 9 um3 7.4-10.4 Abs Neutrophils 8.4 10^3/uL High 1.5-7.7 Abs Lymphocytes 4.2 10^3/uL 1.0-4.8 Abs Monocytes 1.0 10^3/uL High 0-0.8 Abs Eosinophils 0.1 10^3/uL 0-0.6 Abs Basophils 0 10^3/uL 0-0.2 Abs Nucleated RBC 0.01 10^3/uL Comp Metabolic Panel 06/27/2012 Sodium 134 mmol/L 133-145 Potassium 4.4 mmol/L 3.5-5.0 Chloride 105 mmol/L 101-111 Co2 Carbon Dioxide 19.0 mmol/L Low 22-32 Anion Gap 10.0 mmol/L 2-11 Glucose 99 mg/dL 70-100 Blood Urea Nitrogen 10 mg/dL 6-24 Creatinine 0.80 mg/dL 0.50-1.40 BUN/Creatinine Ratio 12.5 8-20 Calcium 9.4 mg/dL 8.1-9.9 Total Protein 6.4 g/dL 6.2-8.1 Albumin 3.7 g/dL 3.6-5.4 Globulin 2.7 g/dL 2-4 Albumin/Globulin Ratio 1.4 1-3 Total Bilirubin 0.7 mg/dL 0.4-1.5 Alkaline Phosphatase 119 U/L High 30-110 Alt 24 U/L 14-54 Ast 22 U/L 12-42 Egfr Non- 99.6 >60 Egfr 128.1 >60 36 Lipid Profile (Trig/Chol/HDL) 06/27/2012 Triglycerides 145 mg/dL 40-200 Cholesterol 178 mg/dL Less than 200 HDL Cholesterol 39 mg/dL Low 40-60 37 Cholesterol/HDL Ratio 4.6 Average High 1-4.44 LDL Cholesterol 110.0 mg/dL High Less Than 100 38 Laboratory test finding 06/27/2012 Carbamazepine 11.9 g/mL 4.0-12.0 39 PSA Screening 0.7 ng/mL 0-4.0 40 CBC Auto Diff 06/27/2012 White Blood Count 11.7 10^3/uL High 4.8-10.8 Red Blood Count 4.37 10^6/uL 4.0-5.4 Hemoglobin 14.1 g/dL 14.0-18.0 Hematocrit 42 % 42-52 Mean Corpuscular Volume 97 fL High 80-94 Mean Corpuscular Hemoglobin 32 pg High 27-31 Mean Corpuscular HGB Conc 34 g/dL 31-36 Red Cell Distribution Width 14 % 10.5-15 Platelet Count 276 10^3/uL 150-450 Mean Platelet Volume 8 um3 7.4-10.4 Abs Neutrophils 6.6 10^3/uL 1.5-7.7 Abs Lymphocytes 3.9 10^3/uL 1.0-4.8 Abs Monocytes 1.0 10^3/uL High 0-0.8 Abs Eosinophils 0.1 10^3/uL 0-0.6 Abs Basophils 0.1 10^3/uL 0-0.2 Abs Nucleated RBC 0 10^3/uL Granulocyte % 56.5 % 38-83 Lymphocyte % 33.5 % 25-47 Monocyte % 8.5 % 1-9 Eosinophil % 0.7 % 0-6 Basophil % 0.8 % 0-2 Nucleated Red Blood Cells % 0 1 [place] Severe Sepsis and Septic Shock Management Bundle Measure requires all lactic acids initially measuring >2.0 mmol/L be repeated. 2 Perioperative Tech: [id number] 3 Because ethnic data is not always readily available, this report includes an eGFR for both -Americans and non- Americans. The National Kidney Disease Education Program (NKDEP) does not endorse the use of the MDRD equation for patients that are not between the ages of 18 and 70, are , have extremes of body size, muscle mass, or nutritional status, or are non- or non-. According to the National Kidney Foundation, irrespective of diagnosis, the stage of the disease is based on the level of kidney function: Stage Description GFR(mL/min/1.73 m(2)) 1 Kidney damage with normal or decreased GFR 90 2 Kidney damage with mild decrease in GFR 60-89 3 Moderate decrease in GFR 30-59 4 Severe decrease in GFR 15-29 5 Kidney failure <15 (or dialysis) 4 Acute inflammation: >10.00 5 >100 to <200 pg/mL: likely compensated congestive heart failure (CHF) 200 to 400 pg/mL: likely moderate CHF >400 pg/mL: likely moderate to severe CHF 6 Desirable: <150 Borderline High: 150-199 High: 200-499 Very High: >500 7 Desirable: <200 Borderline High: 200-239 High: >239 8 Low: <40 Desirable: 40-60 High: >60 9 Desirable: <100 Near Optimal: 100-129 Borderline High: 130-159 High: 160-189 Very High: >189 10 Because ethnic data is not always readily available, this report includes an eGFR for both -Americans and non- Americans. The National Kidney Disease Education Program (NKDEP) does not endorse the use of the MDRD equation for patients that are not between the ages of 18 and 70, are , have extremes of body size, muscle mass, or nutritional status, or are non- or non-. According to the National Kidney Foundation, irrespective of diagnosis, the stage of the disease is based on the level of kidney function: Stage Description GFR(mL/min/1.73 m(2)) 1 Kidney damage with normal or decreased GFR 90 2 Kidney damage with mild decrease in GFR 60-89 3 Moderate decrease in GFR 30-59 4 Severe decrease in GFR 15-29 5 Kidney failure <15 (or dialysis) 11 ADDITIONAL INFORMATION This test was developed and its performance characteristics determined by [facility] in a manner consistent with CLIA requirements. This test has not been cleared or approved by the U.S. Food and Drug Administration. Test Performed by: [facility] [address] [place] [address] 12 Therapeutic target for the treatment of diabetes mellitus patients is <7% HBA1C, and in selective patients <6.0%. Please refer to [place] [employer] diabetic care guidelines for further information. 13 Therapeutic concentration: <50 ug/mL Toxic concentration: >120 ug/mL 14 SEE RESULT BELOW Name: KIKE FRANKS : [address]: Chantelle Monson MD Acct: [id number] Unit: [id number] AGE: 61 Location: [place] [address] Re05/23/16 SEX: M Status: ADM IN SPEC: [id number] JUAN: 05/22/16-[address]: Brett Doyle NP REQ: [id number] RECD: 05/22/16 STATUS: COMP CASH DR: Viviane Maldonado PROGRAM ATTENDANT CN _ SOURCE: URINE [facility]: ORDERED: Urine Culture Procedure Result Reported Site Urine Culture Final 05/24/16- 08 ML No growth of clinically significant organisms * ML - MAIN LAB ([facility]) . END OF REPORT * ML=Testing performed at Main Lab DEPARTMENT OF PATHOLOGY, [address] [place] [address] Juan Ahn M.D. Director [facility] # [id number] 15 Acute inflammation: >10.00 16 99th percentile=0.04 ng/mL Troponin results at [facility] and [facility] are not interchangeable. 17 >100 to <200 pg/mL: likely compensated congestive heart failure (CHF) 200 to 400 pg/mL: likely moderate CHF >400 pg/mL: likely moderate to severe CHF 18 Because ethnic data is not always readily available, this report includes an eGFR for both -Americans and non- Americans. The National Kidney Disease Education Program (NKDEP) does not endorse the use of the MDRD equation for patients that are not between the ages of 18 and 70, are , have extremes of body size, muscle mass, or nutritional status, or are non- or non-. According to the National Kidney Foundation, irrespective of diagnosis, the stage of the disease is based on the level of kidney function: Stage Description GFR(mL/min/1.73 m(2)) 1 Kidney damage with normal or decreased GFR 90 2 Kidney damage with mild decrease in GFR 60-89 3 Moderate decrease in GFR 30-59 4 Severe decrease in GFR 15-29 5 Kidney failure <15 (or dialysis) 19 Specimen hemolyzed. Result may not be valid. [place] Severe Sepsis and Septic Shock Management Bundle Measure requires all lactic acids initially measuring >2.0 mmol/L be repeated. 20 Because ethnic data is not always readily available, this report includes an eGFR for both -Americans and non- Americans. The National Kidney Disease Education Program (NKDEP) does not endorse the use of the MDRD equation for patients that are not between the ages of 18 and 70, are , have extremes of body size, muscle mass, or nutritional status, or are non- or non-. According to the National Kidney Foundation, irrespective of diagnosis, the stage of the disease is based on the level of kidney function: Stage Description GFR(mL/min/1.73 m(2)) 1 Kidney damage with normal or decreased GFR 90 2 Kidney damage with mild decrease in GFR 60-89 3 Moderate decrease in GFR 30-59 4 Severe decrease in GFR 15-29 5 Kidney failure <15 (or dialysis) 21 Because ethnic data is not always readily available, this report includes an eGFR for both -Americans and non- Americans. The National Kidney Disease Education Program (NKDEP) does not endorse the use of the MDRD equation for patients that are not between the ages of 18 and 70, are , have extremes of body size, muscle mass, or nutritional status, or are non- or non-. According to the National Kidney Foundation, irrespective of diagnosis, the stage of the disease is based on the level of kidney function: Stage Description GFR(mL/min/1.73 m(2)) 1 Kidney damage with normal or decreased GFR 90 2 Kidney damage with mild decrease in GFR 60-89 3 Moderate decrease in GFR 30-59 4 Severe decrease in GFR 15-29 5 Kidney failure <15 (or dialysis) 22 In this sample, the carnitine profile was essentially normal. Test Performed by: [place] [address] Tour Escort: Binu Martin II, M.D., Ph.D. 23 Because ethnic data is not always readily available, this report includes an eGFR for both -Americans and non- Americans. The National Kidney Disease Education Program (NKDEP) does not endorse the use of the MDRD equation for patients that are not between the ages of 18 and 70, are , have extremes of body size, muscle mass, or nutritional status, or are non- or non-. According to the National Kidney Foundation, irrespective of diagnosis, the stage of the disease is based on the level of kidney function: Stage Description GFR(mL/min/1.73 m(2)) 1 Kidney damage with normal or decreased GFR 90 2 Kidney damage with mild decrease in GFR 60-89 3 Moderate decrease in GFR 30-59 4 Severe decrease in GFR 15-29 5 Kidney failure <15 (or dialysis) 24 The detection limit for Valproic Acid is 10.0 mcg/ml . Values less than 10.0 mcg/ml cannot be accurately measured. 25 Because ethnic data is not always readily available, this report includes an eGFR for both -Americans and non- Americans. The National Kidney Disease Education Program (NKDEP) does not endorse the use of the MDRD equation for patients that are not between the ages of 18 and 70, are , have extremes of body size, muscle mass, or nutritional status, or are non- or non-. According to the National Kidney Foundation, irrespective of diagnosis, the stage of the disease is based on the level of kidney function: Stage Description GFR(mL/min/1.73 m(2)) 1 Kidney damage with normal or decreased GFR 90 2 Kidney damage with mild decrease in GFR 60-89 3 Moderate decrease in GFR 30-59 4 Severe decrease in GFR 15-29 5 Kidney failure <15 (or dialysis) 26 Reference Range and Interpretation: TnI (ng/mL) Interpretation Less Than 0.06 ng/mL Not supportive of diagnosis of AR 0.06 - 0.50 ng/mL Indeterminate: suggest serial studies if clinically indicated. Greater than 0.5 ng/mL Consistent with diagnosis of AR 27 The detection limit for Valproic Acid is 10.0 mcg/ml . Values less than 10.0 mcg/ml cannot be accurately measured. 28 CALL WITH STAT RESULTS Verbal to ALEKSANDR ENG by [id number] at 1134 on 01/03/13. Results read back accurately. 29 The urine specimen was tested at the listed cutoffs: Drug class test level (ng/ml) Amphetamines 300 Barbituates 200 Benzodiazepine metabolites 200 Cocaine metabolites 300 Cannabinoids 25 Opiates 200 Pcp 25 This is a screening procedure. Positive results are not confirmed. Specimen was received without chain of custody. Results should be used for medical purposes only. 30 Toxic levels: greater than 150 mcg/ml @ 4hr post ingest Greater than 50 mcg/ml @ 12hr post ingest The detection limit for acetaminophen is 10.0 mcg/ml . Values less than 10.0 mcg/ml cannot be accurately measured. 31 Because ethnic data is not always readily available, this report includes an eGFR for both -Americans and non- Americans. The National Kidney Disease Education Program (NKDEP) does not endorse the use of the MDRD equation for patients that are not between the ages of 18 and 70, are , have extremes of body size, muscle mass, or nutritional status, or are non- or non-. According to the National Kidney Foundation, irrespective of diagnosis, the stage of the disease is based on the level of kidney function: Stage Description GFR(mL/min/1.73 m(2)) 1 Kidney damage with normal or decreased GFR 90 2 Kidney damage with mild decrease in GFR 60-89 3 Moderate decrease in GFR 30-59 4 Severe decrease in GFR 15-29 5 Kidney failure <15 (or dialysis) 32 CKMB interpretation should be made in conjunction with clinical symptoms, patient history and EKG changes. 33 Reference Range and Interpretation: TnI (ng/mL) Interpretation Less Than 0.06 ng/mL Not supportive of diagnosis of AR 0.06 - 0.50 ng/mL Indeterminate: suggest serial studies if clinically indicated. Greater than 0.5 ng/mL Consistent with diagnosis of AR 34 Because ethnic data is not always readily available, this report includes an eGFR for both -Americans and non- Americans. The National Kidney Disease Education Program (NKDEP) does not endorse the use of the MDRD equation for patients that are not between the ages of 18 and 70, are , have extremes of body size, muscle mass, or nutritional status, or are non- or non-. According to the National Kidney Foundation, irrespective of diagnosis, the stage of the disease is based on the level of kidney function: Stage Description GFR(mL/min/1.73 m(2)) 1 Kidney damage with normal or decreased GFR 90 2 Kidney damage with mild decrease in GFR 60-89 3 Moderate decrease in GFR 30-59 4 Severe decrease in GFR 15-29 5 Kidney failure <15 (or dialysis) 35 Increased alpha 2 globulin consistent with acute or subacute inflammation. 36 Because ethnic data is not always readily available, this report includes an eGFR for both -Americans and non- Americans. The National Kidney Disease Education Program (NKDEP) does not endorse the use of the MDRD equation for patients that are not between the ages of 18 and 70, are , have extremes of body size, muscle mass, or nutritional status, or are non- or non-. According to the National Kidney Foundation, irrespective of diagnosis, the stage of the disease is based on the level of kidney function: Stage Description GFR(mL/min/1.73 m(2)) 1 Kidney damage with normal or decreased GFR 90 2 Kidney damage with mild decrease in GFR 60-89 3 Moderate decrease in GFR 30-59 4 Severe decrease in GFR 15-29 5 Kidney failure <15 (or dialysis) 37 HDL Interpretation: Undesirable: High Risk: Less than 40 MG/DL Desirable: Low Risk: Greater than 60 MG/DL 38 LDL Interpretation: Low Risk Optimal Level: LDL Less than 100 MG/DL Near or Above Optimal: LDL 100-129 MG/DL Borderline High Risk: LDL 130-159 MG/DL High Risk: LDL 160-189 MG/DL Very High Risk: LDL Greater than 189 MG/DL 39 The detection limit for CARBAMAZEPINE is 2.0 mcg/ml . Values less than 2.0 mcg/ml cannot be accurately measured. 40 Serum levels of PSA measured using the Magalys Supriya DXI Hybritech immunoassay should not be interpreted as absolute evidence of the presence or absence of disease. The PSA value should be used in conjunction with other pertinent clinical diagnostic procedures. The values obtained with different assay methods or kits cannot be used interchangeably. Procedures Date CPT Code Description Status 08/25/2017 79782 EEG Recording Awake & Drowsy Completed 06/27/2017 76808 EKG Tracing & Interpretation Completed 10/13/2016 36662 EKG Tracing & Interpretation Completed 09/25/2015 78512 EKG, Interpretation Only Completed 09/23/2015 36953 EEG Recording Awake & Asleep Completed 06/28/2015 04336 Treadmill Interp/Report Only Completed 06/28/2015 37174 Stress Test Supervsn W/Out I/R Completed 06/28/2015 57269 Myocardial Perfusion Imaging Tomographic (Spect) Completed Multiple Studies 06/25/2015 17106 EKG Tracing & Interpretation Completed 03/03/2015 83763 Short Leg Cast Completed 01/01/2015 09948 FX Ankle Trimalleolar With Manipulation Completed 12/24/2014 12094 Closed TX Bimalleolar FX W/O Manip Completed 08/14/2014 38679 EKG Tracing & Interpretation Completed 07/04/2013 74694 EKG Tracing & Interpretation Completed 01/31/2013 19092 EEG Monitoring By Electrodes Completed 01/30/2013 12779 EEG Recording Awake & Asleep Completed 01/30/2013 80478 EKG, Interpretation Only Completed 01/26/2013 23597 ECHO Transthorasic Realtime 2D W Doppler & Color Flow Completed Hosp 01/25/2013 92860 EKG, Interpretation Only Completed 11/26/2012 55868 EEG Recording Awake & Drowsy Completed 10/24/2012 Bone Mineral Density Test Completed 07/09/2006 Colonoscopy Completed Encounters Type Date Location Provider CPT E/M Dx Office Visit 10/19/2017 [facility] Souleymane Magdaleno, 25655 R41.82 2:45p Jaziel G40.909 Office Visit 09/07/2017 11:00a [facility] Manuel Poe, 69072 R41.82 - Zoila Sheriff E11.9 F34.1 R31.9 J45.909 Office Visit 09/03/2017 9:44a [facility] 58073 E51.2 Hospitalists REBECA Brito G40.909 I25.10 J44.9 Office Visit 08/31/2017 9:44a [facility] 31101 E51.2 Hospitalists REBECA Brito G40.909 I25.10 J44.9 Office Visit 08/29/2017 7:00a [facility] [place] [address] G40.219 Z79.899 Office Visit 08/29/2017 9:41a [facility] Aster Jurado, 22882 E51.2 Assoc, PROGRAM ATTENDANT Hospitalists G40.909 I25.10 J44.9 Office Visit 08/28/2017 7:00a [facility] [place] [address] R42 R41.82 G40.219 Z79.899 Office Visit 08/28/2017 [facility] Aster Jurado, 92393 R41.82 11:08a Assoc, PROGRAM ATTENDANT Hospitalists G40.909 I25.10 J44.9 Office Visit 08/27/2017 [facility] Astervu Jurado, 38194 R41.82 11:07a Assoc,pc PROGRAM ATTENDANT Hospitalists G40.909 I25.10 J44.9 Office Visit 08/27/2017 7:00a [facility] [place] [address] R42 R27.8 R41.82 H55.00 G40.219 Office Visit 08/26/2017 7:00a [facility] [place] [address] R41.82 G40.219 Office Visit 08/26/2017 [facility] Aster Jurado, 25467 R41.82 11:00a Assoc,pc PROGRAM ATTENDANT Hospitalists G40.909 I25.10 J44.9 Office Visit 08/25/2017 7:00a [facility] [place] [address] R41.82 G40.219 Z79.899 Office Visit 08/25/2017 [facility] Aster Jurado, 24809 R41.82 10:55a Assoc, PROGRAM ATTENDANT Hospitalists G40.909 I25.10 J44.9 [facility] Visit [facility]2017 [facility] [place] [address] R41.82 Hospitalists G40.909 I25.10 J44.9 Office Visit 08/06/2017 4:20p [facility] Manuel Poe, 89412 M54.5 - Zoila Sheriff R31.9 E11.9 Office Visit 06/27/2017 2:30p [facility] Cedric Freedman, 08470 I25.10 Morena Sheriff Office Visit 06/20/2017 2:40p [facility] Manuel Poe, 03740 E11.9 - Zoila Sheriff G40.909 I25.10 F34.1 K21.9 F17.210 E78.00 Office Visit 06/15/2017 9:45a [facility] Souleymane Rebollar 92906 G40.209 Jaziel Magdaleno E11.9 G31.84 F41.9 Z91.14 Office Visit 03/14/2017 11:00a [facility] Manuel Poe, 13290 G40.909 - Zoila Sheriff I25.10 F34.1 E11.9 Office Visit 02/07/2017 11:30a [facility] Souleymane Magdaleno, 63165 G40.219 Services Of Morena Sheriff G31.84 Office Visit 11/30/2016 [facility] Tomer Klein M.D. 64423 R56.9 Hospitalists I25.10 J44.9 I10 Office Visit 10/13/2016 2:00p [facility] Cedric Freedman, 57491 R94.31 Morena Sheriff I25.10 Office Visit 08/03/2016 11:45a [facility] Souleymane Magdaleno, 56358 E11.8 Services Of Morena Sheriff G40.909 Office Visit 05/24/2016 2:54p [facility],pc Tasneemton Larson, PROGRAM ATTENDANT 36209 R56.9 Hospitalists E11.8 E78.5 I10 Office Visit 05/23/2016 2:53p [facility],pc Tasneem Larson, PROGRAM ATTENDANT 65396 R56.9 Hospitalists E11.8 E78.5 I10 Office Visit 05/22/2016 2:52p [facility],pc Kwaku Doyle, 43650 R56.9 Hospitalists N.P. E11.9 E78.5 I10 Office Visit 04/13/2016 10:30a [facility] Souleymane Rebollar 75793 G40.219 Jaziel Magdaleno Office Visit 03/09/2016 11:16a [facility] Moise Viveros, 61233 G40.219 Z79.899 Office Visit 03/09/2016 3:15p [facility] [place] [address] G40.909 Assoc,pc Hospitalists R40.4 I25.10 Z91.19 Office Visit 03/08/2016 3:14p [facility] [place] [address] G40.909 Assoc,pc Hospitalists R40.4 Z91.19 Office Visit 03/08/2016 11:15a [facility] [place] [address] R41.0 G40.219 Z79.899 Office Visit 03/07/2016 3:14p [facility] Tasneem Larson, 02235 G40.909 Assoc,pc Hospitalists PROGRAM ATTENDANT R40.4 Z91.19 Office Visit 01/11/2016 1:00p [facility] [place] [address] G40.209 Services Of Screen Examiner Z79.899 Office Visit 09/29/2015 1:45p [facility] Souleymane Magdaleno, 07803 G40.209 Services Of Morena Sheriff E72.20 Office Visit 09/24/2015 10:53a [facility] Shanae Graves, 68623 G40.209 M.D. G92 Office Visit 09/24/2015 1:33p [facility], PROGRAM ATTENDANT 47758 R41.82 Assoc,pc Hospitalists R56.9 R07.9 E11.9 Office Visit 09/23/2015 10:51a [facility] Shanae Gardunosanjuana, 14185 G40.209 Jaziel G93.40 R94.01 Office Visit 09/23/2015 1:32p [facility], PROGRAM ATTENDANT 38525 R41.82 Assoc,pc Hospitalists R56.9 R07.9 E11.9 Office Visit 09/22/2015 1:22p [facility], PROGRAM ATTENDANT 93854 R41.82 Assoc,pc Hospitalists E11.9 F17.210 I25.119 Office Visit 09/03/2015 12:00p [facility] Souleymane Magdaleno, 61593 G40.209 Services Of Screen Examiner MEmi Office Visit 08/29/2015 10:58a [facility] Chantelle Crocker, 75811 J18.9 Assoc,pc Hospitalists Jaziel G40.909 I10 Office Visit 08/28/2015 10:57a [facility] Assoc,pc Chantelle Crocker, 17062 J18.9 Hospitalists Jaziel G40.909 Office Visit 08/28/2015 9:17a [facility] Moise Viveros, 64373 G40.209 R40.4 Office Visit 08/27/2015 10:57a [facility] [place], [address] J18.9 Assoc,pc Hospitalists MEmi I10 E78.0 J43.1 Office Visit 08/06/2015 1:15p [facility], 01388 I25.10 Morena Sheriff R07.9 Office Visit 08/04/2015 1:30p [facility] Souleymane Magdaleno, 00270 G40.209 Services Of Morena Sheriff Office Visit 07/09/2015 8:32a [facility] Tomer Klein M.D. 56906 R40.4 Assoc,pc Hospitalists G40.909 Office Visit 06/25/2015 11:45a [facility] Of Cedric Freedman, 11829 I25.10 Morena Sheriff R07.9 Office Visit 06/15/2015 2:45p [facility] Souleymane Rebollar 19951 G40.209 Services Of Morena Magdaleno M.D. Office Visit 05/28/2015 11:00a [facility] Souleymane Rebollar 09018 G40.209 Jaziel Magdaleno Office Visit 04/26/2015 2:15p [facility] Henna Glover, 51746 S82.851D Lisha Sheriff Office Visit 02/12/2015 1:21p [facility], Chantelle Crocker, 35448 E11.01 Hospitalists Jaziel G40.909 E87.0 Office Visit 02/11/2015 1:20p [facility],[place] [address] E13.10 Hospitalists G40.909 E87.0 Office Visit 02/10/2015 1:19p [facility],[place] [address] E13.10 Hospitalists E87.0 D72.829 G40.909 Office Visit 02/09/2015 1:17p [facility],[place] [address] E13.10 Hospitalists E87.0 D72.829 G40.909 Office Visit 02/08/2015 1:16p [facility], Saumya Nguyễn, 74937 E11.00 Hospitalists N.PStacy E87.0 G40.909 D72.829 Office Visit 12/01/2014 2:45p [facility] Souleymane Magdaleno, 59610 414.01 Services Of Morena Sheriff 345.40 Office Visit 08/14/2014 2:30p [facility] Cedric Freedman, 03004 414.01 Morena Sheriff 401.9 Office Visit 08/11/2014 1:00p [facility] [place] [address] 345.40 Services Of Screen Examiner Office Visit 07/29/2014 1:45p [facility] Souleymane Magdaleno, 37655 345.40 Services Of Morena Sheriff Office Visit 02/27/2014 3:00p [facility] Yasmani [facility], 27992 414.01 Screen Examiner M.D. 401.9 Office Visit 01/20/2014 2:45p [facility] Souleymane Magdaleno, 17103 345.40 Services Of Screen Examiner M.D. Office Visit 09/10/2013 2:30p [facility] Souleymane Magdaleno, 11579 345.40 Services Of Screen Examiner M.D. Office Visit 07/04/2013 1:30p [facility] Yasmani [facility], 09881 414.01 Screen Examiner M.D. Office Visit 05/13/2013 9:30a [facility] Souleymane Magdaleno, 91919 345.40 Services Of Screen Examiner M.D. 300.11 Office Visit 02/02/2013 12:51p [facility],pc Chantelle Crocker, 85377 345.3 Hospitalists MEmi 780.02 414.01 Office Visit 02/01/2013 1:54p [facility] Souleymane Magdaleno, 20947 345.70 Services Of Screen Examiner M.D. Office Visit 02/01/2013 12:50p [facility],pc Chantelle Crocker, 76171 345.3 Hospitalists MStacyDStacy 780.2 414.01 Office Visit 01/31/2013 1:53p [facility] Souleymane Magdaleno, 55185 345.71 Services Of Screen Examiner M.D. Office Visit 01/31/2013 12:50p [facility],reed Spear 65062 345.3 Hospitalists Channing Mcdonald 780.2 414.01 Office Visit 01/30/2013 12:49p [facility],pc Tony Mcdonald, 36638 345.3 Hospitalists Channing 780.2 414.01 Office Visit 01/30/2013 9:21a [facility] Shanae Graves M.D. 25533 345.71 Services Of Screen Examiner Office Visit 01/26/2013 12:49p [facility] Simeon Light 93124 345.41 Services Of Screen Examiner M.D. Office Visit 01/26/2013 9:28a [facility] José Rebollar 77457 414.01 Jaziel Guevara 412 411.89 794.31 Office Visit 01/26/2013 9:39a [facility] [place], [address] 345.10 Assoc,pc Hospitalists M.Yasmani 411.1 486 401.9 Office Visit 01/25/2013 9:39a [facility],pc Chantelle Crocker, 95144 345.10 Hospitalists MEmi 411.1 486 Office Visit 01/25/2013 9:41a [facility] José Guevara, 63048 414.01 M.DStacy 411.89 794.31 V45.85 Office Visit 01/25/2013 12:49p [facility] Simeon Light, 07659 345.41 Services Of [facility] M.DStacy Office Visit 01/21/2013 1:30p [facility] Souleymane Magdaleno, 52832 345.41 Services Of Screen Examiner M.DStacy Office Visit 12/11/2012 3:00p [facility] Souleymane Magdaleno, 36328 345.40 Services Of [facility] Jaziel 331.83 Office Visit 09/16/2012 2:40p [facility] Manuel Poe, 25360 724.2 - Monique Sheriff Office Visit 06/27/2012 2:00p [facility] Manuel Poe, 32384 414.9 - Monique Sheriff 272.0 493.90 345.40 311 600.20 V06.1 V03.82 Office Visit 06/26/2012 2:45p [facility] Cedric Freedman, 46446 414.9 Morena Sheriff Office Visit 12/12/2011 2:45p [facility] Souleymane Magdaleno, 73310 345.40 Services Of [facility] Jaziel Plan of Care Future Appointment(s):07/02/2018 2:20 pm - Manuel Poe M.D. at [facility] - Wkjzxtobs23/12/2018 1:45 pm - Cedric Freedman M.D. at [facility]02/22/2018 3:00 pm - [facility] - Manuel Poe M.D.E11.9 Type 2 diabetes mellitus without complicationsFollow up:annual exam in 6 months or prnI25.119 Athscl heart disease of [place] cor art w unsp ang wdlrlG42.909 Epilepsy, unsp, not intractable, without status wqrfqqhqhtxD71.00 Pure hypercholesterolemia, uvgippqisizA99.1 Dysthymic disorder
--- NOTE | 2018-01-16 11:51 | ED ---
Altered Mental Status - HPI Summary HPI Summary: This patient is a 62 year old M presenting to [facility] with a chief complaint of AMS since this AM. Per EMS, pts blood sugar was 140, he was shaking, not acting himself, and has not taken his medications today. PMHx sz. Level 5 caveat: Full HPI unobtainable due to patients AMS. - History Of Current Complaint Chief Complaint: EDAltMentalStatus Stated Complaint: CONFUSION Time Seen by Provider: 01/16/18 11:37 Hx Obtained From: EMS Hx From Patient Unobtainable Due To: Altered Mental Status Onset/Duration: Unknown, Still Present Timing: Constant Severity Initially: Moderate Severity Currently: Moderate Character: Confusion, Responsiveness Aggravating Factor(s): Unknown Alleviating Factor(s): Unknown Associated Signs And Symptoms: Negative: Fever - Allergies/Home Medications Allergies/Adverse Reactions: Allergies Allergy/AdvReac Type Severity Reaction Status Date / Time Penicillins Allergy Severe Hives Verified 01/16/18 11:30 erythromycin base Allergy Unknown Hives Verified 01/16/18 11:30 azithromycin Allergy Hives Verified 01/16/18 11:30 Cephalosporins Allergy Hives Verified 01/16/18 11:30 PMH/Surg Hx/FS Hx/Imm Hx Endocrine/Hematology History: Reports: Hx Diabetes Cardiovascular History: Reports: Hx Angina, Hx Coronary Artery Disease - WITH STENT, Hx Hypercholesterolemia, Hx Hypertension, Hx Myocardial Infarction, Other Cardiovascular Problems/Disorders - CAD Denies: Hx Pacemaker/ICD Respiratory History: Reports: Hx Chronic Obstructive Pulmonary Disease (COPD) GI History: Reports: Hx Gastroesophageal Reflux Disease Musculoskeletal History: Reports: Hx Orthopedic Injury - RIGHT LEG FRACTURE 2014 Denies: Hx Scoliosis Sensory History: Reports: Hx Contacts or Glasses Denies: Hx Cataracts, Hx Eye Injury, Hx Eye Prosthesis, Hx Glaucoma, Hx Legally Blind, Hx Macular Degeneration, Hx Vision Problem, Hx Deafness, Hx Hearing Aid, Hx Hearing Problem, Other Sensory Impairments Opthamlomology History: Reports: Hx Contacts or Glasses Denies: Hx Cataracts, Hx Eye Injury, Hx Eye Prosthesis, Hx Glaucoma, Hx Legally Blind, Hx Macular Degeneration, Hx Vision Problem, Other Sensory Impairments EENT History: Denies: Hx Deafness Neurological History: Reports: Hx Seizures - epilepsy with complex Psychiatric History: Reports: Hx Anxiety, Hx Depression, Hx Panic Disorder, Hx Bipolar Disorder - Surgical History Surgery Procedure, Year, and Place: GB removed,cardiac stents [place] [facility] [place] [facility] pt does not have his implant cards.SURGERY TO LEFT SHOULDER 1985 PER PT Infectious Disease History: No Infectious Disease History: Denies: Traveled Outside the [place] in Last 30 Days - Family History Known Family History: Negative: Seizure Disorder Family History: No FHx of seizures - Social History Alcohol Use: None Alcohol Amount: "recovering alcoholic Hx Substance Use: No Substance Use Type: Reports: Excessive Caffeine Substance Use Comment - Amount & Last Used: unknown; patient not answering questions appropriately Hx Tobacco Use: Yes Smoking Status (MU): Heavy Every Day Tobacco Smoker Type: Cigarettes Amount Used/How Often: 1 PPD Length of Time of Smoking/Using Tobacco: 45 YEARS Have You Smoked in the Last Year: Yes - Additional Comments History Additional Comments: Level 5 caveat: Full Hx unobtainable due to pt's AMS. Review of Systems - ROS Summary Review of Systems Summary: Level 5 caveat: Full ROS unobtainable due to pt's AMS. Positive: Other - shakiness. Negative: Fever Positive: no symptoms reported Neurological: Other - confusion, AMS All Other Systems Reviewed And Are Negative: No Physical Exam - Summary Physical Exam Summary: General: well-appearing, no pain distress, generalized weakness and shaking Skin: warm, color reflects adequate perfusion, dry Head: normal Eyes: EOMI, REA ENT: normal Neck: supple, non-tender Respiratory: CTA, breath sounds present Cardiovascular: RRR Abdomen: soft, non-tender Bowel: present Musculoskeletal: normal, strength/ROM intact, moving all extremities Neurological: sensory/motor intact, moving all extremities, no focal motor deficits, awake and alert, oriented to self but not place or date Psychological: affect/mood appropriate Triage Information Reviewed: Yes Vital Signs On Initial Exam: Initial Vitals Temp Pulse Resp BP Pulse Ox 98.6 F 74 17 105/65 95 01/16/18 11:27 01/16/18 11:27 01/16/18 11:27 01/16/18 11:27 01/16/18 11:27 Vital Signs Reviewed: Yes Diagnostics - Vital Signs Vital Signs Temp Pulse Resp BP Pulse Ox 01/16/18 11:27 98.6 F 74 17 105/65 95 - Laboratory Result Diagrams: 01/16/18 12:14 01/16/18 12:14 Lab Statement: Any lab studies that have been ordered have been reviewed, and results considered in the medical decision making process. - Radiology CXR Xray Interpretation: No Acute Changes Radiology Interpretation Completed By: Radiologist - No active cardiopulmonary disease. Dr. Georges has reviewed this report. - CT Brain CT Interpretation: No Acute Changes CT Interpretation Completed By: Radiologist - No acute intracranial pathology. Dr Georges has reviewed this report. Re-Evaluation - Re-Evaluation First Eval Re-Evaluation Time: 14:59 Change: Improved Comment: Pt is much more alert and responsive than earlier, will walk patient. Altered Mental Statu Course/Dx - Course Course Of Treatment: PATIENT'S SENSORIUM CLEARED. MOST PROBABLE CAUSE OF AMS IS SEIZURE POST ICTAL. DISCUSSED ADMISSION WITH THE PATIENT; HE DECLINED WISHES TO GO HOME. F/U PMD/NEUROLOGY. - Diagnoses Provider Diagnoses: Epilepsy Discharge - Sign-Out/Discharge Documenting (check all that apply): Patient Departure - discharge - Discharge Plan Condition: Stable Disposition: HOME Patient Education Materials: Epilepsy (ED) Referrals: Manuel Poe MD [Primary Care Provider] - Additional Instructions: FOLLOW UP WITH YOUR DOCTOR. GET RECHECKED FOR ANY WORSENING OF YOUR CONDITION OR QUESTIONS OR CONCERNS. - Billing Disposition and Condition Condition: STABLE Disposition: Home - Attestation Statements Document Initiated by Sarika: Yes Documenting Scribe: Sony Blair Provider For Whom Sarika is Documenting (Include Credential): Dr. Binu Georges MD Scribe Attestation: Sony Guallpa scribed for Dr. Binu Georges MD on 01/16/18 at 1814. Scribe Documentation Reviewed: Yes Provider Attestation: The documentation as recorded by the Sony gabriel accurately reflects the service I personally performed and the decisions made by me, Dr. Binu Georges MD
--- NOTE | 2018-01-16 12:16 | RAD ---
HISTORY: ams COMPARISONS: August 24, 2017 VIEWS: 1: frontal portable view of the chest at 12:00 PM FINDINGS: LINES AND TUBES: None. CARDIOMEDIASTINAL SILHOUETTE: The cardiomediastinal silhouette is normal for portable technique. PLEURA: The costophrenic angles are sharp. No pleural abnormalities are noted. LUNG PARENCHYMA: The lungs are clear. ABDOMEN: The upper abdomen is clear. There is no subphrenic gas. BONES AND SOFT TISSUES: There is postsurgical change to the left shoulder. IMPRESSION: NO ACTIVE CARDIOPULMONARY DISEASE.
[2018-01-16 12:29] LABS: ABS Basophils 0.1 10^3/ul (0-0.2); ABS Eosinophils 0.1 10^3/ul (0-0.6); ABS Lymphocytes 1.8 10^3/ul (1.0-4.8); ABS Monocytes 0.7 10^3/ul (0-0.8); ABS Nucleated RBC 0 10^3/ul; Eosinophil % 0.9 % (0-6); Hematocrit 41 % (42-52); Hemoglobin 14.4 g/dl (14.0-18.0); Lymphocyte % 23.3 % (25-47); Mean Corpuscular HGB Conc 35 g/dl (31-36); Mean Corpuscular Hemoglobin 34 pg (27-31); Mean Corpuscular Volume 98 fL (80-94); Mean Platelet Volume 7.4 um3 (7.4-10.4); Nucleated Red Blood Cells % 0.1; Platelet Count 262 10^3/ul (150-450); Red Blood Count 4.21 10^6/ul (4.00-5.40); Red Cell Distribution Width 14 % (10.5-15); White Blood Count 7.7 10^3/ul (3.5-10.8)
[2018-01-16 12:40] LABS: INR 0.87 (0.77-1.02)
[2018-01-16 12:55] LABS: EGFR Non-African American 126.7 (>60)
--- NOTE | 2018-01-16 13:02 | RAD ---
HISTORY: ams COMPARISONS: August 24, 2017 TECHNIQUE: Multiple contiguous axial CT scans were obtained of the head without intravenous contrast. FINDINGS: HEMORRHAGE/INFARCT: There is no hemorrhage or acute infarct. MASSES/SHIFT: There is no mass or shift. EXTRA-AXIAL SPACES: There are no extra-axial fluid collections. SULCI AND VENTRICLES: The sulci and ventricles are normal in size and position for the patient's stated age. CEREBRUM: There are no focal parenchymal abnormalities. BRAINSTEM: There are no focal parenchymal abnormalities. CEREBELLUM: There are no focal parenchymal abnormalities. VESSELS: The vessels are grossly normal. PARANASAL SINUSES: The paranasal sinuses are clear. ORBITS: The orbits are unremarkable. BONES AND SOFT TISSUE: No bone or soft tissue abnormalities are noted. OTHER: None IMPRESSION: NO ACUTE INTRACRANIAL PATHOLOGY.
[2018-01-16 13:35] LABS: Urine Appearance Clear; Urine Blood Negative (Negative); Urine Color Amber; Urine Ketones Negative (Negative); Urine Protein Negative (Negative); Urine Specific Gravity 1.021 (1.010-1.030); Urine Urobilinogen Negative (Negative)
[2018-01-16 15:48] VITALS: BP 127/59
== END 2018-01-16 15:48 | disposition home or self-care (01) ==
LOC: ED 11:16
DX: G40.909 Epilepsy, unspecified, not intractable, without status epilepticus (principal); I25.10 Atherosclerotic heart disease of native coronary artery without angina pectoris; I10 Essential (primary) hypertension; Z95.5 Presence of coronary angioplasty implant and graft; Z88.1 Allergy status to other antibiotic agents; Z88.0 Allergy status to penicillin; F17.210 Nicotine dependence, cigarettes, uncomplicated
CPT/HCPCS: 36415; 70450; 71045; 80053; 80156; 80299; 80307; 80320; 80329; 81003; 82140; 82375; 82550; 82553; 82803; 83605; 83690; 83735; 83880; 84443; 84484; 85025; 85379; 85610; 85730; 86140; 87040; 96360; 96361; 99283; G0480

== ENCOUNTER 2020-05-20 13:20 | Inpatient (IN) ==
[2020-05-20 15:15] LABS: ABS Basophils 0.1 10^3/ul (0-0.2); ABS Eosinophils 0.1 10^3/ul (0-0.6); ABS Lymphocytes 2.4 10^3/ul (1.0-4.8); ABS Monocytes 0.9 10^3/ul (0-0.8); ABS Neutrophils 8.5 10^3/ul (1.5-7.7); Eosinophil % 0.5 %; Hematocrit 38 % (42-52); Hemoglobin 12.2 g/dL (14.0-18.0); Lymphocyte % 20.4 %; Mean Corpuscular HGB Conc 32 g/dL (31-36); Mean Corpuscular Hemoglobin 28 pg (27-31); Mean Corpuscular Volume 86 fL (80-94); Mean Platelet Volume 7.7 fL (7.4-10.4); Platelet Count 342 10^3/uL (150-450); Red Blood Count 4.36 10^6 /uL (4.18-5.48); Red Cell Distribution Width 16 % (10-15)
[2020-05-20 15:23] LABS: Activated Partial Thrombo Time 33.4 seconds (26.0-38.0); INR 1.12 (0.82-1.09)
[2020-05-20 15:33] LABS: ALT 68 U/L (7-52); AST 44 U/L (13-39); Albumin 3.9 g/dL (3.2-5.2); Albumin/Globulin Ratio 1.4 (1-3); Alkaline Phosphatase 107 U/L (34-104); Anion Gap 7 mmol/L (2-11); BUN/Creatinine Ratio 12.1 (8-20); Blood Urea Nitrogen 11 mg/dL (6-24); C Reactive Protein 6.57 mg/L (<8.01); CO2 Carbon Dioxide 24 mmol/L (22-32); Calcium 9.2 mg/dL (8.6-10.3); Chloride 106 mmol/L (101-111); EGFR African American 101.2 (>60); EGFR Non-African American 83.6 (>60); Globulin 2.8 g/dL (2-4); Glucose 102 mg/dL (70-100); Magnesium 1.4 mg/dL (1.9-2.7); Sodium 137 mmol/L (135-145); Total Protein 6.7 g/dL (6.4-8.9)
[2020-05-20 15:57] LABS: Alcohol, S < 10 mg/dL (<10); Carbamazepine 8.5 mcg/mL (4.0-12.0)
[2020-05-20] MEDS ORDERED: Magnesium Sulfate IV 1GM/100ML 1 GM/100 ML BAG IV ONE (16:23)
[2020-05-20] MEDS ORDERED: Levofloxacin 750 MG IVPREMIX 750 MG/150 ML BAG IVPB ONE (16:28)
[2020-05-20] MEDS ORDERED: Aztreonam 2 GM in NS 0.9% 50 ML 50 ML IVPB ONE (16:28)
[2020-05-20] MEDS ORDERED: NS 0.9% 50 ML 50 ML ONE (16:53)
[2020-05-20] MEDS ORDERED: Thiamine IV 100 MG, Folic Acid 1 MG, Multiple Vitamin IV ADULT 10 ML in NS 0.9% 1000 ml... IVPB ONE (17:00)
[2020-05-20] MEDS ORDERED: LORazepam 2 mg VIAL 1 ml IV PUSH ONE (17:22)
[2020-05-20] MEDS ORDERED: Lorazepam PYXIS KEY PRN (17:22)
[2020-05-20] MEDS ORDERED: Lorazepam PYXIS KEY ONE (17:26)
[2020-05-20] MEDS ORDERED: Magnesium Sulfate 2 gm BAG 2 GM/50 ML BAG IVPB ONE (17:31)
[2020-05-20] MEDS ORDERED: Dextrose 50% Syringe 50 ml 25 GM/50 ML SYRINGE IV PUSH PRN (18:00)
[2020-05-20 18:32] LABS: Vitamin B12 408 pg/mL (180-914)
[2020-05-20] MEDS ORDERED: Albuterol HFA INHALER 8 gm MDI INH PRN (19:03)
[2020-05-20] MEDS: Heparin 5000 UNITS/ML 1 mL VIAL SUBCUT SCH (20:53)
[2020-05-21 05:43] LABS: ABS Eosinophils 0.1 10^3/ul (0-0.6); ABS Lymphocytes 2.8 10^3/ul (1.0-4.8); ABS Monocytes 1.2 10^3/ul (0-0.8); ABS Neutrophils 4.8 10^3/ul (1.5-7.7); Eosinophil % 0.9 %; Hematocrit 35 % (42-52); Hemoglobin 11.4 g/dL (14.0-18.0); Lymphocyte % 31.7 %; Mean Corpuscular HGB Conc 33 g/dL (31-36); Mean Corpuscular Hemoglobin 28 pg (27-31); Mean Corpuscular Volume 86 fL (80-94); Mean Platelet Volume 7.5 fL (7.4-10.4); Nucleated Red Blood Cells % 0.1; Platelet Count 315 10^3/uL (150-450); Red Blood Count 4.05 10^6 /uL (4.18-5.48); Red Cell Distribution Width 16 % (10-15); White Blood Count 8.9 10^3/uL (3.5-10.8)
[2020-05-21 06:04] LABS: Albumin 3.4 g/dL (3.2-5.2); Albumin/Globulin Ratio 1.2 (1-3); BUN/Creatinine Ratio 13.4 (8-20); Calcium 8.5 mg/dL (8.6-10.3); EGFR African American 114.1 (>60); EGFR Non-African American 94.3 (>60); Globulin 2.9 g/dL (2-4); Indirect Bilirubin 0.2 mg/dL (0.3-1.0); Potassium 3.6 mmol/L (3.5-5.0); Total Bilirubin 0.3 mg/dL (0.2-1.0); Total Protein 6.3 g/dL (6.4-8.9)
[2020-05-21] MEDS: Rosuvastatin 20 mg TAB (NF) PO SCH (08:50)
[2020-05-21] MEDS: Heparin 5000 UNITS/ML 1 mL VIAL SUBCUT SCH ×2 (08:51→19:44)
[2020-05-21 11:11] LABS: Magnesium 1.8 mg/dL (1.9-2.7)
[2020-05-21] MEDS: CMCS: Ranolazine 500 mg TAB (NF) PO SCH ×2 (11:55→19:43)
[2020-05-21] MEDS: DOXYcycline 100 MG in NS 0.9% 250 ml 250 ML IVPB SCH (16:29)
[2020-05-21 17:31] LABS: Urine Appearance Cloudy; Urine Bilirubin Negative (Negative); Urine Blood Negative (Negative); Urine Color Amber; Urine Glucose 3+(>=500 mg/dL) (Negative); Urine Ketones Trace (Negative); Urine Nitrite Negative (Negative); Urine Protein 1+(30 mg/dL) (Negative); Urine Specific Gravity 1.028 (1.010-1.030); Urine Urobilinogen Negative (Negative)
[2020-05-21 17:51] LABS: Urine Bacteria Absent (Absent); Urine Red Blood Cell Absent (Absent); Urine White Blood Cell 1+(6-10/hpf) (Absent)
[2020-05-21 17:56] LABS: Urine Benzodiazepine Screen Presumptive Positive (None Detect); Urine Cannabinoids Screen None Detected (None Detect); Urine Opiates Screen None Detected (None Detect)
[2020-05-22] MEDS: DOXYcycline 100 MG in NS 0.9% 250 ml 250 ML IVPB SCH (03:46)
[2020-05-22 06:11] LABS: ABS Basophils 0.1 10^3/ul (0-0.2); ABS Eosinophils 0.1 10^3/ul (0-0.6); ABS Lymphocytes 2.4 10^3/ul (1.0-4.8); ABS Monocytes 0.9 10^3/ul (0-0.8); ABS Neutrophils 5.1 10^3/ul (1.5-7.7); Eosinophil % 1.5 %; Hematocrit 35 % (42-52); Hemoglobin 11.4 g/dL (14.0-18.0); Lymphocyte % 28.1 %; Mean Corpuscular HGB Conc 32 g/dL (31-36); Mean Corpuscular Hemoglobin 28 pg (27-31); Mean Corpuscular Volume 86 fL (80-94); Platelet Count 307 10^3/uL (150-450); Red Blood Count 4.07 10^6 /uL (4.18-5.48); Red Cell Distribution Width 16 % (10-15); White Blood Count 8.5 10^3/uL (3.5-10.8)
[2020-05-22 06:28] LABS: BUN/Creatinine Ratio 15.9 (8-20); Calcium 8.5 mg/dL (8.6-10.3); EGFR African American 139.2 (>60); EGFR Non-African American 115.1 (>60); Magnesium 1.3 mg/dL (1.9-2.7); Potassium 3.8 mmol/L (3.5-5.0)
[2020-05-22] MEDS: CMCS: Ranolazine 500 mg TAB (NF) PO SCH ×2 (09:00→22:59)
[2020-05-22] MEDS: Rosuvastatin 20 mg TAB (NF) PO SCH (09:02)
[2020-05-22] MEDS: Heparin 5000 UNITS/ML 1 mL VIAL SUBCUT SCH ×2 (09:04→23:00)
[2020-05-22] MEDS ORDERED: Magnesium Sulf 4 GM/100 ML IV 4,000 MG/100 ML BAG IVPB ONE (09:21)
[2020-05-22 10:10] LABS: Carbamazepine 10.7 mcg/mL (4.0-12.0)
[2020-05-23] MEDS: Heparin 5000 UNITS/ML 1 mL VIAL SUBCUT SCH ×2 (10:01→22:24)
[2020-05-23] MEDS: Rosuvastatin 20 mg TAB (NF) PO SCH (10:03)
[2020-05-23] MEDS: CMCS: Ranolazine 500 mg TAB (NF) PO SCH ×2 (10:04→22:23)
[2020-05-23 10:56] LABS: Carbamazepine 11.3 mcg/mL (4.0-12.0); Magnesium 1.4 mg/dL (1.9-2.7)
[2020-05-23] MEDS ORDERED: Magnesium Sulfate 2 gm BAG 2 GM/50 ML BAG IVPB ONE (17:10)
[2020-05-24] MEDS ORDERED: Polyethylene Glycol 3350 17 GM PACKET PO PRN (08:57)
[2020-05-24] MEDS ORDERED: Senna TAB 8.6 mg TAB PO PRN (08:58)
[2020-05-24] MEDS: CMCS: Ranolazine 500 mg TAB (NF) PO SCH ×2 (09:10→20:32)
[2020-05-24] MEDS: Rosuvastatin 20 mg TAB (NF) PO SCH (09:11)
[2020-05-24] MEDS: Enoxaparin 40 MG/0.4 ML SYR SUBCUT SCH (09:30)
[2020-05-24 09:58] LABS: BUN/Creatinine Ratio 15.1 (8-20); Calcium 8.9 mg/dL (8.6-10.3); EGFR African American 130.5 (>60); EGFR Non-African American 107.8 (>60); Magnesium 1.5 mg/dL (1.9-2.7); Potassium 3.8 mmol/L (3.5-5.0)
[2020-05-24 11:22] LABS: Lacosamide 7.4 mcg/mL (1.0 - 10.0)
[2020-05-24] MEDS ORDERED: Magnesium Sulfate IV 3 GM in NS 0.9% 100 ml BAG 100 ML IVPB ONE (14:00)
[2020-05-25 06:01] LABS: Calcium 8.6 mg/dL (8.6-10.3); Magnesium 1.6 mg/dL (1.9-2.7)
[2020-05-25 06:07] LABS: BUN/Creatinine Ratio 17.9 (8-20); EGFR African American 120.9 (>60); EGFR Non-African American 99.9 (>60)
[2020-05-25] MEDS ORDERED: Magnesium Sulfate IV 3 GM in NS 0.9% 100 ml BAG 100 ML IVPB ONE (08:00)
[2020-05-25] MEDS: CMCS: Ranolazine 500 mg TAB (NF) PO SCH ×2 (10:28→21:26)
[2020-05-25] MEDS: CMC:Rosuvastatin 20 mg TAB (NF) PO SCH (10:31)
[2020-05-25] MEDS: Enoxaparin 40 MG/0.4 ML SYR SUBCUT SCH (10:41)
[2020-05-26] MEDS: Enoxaparin 40 MG/0.4 ML SYR SUBCUT SCH (08:21)
[2020-05-26] MEDS: CMCS: Ranolazine 500 mg TAB (NF) PO SCH (08:25)
[2020-05-26] MEDS: CMC:Rosuvastatin 20 mg TAB (NF) PO SCH (08:26)
[2020-05-26 11:24] VITALS: BP 128/58
== END 2020-05-26 14:10 | disposition home or self-care (01) | DRG 101 ==
LOC: ED 13:20 → MED 17:27 → SSU 05-21 16:46
PROVIDERS: ADMIT Student in an Organized Health Care Education/Training Program; ATTEND Hospitalist